=== PATIENT | female | born 1930 | race Caucasian/White ===

== ENCOUNTER 2018-08-01 17:51 | Inpatient (IN) | payer BC, OTHER ==
[2018-08-01 18:14] VITALS: BMI 24.5
--- NOTE | 2018-08-01 18:42 | PDOC ---
History of Present Illness - General Chief Complaint: Wound Stated Complaint: BED SORES Time Seen by Provider: 08/01/18 18:33 - History of Present Illness Initial Comments: 08/01/18 18:42 HTN, HLD, Alzheimer's Dementia who presents for evaluation of bed sores noted to R hip that have been chronic in nature. Patient has been taking cephalexin orally however has been refusing pills for the past 2 days with increased agitation. Patient was undergoing care at health system - instructed to return if symptoms continued or there were any problems. Family attempted to return patient to hospital via EMS however was brought here instead by ambulance. Family reports she had been walking until Friday. Has refused PO for the last 2 days. Family denies any other symptoms at this time. Past History - Past Medical History Allergies/Adverse Reactions: Allergies Allergy/AdvReac Type Severity Reaction Status Date / Time warfarin sodium AdvReac Verified 08/01/18 18:07 [From Coumadin] Home Medications: Ambulatory Orders Cephalexin [Keflex] 500 mg PO QID 08/01/18 Memantine HCl 2 mg PO BID 08/01/18 Sulfamethoxazole/Trimethoprim [Sulfamethoxazole-Tmp Ds Tablet] 1 each PO BID 03/11 COPD: No Dementia: Yes HTN: Yes Hypercholesterolemia: Yes - Surgical History Orthopedic Surgery: Yes (left knee replacemet 2006) - Suicide/Smoking/Psychosocial Hx Smoking Status: No Smoking History: Unknown if ever smoked Have you smoked in the past 12 months: No Number of Cigarettes Smoked Daily: 0 Cigars Per Day: 0 Information on smoking cessation initiated: No Hx Alcohol Use: No Drug/Substance Use Hx: No Substance Use Type: None Review of Systems - Review of Systems Comments:: 08/01/18 19:05 Unable to obtain further. *Physical Exam - Vital Signs Last Vital Signs Temp Pulse Resp BP Pulse Ox 97 F L 72 20 156/89 98 08/01/18 18:07 08/01/18 18:07 08/01/18 18:07 08/01/18 18:07 08/01/18 18:07 - Physical Exam Comments: 08/01/18 19:06 GENERAL: +Patient altered c/w advanced dementia. In no acute distress HEAD: No signs of trauma, normocephalic, atraumatic EYES: PERRLA, EOMI, sclera anicteric, conjunctiva clear ENT: Auricles normal inspection, hearing grossly normal, nares patent, oropharynx clear without exudates. Moist mucosa NECK: Normal ROM, supple, no lymphadenopathy, JVD, or masses LUNGS: No distress, speaks full sentences, clear to auscultation bilaterally HEART: Regular rate and rhythm, normal S1 and S2, no murmurs, rubs or gallops, peripheral pulses normal and equal bilaterally. ABDOMEN: +Distended. Soft, nontender, normoactive bowel sounds. No guarding, no rebound. No masses EXTREMITIES: +Approx. 4-5 cm diameter bed sore noted to R hip over bony prominence with mild surrounding erythema. Beginning of another bed sore noted to R lateral ankle bony prominence. Very beginnings of stage 1 ulcer noted to L hip bony prominence in same location. Otherwise normal range of motion, no edema. No clubbing or cyanosis. NEUROLOGICAL: +Unable to assess further. SKIN: +R sided skin breakdown as described. Moderate Sedation - Procedure Monitoring Vital Signs: Procedure Monitoring Vital Signs Temperature 97 F L 08/01/18 18:07 Pulse Rate 72 08/01/18 18:07 Respiratory Rate 20 08/01/18 18:07 Blood Pressure 156/89 08/01/18 18:07 O2 Sat by Pulse Oximetry (%) 98 08/01/18 18:07 ED Treatment Course - LABORATORY CBC & Chemistry Diagram: 08/01/18 19:34 08/01/18 20:45 Medical Decision Making - Medical Decision Making 08/01/18 18:41 Ms. Cartwright is an 88 yo female w/ pmh as described who presents for evaluation of bed sore and refusal to tolerate PO over the last several days. Discussed patient with covering provider for PCP (Dr. June) who supports history provided by patient family - PCP does not have admitting privileges at [facility] and is unable to assist in this manner. Patient ineligible for ER to ER transfer. Workup started for r/o bacteremia and patient placed on IV ABX. 08/01/18 21:52 Patient admitted to hospitalist for further care. *DC/Admit/Observation/Transfer Diagnosis at time of Disposition: Bed sore Qualifiers: Pressure injury location: unspecified location Pressure injury stage: unspecified pressure injury stage Qualified Code(s): L89.90 - Pressure ulcer of unspecified site, unspecified stage Failure to thrive Qualifiers: Failure to thrive age range: in adult Qualified Code(s): R62.7 - Adult failure to thrive Alzheimer disease Qualifiers: Alzheimer's disease onset: unspecified onset Dementia behavioral disturbance: with behavioral disturbance Qualified Code(s): G30.9 - Alzheimer's disease, unspecified - Discharge Dispostion Decision to Admit order: Yes - Referrals Referrals: Nadeem Barnes [Primary Care Provider] - - Patient Instructions - Post Discharge Activity
--- NOTE | 2018-08-01 19:03 | PDOC ---
Attending Attestation - Resident Resident Name: Joni Joyner - ED Attending Attestation I have performed the following: I have examined & evaluated the patient, The case was reviewed & discussed with the resident, I agree w/resident's findings & plan, Exceptions are as noted - HPI HPI: 08/01/18 19:08 The patient is a 88 year old female, with a significant PMH of HTN, HLD, Alzheimer's, and DVT who presents to the emergency department via EMS with a bed sore on her R hip, for 1 week that started after a bout with a GI virus that left her weaker and spending a fair amount of time bedbound. As per patient s daughter the patient went to the ED at [facility] last week and was given a course of abx, but pt refused to take it the past few days, and had not had anything PO the past 2 days. The patient daughters states the patient had a full work-up a week prior at [facility] including echo, ct head , dvt r/o of LUE and was dc with abx, and was instructed to return if the wound symptoms worsened or if for any other concerns. The patient denies chest pain, shortness of breath, headache and dizziness. Denies fever, chills, nausea, vomit, diarrhea and constipation. Denies dysuria, frequency, urgency and hematuria. Allergies: warfarin sodium PCP: Dr. Barnes ([facility]) Neurologist: Dr. Martinez - Physicial Exam PE: 08/01/18 19:02 GENERAL: The patient is awake, confused, babbeling HEAD: Normocephalic, atraumatic. EYES: extraocular movements intact, sclera anicteric, conjunctiva clear. ENT: Normal voice, Moist mucous membranes. NECK: Normal range of motion, supple LUNGS: Breath sounds equal, clear to auscultation bilaterally. No wheezes, no rhonchi, no rales. HEART: Regular rate and rhythm, normal S1 and S2 without murmur, rub or gallop. ABDOMEN: Soft, nontender, normoactive bowel sounds. No guarding, no rebound. . No CVA tenderness EXTREMITIES: Normal range of motion, NEUROLOGICAL: No facial assymetry, Normal speech, PSYCH: Normal mood, normal affect. SKIN: unstageable R hip decubitus ulcer (eschar over bony prominence, surrounding erythema), no fluctuance, slightly warm to touch, stage 1 decubitus ulcer on latearl mallelus of R hip - Medical Decision Making 08/01/18 19:06 +decubitus ulcer, unstageable, very minimal surrounding erythema without induration, warmth FTT will ck basic labs, cultures will likely need admission for abx, rehydration, PT eval and possible SAH as pt is currently nonambulatory pt family requesting to go to [facility]. 08/01/18 22:20 labs reviewed unremarkble Heart Score/ECG Review - ECG Impressions Comment:: 08/01/18 22:39 Twelve-lead EKG was performed and reviewed by me. There is normal sinus rhythm with a normal rate. rate of 76 LAVB 1st degree AV block abnormal R wave progression
[2018-08-01] MEDS ORDERED: LORazepam 2 MG/ML SDV VIAL ONE (19:50)
[2018-08-01 19:53] LABS: BASO % 0.4 % (0-2.0); EOS % 0.5 % (0-4.5); HEMATOCRIT 46.9 % (32.4-45.2); HEMOGLOBIN 15.9 GM/dL (10.7-15.3); LYMPH % 10.4 % (8-40); MCH 32.1 pg (25.7-33.7); MCHC 33.9 g/dl (32.0-36.0); MEAN CELL VOLUME 94.6 fl (80-96); MEAN PLT VOLUME 10.5 fl (7.5-11.1); MONO % 10.6 % (3.8-10.2); NEUT % 78.1 % (42.8-82.8); PLATELET COUNT 187 K/MM3 (134-434); RBC 4.96 M/mm3 (3.60-5.2); RDW 15.4 % (11.6-15.6); WHITE BLOOD COUNT 8.6 K/mm3 (4.0-10.0)
[2018-08-01] MEDS ORDERED: CEFTRIAXONE 1,000 MG in DEXTROSE 5%-WATER - 50 ML IVPB ONE (20:03)
[2018-08-01 20:39] LABS: URINE APPEARANCE CLOUDY; URINE BILIRUBIN NEGATIVE (<2.0 mg/dL); URINE COLOR YELLOW; URINE GLUCOSE (UA) NEGATIVE (NEGATIVE); URINE KETONE TRACE (NEGATIVE); URINE LEUK ESTERASE NEGATIVE (NEGATIVE); URINE NITRITE NEGATIVE (NEGATIVE); URINE PROTEIN NEGATIVE (NEGATIVE)
[2018-08-01] MEDS ORDERED: CEFTRIAXONE 1 GM/50 ML BAG ONE (21:06)
[2018-08-01 21:26] LABS: ALBUMIN 2.7 g/dl (3.4-5.0); ALK PHOS 71 U/L (45-117); ANION GAP 6 MMOL/L (8-16); BILIRUBIN,TOTAL 0.7 mg/dL (0.2-1); BLOOD UREA NITROGEN 11 mg/dL (7-18); CHLORIDE 104 mmol/L (98-107); CO2 30 mmol/L (21-32); CREATININE 0.6 mg/dL (0.55-1.3); GLUCOSE,RANDOM 129 mg/dL (74-106); POTASSIUM 3.9 mmol/L (3.5-5.1); SGOT/AST 27 U/L (15-37); SGPT/ALT 33 U/L (13-61); SODIUM 140 mmol/L (136-145); TOT PROT 5.4 g/dl (6.4-8.2)
--- NOTE | 2018-08-01 22:42 | HP ---
CHIEF COMPLAINT: R hip pressure ulcer PCP: Dr. Nadeem Barnes HISTORY OF PRESENT ILLNESS: 88F w/ pmhx of HTN, HLD, Alzheimer's dementia presented to the hospital for evaluation of R hip pressure ulcer as well as poor PO intake. Pt's family present at bedside to give history as pt is unable to verbally communicate due to dementia. Per family, pt was recently seen at [facility] about 1 week ago for evaluation of her R hip pressure ulcer. Multiple imaging studies were done that did not show any acute concern for inpatient admission so pt was subsequently discharged on Keflex 500 BID and Bactrim BID. Pressure ulcer began on the R hip, but due to pain, pt has been layin on the L side causing redness to the L hip. Since discharge from [facility] 1 week ago, pt had not been compliant with taking the antibiotics as she refuses to take pills. She was also seen by visiting home physician this past who told the family that pt's declining functional status may likely be due to progression of her dementia. At baseline, pt is usually unable to communicate. She is able to eat soft foods and walk with assistance, however with unstable gait. Since 2 days ago, she had been bedbound with poor PO intake causing concern from the family regarding pt's functional status. ER course was notable for: (1) Afebrile, WBC wnl, vitals stable (2) Ceftriaxone 1gm IV given, Ativan 0.5 mg IVP given for agitation (3) Recent Travel: Denies PAST MEDICAL HISTORY: HTN, HLD, Alzheimer's dementia PAST SURGICAL HISTORY: L knee replacement Hysterectomy Social History: Smoking: Denies Alcohol: Denies Drugs: Denies Family History: Sister- from colorectal cancer Allergies warfarin sodium [From Coumadin] Adverse Reaction (Verified 08/01/18 18:07) patient took med 20 yrs ago and stated she didnt like the way it made her feel. HOME MEDICATIONS: Home Medications Medication Instructions Recorded Cephalexin [Keflex] 500 mg PO QID 08/01/18 Memantine HCl 2 mg PO BID 08/01/18 Sulfamethoxazole/Trimethoprim 1 each PO BID 08/01/18 [Sulfamethoxazole-Tmp Ds Tablet] REVIEW OF SYSTEMS Unable to obtain as pt is unable to verbally communicate due to underlying dementia. PHYSICAL EXAMINATION Vital Signs - 24 hr 08/01/18 18:07 Temperature 97 F L Pulse Rate 72 Respiratory 20 Rate Blood Pressure 156/89 O2 Sat by Pulse 98 Oximetry (%) GENERAL: Moaning, in and out of sleep. Eyes closed when called by name. HEENT: AT/NC. Dry mucus membranes. LUNGS: CTA B/L. No wheezes/crackles heard. HEART: RRR. Normal S1, S2. No murmurs noted. ABDOMEN: Soft, mildly distended. Hypertympanic upon auscultation in all 4Q's. Tender to palpation. No visible masses or ecchymoses. MUSCULOSKELETAL: Normal range of motion at all joints. No bony deformities or tenderness. No CVA tenderness. UPPER EXTREMITIES: 2+ pulses, warm, well-perfused. No cyanosis. No clubbing. No peripheral edema. LOWER EXTREMITIES: 2+ dorsalis pulses, warm, well-perfused. No calf tenderness. No peripheral edema. NEUROLOGICAL: Unable to assess. SKIN: 2 inch in diameter pressure ulcer on R trochanteric region, with eschar noted, non-draining, erythematous and warm surrounding skin. Redness noted throughout L trochanteric region. Petechia noted on dorsum of b/l feet. Laboratory Results - last 24 hr 08/01/18 08/01/18 08/01/18 19:34 19:34 19:34 WBC 8.6 RBC 4.96 Hgb 15.9 H Hct 46.9 H MCV 94.6 MCH 32.1 MCHC 33.9 RDW 15.4 Plt Count 187 MPV 10.5 D Absolute Neuts (auto) 6.7 Neutrophils % 78.1 Lymphocytes % 10.4 D Monocytes % 10.6 H Eosinophils % 0.5 D Basophils % 0.4 Nucleated RBC % 0 Sodium Cancelled Potassium Cancelled Chloride Cancelled Carbon Dioxide Cancelled Anion Gap Cancelled BUN Cancelled Creatinine Cancelled Creat Clearance w eGFR Cancelled Random Glucose Cancelled Calcium Cancelled Total Bilirubin Cancelled AST Cancelled ALT Cancelled Alkaline Phosphatase Cancelled Total Protein Cancelled Albumin Cancelled Urine Color Yellow Urine Appearance Cloudy Urine pH 7.0 Ur Specific [place] 1.015 Urine Protein Negative Urine Glucose (UA) Negative Urine Ketones Trace H Urine Blood Negative Urine Nitrite Negative Urine Bilirubin Negative Urine Urobilinogen 2.0 H Ur Leukocyte Esterase Negative 08/01/18 20:45 WBC RBC Hgb Hct MCV MCH MCHC RDW Plt Count MPV Absolute Neuts (auto) Neutrophils % Lymphocytes % Monocytes % Eosinophils % Basophils % Nucleated RBC % Sodium 140 Potassium 3.9 Chloride 104 Carbon Dioxide 30 Anion Gap 6 L BUN 11 Creatinine 0.6 Creat Clearance w eGFR > 60 Random Glucose 129 H Calcium 9.0 Total Bilirubin 0.7 AST 27 ALT 33 Alkaline Phosphatase 71 Total Protein 5.4 L Albumin 2.7 L Urine Color Urine Appearance Urine pH Ur Specific [place] Urine Protein Urine Glucose (UA) Urine Ketones Urine Blood Urine Nitrite Urine Bilirubin Urine Urobilinogen Ur Leukocyte Esterase ASSESSMENT/PLAN: 88F w/ pmhx of HTN, HLD, Alzheimer's dementia presented to the hospital for evaluation of R hip pressure ulcer as well as poor PO intake. #R pressure wound ulcer -Pt was previously taking PO Keflex (started about 1 week ago); Ceftriaxone 1 gm given in ED today -Wound care consult (Dr. Delgado) -ESR/CRP, if high, will order triple bone scan to assess for possible infection in L knee hardware from knee replacement sx and give IV abx #Abdominal distension; Pt has abd tenderness on exam. -CTAP w/o contrast to r/o abd pathology/infection. Initial read ([facility]) noted large bowel obstruction vs. possible colonic ileus. -Surgery consulted, made aware. follow up recs. -NPO/LR @ 70 #Failure to Thrive; likely 2/2 progression of Alzheimer's dementia -Nutrition consult -PT -Swallow eval -Prealbumin ordered #Alzheimer's Dementia Cont home med: Memantine liquid formulation 5 mL AM/5 mL HS #HTN; Family states pt was taken off anti-hypertensive meds about a year ago due to stable BP by PCP #HLD; Family states pt was taken off chol meds about a year ago by PCP #Prophylaxis -Lovenox 40 SQ #FEN -LR @ 50 -recheck lytes in AM -Nutrition consult dispo -Pt's family requests DNR/DNI. Form to be filled out and signed. Visit type - Emergency Visit Emergency Visit: Yes ED Registration Date: 08/01/18 Care time: The patient presented to the Emergency Department on the above date and was hospitalized for further evaluation of their emergent condition. - New Patient This patient is new to me today: Yes Date on this admission: 08/02/18 - Critical Care Critical Care patient: No
[2018-08-01] MEDS ORDERED: LACTATED RINGERS SOLUTION 1,000 ML IV SCH ×2 (22:45→23:28)
--- NOTE | 2018-08-02 00:17 | PN ---
Teaching Attending Note Name of Resident: Kym Carbajal ATTENDING PHYSICIAN STATEMENT I saw and evaluated the patient. I reviewed the resident's note and discussed the case with the resident. I agree with the resident's findings and plan as documented. SUBJECTIVE: Seen and examined; please refer to resident documentation for further historical information. Briefly, this is a 88 y/o female with a PMH as documented who presents to the Er from home. She has multiple complaints; the primary concern is a bed sore on her R-hip that has been worsening for the past week. She has been mostly bedbound, not eating, and barely ambulating since her DC from [facility] about 1 week ago. Since then she has been somewhat agitated (which has happened in the past with her Alzheimer's), and with the aforementioned presentation. She has not been eating well or drinking though she did regain some lucidity in terms of communicativeness on . She is sedated when we saw her as she was given ativan but she indicates abdominal pain (generalized) and her belly is distended and tympanic. She has been on keflex for the bed sore but has not been taking it. She cannot provide a history due to her dementia as well as having just recieved ativan. 10 sys ROS done and negative aside from HPI PMH, PSH, Social, and Family hx reviewed Medication reconciliaiton pending OBJECTIVE: VS, labs, imaging reviewed NAD, lethargic 2/2 ativan but proteting airway, etc., resting comfortably in bed RRR s1/2 no mgr Lungs CTAB, w/ sym exp Tender to palpation, distended, no guarding, minimal BS R-hip with unstagable decub 4x3 with central eschar, irregularly shaped. No drainage, no matt cellulitis CT abdomen shows large bowel obstruction vs. colonic ileus CXR reviewed; no matt acute findings Prior records pending Labs without leukocytosis; ESR and CRP pending ASSESSMENT AND PLAN: Patient presents with a bed sore and large bowel obstruction; consulting wound care and surgery. Checking ESR/CRP; if elevated will start empiric tx and obtain bone scan to r/o any osteomyelitis. 1) Decubitus Ulcer, unstagable, r/o osteomyelitis 2) Large Bowel obstruction vs. colonic ileus 3) Dementia with agitation 4) Alzheimer's (on memantine) 5) HTN (off meds) 6) HLD (off meds) 7) Failure to thrive Overall, the plan regarding the decubitus is to consult wound care and to check ESR/CRP. If these are elevated we will obtain bone scan to r/o osteomyelitis as the ulcer was unstagable. Defer wound care recs to their service. If these are elevated we will begin empiric abx; though the area is inflamed due to it being a bedsore and her lying on it nearly 24/7, it does not appear frankly infected. In terms of the large bowel obstruction, the overall plan is to monitor the patient for BM, keep NPO, gently hydrate, consult surgery. May be colonic ileus. No s/s perf/sepsis. Monitor and deferring further management to sgy. In terms of the failure to thrive and dementia, we will continue her memantine and consult nutrition. Checking prealbumin. Confirmed with HCP that she is DNR/I
[2018-08-02] MEDS ORDERED: LACTATED RINGERS SOLUTION 1,000 ML IV SCH (01:53)
[2018-08-02] MEDS ORDERED: morphine CARPU-JECT 2 MG/1 ML DISP.SYRIN IVPUSH ONE (02:06)
[2018-08-02] MEDS ORDERED: MORPHINE SULFATE 2 MG/ML VIAL ONE (02:16)
[2018-08-02 06:12] LABS: PREALBUMIN 13.2 mg/dl (20-40)
[2018-08-02 09:13] LABS: ALBUMIN 2.5 g/dl (3.4-5.0); ALK PHOS 74 U/L (45-117); ANION GAP 4 MMOL/L (8-16); BASO % 0.4 % (0-2.0); BILIRUBIN,TOTAL 0.7 mg/dL (0.2-1); BLOOD UREA NITROGEN 12 mg/dL (7-18); CALCIUM 8.5 mg/dL (8.5-10.1); CHLORIDE 104 mmol/L (98-107); CO2 31 mmol/L (21-32); CREATININE 0.5 mg/dL (0.55-1.3); EOS % 0.5 % (0-4.5); GLUCOSE,RANDOM 101 mg/dL (74-106); HEMATOCRIT 46.2 % (32.4-45.2); HEMOGLOBIN 15.6 GM/dL (10.7-15.3); LYMPH % 8.8 % (8-40); MCH 31.6 pg (25.7-33.7); MCHC 33.7 g/dl (32.0-36.0); MEAN CELL VOLUME 93.6 fl (80-96); MEAN PLT VOLUME 10.4 fl (7.5-11.1); MONO % 11.1 % (3.8-10.2); NEUT % 79.2 % (42.8-82.8); PLATELET COUNT 157 K/MM3 (134-434); POTASSIUM 4.2 mmol/L (3.5-5.1); PREALBUMIN 12.6 mg/dl (20-40); RBC 4.94 M/mm3 (3.60-5.2); RDW 15.5 % (11.6-15.6); SGOT/AST 27 U/L (15-37); SGPT/ALT 31 U/L (13-61); SODIUM 138 mmol/L (136-145); TOT PROT 5.2 g/dl (6.4-8.2); WHITE BLOOD COUNT 9.5 K/mm3 (4.0-10.0)
--- NOTE | 2018-08-02 09:27 | EKG ---
Test Reason : Blood Pressure : / mmHG Vent. Rate : 076 BPM Atrial Rate : 076 BPM P-R Int : 296 ms QRS Dur : 088 ms QT Int : 382 ms P-R-T Axes : 043 -57 -64 degrees QTc Int : 429 ms SINUS RHYTHM WITH 1ST DEGREE A-V BLOCK LEFT ANTERIOR FASCICULAR BLOCK MODERATE VOLTAGE CRITERIA FOR LVH, MAY BE NORMAL VARIANT CANNOT RULE OUT SEPTAL INFARCT , AGE UNDETERMINED ABNORMAL ECG Confirmed by Fede Real MD ([id number]) on 08/02/2018 9:27:21 AM Referred By: Confirmed By:Fede Real MD
[2018-08-02] MEDS: MEMANTINE HCL 5 MG TABLET (UD) PO SCH ×2 (11:08→23:42)
[2018-08-02] MEDS: ENOXAPARIN NA (PORCINE) 40 MG/0.4 ML DISP.SYRIN SQ SCH (11:08)
[2018-08-02] MEDS ORDERED: BISACODYL 10 MG SUPP.RECT RC ONE ×2 (12:59→14:02)
[2018-08-02] MEDS ORDERED: LACTULOSE 20 GM/30 ML UDC (FOR ORAL USE ONLY) PO ONE ×2 (12:59→18:00)
--- NOTE | 2018-08-02 13:10 | PN ---
Progress Note (short form) - Note Progress Note: Subjective: unable to obtain any hx due to dementia. No events per RN. No BMs in ER Objective: Vital Signs: Last Vital Signs Temp Pulse Resp BP Pulse Ox 98.0 F 82 18 159/81 97 08/02/18 10:57 08/02/18 10:57 08/02/18 10:57 08/02/18 10:57 08/02/18 10:57 Laboratory Results - last 24 hr 08/01/18 08/01/18 08/01/18 19:34 19:34 19:34 WBC 8.6 RBC 4.96 Hgb 15.9 H Hct 46.9 H MCV 94.6 MCH 32.1 MCHC 33.9 RDW 15.4 Plt Count 187 MPV 10.5 D Absolute Neuts (auto) 6.7 Neutrophils % 78.1 Lymphocytes % 10.4 D Monocytes % 10.6 H Eosinophils % 0.5 D Basophils % 0.4 Nucleated RBC % 0 ESR Sodium Cancelled Potassium Cancelled Chloride Cancelled Carbon Dioxide Cancelled Anion Gap Cancelled BUN Cancelled Creatinine Cancelled Creat Clearance w eGFR Cancelled Random Glucose Cancelled Lactic Acid Calcium Cancelled Total Bilirubin Cancelled AST Cancelled ALT Cancelled Alkaline Phosphatase Cancelled C-Reactive Protein Total Protein Cancelled Albumin Cancelled Prealbumin Urine Color Yellow Urine Appearance Cloudy Urine pH 7.0 Ur Specific [place] 1.015 Urine Protein Negative Urine Glucose (UA) Negative Urine Ketones Trace H Urine Blood Negative Urine Nitrite Negative Urine Bilirubin Negative Urine Urobilinogen 2.0 H Ur Leukocyte Esterase Negative 08/01/18 08/02/18 08/02/18 20:45 08:20 08:20 WBC RBC Hgb Hct MCV MCH MCHC RDW Plt Count MPV Absolute Neuts (auto) Neutrophils % Lymphocytes % Monocytes % Eosinophils % Basophils % Nucleated RBC % ESR Cancelled Sodium 140 Potassium 3.9 Chloride 104 Carbon Dioxide 30 Anion Gap 6 L BUN 11 Creatinine 0.6 Creat Clearance w eGFR > 60 Random Glucose 129 H Lactic Acid Calcium 9.0 Total Bilirubin 0.7 AST 27 ALT 33 Alkaline Phosphatase 71 C-Reactive Protein 0.9 H Total Protein 5.4 L Albumin 2.7 L Prealbumin 13.2 L Cancelled Urine Color Urine Appearance Urine pH Ur Specific [place] Urine Protein Urine Glucose (UA) Urine Ketones Urine Blood Urine Nitrite Urine Bilirubin Urine Urobilinogen Ur Leukocyte Esterase 08/02/18 08/02/18 08/02/18 08:20 08:20 10:31 WBC 9.5 RBC 4.94 Hgb 15.6 H Hct 46.2 H MCV 93.6 MCH 31.6 MCHC 33.7 RDW 15.5 Plt Count 157 MPV 10.4 Absolute Neuts (auto) 7.5 Neutrophils % 79.2 Lymphocytes % 8.8 Monocytes % 11.1 H Eosinophils % 0.5 Basophils % 0.4 Nucleated RBC % 0 ESR Sodium 138 Potassium 4.2 Chloride 104 Carbon Dioxide 31 Anion Gap 4 L BUN 12 Creatinine 0.5 L Creat Clearance w eGFR > 60 Random Glucose 101 Lactic Acid 1.3 Calcium 8.5 Total Bilirubin 0.7 AST 27 ALT 31 Alkaline Phosphatase 74 C-Reactive Protein 1.6 H Total Protein 5.2 L Albumin 2.5 L Prealbumin 12.6 L Urine Color Urine Appearance Urine pH Ur Specific [place] Urine Protein Urine Glucose (UA) Urine Ketones Urine Blood Urine Nitrite Urine Bilirubin Urine Urobilinogen Ur Leukocyte Esterase 08/02/18 10:31 WBC RBC Hgb Hct MCV MCH MCHC RDW Plt Count MPV Absolute Neuts (auto) Neutrophils % Lymphocytes % Monocytes % Eosinophils % Basophils % Nucleated RBC % ESR 2 Sodium Potassium Chloride Carbon Dioxide Anion Gap BUN Creatinine Creat Clearance w eGFR Random Glucose Lactic Acid Calcium Total Bilirubin AST ALT Alkaline Phosphatase C-Reactive Protein Total Protein Albumin Prealbumin Urine Color Urine Appearance Urine pH Ur Specific [place] Urine Protein Urine Glucose (UA) Urine Ketones Urine Blood Urine Nitrite Urine Bilirubin Urine Urobilinogen Ur Leukocyte Esterase Imaging: CT scan image and prelim report reviewed. Physical Exam: NAd , awake, alert, not cooperative , mumbles dry MM. No facial droop. CV: RRR, no MRG Lungs: CTAB Abd: distended, tympanic , tender in all quadrants , absent BS. Skin: R posterior hisp unstagable ulcer ,about 5x5 cm , and eschar in middle with slightl surrounding erythema, no increased warmth Rectal: external hemorrhoids. rectal vault with liquid stool. No masses or hard stool felt. after withdrawing examiner's finger , liquid green stool came out of rectum. Assessment/Plan: Unfortunate 88 y/o lady with h/o Dementia, HTN, HLp, who comes form home with poor po intake, and for evaluation of R posterior hip. She was found to have constipation with severe colonic distention . 1- Large bowel obstruction: due to fecal impaction. CT image and prelim report reviewed, severe silation of colon. No lactic acid elevation or signs of perforation or fever/leukcocytosis. Rectal exam with lliquid stool in vault and stool mass could not be reached for manual disimpaction. - start with supppositories, miralax and lactulose - awaiting surgical eval. - if safe by surgery, can give enemas - IVF . - NPO except for meds 2- Volume depletion : due to poor po intake - change IVF to D5 1/ NS - follow HB and BUN/cr 3- R posterior decub : doubt any infection to ulcer, but will ask Dr. Chen advise. CRP noted. will obtain records from [facility] tomorrow , regarding imaging and management hold off any Abx 4- H/o HTN: was taken off her BP meds a year ago. monitor 5- DVT PX Visit type - Emergency Visit Emergency Visit: Yes ED Registration Date: 08/01/18 Care time: The patient presented to the Emergency Department on the above date and was hospitalized for further evaluation of their emergent condition. - New Patient This patient is new to me today: Yes Date on this admission: 08/02/18 - Critical Care Critical Care patient: No
[2018-08-02] MEDS ORDERED: LACTULOSE 20 GM/30 ML UDC (FOR ORAL USE ONLY) ONE (14:02)
[2018-08-02] MEDS: DEXTROSE 5%-0.45% SALINE 1,000 ML IV SCH (14:08)
--- NOTE | 2018-08-02 14:09 | CON.ID ---
Consult Consult Specialty:: infectious diseases Referred by:: Reason for Consultation:: r/o rt hip infection - History of Present Illness History of Present Illness: patient unable to give history because of dementia history obtained from the charts 88F w/ pmhx of HTN, HLD, Alzheimer's dementia presented to the hospital for evaluation of R hip pressure ulcer as well as poor PO intake. pt was recently seen at [facility] about 1 week ago for evaluation of her R hip pressure ulcer. Multiple imaging studies were done that did not show any acute concern for inpatient admission so pt was subsequently discharged on Keflex 500 BID and Bactrim BID. Pressure ulcer began on the R hip, but due to pain, pt has been layin on the L side causing redness to the L hip. Since discharge from [facility] 1 week ago, pt had not been compliant with taking the antibiotics as she refuses to take pills. She was also seen by visiting home physician this past who told the family that pt's declining functional status may likely be due to progression of her dementia. At baseline, pt is usually unable to communicate. - History Source History Provided By: Medical Record Limitations to Obtaining History: Clinical Condition - Alcohol/Substance Use Hx Alcohol Use: No - Smoking History Smoking history: Unknown if ever smoked Have you smoked in the past 12 months: No Aproximately how many cigarettes per day: 0 Home Medications - Allergies Allergies/Adverse Reactions: Allergies Allergy/AdvReac Type Severity Reaction Status Date / Time warfarin sodium AdvReac Verified 08/01/18 18:07 [From Coumadin] - Home Medications Home Medications: Ambulatory Orders Cephalexin [Keflex] 500 mg PO QID 08/01/18 Memantine HCl 5 mg PO BID 08/01/18 Sulfamethoxazole/Trimethoprim [Sulfamethoxazole-Tmp Ds Tablet] 1 each PO BID 03/11 Aspirin [Adult Aspirin] 81 mg PO DAILY 08/02/18 Loperamide HCl Liquid [Imodium Liquid -] 1 mg PO DAILY 08/02/18 Saccharomyces Boulardii [Florastor] 250 mg PO DAILY 08/02/18 Review of Systems Unable to obtain ROS, reason: unable to obtain Physical Exam Vital Signs: Vital Signs Temperature 98.0 F 08/02/18 10:57 Pulse Rate 82 08/02/18 10:57 Respiratory Rate 18 02/10/19 10:57 Blood Pressure 159/81 02/10/19 10:57 O2 Sat by Pulse Oximetry (%) 97 08/02/18 10:57 Constitutional: Yes: Moderate Distress, Thin Eyes: Yes: Conjunctiva Clear Cardiovascular: Yes: Regular Rate and Rhythm Respiratory: Yes: Regular, CTA Bilaterally Gastrointestinal: Yes: Soft, Hypoactive Bowel Sounds Musculoskeletal: Yes: WNL Extremities: Yes: Erythema (around the rt hip wound), Other Wound/Incision: Yes: Other ( pressure ulcer on R trochanteric region, with eschar noted, non-draining, erythematous and warm) Neurological: Yes: Alert, Other (dementia) Psychiatric: Yes: Alert, Other Labs: CBC, BMP 08/02/18 08:20 08/02/18 08:20 Imaging - Results Chest X-ray: Report Reviewed, Image Reviewed Cat Scan: Report Reviewed (awaited), Image Reviewed Assessment/Plan this patient who has dementia who is in the hospital coming to the hospital with dehydration and weakness and with a wound and eschar on the rt hip patient has completed the abx on that course thin rt hip wound dehydration intestinal obstruction htn plan surgery to see the patient will not start any abx wound care this is a type of non stageable wound--treated with abx avoid pressure on the same
[2018-08-02] MEDS: POLYETHYLENE GLYCOL 3350 119 GM BTL PO SCH ×2 (15:13→23:41)
[2018-08-02] MEDS ORDERED: PNEUMOC 13-VAL CONJ-DIP CRM/PF 0.5 ML DISP.SYRIN IM ONE (19:01)
[2018-08-02] MEDS ORDERED: FLU VACCINE QUAD 60 MCG/0.5 ML (MDV 18-19) IM ONE (19:01)
--- NOTE | 2018-08-02 21:12 | CONSULT ---
- Consultation REQUESTING PROVIDER: Raven BECKMAN CONSULT REQUEST: We have been asked to surgically evaluate this patient for abdominal distention. PCP:Jose Hobbs HISTORY OF PRESENT ILLNESS: Abdominal distention and absent bowel movements and gas a/t the chart; patient is non communicative. PMHx: ? PSHx: ? Home Medications Medication Instructions Recorded Cephalexin [Keflex] 500 mg PO QID 08/01/18 Memantine HCl 5 mg PO BID 08/01/18 Sulfamethoxazole/Trimethoprim 1 each PO BID 08/01/18 [Sulfamethoxazole-Tmp Ds Tablet] Aspirin [Adult Aspirin] 81 mg PO DAILY 08/02/18 Loperamide HCl Liquid [Imodium 1 mg PO DAILY 08/02/18 Liquid -] Saccharomyces Boulardii [Florastor] 250 mg PO DAILY 08/02/18 Allergies Allergy/AdvReac Type Severity Reaction Status Date / Time warfarin sodium AdvReac Verified 08/01/18 18:07 [From Coumadin] REVIEW OF SYSTEMS: unobtainable PHYSICAL EXAM: GENERAL: Awake, alert, and confused, in no acute distress. HEAD: Normal with no signs of trauma. EYES: PERRL, sclera anicteric, conjunctiva clear. NECK: Normal ROM, supple without lymphadenopathy, JVD, or masses. ABDOMEN: Soft, nontender, markedly distended, scarce bowel sounds, no guarding, no rebound, no masses. No organomegaly. No hernias MUSCULOSKELETAL: Normal ROM at all joints. No bony deformities or tenderness. No CVA tenderness. UPPER EXTREMITIES: 2+ pulses, warm, well-perfused. No cyanosis. Cap refill <2 seconds. No peripheral edema. LOWER EXTREMITIES: 2+ pulses, warm, well-perfused. No calf tenderness. No peripheral edema. NEUROLOGICAL: Abnormal speech, gait not observed. SKIN: Warm, dry, normal turgor, no rashes or lesions noted. Vital Signs Temperature 97.9 F 08/02/18 18:46 Pulse Rate 94 H 08/02/18 18:46 Respiratory Rate 22 H 08/02/18 18:46 Blood Pressure 149/58 L 08/02/18 18:46 O2 Sat by Pulse Oximetry (%) 95 08/02/18 15:00 Lab Results WBC 9.5 K/mm3 (4.0-10.0) 08/02/18 08:20 RBC 4.94 M/mm3 (3.60-5.2) 08/02/18 08:20 Hgb 15.6 GM/dL (10.7-15.3) H 08/02/18 08:20 Hct 46.2 % (32.4-45.2) H 08/02/18 08:20 MCV 93.6 fl (80-96) 08/02/18 08:20 MCHC 33.7 g/dl (32.0-36.0) 08/02/18 08:20 RDW 15.5 % (11.6-15.6) 08/02/18 08:20 Plt Count 157 K/MM3 (134-434) 08/02/18 08:20 Sodium 138 mmol/L (136-145) 08/02/18 08:20 Potassium 4.2 mmol/L (3.5-5.1) 08/02/18 08:20 Chloride 104 mmol/L (98-107) 08/02/18 08:20 Carbon Dioxide 31 mmol/L (21-32) 08/02/18 08:20 Anion Gap 4 MMOL/L (8-16) L 08/02/18 08:20 BUN 12 mg/dL (7-18) 08/02/18 08:20 Creatinine 0.5 mg/dL (0.55-1.3) L 08/02/18 08:20 Random Glucose 101 mg/dL (74-106) 08/02/18 08:20 Calcium 8.5 mg/dL (8.5-10.1) 08/02/18 08:20 Ct reviewed IMP: fecal impaction; Ogilvies syndrome PLAN: NPO/IVF/manual disimpaction/cathartics/laxatives/stimulants. Calvin Parish MD FACS
[2018-08-03] MEDS ORDERED: FLU VACCINE QUAD 60 MCG/0.5 ML (MDV 18-19) IM ONE (05:15)
[2018-08-03] MEDS: POLYETHYLENE GLYCOL 3350 119 GM BTL PO SCH ×4 (06:40→22:31)
[2018-08-03] MEDS ORDERED: hydrALAZINE HCL 10 MG TABLET PO ONE (09:15)
[2018-08-03] MEDS: MEMANTINE HCL 5 MG TABLET (UD) PO SCH ×2 (09:18→22:31)
[2018-08-03] MEDS: ENOXAPARIN NA (PORCINE) 40 MG/0.4 ML DISP.SYRIN SQ SCH (09:18)
[2018-08-03 10:02] LABS: BASO % 0.4 % (0-2.0); EOS % 0.3 % (0-4.5); HEMATOCRIT 46.4 % (32.4-45.2); HEMOGLOBIN 15.4 GM/dL (10.7-15.3); LYMPH % 6.8 % (8-40); MCH 31.2 pg (25.7-33.7); MCHC 33.2 g/dl (32.0-36.0); MEAN CELL VOLUME 93.9 fl (80-96); MEAN PLT VOLUME 10.4 fl (7.5-11.1); MONO % 11.8 % (3.8-10.2); NEUT % 80.7 % (42.8-82.8); PLATELET COUNT 179 K/MM3 (134-434); RBC 4.94 M/mm3 (3.60-5.2); RDW 15.3 % (11.6-15.6); WHITE BLOOD COUNT 8.9 K/mm3 (4.0-10.0)
[2018-08-03 10:22] LABS: ANION GAP 6 MMOL/L (8-16); BLOOD UREA NITROGEN 15 mg/dL (7-18); CALCIUM 8.7 mg/dL (8.5-10.1); CHLORIDE 104 mmol/L (98-107); CO2 27 mmol/L (21-32); CREATININE 0.5 mg/dL (0.55-1.3); GLUCOSE,RANDOM 129 mg/dL (74-106); MAGNESIUM 2.5 mg/dL (1.8-2.4); PHOSPHOROUS 3.1 mg/dL (2.5-4.9); POTASSIUM 3.8 mmol/L (3.5-5.1); SODIUM 138 mmol/L (136-145)
[2018-08-03] MEDS ORDERED: BISACODYL 10 MG SUPP.RECT RC PRN (11:43)
[2018-08-03] MEDS ORDERED: BISACODYL 5 MG TABLET.DR (FP) PO ONE (12:15)
--- NOTE | 2018-08-03 13:01 | PN ---
Progress Note, Physician History of Present Illness: patient looks much more awake and alert talking well - Current Medication List Current Medications: Active Medications Amlodipine Besylate (Norvasc -) 2.5 mg PO DAILY [facility] Bisacodyl (Dulcolax Suppository -) 10 mg RC DAILY PRN PRN Reason: CONSTIPATION Enoxaparin Sodium (Lovenox -) 40 mg SQ DAILY [facility] Last Admin: 08/03/18 09:18 Dose: 40 mg Dextrose/Sodium Chloride (D5-1/2ns -) 1,000 mls @ 75 mls/hr IV ASDIR [facility] Last Admin: 08/02/18 14:08 Dose: 75 mls/hr Memantine (Namenda -) 5 mg PO BID [facility] Last Admin: 08/03/18 09:18 Dose: 5 mg Polyethylene Glycol (Miralax (For Daily Use) -) 17 gm PO TID [facility] Last Admin: 08/03/18 06:40 Dose: Not Given - Objective Vital Signs: Vital Signs Temperature 97.4 F L 08/03/18 09:00 Pulse Rate 87 08/03/18 11:00 Respiratory Rate 20 08/03/18 09:00 Blood Pressure 142/95 08/03/18 11:00 O2 Sat by Pulse Oximetry (%) 94 L 08/03/18 09:00 Constitutional: Yes: No Distress, Calm Cardiovascular: Yes: Regular Rate and Rhythm Respiratory: Yes: Regular, CTA Bilaterally Gastrointestinal: Yes: Soft, Hypoactive Bowel Sounds Musculoskeletal: Yes: WNL Extremities: Yes: Other Wound/Incision: Yes: Dressing Dry and Intact Neurological: Yes: Alert, Other Psychiatric: Yes: Alert Labs: CBC, BMP 08/03/18 09:30 08/03/18 09:30 Assessment/Plan thin rt hip wound dehydration intestinal obstruction htn plan continue to monitor wound care rest as per the team
[2018-08-03] MEDS: LACTULOSE 20 GM/30 ML UDC (FOR ORAL USE ONLY) PO ONE ×2 (13:17→13:24)
[2018-08-03] MEDS: DEXTROSE 5%-0.45% SALINE 1,000 ML IV SCH (13:18)
[2018-08-03] MEDS ORDERED: ACETAMINOPHEN 1000 MG/100 ML VIAL (NON FORMULARY) IVPB ONE (13:30)
[2018-08-03] MEDS ORDERED: HALOPERIDOL LACTATE 5 MG/ML IM ONE ×2 (13:45→13:52)
--- NOTE | 2018-08-03 13:51 | PN ---
Physical Exam: SUBJECTIVE: Patient seen and examined at bedside. Endorses abdominal pain when asked. OBJECTIVE: Vital Signs Period Temp Pulse Resp BP Sys/Turcios Pulse Ox Last 24 Hr 97.4 F-98.2 F 84-98 16-22 135-180/58-95 94-95 GENERAL: Awake, NAD EYES: Extraocular movements intact, sclera anicteric, conjunctiva clear. LUNGS: CTAB HEART: RRR S1S2 ABDOMEN: Distended, Tympanic, facial grimacing to deep palpation EXTREMITIES: No CCE SKIN: Right Hip Ulcer w/ necrotic eschar. No discharge or odor appreciated upon examination. Laboratory Results - last 24 hr 08/03/18 08/03/18 09:30 09:30 WBC 8.9 RBC 4.94 Hgb 15.4 H Hct 46.4 H MCV 93.9 MCH 31.2 MCHC 33.2 RDW 15.3 Plt Count 179 MPV 10.4 Absolute Neuts (auto) 7.2 Neutrophils % 80.7 Lymphocytes % 6.8 L D Monocytes % 11.8 H Eosinophils % 0.3 Basophils % 0.4 Nucleated RBC % 0 Sodium 138 Potassium 3.8 Chloride 104 Carbon Dioxide 27 Anion Gap 6 L BUN 15 Creatinine 0.5 L Creat Clearance w eGFR > 60 Random Glucose 129 H Calcium 8.7 Phosphorus 3.1 Magnesium 2.5 H Active Medications Generic Name Dose Route Start Last Admin Trade Name Freq PRN Reason Stop Dose Admin Amlodipine Besylate 2.5 mg 08/04/18 10:00 Norvasc - PO DAILY [facility] Bisacodyl 10 mg 08/03/18 11:43 Dulcolax Suppository - RC DAILY PRN CONSTIPATION Enoxaparin Sodium 40 mg 08/02/18 10:00 08/03/18 09:18 Lovenox - SQ 40 mg DAILY [facility] Administration Dextrose/Sodium Chloride 1,000 mls @ 75 mls/hr 08/02/18 13:15 08/03/18 13:18 D5-1/2ns - IV Not Given ASDIR [facility] Memantine 5 mg 08/02/18 10:00 08/03/18 09:18 Namenda - PO 5 mg BID [facility] Administration Polyethylene Glycol 17 gm 08/02/18 14:00 08/03/18 13:24 Miralax (For Daily Use) - PO Not Given TID [facility] ASSESSMENT/PLAN: 88F w/ pmhx of HTN, HLD, Alzheimer's dementia presented to the hospital for evaluation of R hip pressure ulcer as well as poor PO intake. #R pressure wound ulcer -No White count, or temperature -Ulcer does not appear to be infected -Continue to assess daily #Abdominal distension; Pt has abd tenderness on exam. 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 Manually disimpacted today by myself along with RN (Lexi). Large amount of watery stool and gas expelled from rectum. Distension visibly better. - senna, colace, and miralax : all standing - lactulose and dulcolax refused by pt today per RN #Alzheimer's Dementia Memantine 5 MG PO BID #HTN- Norvasc 2.5 PO Daily #HLD; Family states pt was taken off chol meds about a year ago by PCP #Prophylaxis -Lovenox 40 SQ #FEN -D5-1/2ns @ 75 cc/hr -recheck lytes in AM -Nutrition consult #Dispo -Pt's family requests DNR/DNI. Form to be filled out and signed. Nya palliative RN on board Visit type - Emergency Visit Emergency Visit: Yes ED Registration Date: 08/01/18 Care time: The patient presented to the Emergency Department on the above date and was hospitalized for further evaluation of their emergent condition. - New Patient This patient is new to me today: Yes Date on this admission: 08/03/18 - Critical Care Critical Care patient: No - Discharge Referral Referred to [facility] Med P.C.: No
--- NOTE | 2018-08-03 15:01 | CONSULT ---
Admitting History and Physical - Primary Care Physician PCP: Jose Hobbs - Admission History of Present Illness: 88 y/o lady with h/o Dementia, HTN, HLp, who comes form home with poor po intake, and for evaluation of R posterior hip. She was found to have constipation with severe colonic distention . Per surgeon: fecal impaction; Ogilvies syndrome PLAN: NPO/IVF/manual disimpaction/cathartics/laxatives/stimulants. pt is very confused and refuses to take meds. pt pushes away staff's hands when administering meds History Source: Medical Record Limitations to Obtaining History: Clinical Condition, Dementia, Language Barrier - Smoking History Smoking history: Unknown if ever smoked Have you smoked in the past 12 months: No Aproximately how many cigarettes per day: 0 - Alcohol/Substance Use Hx Alcohol Use: No History - Admission Reason For Visit: ALZHEIMER DISEASE;FAILURE TO THRIVE;PRESSURE INJUR - Diagnostics X-ray: Report Reviewed - General Mental Status: Awake and Alert, Confused Attention: Moderate Impairment Head/Neck Control: Good - Hearing Hearing: Normal Hearing Aide: No With Patient: No Speech Evaluation - Communication Primary Language: SYRIAC - Speech Production Intelligibility: Yes: WNL - Speech Characteristics Voice Loudness: Normal Voice Pitch: Yes: Normal Voice Phonatory-based Quality: Yes: Normal Speech Pattern: Normal Speech Clarity: < 100% Nasal Resonance: Normal Articulation: Yes: Precise - Language/Verbal Expression Able to Respond to Simple Queries: Yes: WNL Able to Communicate Wants and Needs: Yes: WNL Functional Communication Status: Yes: WNL - Swallow Evaluation/Bedside Assessment Current Nutritional Intake: NPO, Other (meds) Oral Secretions: Yes: WFL Dentition: Yes: Adequate Facial Symmetry at Rest: Symmetrical Facial Symmetry on Retraction: Symmetrical Against Resistance Opening: Normal Against Resistance Closing: Normal Pucker Lips: Normal Smile: Normal Lingual Movement: Normal, Symmetric Lingual Movement Strgth Against Opposition: Normal Lingual Movement Characteristics: Normal Velopharyngeal Movement: Normal Laryngeal Movement: Able to Palpate Bolus Size: Small Labial Seal: WFL Oral Prep Time: WFL A-P Transit: WFL Timing of Swallow: Delayed Coughing/Throat Clear: No Change in Voice: No Recommendations - Speech Evaluation, Impression/Plan Impression: Confused. Speech Production WNL. Spits out po trials forcefully without difficulty. Swallow reflex seems brisk. Refusing PO intake. Impacted - Dysphagia Impressions/Plan *Silent aspiration: cannot be R/O at bedside Recommendations: Other (PO trials once approved by surgeon.)
--- NOTE | 2018-08-03 15:50 | PN ---
Teaching Attending Note Name of Resident: Delvis Juarez ATTENDING PHYSICIAN STATEMENT I saw and evaluated the patient. I reviewed the resident's note and discussed the case with the resident. I agree with the resident's findings and plan as documented. SUBJECTIVE: Unable to obtain hx. was agitated over night. answers yes to painin her abd OBJECTIVE: NAd , awake, alert, not cooperative CV: RRR, no MRG Lungs: CTAB Abd: distended, tympanic , tender in all quadrants , absent BS. Skin: R posterior hip unstagable ulcer was not examined today . Assessment/Plan: Unfortunate 88 y/o lady with h/o Dementia, HTN, HLp, who comes form home with poor po intake, and for evaluation of R posterior hip. She was found to have constipation with severe colonic distention . 1- Large bowel obstruction: due to fecal impaction. - Cont aggressive bowel regimen. had 1 large BM today - senna, colace, and miralax : all standing - give lactulose and dulcolax today - avoid enemas if possible. - if hard stool descend , will do manual disimpaction - appreciate sx input. 2- Volume depletion: due to poor po intake - cont IVF 3- R posterior decub : Not infected. No abx 4- H/o HTN: very elevated . urgency. start low dose norvasc. gave hydralazine in am 5- Haldol for agitation, if needed 6- DVT PX
[2018-08-03 17:14] LABS: URINE APPEARANCE SLCLOUDY; URINE BILIRUBIN NEGATIVE (<2.0 mg/dL); URINE COLOR AMBER; URINE GLUCOSE (UA) NEGATIVE (NEGATIVE); URINE KETONE NEGATIVE (NEGATIVE); URINE LEUK ESTERASE NEGATIVE (NEGATIVE); URINE NITRITE NEGATIVE (NEGATIVE); URINE PROTEIN 1+ (NEGATIVE)
[2018-08-03 17:17] LABS: URINE MUCUS MANY
[2018-08-03] MEDS: DOCUSATE NA 100 MG/10 ML UNIT-DOSE CUPS PO SCH (18:15)
[2018-08-03] MEDS: SENNOSIDES 8.8 MG/5 ML BULK BOTTLE PO SCH (22:31)
[2018-08-04] MEDS: POLYETHYLENE GLYCOL 3350 119 GM BTL PO SCH ×3 (05:01→22:33)
[2018-08-04 07:23] LABS: HEMATOCRIT 44.3 % (32.4-45.2); HEMOGLOBIN 14.8 GM/dL (10.7-15.3); MCH 31.1 pg (25.7-33.7); MCHC 33.3 g/dl (32.0-36.0); MEAN CELL VOLUME 93.4 fl (80-96); MEAN PLT VOLUME 10.8 fl (7.5-11.1); PLATELET COUNT 192 K/MM3 (134-434); RBC 4.74 M/mm3 (3.60-5.2); RDW 15.1 % (11.6-15.6); WHITE BLOOD COUNT 8.1 K/mm3 (4.0-10.0)
[2018-08-04 07:38] LABS: ANION GAP 6 MMOL/L (8-16); BLOOD UREA NITROGEN 14 mg/dL (7-18); CALCIUM 8.2 mg/dL (8.5-10.1); CHLORIDE 104 mmol/L (98-107); CO2 26 mmol/L (21-32); CREATININE 0.5 mg/dL (0.55-1.3); GLUCOSE,RANDOM 107 mg/dL (74-106); MAGNESIUM 2.3 mg/dL (1.8-2.4); PHOSPHOROUS 2.8 mg/dL (2.5-4.9); POTASSIUM 3.8 mmol/L (3.5-5.1); SODIUM 136 mmol/L (136-145)
[2018-08-04] MEDS ORDERED: BISACODYL 10 MG SUPP.RECT RC SCH (10:00)
[2018-08-04] MEDS: ENOXAPARIN NA (PORCINE) 40 MG/0.4 ML DISP.SYRIN SQ SCH (10:20)
[2018-08-04] MEDS: amLODIPine BESYLATE 2.5 MG TABLET (FP) PO SCH (10:21)
[2018-08-04] MEDS: DOCUSATE NA 100 MG/10 ML UNIT-DOSE CUPS PO SCH (10:21)
[2018-08-04] MEDS: MEMANTINE HCL 5 MG TABLET (UD) PO SCH ×2 (10:21→22:33)
[2018-08-04] MEDS ORDERED: LACTULOSE 20 GM/30 ML UDC (FOR ORAL USE ONLY) PO ONE (11:47)
--- NOTE | 2018-08-04 13:29 | PN ---
Physical Exam: SUBJECTIVE: Patient seen and examined at bedside. No acute events overnight. OBJECTIVE: Vital Signs Period Temp Pulse Resp BP Sys/Turcios Pulse Ox Last 24 Hr 97.6 F-98.4 F 80-98 20-20 138-145/72-84 95 GENERAL: Awake, NAD EYES: Extraocular movements intact, sclera anicteric, conjunctiva clear. LUNGS: CTAB HEART: RRR S1S2 ABDOMEN: Less distended compared to yesterday abd exam. BS +. No guarding or rigidity. EXTREMITIES: No CCE SKIN: Right Hip Ulcer w/ necrotic eschar. No discharge or odor appreciated upon examination. Bandage in place. Laboratory Results - last 24 hr 08/03/18 08/04/18 08/04/18 14:15 06:45 06:45 WBC 8.1 RBC 4.74 Hgb 14.8 Hct 44.3 MCV 93.4 MCH 31.1 MCHC 33.3 RDW 15.1 Plt Count 192 MPV 10.8 Sodium 136 Potassium 3.8 Chloride 104 Carbon Dioxide 26 Anion Gap 6 L BUN 14 Creatinine 0.5 L Creat Clearance w eGFR > 60 Random Glucose 107 H Calcium 8.2 L Phosphorus 2.8 Magnesium 2.3 Urine Color Zuleyma Urine Appearance Slcloudy Urine pH 6.0 Ur Specific [place] 1.024 Urine Protein 1+ H Urine Glucose (UA) Negative Urine Ketones Negative Urine Blood Negative Urine Nitrite Negative Urine Bilirubin Negative Urine Urobilinogen 2.0 H Ur Leukocyte Esterase Negative Urine WBC (Auto) 6 Urine RBC (Auto) 1 Urine Mucus Many Active Medications Generic Name Dose Route Start Last Admin Trade Name Freq PRN Reason Stop Dose Admin Amlodipine Besylate 2.5 mg 08/04/18 10:00 08/04/18 10:21 Norvasc - PO Not Given DAILY [facility] Bisacodyl 10 mg 08/04/18 22:00 Dulcolax Suppository - RC BID [facility] Collagenase 1 applic 08/04/18 12:15 Santyl - TP DAILY [facility] Protocol Docusate Sodium 200 mg 08/03/18 15:45 08/04/18 10:21 Colace Liquid - PO Not Given DAILY [facility] Enoxaparin Sodium 40 mg 08/02/18 10:00 08/04/18 10:20 Lovenox - SQ 40 mg DAILY [facility] Administration Dextrose/Sodium Chloride 1,000 mls @ 75 mls/hr 08/02/18 13:15 08/03/18 13:18 D5-1/2ns - IV Not Given ASDIR [facility] Memantine 5 mg 08/02/18 10:00 08/04/18 10:21 Namenda - PO Not Given BID [facility] Polyethylene Glycol 17 gm 08/02/18 14:00 08/04/18 05:01 Miralax (For Daily Use) - PO Not Given TID [facility] Senna 8.8 mg 08/03/18 22:00 08/03/18 22:31 Senna Oral Solution - PO Not Given HS [facility] ASSESSMENT/PLAN: 88F w/ pmhx of HTN, HLD, Alzheimer's dementia presented to the hospital for evaluation of R hip pressure ulcer as well as poor PO intake. #R pressure wound ulcer -No White count, or temperature -Ulcer does not appear to be infected -Continue to assess daily. Santyl Applied to wound daily. #Abdominal distension; Pt has abd tenderness on exam. 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 Manually disimpacted again today 08/04/18 by myself along with RN (Ernestine). Large amount of watery stool and gas expelled from rectum. Distension visibly better. - senna, colace, and miralax : all standing - lactulose and dulcolax. Pt was able to consume part of medicine per RN. -KUB in AM #Alzheimer's Dementia Memantine 5 MG PO BID #HTN- Norvasc 2.5 PO Daily #HLD; Family states pt was taken off chol meds about a year ago by PCP Jourdan PRN for Agitation #Prophylaxis -Lovenox 40 SQ #FEN -D5-1/2ns @ 75 cc/hr -Monitor Electrolytes -Nutrition consult #Dispo -Pt's family requests DNR/DNI. Form to be filled out and signed. Nya palliative RN on board Visit type - Emergency Visit Emergency Visit: Yes ED Registration Date: 08/01/18 Care time: The patient presented to the Emergency Department on the above date and was hospitalized for further evaluation of their emergent condition. - New Patient This patient is new to me today: No - Critical Care Critical Care patient: No - Discharge Referral Referred to [facility] Med P.C.: No
--- NOTE | 2018-08-04 14:52 | PN ---
Progress Note, Physician History of Present Illness: clinically stable still no good bm still with fecal impaction - Current Medication List Current Medications: Active Medications Amlodipine Besylate (Norvasc -) 2.5 mg PO DAILY [facility] Last Admin: 08/04/18 10:21 Dose: Not Given Bisacodyl (Dulcolax Suppository -) 10 mg RC BID [facility] Collagenase (Santyl -) 1 applic TP DAILY [facility]; Protocol Docusate Sodium (Colace Liquid -) 200 mg PO DAILY [facility] Last Admin: 08/04/18 10:21 Dose: Not Given Enoxaparin Sodium (Lovenox -) 40 mg SQ DAILY [facility] Last Admin: 08/04/18 10:20 Dose: 40 mg Dextrose/Sodium Chloride (D5-1/2ns -) 1,000 mls @ 75 mls/hr IV ASDIR [facility] Last Admin: 08/03/18 13:18 Dose: Not Given Memantine (Namenda -) 5 mg PO BID [facility] Last Admin: 08/04/18 10:21 Dose: Not Given Polyethylene Glycol (Miralax (For Daily Use) -) 17 gm PO TID [facility] Last Admin: 08/04/18 05:01 Dose: Not Given Senna (Senna Oral Solution -) 8.8 mg PO HS [facility] Last Admin: 08/03/18 22:31 Dose: Not Given - Objective Vital Signs: Vital Signs Temperature 97.7 F 08/04/18 10:00 Pulse Rate 82 08/04/18 10:00 Respiratory Rate 20 08/04/18 10:00 Blood Pressure 145/74 08/04/18 10:00 O2 Sat by Pulse Oximetry (%) 95 08/03/18 21:00 Constitutional: Yes: Calm, Mild Distress Cardiovascular: Yes: S1, S2 Respiratory: Yes: Regular, CTA Bilaterally Gastrointestinal: Yes: Distention, Hypoactive Bowel Sounds, Tenderness Musculoskeletal: Yes: WNL Extremities: Yes: WNL Wound/Incision: Yes: Dressing Dry and Intact Neurological: Yes: Alert, Other Psychiatric: Yes: Other Labs: CBC, BMP 08/04/18 06:45 08/04/18 06:45 Assessment/Plan thin rt hip wound dehydration intestinal obstruction htn fecal impaction plan continue to monitor wound care rest as per the team avoid aspiration hydration consider gi enemas
[2018-08-04] MEDS: DEXTROSE 5%-0.45% SALINE 1,000 ML IV SCH (15:26)
[2018-08-04] MEDS: COLLAGENASE CLOSTRIDIUM HIST. 30 GRAMS TUBE TP SCH (15:27)
--- NOTE | 2018-08-04 15:38 | PN ---
Teaching Attending Note Name of Resident: Robby Woods ATTENDING PHYSICIAN STATEMENT I saw and evaluated the patient. I reviewed the resident's note and discussed the case with the resident. I agree with the resident's findings and plan as documented. SUBJECTIVE: No events. can't obtain hx OBJECTIVE: NAd , awake, alert, aggressive at times. refused parts of the exam CV: not examined Lungs: unable to examine Abd: less distended, tympanic , tender in all quadrants , + BS. Skin: R posterior hip unstagable ulcer . with no surrounding erythema today Assessment/Plan: Unfortunate 88 y/o lady with h/o Dementia, HTN, HLp, who comes form home with poor po intake, and for evaluation of R posterior hip. She was found to have constipation with severe colonic distention . 1- Large bowel obstruction: due to fecal impaction. - will repeat rectal exam today to disimpact the hard stool if descended . - refusing miralax. - try lactulose today and cont dulcolax suppositories, and senna/colace. - avoid enemas if possible. - start diet with full liquids. can advance when abd distention is better . - KUB tomorrow 2- Volume depletion: due to poor po intake - cont IVF 3- R posterior decub: Not infected. No abx - start Santyl 4- H/o HTN: cont norvasc ( started here ) . Bp is better controlled 5- Haldol for agitation, if needed 6- DVT PX
[2018-08-04] MEDS: SENNOSIDES 8.8 MG/5 ML BULK BOTTLE PO SCH (22:33)
[2018-08-04] MEDS: BISACODYL 10 MG SUPP.RECT RC SCH (22:34)
[2018-08-05] MEDS: DEXTROSE 5%-0.45% SALINE 1,000 ML IV SCH ×3 (04:51→18:26)
[2018-08-05] MEDS: POLYETHYLENE GLYCOL 3350 119 GM BTL PO SCH ×3 (05:14→22:14)
[2018-08-05 07:29] LABS: HEMATOCRIT 43.3 % (32.4-45.2); HEMOGLOBIN 14.7 GM/dL (10.7-15.3); MCH 31.6 pg (25.7-33.7); MCHC 33.9 g/dl (32.0-36.0); MEAN CELL VOLUME 93.3 fl (80-96); MEAN PLT VOLUME 10.1 fl (7.5-11.1); PLATELET COUNT 220 K/MM3 (134-434); RBC 4.64 M/mm3 (3.60-5.2); RDW 15.2 % (11.6-15.6)
[2018-08-05 07:57] LABS: ANION GAP 6 MMOL/L (8-16); BLOOD UREA NITROGEN 13 mg/dL (7-18); CALCIUM 8.5 mg/dL (8.5-10.1); CHLORIDE 103 mmol/L (98-107); CO2 28 mmol/L (21-32); CREATININE 0.5 mg/dL (0.55-1.3); GLUCOSE,RANDOM 111 mg/dL (74-106); MAGNESIUM 2.4 mg/dL (1.8-2.4); PHOSPHOROUS 2.8 mg/dL (2.5-4.9); POTASSIUM 3.9 mmol/L (3.5-5.1); SODIUM 136 mmol/L (136-145)
[2018-08-05] MEDS ORDERED: PT OWN MED DRAWER 7, Y5N ONE (09:18)
--- NOTE | 2018-08-05 09:46 | PN ---
Teaching Attending Note Name of Resident: Delvis Juarez ATTENDING PHYSICIAN STATEMENT I saw and evaluated the patient. I reviewed the resident's note and discussed the case with the resident. I agree with the resident's findings and plan as documented. SUBJECTIVE: Patient is comfortable but distended. OBJECTIVE: Vital Signs Temperature 98.7 F 08/05/18 05:31 Pulse Rate 94 H 08/05/18 05:31 Respiratory Rate 20 08/05/18 05:31 Blood Pressure 145/91 08/05/18 05:31 O2 Sat by Pulse Oximetry (%) 95 08/04/18 21:00 GENERAL: Awake, NAD EYES: EOMI, sclera anicteric, conjunctiva clear. LUNGS: CTAB HEART: RRR S1S2 ABDOMEN: distended, positive BS , No guarding or rigidity. EXTREMITIES: pulses are positive, No C/C/E SKIN: Right Hip Ulcer w/ necrotic eschar. CBCD WBC 8.0 K/mm3 (4.0-10.0) 08/05/18 06:20 RBC 4.64 M/mm3 (3.60-5.2) 08/05/18 06:20 Hgb 14.7 GM/dL (10.7-15.3) 08/05/18 06:20 Hct 43.3 % (32.4-45.2) 08/05/18 06:20 MCV 93.3 fl (80-96) 08/05/18 06:20 MCHC 33.9 g/dl (32.0-36.0) 08/05/18 06:20 RDW 15.2 % (11.6-15.6) 08/05/18 06:20 Plt Count 220 K/MM3 (134-434) 08/05/18 06:20 MPV 10.1 fl (7.5-11.1) 08/05/18 06:20 CMP Sodium 136 mmol/L (136-145) 08/05/18 06:20 Potassium 3.9 mmol/L (3.5-5.1) 08/05/18 06:20 Chloride 103 mmol/L (98-107) 08/05/18 06:20 Carbon Dioxide 28 mmol/L (21-32) 08/05/18 06:20 Anion Gap 6 MMOL/L (8-16) L 08/05/18 06:20 BUN 13 mg/dL (7-18) 08/05/18 06:20 Creatinine 0.5 mg/dL (0.55-1.3) L 08/05/18 06:20 Creat Clearance w eGFR > 60 (>60) 08/05/18 06:20 Random Glucose 111 mg/dL (74-106) H 08/05/18 06:20 Calcium 8.5 mg/dL (8.5-10.1) 08/05/18 06:20 Total Bilirubin 0.7 mg/dL (0.2-1) 08/02/18 08:20 AST 27 U/L (15-37) 08/02/18 08:20 ALT 31 U/L (13-61) 08/02/18 08:20 Alkaline Phosphatase 74 U/L (45-117) 08/02/18 08:20 Total Protein 5.2 g/dl (6.4-8.2) L 08/02/18 08:20 Albumin 2.5 g/dl (3.4-5.0) L 08/02/18 08:20 Current Medications Generic Name Dose Route Start Last Admin Trade Name Kareem PRN Reason Stop Dose Admin Amlodipine Besylate 2.5 mg 08/04/18 10:00 08/04/18 10:21 Norvasc - PO Not Given DAILY [facility]STER Bisacodyl 10 mg 08/04/18 22:00 08/04/18 22:34 Dulcolax Suppository - RC 10 mg BID [facility] Administration Collagenase 1 applic 08/04/18 12:15 08/04/18 15:27 Santyl - TP 1 applic DAILY [facility] Administration Protocol Docusate Sodium 200 mg 08/03/18 15:45 08/04/18 10:21 Colace Liquid - PO Not Given DAILY M[facility]STER Enoxaparin Sodium 40 mg 08/02/18 10:00 08/04/18 10:20 Lovenox - SQ 40 mg DAILY [facility] Administration Dextrose/Sodium Chloride 1,000 mls @ 75 mls/hr 08/02/18 13:15 08/05/18 04:51 D5-1/2ns - IV 75 mls/hr ASDIR [facility]STER Administration Memantine 5 mg 08/02/18 10:00 08/04/18 22:33 Namenda - PO 5 mg BID [facility] Administration Polyethylene Glycol 17 gm 08/02/18 14:00 08/05/18 05:14 Miralax (For Daily Use) - PO Not Given TID MONSTER Senna 8.8 mg 08/03/18 22:00 08/04/18 22:33 Senna Oral Solution - PO 8.8 mg HS MONSTER Administration Home Medications Medication Instructions Recorded Cephalexin [Keflex] 500 mg PO QID 08/01/18 Memantine HCl 5 mg PO BID 08/01/18 Sulfamethoxazole/Trimethoprim 1 each PO BID 08/01/18 [Sulfamethoxazole-Tmp Ds Tablet] Aspirin [Adult Aspirin] 81 mg PO DAILY 08/02/18 Loperamide HCl Liquid [Imodium 1 mg PO DAILY 08/02/18 Liquid -] Saccharomyces Boulardii [Florastor] 250 mg PO DAILY 08/02/18 ASSESSMENT AND PLAN: Patient is a 88yo female with PMHx of Dementia, HTN, HLp, who comes form home with poor po intake, and for evaluation of Right posterior hip. She was found to have constipation with severe colonic distention . # Large bowel obstruction: due to fecal impaction. Disimpacted x2 hard stool. full liquid diet , advance if tolerated if abd distention is better. KUB tomorrow # Volume depletion: due to poor po intake, on IVF # Right posterior decub: Not infected. No abx continue with Santyl # H/o HTN: cont norvasc ( started here ) . Bp is better controlled # Haldol for agitation, if needed DVT PX : Lovenox
--- NOTE | 2018-08-05 09:59 | PN ---
Physical Exam: SUBJECTIVE: Patient seen and examined at bedside. Resting in bed. No acute events overnight. OBJECTIVE: Vital Signs Period Temp Pulse Resp BP Sys/Turcois Pulse Ox Last 24 Hr 97.7 F-98.7 F 82-96 20-20 136-145/74-91 95 GENERAL: Awake, NAD EYES: Extraocular movements intact, sclera anicteric, conjunctiva clear. LUNGS: CTAB HEART: RRR S1S2 ABDOMEN: No guarding or rigidity appreciated. Abdomen still distended. EXTREMITIES: No CCE. Onychomycosis SKIN: Right Hip Ulcer. Bandage in place. Laboratory Results - last 24 hr 08/05/18 08/05/18 06:20 06:20 WBC 8.0 RBC 4.64 Hgb 14.7 Hct 43.3 MCV 93.3 MCH 31.6 MCHC 33.9 RDW 15.2 Plt Count 220 MPV 10.1 Sodium 136 Potassium 3.9 Chloride 103 Carbon Dioxide 28 Anion Gap 6 L BUN 13 Creatinine 0.5 L Creat Clearance w eGFR > 60 Random Glucose 111 H Calcium 8.5 Phosphorus 2.8 Magnesium 2.4 Active Medications Generic Name Dose Route Start Last Admin Trade Name Ryanq PRN Reason Stop Dose Admin Amlodipine Besylate 2.5 mg 08/04/18 10:00 08/04/18 10:21 Norvasc - PO Not Given DAILY [facility] Bisacodyl 10 mg 08/04/18 22:00 08/04/18 22:34 Dulcolax Suppository - RC 10 mg BID [facility] Administration Collagenase 1 applic 08/04/18 12:15 08/04/18 15:27 Santyl - TP 1 applic DAILY [facility] Administration Protocol Docusate Sodium 200 mg 08/03/18 15:45 08/04/18 10:21 Colace Liquid - PO Not Given DAILY [facility] Enoxaparin Sodium 40 mg 08/02/18 10:00 08/04/18 10:20 Lovenox - SQ 40 mg DAILY [facility] Administration Dextrose/Sodium Chloride 1,000 mls @ 75 mls/hr 08/02/18 13:15 08/05/18 04:51 D5-1/2ns - IV 75 mls/hr ASDIR [facility] Administration Memantine 5 mg 08/02/18 10:00 08/04/18 22:33 Namenda - PO 5 mg BID [facility] Administration Polyethylene Glycol 17 gm 08/02/18 14:00 08/05/18 05:14 Miralax (For Daily Use) - PO Not Given TID MONSTER Senna 8.8 mg 08/03/18 22:00 08/04/18 22:33 Senna Oral Solution - PO 8.8 mg HS MONSTER Administration ASSESSMENT/PLAN: 88F w/ pmhx of HTN, HLD, Alzheimer's dementia presented to the hospital for evaluation of R hip pressure ulcer as well as poor PO intake. #R pressure wound ulcer -No White count, or temperature -Ulcer does not appear to be infected -Continue to assess daily. Santyl Applied to wound daily. #Abdominal distension; Pt has abd tenderness on exam. 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 Manually disimpacted 08/04/18 by myself along with RN (Ernestine). Large amount of watery stool and gas expelled from rectum. Distension visibly better. - senna, colace, and miralax : all standing - lactulose and dulcolax. Pt was able to consume part of medicine per RN. Lactulose Refused by patient this afternoon 08/05/18 -KUB 08/05/18---> Large colonic distension with fecal impaction remains. #Alzheimer's Dementia Memantine 5 MG PO BID #HTN- Norvasc 2.5 PO Daily #HLD; Family states pt was taken off chol meds about a year ago by PCP Joseel PRN for Agitation #Prophylaxis -Lovenox 40 SQ #FEN -D5-1/2ns @ 75 cc/hr -Monitor Electrolytes -Nutrition consult #Dispo -Pt's family requests DNR/DNI. Form to be filled out and signed. Nya palliative RN on board Visit type - Emergency Visit Emergency Visit: Yes ED Registration Date: 08/01/18 Care time: The patient presented to the Emergency Department on the above date and was hospitalized for further evaluation of their emergent condition. - New Patient This patient is new to me today: No - Critical Care Critical Care patient: No - Discharge Referral Referred to [facility] Med P.C.: No
[2018-08-05] MEDS: BISACODYL 10 MG SUPP.RECT RC SCH ×2 (10:58→22:13)
[2018-08-05] MEDS: amLODIPine BESYLATE 2.5 MG TABLET (FP) PO SCH (10:58)
[2018-08-05] MEDS: MEMANTINE HCL 5 MG TABLET (UD) PO SCH ×2 (10:58→22:14)
[2018-08-05] MEDS: ENOXAPARIN NA (PORCINE) 40 MG/0.4 ML DISP.SYRIN SQ SCH (10:58)
[2018-08-05] MEDS: COLLAGENASE CLOSTRIDIUM HIST. 30 GRAMS TUBE TP SCH (10:59)
[2018-08-05] MEDS: DOCUSATE NA 100 MG/10 ML UNIT-DOSE CUPS PO SCH (10:59)
--- NOTE | 2018-08-05 13:26 | PN ---
Progress Note, Physician History of Present Illness: no specific events abd still with distension - Current Medication List Current Medications: Active Medications Amlodipine Besylate (Norvasc -) 2.5 mg PO DAILY [facility] Last Admin: 08/05/18 10:58 Dose: 2.5 mg Bisacodyl (Dulcolax Suppository -) 10 mg RC BID [facility] Last Admin: 08/05/18 10:58 Dose: 10 mg Collagenase (Santyl -) 1 applic TP DAILY [facility]; Protocol Last Admin: 08/05/18 10:59 Dose: 1 applic Docusate Sodium (Colace Liquid -) 200 mg PO DAILY [facility] Last Admin: 08/05/18 10:59 Dose: 200 mg Enoxaparin Sodium (Lovenox -) 40 mg SQ DAILY [facility] Last Admin: 08/05/18 10:58 Dose: 40 mg Dextrose/Sodium Chloride (D5-1/2ns -) 1,000 mls @ 75 mls/hr IV ASDIR [facility] Last Admin: 08/05/18 04:51 Dose: 75 mls/hr Memantine (Namenda -) 5 mg PO BID [facility] Last Admin: 08/05/18 10:58 Dose: 5 mg Polyethylene Glycol (Miralax (For Daily Use) -) 17 gm PO TID [facility] Last Admin: 08/05/18 05:14 Dose: Not Given Senna (Senna Oral Solution -) 8.8 mg PO HS [facility] Last Admin: 08/04/18 22:33 Dose: 8.8 mg - Objective Vital Signs: Vital Signs Temperature 97.9 F 08/05/18 10:00 Pulse Rate 87 08/05/18 10:00 Respiratory Rate 20 08/05/18 10:00 Blood Pressure 137/63 08/05/18 10:00 O2 Sat by Pulse Oximetry (%) 94 L 08/05/18 09:00 Constitutional: Yes: Calm, Mild Distress Cardiovascular: Yes: S1, S2 Respiratory: Yes: Regular, CTA Bilaterally Gastrointestinal: Yes: Soft, Distention, Hypoactive Bowel Sounds Musculoskeletal: Yes: WNL Extremities: Yes: Other Wound/Incision: Yes: Dressing Dry and Intact Neurological: Yes: Alert, Other Psychiatric: Yes: Other Labs: CBC, BMP 08/05/18 06:20 08/05/18 06:20 Assessment/Plan thin rt hip wound dehydration intestinal obstruction htn fecal impaction plan continue to monitor wound care rest as per the team avoid aspiration hydration consider gi enemas
[2018-08-05] MEDS ORDERED: LACTULOSE 20 GM/30 ML UDC (FOR ORAL USE ONLY) PO ONE (15:49)
[2018-08-05] MEDS: SENNOSIDES 8.8 MG/5 ML BULK BOTTLE PO SCH (22:14)
[2018-08-06] MEDS: POLYETHYLENE GLYCOL 3350 119 GM BTL PO SCH (05:16)
[2018-08-06] MEDS ORDERED: HALOPERIDOL LACTATE 5 MG/ML IM ONE (06:41)
[2018-08-06 07:22] LABS: HEMATOCRIT 42.8 % (32.4-45.2); HEMOGLOBIN 14.3 GM/dL (10.7-15.3); MCH 31.3 pg (25.7-33.7); MCHC 33.5 g/dl (32.0-36.0); MEAN CELL VOLUME 93.4 fl (80-96); MEAN PLT VOLUME 10.1 fl (7.5-11.1); PLATELET COUNT 221 K/MM3 (134-434); RBC 4.58 M/mm3 (3.60-5.2); RDW 15.3 % (11.6-15.6)
[2018-08-06 07:59] LABS: ANION GAP 7 MMOL/L (8-16); BLOOD UREA NITROGEN 9 mg/dL (7-18); CALCIUM 8.2 mg/dL (8.5-10.1); CHLORIDE 105 mmol/L (98-107); CO2 26 mmol/L (21-32); CREATININE 0.4 mg/dL (0.55-1.3); GLUCOSE,RANDOM 115 mg/dL (74-106); MAGNESIUM 2.2 mg/dL (1.8-2.4); PHOSPHOROUS 2.6 mg/dL (2.5-4.9); POTASSIUM 3.3 mmol/L (3.5-5.1); SODIUM 137 mmol/L (136-145)
--- NOTE | 2018-08-06 09:16 | PN ---
Physical Exam: SUBJECTIVE: Patient seen and examined at bedside today. Haldol 1 mg administered this am for agitation. No acute events overnight. OBJECTIVE: Vital Signs Period Temp Pulse Resp BP Sys/Turcios Pulse Ox Last 24 Hr 97.9 F-98.5 F 86-104 18-20 137-172/63-96 93 GENERAL: Awake, NAD EYES: Extraocular movements intact, sclera anicteric, conjunctiva clear. LUNGS: CTAB HEART: RRR S1S2 ABDOMEN: Abdomen remains distended. No guarding or rigidity this am. EXTREMITIES: No CCE. Onychomycosis SKIN: Right Hip Ulcer. Bandage in place. Laboratory Results - last 24 hr 08/05/18 08/06/18 08/06/18 22:18 06:07 06:07 WBC 7.0 RBC 4.58 Hgb 14.3 Hct 42.8 MCV 93.4 MCH 31.3 MCHC 33.5 RDW 15.3 Plt Count 221 MPV 10.1 Sodium 137 Potassium 3.3 L Chloride 105 Carbon Dioxide 26 Anion Gap 7 L BUN 9 Creatinine 0.4 L Creat Clearance w eGFR > 60 POC Glucometer 141 Random Glucose 115 H Calcium 8.2 L Phosphorus 2.6 Magnesium 2.2 Active Medications Generic Name Dose Route Start Last Admin Trade Name Freq PRN Reason Stop Dose Admin Amlodipine Besylate 2.5 mg 08/04/18 10:00 08/05/18 10:58 Norvasc - PO 2.5 mg DAILY MONSTER Administration Bisacodyl 10 mg 08/04/18 22:00 08/05/18 22:13 Dulcolax Suppository - RC 10 mg BID MONSTER Administration Collagenase 1 applic 08/04/18 12:15 08/05/18 10:59 Santyl - TP 1 applic DAILY MONSTER Administration Protocol Docusate Sodium 200 mg 08/03/18 15:45 08/05/18 10:59 Colace Liquid - PO 200 mg DAILY MONSTER Administration Enoxaparin Sodium 40 mg 08/02/18 10:00 08/05/18 10:58 Lovenox - SQ 40 mg DAILY MONSTER Administration Dextrose/Sodium Chloride 1,000 mls @ 75 mls/hr 08/05/18 18:00 08/05/18 18:26 D5-1/2ns - IV 75 mls/hr ASDIR MONSTER Administration Memantine 5 mg 08/02/18 10:00 02/13/19 22:14 Namenda - PO 5 mg BID MONSTER Administration Polyethylene Glycol 17 gm 08/02/18 14:00 08/06/18 05:16 Miralax (For Daily Use) - PO Not Given TID MONSTER Senna 8.8 mg 08/03/18 22:00 08/05/18 22:14 Senna Oral Solution - PO 8.8 mg HS MONSTER Administration ASSESSMENT/PLAN: 88F w/ pmhx of HTN, HLD, Alzheimer's dementia presented to the hospital for evaluation of R hip pressure ulcer as well as poor PO intake. #R pressure wound ulcer -No White count, or temperature -Ulcer does not appear to be infected -Continue to assess daily. Santyl Applied to wound daily. #Abdominal distension; Pt has abd tenderness on exam. 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 Manually disimpacted 08/04/18 by myself along with RN (Ernestine). Large amount of watery stool and gas expelled from rectum. Distension visibly better. - senna, colace, and miralax : all standing - lactulose and dulcolax. Pt was able to consume part of medicine per RN. -KUB 08/05/18---> Large colonic distension with fecal impaction remains. -Discussed w/ Dr Borrego. If enemas provide no relief, may need colostomy. #Alzheimer's Dementia Memantine 5 MG PO BID #HTN- Norvasc 2.5 PO Daily, Vasotec 1.25 Q6H #HLD; Family states pt was taken off chol meds about a year ago by PCP #Prophylaxis -Lovenox 40 SQ #FEN -D5-1/2ns @ 75 cc/hr -Monitor Electrolytes -Nutrition consult #Dispo -Pt's family requests DNR/DNI. Form to be filled out and signed. Nya palliative RN on board Visit type - Emergency Visit Emergency Visit: Yes ED Registration Date: 08/01/18 Care time: The patient presented to the Emergency Department on the above date and was hospitalized for further evaluation of their emergent condition. - New Patient This patient is new to me today: No - Critical Care Critical Care patient: No - Discharge Referral Referred to [facility] Med P.C.: No
[2018-08-06] MEDS ORDERED: PT OWN MED DRAWER 7, Y5N ONE ×3 (10:55→18:42)
[2018-08-06] MEDS: DEXTROSE 5%-0.45% SALINE 1,000 ML IV SCH ×2 (11:05→19:16)
[2018-08-06] MEDS: amLODIPine BESYLATE 2.5 MG TABLET (FP) PO SCH (11:06)
[2018-08-06] MEDS: BISACODYL 10 MG SUPP.RECT RC SCH (11:06)
[2018-08-06] MEDS: ENOXAPARIN NA (PORCINE) 40 MG/0.4 ML DISP.SYRIN SQ SCH (11:06)
[2018-08-06] MEDS: MEMANTINE HCL 5 MG TABLET (UD) PO SCH (11:06)
[2018-08-06] MEDS: DOCUSATE NA 100 MG/10 ML UNIT-DOSE CUPS PO SCH (11:07)
[2018-08-06] MEDS: COLLAGENASE CLOSTRIDIUM HIST. 30 GRAMS TUBE TP SCH (11:09)
--- NOTE | 2018-08-06 15:43 | PN ---
Progress Note, G[employer] D[employer]PER - Note Progress Note: Selected Entries 08/05/18 08/05/18 08/05/18 05:31 09:37 09:43 Breakfast 0 0 Lunch Temperature 98.7 F 08/05/18 08/05/18 08/05/18 10:00 14:54 15:00 Breakfast Lunch 0 0 Temperature 97.9 F 98.0 F 98.0 F 08/05/18 08/05/18 08/06/18 17:06 22:00 05:48 Breakfast Lunch 0 Temperature 98.5 F 98.3 F 98 F 08/06/18 08/06/18 08/06/18 09:44 10:00 13:45 Breakfast 0 Lunch NPO Temperature 98.5 F Laboratory Tests 08/06/18 06:07 WBC 7.0 Npo. Was on full fluids but refusing all PO trials. Impacted.
--- NOTE | 2018-08-06 15:48 | PN ---
Progress Note, Physician History of Present Illness: patient stable still no bowel patient demented - Current Medication List Current Medications: Active Medications Amlodipine Besylate (Norvasc -) 2.5 mg PO DAILY [facility] Last Admin: 08/06/18 11:06 Dose: 2.5 mg Collagenase (Santyl -) 1 applic TP DAILY [facility]; Protocol Last Admin: 08/06/18 11:09 Dose: 1 applic Enalaprilat (Vasotec Injection -) 1.25 mg IVPB Q6H-IV [facility] Enoxaparin Sodium (Lovenox -) 40 mg SQ DAILY [facility] Last Admin: 08/06/18 11:06 Dose: 40 mg Dextrose/Sodium Chloride (D5-1/2ns -) 1,000 mls @ 75 mls/hr IV ASDIR [facility] Last Admin: 08/06/18 11:05 Dose: 75 mls/hr Memantine (Namenda -) 5 mg PO BID [facility] Last Admin: 08/06/18 11:06 Dose: 5 mg - Objective Vital Signs: Vital Signs Temperature 98.5 F 08/06/18 10:00 Pulse Rate 92 H 08/06/18 10:00 Respiratory Rate 17 08/06/18 10:00 Blood Pressure 152/92 08/06/18 10:00 O2 Sat by Pulse Oximetry (%) 99 08/06/18 12:28 Constitutional: Yes: No Distress, Calm Cardiovascular: Yes: Regular Rate and Rhythm Respiratory: Yes: Regular, CTA Bilaterally Gastrointestinal: Yes: Normal Bowel Sounds, Soft Musculoskeletal: Yes: WNL Extremities: Yes: WNL Labs: CBC, BMP 08/06/18 06:07 08/06/18 06:07 Assessment/Plan thin rt hip wound dehydration intestinal obstruction htn plan continue to monitor wound care rest as per the team
--- NOTE | 2018-08-06 16:43 | PN ---
Progress Note (short form) - Note Progress Note: Surgery 88yo for vascular evaluation of right unstagable hip wound. Patient seen and examined at bedside. patient resting comfortably, pleasantly demented. Vital Signs Temp 98.5 F 08/06/18 10:00 Pulse 72 08/06/18 16:20 Resp 17 08/06/18 10:00 BP 155/91 08/06/18 16:20 Pulse Ox 99 08/06/18 12:28 Intake & Output 08/05/18 08/06/18 08/06/18 23:59 11:59 23:59 Intake Total 225 Output Total 150 50 500 Balance 75 -50 -500 Intake: IV 225 D5-1/2Ns - 1,000 ml @ 75 225 mls/hr IV ASDIR MONSTER Rx#: [id number] Output: Urine 150 50 500 Lynn 150 50 500 Other: Voiding Method Indwelling Catheter Indwelling Catheter Indwelling Catheter Bowel Movement Yes1 Yes: 1 CBC, BMP 08/06/18 06:07 08/06/18 06:07 PE: Pleasantly demented, NAD Unlabored resp on RA Right hip. unstagable hip ulcer with dry eschar in center @ 3cm x1.5cm with surrounding tissue intact, no evidence of bogginess, d/c or foul odor. thigh soft and supple, no evidence of pain upon palpation of thigh. Problem List - Problems (1) Necrotic eschar Assessment/Plan: 88 yo with unstagable hip ulcer, dry eschar, stable. No indication for surgical intervention 1) Continue Santyl to wound daily 2) Offload pressure sensitive areas 3) Frequent positioning with Q2 positioning 4) Re-consult surgery PRN Code(s): L98.8 - OTH DISRD OF THE SKIN AND SUBCUTANEOUS TISSUE (2) Unstageable pressure ulcer Code(s): L89.95 - PRESSURE ULCER OF UNSPECIFIED SITE, UNSTAGEABLE
[2018-08-06] MEDS: ENALAPRILAT DIHYDRATE 1.25 MG/1 ML VIAL IVPB SCH ×2 (16:44→21:19)
--- NOTE | 2018-08-06 18:15 | PN ---
Teaching Attending Note Name of Resident: Delvis Juarez ATTENDING PHYSICIAN STATEMENT I saw and evaluated the patient. I reviewed the resident's note and discussed the case with the resident. I agree with the resident's findings and plan as documented. SUBJECTIVE: Patient is worse today, belly is more distended and tender. patient is refusing to eat. OBJECTIVE: Vital Signs Temperature 98.5 F 08/06/18 10:00 Pulse Rate 72 08/06/18 16:20 Respiratory Rate 17 08/06/18 10:00 Blood Pressure 155/91 08/06/18 16:20 O2 Sat by Pulse Oximetry (%) 99 08/06/18 12:28 GENERAL: Awake,in mild distress eYES: EOMI, sclera anicteric, conjunctiva clear. LUNGS: CTAB HEART: RRR S1S2 ABDOMEN: more distended with tenderness to palpation , positive for voluntary guarding. EXTREMITIES: pulses are positive, No C/C/E SKIN: Right Hip Ulcer w/ necrotic eschar. CBCD WBC 7.0 K/mm3 (4.0-10.0) 08/06/18 06:07 RBC 4.58 M/mm3 (3.60-5.2) 08/06/18 06:07 Hgb 14.3 GM/dL (10.7-15.3) 08/06/18 06:07 Hct 42.8 % (32.4-45.2) 08/06/18 06:07 MCV 93.4 fl (80-96) 08/06/18 06:07 MCHC 33.5 g/dl (32.0-36.0) 08/06/18 06:07 RDW 15.3 % (11.6-15.6) 08/06/18 06:07 Plt Count 221 K/MM3 (134-434) 08/06/18 06:07 MPV 10.1 fl (7.5-11.1) 08/06/18 06:07 CMP Sodium 137 mmol/L (136-145) 08/06/18 06:07 Potassium 3.3 mmol/L (3.5-5.1) L 08/06/18 06:07 Chloride 105 mmol/L (98-107) 08/06/18 06:07 Carbon Dioxide 26 mmol/L (21-32) 08/06/18 06:07 Anion Gap 7 MMOL/L (8-16) L 08/06/18 06:07 BUN 9 mg/dL (7-18) 08/06/18 06:07 Creatinine 0.4 mg/dL (0.55-1.3) L 08/06/18 06:07 Creat Clearance w eGFR > 60 (>60) 08/06/18 06:07 Random Glucose 115 mg/dL (74-106) H 08/06/18 06:07 Calcium 8.2 mg/dL (8.5-10.1) L 08/06/18 06:07 Total Bilirubin 0.7 mg/dL (0.2-1) 08/02/18 08:20 AST 27 U/L (15-37) 08/02/18 08:20 ALT 31 U/L (13-61) 08/02/18 08:20 Alkaline Phosphatase 74 U/L (45-117) 08/02/18 08:20 Total Protein 5.2 g/dl (6.4-8.2) L 08/02/18 08:20 Albumin 2.5 g/dl (3.4-5.0) L 08/02/18 08:20 Current Medications Generic Name Dose Route Start Last Admin Trade Name Kareem PRN Reason Stop Dose Admin Amlodipine Besylate 2.5 mg 08/04/18 10:00 08/06/18 11:06 Norvasc - PO 2.5 mg DAILY [facility] Administration Collagenase 1 applic 08/04/18 12:15 08/06/18 11:09 Santyl - TP 1 applic DAILY [facility] Administration Protocol Enalaprilat 1.25 mg 08/06/18 15:00 08/06/18 16:44 Vasotec Injection - IVPB 1.25 mg Q6H-IV [facility] Administration Enoxaparin Sodium 40 mg 08/02/18 10:00 08/06/18 11:06 Lovenox - SQ 40 mg DAILY [facility] Administration Dextrose/Sodium Chloride 1,000 mls @ 75 mls/hr 08/05/18 18:00 08/06/18 11:05 D5-1/2ns - IV 75 mls/hr ASDIR MONSTER Administration Memantine 5 mg 08/02/18 10:00 08/06/18 11:06 Namenda - PO 5 mg BID [facility]STER Administration Home Medications Medication Instructions Recorded Cephalexin [Keflex] 500 mg PO QID 08/01/18 Memantine HCl 5 mg PO BID 08/01/18 Sulfamethoxazole/Trimethoprim 1 each PO BID 08/01/18 [Sulfamethoxazole-Tmp Ds Tablet] Aspirin [Adult Aspirin] 81 mg PO DAILY 08/02/18 Loperamide HCl Liquid [Imodium 1 mg PO DAILY 08/02/18 Liquid -] Saccharomyces Boulardii [Florastor] 250 mg PO DAILY 08/02/18 Hepatic Panel Total Bilirubin 0.7 mg/dL (0.2-1) 08/02/18 08:20 AST 27 U/L (15-37) 08/02/18 08:20 ALT 31 U/L (13-61) 08/02/18 08:20 Alkaline Phosphatase 74 U/L (45-117) 08/02/18 08:20 Albumin 2.5 g/dl (3.4-5.0) L 08/02/18 08:20 No evidence of pneumoperitoneum, free intraperitoneal fluid. Moderate to marked dilatation of the length of the colon is seen including the rectum. There is prominent rectosigmoid fecal impaction with associated rectal distention. No small bowel dilatation is seen. The liver, spleen, pancreas, gallbladder, adrenal glands and left kidney demonstrate no discrete noncontrast pathology. Bilateral renal cortical cysts. There is no aortic aneurysm. No obvious CT evidence of acute appendicitis or diverticulitis on noncontrast imaging. There is no gross lymphadenopathy. 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 Absent uterus versus atrophy. A marked L1 vertebral body compression fracture is noted which is probably chronic or subacute. There is mild bony retropulsion. Trace left pleural effusion. 3 mm noncalcified right lower lobe subpleural nodule. I MPRESSION: Diffuse colonic dilatation is noted. There is prominent rectosigmoid fecal retention/impaction. 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 Marked L1 vertebral body compression fracture with mild bony retropulsion. This fracture is probably chronic or subacute. If clinically indicated correlate with MRI. Trace left pleural effusion. 3 mm right lower lobe pulmonary nodule. Follow-up CT may be performed. ASSESSMENT AND PLAN: Patient is a 88yo female with PMHx of Dementia, HTN, HLp, who comes form home with poor po intake, and for evaluation of Right posterior hip. She was found to have constipation with severe colonic distention . # Diffuse colonic dilatation due to fecal impaction. Disimpacted x 2 hard stool. npo, discussed with GI dr dowd, ordered Enemas SSEs if it does not work will need colostomy. Sx is on the case. DO not give any haldol IF GETS AGITATED . # Volume depletion: CONTINUE IVF # Right posterior decub: Not infected. No abx continue with Santyl # H/o HTN: NPO, discontinue po meds. on IV Vasotec DVT PX : Lovenox
[2018-08-07] MEDS ORDERED: ONDANSETRON 4 MG/2 ML VIAL IVPUSH PRN (01:38)
[2018-08-07] MEDS ORDERED: PANTOPRAZOLE SODIUM 40 MG VIAL IVPUSH ONE (01:43)
--- NOTE | 2018-08-07 01:50 | PN ---
Progress Note (short form) - Note Progress Note: Was paged by nurse because patient had 1 episode of vomiting. Arrived at bedside and found patient laid flat. Bed sheets with coffee ground emesis. Patient vitals are stable. Ordered stat CBC, protonix 40mg IV 1x, zofran. Monitor vital signs. aspiration precautions, elevate head.
[2018-08-07 02:58] LABS: BASO % 0.2 % (0-2.0); EOS % 0.1 % (0-4.5); HEMATOCRIT 45.8 % (32.4-45.2); HEMOGLOBIN 15.6 GM/dL (10.7-15.3); MCH 31.9 pg (25.7-33.7); MCHC 34.1 g/dl (32.0-36.0); MEAN CELL VOLUME 93.5 fl (80-96); MEAN PLT VOLUME 10.1 fl (7.5-11.1); MONO % 11.6 % (3.8-10.2); NEUT % 82.1 % (42.8-82.8); PLATELET COUNT 239 K/MM3 (134-434); RBC 4.89 M/mm3 (3.60-5.2); RDW 15.4 % (11.6-15.6); WHITE BLOOD COUNT 9.5 K/mm3 (4.0-10.0)
[2018-08-07] MEDS: ENALAPRILAT DIHYDRATE 1.25 MG/1 ML VIAL IVPB SCH ×5 (04:12→21:58)
[2018-08-07 07:53] LABS: HEMOGLOBIN 14.5 GM/dL (10.7-15.3); MCH 31.4 pg (25.7-33.7); MCHC 33.8 g/dl (32.0-36.0); MEAN CELL VOLUME 92.8 fl (80-96); PLATELET COUNT 231 K/MM3 (134-434); RBC 4.63 M/mm3 (3.60-5.2); RDW 15.3 % (11.6-15.6)
[2018-08-07 08:43] LABS: ANION GAP 9 MMOL/L (8-16); BLOOD UREA NITROGEN 10 mg/dL (7-18); CALCIUM 8.2 mg/dL (8.5-10.1); CHLORIDE 103 mmol/L (98-107); CO2 23 mmol/L (21-32); CREATININE 0.4 mg/dL (0.55-1.3); GLUCOSE,RANDOM 126 mg/dL (74-106); MAGNESIUM 2.4 mg/dL (1.8-2.4); POTASSIUM 3.2 mmol/L (3.5-5.1); SODIUM 134 mmol/L (136-145)
[2018-08-07] MEDS ORDERED: POTASSIUM CHLORIDE TABS 20 MEQ TABLET.ER (FP) PO ONE (09:15)
[2018-08-07] MEDS ORDERED: PT OWN MED DRAWER 7, Y5N ONE (09:54)
[2018-08-07] MEDS: ENOXAPARIN NA (PORCINE) 40 MG/0.4 ML DISP.SYRIN SQ SCH (09:58)
[2018-08-07] MEDS: PANTOPRAZOLE SODIUM 40 MG VIAL IVPUSH SCH ×2 (09:58→21:41)
[2018-08-07] MEDS ORDERED: PANTOPRAZOLE SODIUM 40 MG VIAL IVPUSH SCH (10:00)
--- NOTE | 2018-08-07 11:34 | PN ---
Progress Note, Physician History of Present Illness: events noted patient had episode of vomiting - Current Medication List Current Medications: Active Medications Amlodipine Besylate (Norvasc -) 2.5 mg PO DAILY [facility] Last Admin: 08/06/18 11:06 Dose: 2.5 mg Collagenase (Santyl -) 1 applic TP DAILY [facility]; Protocol Last Admin: 08/06/18 11:09 Dose: 1 applic Enalaprilat (Vasotec Injection -) 1.25 mg IVPB Q6H-IV [facility] Last Admin: 08/07/18 10:37 Dose: Not Given Enoxaparin Sodium (Lovenox -) 40 mg SQ DAILY [facility] Last Admin: 08/07/18 09:58 Dose: 40 mg Dextrose/Sodium Chloride (D5-1/2ns -) 1,000 mls @ 75 mls/hr IV ASDIR [facility] Last Admin: 08/06/18 19:16 Dose: Not Given Memantine (Namenda -) 5 mg PO BID [facility] Last Admin: 08/06/18 11:06 Dose: 5 mg Ondansetron HCl (Zofran Injection) 4 mg IVPUSH Q6H PRN PRN Reason: NAUSEA AND/OR VOMITING Last Admin: 08/07/18 02:17 Dose: 4 mg Pantoprazole Sodium (Protonix Iv) 40 mg IVPUSH BID [facility] Last Admin: 08/07/18 09:58 Dose: 40 mg - Objective Vital Signs: Vital Signs Temperature 98.5 F 08/07/18 06:09 Pulse Rate 87 08/07/18 06:09 Respiratory Rate 18 08/07/18 06:09 Blood Pressure 130/90 08/07/18 10:38 O2 Sat by Pulse Oximetry (%) 99 08/06/18 21:00 Constitutional: Yes: No Distress, Calm Cardiovascular: Yes: S1, S2 Respiratory: Yes: Regular, Poor Air Entry (bases) Gastrointestinal: Yes: Normal Bowel Sounds, Soft Musculoskeletal: Yes: Other Extremities: Yes: Other Wound/Incision: Yes: Dressing Dry and Intact Neurological: Yes: Other Psychiatric: Yes: Other Labs: CBC, BMP 08/07/18 06:00 08/07/18 06:00 Assessment/Plan thin rt hip wound dehydration intestinal obstruction htn plan continue to monitor wound care rest as per the team avoid aspiration hydration
--- NOTE | 2018-08-07 14:36 | PN ---
Progress Note (short form) - Note Progress Note: Attending Surgeon Seen in f/u; she has ? no c/o ?; no eating VSS AF abdo-softly distended and tympanitic; no tenderness; no evidence of an acute surgical abdomen WBC-nl IMP: colonic pseudoobstruction PLAN: Can try neostigmine and/or recommend evaluation by GI for possible colonoscopic decompression and placement of a rectal tube; all attempts at non operative management should be considered; CT scan a/p should be considered. Calvin Parish MD FACS
[2018-08-07] MEDS: KCL 10 MEQ IVPB 10 MEQ/100 ML INFUS.BAG IVPB SCH ×3 (15:29→21:52)
--- NOTE | 2018-08-07 16:19 | CON.GI ---
Consult Consult Specialty:: Gastroenterology ( covering [facility] GI service) Referred by:: Nataly Arredondo MD Reason for Consultation:: Fecal impaction - History of Present Illness Chief Complaint: Unable to converse due to dementia History of Present Illness: 88F admitted for management of stasis ulcers has developed abdominal distension and vomiting of stagnant small bowel contents. She has chronic constipation managed with Miralax. but this was stopped when she developed gastroenteritis at the beginning of June and it has been resumed. The history is given by two of her daughters. Christa lives with her son. She had a negative colonoscopy remotely. NO FH of colon cancer. She has dementia and refuses medications but has been eating well. - History Source History Provided By: Family Member Limitations to Obtaining History: Dementia - Past Medical History [employer]FILE [employer] T[employer]OL: Yes: Dementia Cardio/Vascular: Yes: CAD, HTN, Hyperlipdemia Gastrointestinal: Yes: Constipation Endocrine: Yes: Osteopenia (with vertebral compression fracture) - Past Surgical History Past Surgical History: Yes: Cataract Removal (bilateral ), Colonoscopy, Hysterectomy, Joint Replacement (L TKR) - Alcohol/Substance Use Hx Alcohol Use: No History of Substance Use: reports: None - Smoking History Smoking history: Never smoked Have you smoked in the past 12 months: No Aproximately how many cigarettes per day: 0 - Social History Usual Living Arrangement: With Child ADL: Family Assistance Place of : Other ([place]) History of Recent Travel: No Home Medications - Allergies Allergies/Adverse Reactions: Allergies Allergy/AdvReac Type Severity Reaction Status Date / Time warfarin sodium AdvReac Verified 08/01/18 18:07 [From Coumadin] - Home Medications Home Medications: Ambulatory Orders Cephalexin [Keflex] 500 mg PO QID 08/01/18 Memantine HCl 5 mg PO BID 08/01/18 Sulfamethoxazole/Trimethoprim [Sulfamethoxazole-Tmp Ds Tablet] 1 each PO BID 03/11 Aspirin [Adult Aspirin] 81 mg PO DAILY 08/02/18 Loperamide HCl Liquid [Imodium Liquid -] 1 mg PO DAILY 08/02/18 Saccharomyces Boulardii [Florastor] 250 mg PO DAILY 08/02/18 Family Disease History - Family Disease History Family Disease History: Other: Father (lived into 80s), Mother (lived into her 80s) Other Family History: Maternal uncle had renal transplant Physical Exam-GI Vital Signs: Vital Signs Temperature 97.5 F L 08/07/18 13:40 Pulse Rate 101 H 08/07/18 13:40 Respiratory Rate 18 08/07/18 13:40 Blood Pressure 150/95 08/07/18 13:40 O2 Sat by Pulse Oximetry (%) 99 08/06/18 21:00 CBC,CMP WBC 8.0 K/mm3 (4.0-10.0) 08/07/18 06:00 RBC 4.63 M/mm3 (3.60-5.2) 08/07/18 06:00 Hgb 14.5 GM/dL (10.7-15.3) 08/07/18 06:00 Hct 43.0 % (32.4-45.2) 08/07/18 06:00 MCV 92.8 fl (80-96) 08/07/18 06:00 MCH 31.4 pg (25.7-33.7) 08/07/18 06:00 MCHC 33.8 g/dl (32.0-36.0) 08/07/18 06:00 RDW 15.3 % (11.6-15.6) 08/07/18 06:00 Plt Count 231 K/MM3 (134-434) 08/07/18 06:00 MPV 10.0 fl (7.5-11.1) 08/07/18 06:00 Absolute Neuts (auto) 7.8 K/mm3 (1.5-8.0) 08/07/18 02:00 Neutrophils % 82.1 % (42.8-82.8) 08/07/18 02:00 Lymphocytes % 6.0 % (8-40) L 08/07/18 02:00 Monocytes % 11.6 % (3.8-10.2) H 08/07/18 02:00 Eosinophils % 0.1 % (0-4.5) 08/07/18 02:00 Basophils % 0.2 % (0-2.0) 08/07/18 02:00 Nucleated RBC % 0 % (0-0) 08/07/18 02:00 ESR 2 mm/hr (0-30) 08/02/18 10:31 Sodium 134 mmol/L (136-145) L 08/07/18 06:00 Potassium 3.2 mmol/L (3.5-5.1) L 08/07/18 06:00 Chloride 103 mmol/L (98-107) 08/07/18 06:00 Carbon Dioxide 23 mmol/L (21-32) 08/07/18 06:00 Anion Gap 9 MMOL/L (8-16) 08/07/18 06:00 BUN 10 mg/dL (7-18) 08/07/18 06:00 Creatinine 0.4 mg/dL (0.55-1.3) L 08/07/18 06:00 Creat Clearance w eGFR > 60 (>60) 08/07/18 06:00 POC Glucometer 141 UNITS (80-120) 08/05/18 22:18 Random Glucose 126 mg/dL (74-106) H 08/07/18 06:00 Lactic Acid 1.3 mmol/L (0.4-2.0) 08/02/18 10:31 Calcium 8.2 mg/dL (8.5-10.1) L 08/07/18 06:00 Phosphorus 3.0 mg/dL (2.5-4.9) 08/07/18 06:00 Magnesium 2.4 mg/dL (1.8-2.4) 08/07/18 06:00 Total Bilirubin 0.7 mg/dL (0.2-1) 08/02/18 08:20 AST 27 U/L (15-37) 08/02/18 08:20 ALT 31 U/L (13-61) 08/02/18 08:20 Alkaline Phosphatase 74 U/L (45-117) 08/02/18 08:20 C-Reactive Protein 1.6 MG/DL (0.00-0.3) H 08/02/18 08:20 Total Protein 5.2 g/dl (6.4-8.2) L 08/02/18 08:20 Albumin 2.5 g/dl (3.4-5.0) L 08/02/18 08:20 Prealbumin 12.6 mg/dl (20-40) L 08/02/18 08:20 Current Medications Generic Name Dose Route Start Last Admin Trade Name Freq PRN Reason Stop Dose Admin Amlodipine Besylate 2.5 mg 08/04/18 10:00 08/06/18 11:06 Norvasc - PO 2.5 mg DAILY [facility] Administration Collagenase 1 applic 08/04/18 12:15 08/06/18 11:09 Santyl - TP 1 applic DAILY [facility] Administration Protocol Enalaprilat 1.25 mg 08/06/18 15:00 08/07/18 15:19 Vasotec Injection - IVPB 1.25 mg Q6H-IV [facility] Administration Enoxaparin Sodium 40 mg 08/02/18 10:00 08/07/18 09:58 Lovenox - SQ 40 mg DAILY [facility] Administration Dextrose/Sodium Chloride 1,000 mls @ 75 mls/hr 08/05/18 18:00 08/06/18 19:16 D5-1/2ns - IV Not Given ASDIR [facility] Potassium Chloride 10 meq in 100 mls @ 100 mls/hr 08/07/18 13:45 08/07/18 15: 29 Potassium Chloride 10 Meq Premix Ivpb - IVPB 08/07/18 16:44 100 mls/hr Q60M [facility] Administration Memantine 5 mg 08/02/18 10:00 08/06/18 11:06 Namenda - PO 5 mg BID [facility] Administration Ondansetron HCl 4 mg 08/07/18 01:38 08/07/18 02:17 Zofran Injection IVPUSH 4 mg Q6H PRN Administration NAUSEA AND/OR VOMITING Pantoprazole Sodium 40 mg 08/07/18 10:00 08/07/18 09:58 Protonix Iv IVPUSH 40 mg BID [facility] Administration Constitutional: Yes: Anxious Eyes: Yes: Conjunctiva Clear HENT: Yes: Atraumatic Neck: Yes: Supple Cardiovascular: Yes: Regular Rate and Rhythm, Murmur (2/6 holosystolic murmur LLSB to apex) Respiratory: Yes: CTA Bilaterally Gastrointestinal Inspection: Yes: Distention, Scars (healed vertical suprapubic incision) ...Auscultate: Yes: Hypoactive Bowel Sounds ...Palpate: Yes: Soft, Other (nontender) ...Percussion: Yes: Tympanitic ...Rectal Exam: Yes: Guaiac Negative (manually impacted semisolid and solid feces, then 2 mineral oil enemas were administered) Edema: No Peripheral Pulses WNL: Yes Neurological: Yes: Confusion Labs: CBC, BMP 08/07/18 06:00 08/07/18 06:00 Imaging - Results Cat Scan: Report Reviewed (fecal impaction noted) Problem List - Problems (1) Constipation by delayed colonic transit Assessment/Plan: Chronic constipation with fecal impaction developing during lapse of Miralax. Manually disempacted . Mineral oil enemas instilled, Will start Miralax. If this recurs she may need a rectal tube. Code(s): K59.01 - SLOW TRANSIT CONSTIPATION (2) Fecal impaction Code(s): K56.41 - FECAL IMPACTION (3) Alzheimer disease Code(s): G30.9 - ALZHEIMER'S DISEASE, UNSPECIFIED; F02.80 - DEMENTIA IN OTH DISEASES CLASSD ELSWHR W/O BEHAVRL DISTURB Qualifiers: Alzheimer's disease onset: unspecified onset Dementia behavioral disturbance: with behavioral disturbance Qualified Code(s): G30.9 - Alzheimer' s disease, unspecified; F02.81 - Dementia in other diseases classified elsewhere with behavioral disturbance (4) Unstageable pressure ulcer Code(s): L89.95 - PRESSURE ULCER OF UNSPECIFIED SITE, UNSTAGEABLE Assessment/Plan Impression: Fecal impaction during lapse of Miralax in setting of chronic constipation. This has led to vomiting of stagnant small bowel contents Plan: Manually disempacted leading to explosion of gas and feces with decompression of distended abdomen. Mineral oil enemas instilled x 2 Miralax TID Plan discussed with daughters and our nurse
[2018-08-07] MEDS: COLLAGENASE CLOSTRIDIUM HIST. 30 GRAMS TUBE TP SCH (18:18)
[2018-08-07] MEDS: DEXTROSE 5%-0.45% SALINE 1,000 ML IV SCH ×2 (18:21→21:40)
--- NOTE | 2018-08-07 18:46 | PN ---
Physical Exam: SUBJECTIVE: Patient seen and examined in am. C/o pain in abdomen. 1 episode of coffee ground emesis earlier in am. OBJECTIVE: Vital Signs Period Temp Pulse Resp BP Sys/Turcios Pulse Ox Last 24 Hr 97.4 F-98.5 F 81-105 17-18 106-161/47-95 99 GENERAL: Awake, in mild distress. EYES: Extraocular movements intact, sclera anicteric, conjunctiva clear. LUNGS: CTAB HEART: RRR S1S2 ABDOMEN: Tympanic, distended abdomen. BS audible all 4 quadrants EXTREMITIES: No CCE. Onychomycosis SKIN: Right Hip Ulcer non infected Laboratory Results - last 24 hr 08/07/18 08/07/18 08/07/18 02:00 06:00 06:00 WBC 9.5 8.0 RBC 4.89 4.63 Hgb 15.6 H 14.5 Hct 45.8 H 43.0 MCV 93.5 92.8 MCH 31.9 31.4 MCHC 34.1 33.8 RDW 15.4 15.3 Plt Count 239 231 MPV 10.1 10.0 Absolute Neuts (auto) 7.8 Neutrophils % 82.1 Lymphocytes % 6.0 L Monocytes % 11.6 H Eosinophils % 0.1 Basophils % 0.2 Nucleated RBC % 0 Sodium 134 L Potassium 3.2 L Chloride 103 Carbon Dioxide 23 Anion Gap 9 BUN 10 Creatinine 0.4 L Creat Clearance w eGFR > 60 Random Glucose 126 H Calcium 8.2 L Phosphorus 3.0 Magnesium 2.4 Active Medications Generic Name Dose Route Start Last Admin Trade Name Freq PRN Reason Stop Dose Admin Amlodipine Besylate 2.5 mg 08/04/18 10:00 08/06/18 11:06 Norvasc - PO 2.5 mg DAILY [facility] Administration Collagenase 1 applic 08/04/18 12:15 08/07/18 18:18 Santyl - TP 1 applic DAILY [facility] Administration Protocol Enalaprilat 1.25 mg 08/06/18 15:00 08/07/18 15:19 Vasotec Injection - IVPB 1.25 mg Q6H-IV [facility] Administration Enoxaparin Sodium 40 mg 08/02/18 10:00 08/07/18 09:58 Lovenox - SQ 40 mg DAILY [facility] Administration Dextrose/Sodium Chloride 1,000 mls @ 75 mls/hr 08/05/18 18:00 08/07/18 18:21 D5-1/2ns - IV Not Given ASDIR [facility] Memantine 5 mg 08/02/18 10:00 08/06/18 11:06 Namenda - PO 5 mg BID [facility] Administration Ondansetron HCl 4 mg 08/07/18 01:38 08/07/18 02:17 Zofran Injection IVPUSH 4 mg Q6H PRN Administration NAUSEA AND/OR VOMITING Pantoprazole Sodium 40 mg 08/07/18 10:00 08/07/18 09:58 Protonix Iv IVPUSH 40 mg BID [facility] Administration ASSESSMENT/PLAN: 88F w/ pmhx of HTN, HLD, Alzheimer's dementia presented to the hospital for evaluation of R hip pressure ulcer as well as poor PO intake. #R pressure wound ulcer -No leukocytosis, or temperature -Ulcer does not appear to be infected -Continue to assess daily. Santyl Applied to wound daily. #Abdominal distension; Pt has abd tenderness on exam. 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 Manually disimpacted 08/04/18 by myself along with RN (Ernestine). Large amount of watery stool and gas expelled from rectum. Distension visibly better. - senna, colace, and miralax : all standing - lactulose and dulcolax. Pt was able to consume part of medicine per RN. -KUB 08/05/18---> Large colonic distension with fecal impaction remains. -Dr Morales on board. Evaluated pt today---> Manually disempacted leading to explosion of gas and feces with decompression of distended abdomen. -Surgery on board Dr Parish---> Can try neostigmine and/or recommend evaluation by GI for possible colonoscopic decompression and placement of a rectal tube; all attempts at non operative management should be considered; CT scan a/p should be considered. #Alzheimer's Dementia Memantine 5 MG PO BID #HTN- Norvasc 2.5 PO Daily, Vasotec 1.25 Q6H #Prophylaxis -Lovenox 40 SQ #FEN -D5-1/2ns @ 75 cc/hr -Monitor Electrolytes -Nutrition consult #Dispo -Med-Surg Visit type - Emergency Visit Emergency Visit: Yes ED Registration Date: 08/01/18 Care time: The patient presented to the Emergency Department on the above date and was hospitalized for further evaluation of their emergent condition. - New Patient This patient is new to me today: No - Critical Care Critical Care patient: No - Discharge Referral Referred to [facility] Med P.C.: No
--- NOTE | 2018-08-07 20:03 | PN ---
Teaching Attending Note Name of Resident: Delvis Juarez ATTENDING PHYSICIAN STATEMENT I saw and evaluated the patient. I reviewed the resident's note and discussed the case with the resident. I agree with the resident's findings and plan as documented. SUBJECTIVE: Patient is slightly better. Lying in bed with no acute distress. OBJECTIVE: Vital Signs Temperature 97.5 F L 08/07/18 13:40 Pulse Rate 105 H 08/07/18 17:40 Respiratory Rate 18 08/07/18 17:40 Blood Pressure 106/47 L 08/07/18 17:40 O2 Sat by Pulse Oximetry (%) 99 08/06/18 21:00 GENERAL: Awake,in mild distress EYES: EOMI, sclera anicteric, conjunctiva clear. LUNGS: CTAB, HEART: RRR S1S2 ABDOMEN: more distended with tenderness to palpation, positive for voluntary guarding. EXTREMITIES: pulses are positive, No C/C/E SKIN: Right Hip Ulcer w/ necrotic eschar. CBCD WBC 8.0 K/mm3 (4.0-10.0) 08/07/18 06:00 RBC 4.63 M/mm3 (3.60-5.2) 08/07/18 06:00 Hgb 14.5 GM/dL (10.7-15.3) 08/07/18 06:00 Hct 43.0 % (32.4-45.2) 08/07/18 06:00 MCV 92.8 fl (80-96) 08/07/18 06:00 MCHC 33.8 g/dl (32.0-36.0) 08/07/18 06:00 RDW 15.3 % (11.6-15.6) 08/07/18 06:00 Plt Count 231 K/MM3 (134-434) 08/07/18 06:00 MPV 10.0 fl (7.5-11.1) 08/07/18 06:00 CMP Sodium 134 mmol/L (136-145) L 08/07/18 06:00 Potassium 3.2 mmol/L (3.5-5.1) L 08/07/18 06:00 Chloride 103 mmol/L (98-107) 08/07/18 06:00 Carbon Dioxide 23 mmol/L (21-32) 08/07/18 06:00 Anion Gap 9 MMOL/L (8-16) 08/07/18 06:00 BUN 10 mg/dL (7-18) 08/07/18 06:00 Creatinine 0.4 mg/dL (0.55-1.3) L 08/07/18 06:00 Creat Clearance w eGFR > 60 (>60) 08/07/18 06:00 Random Glucose 126 mg/dL (74-106) H 08/07/18 06:00 Calcium 8.2 mg/dL (8.5-10.1) L 08/07/18 06:00 Total Bilirubin 0.7 mg/dL (0.2-1) 08/02/18 08:20 AST 27 U/L (15-37) 08/02/18 08:20 ALT 31 U/L (13-61) 08/02/18 08:20 Alkaline Phosphatase 74 U/L (45-117) 08/02/18 08:20 Total Protein 5.2 g/dl (6.4-8.2) L 08/02/18 08:20 Albumin 2.5 g/dl (3.4-5.0) L 08/02/18 08:20 Current Medications Generic Name Dose Route Start Last Admin Trade Name Kareem PRN Reason Stop Dose Admin Amlodipine Besylate 2.5 mg 08/04/18 10:00 08/06/18 11:06 Norvasc - PO 2.5 mg DAILY [facility] Administration Collagenase 1 applic 08/04/18 12:15 08/07/18 18:18 Santyl - TP 1 applic DAILY [facility] Administration Protocol Enalaprilat 1.25 mg 08/06/18 15:00 08/07/18 15:19 Vasotec Injection - IVPB 1.25 mg Q6H-IV [facility] Administration Enoxaparin Sodium 40 mg 08/02/18 10:00 08/07/18 09:58 Lovenox - SQ 40 mg DAILY [facility] Administration Dextrose/Sodium Chloride 1,000 mls @ 75 mls/hr 08/05/18 18:00 08/07/18 18:21 D5-1/2ns - IV Not Given ASDIR [facility] Memantine 5 mg 08/02/18 10:00 08/06/18 11:06 Namenda - PO 5 mg BID [facility] Administration Ondansetron HCl 4 mg 08/07/18 01:38 08/07/18 02:17 Zofran Injection IVPUSH 4 mg Q6H PRN Administration NAUSEA AND/OR VOMITING Pantoprazole Sodium 40 mg 08/07/18 10:00 08/07/18 09:58 Protonix Iv IVPUSH 40 mg BID [facility] Administration Home Medications Medication Instructions Recorded Cephalexin [Keflex] 500 mg PO QID 08/01/18 Memantine HCl 5 mg PO BID 08/01/18 Sulfamethoxazole/Trimethoprim 1 each PO BID 08/01/18 [Sulfamethoxazole-Tmp Ds Tablet] Aspirin [Adult Aspirin] 81 mg PO DAILY 08/02/18 Loperamide HCl Liquid [Imodium 1 mg PO DAILY 08/02/18 Liquid -] Saccharomyces Boulardii [Florastor] 250 mg PO DAILY 08/02/18 No evidence of pneumoperitoneum, free intraperitoneal fluid. Moderate to marked dilatation of the length of the colon is seen including the rectum. There is prominent rectosigmoid fecal impaction with associated rectal distention. No small bowel dilatation is seen. The liver, spleen, pancreas, gallbladder, adrenal glands and left kidney demonstrate no discrete noncontrast pathology. Bilateral renal cortical cysts. There is no aortic aneurysm. No obvious CT evidence of acute appendicitis or diverticulitis on noncontrast imaging. There is no gross lymphadenopathy. 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 Absent uterus versus atrophy. A marked L1 vertebral body compression fracture is noted which is probably chronic or subacute. There is mild bony retropulsion. Trace left pleural effusion. 3 mm noncalcified right lower lobe subpleural nodule. I MPRESSION: Diffuse colonic dilatation is noted. There is prominent rectosigmoid fecal retention/impaction. 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 Marked L1 vertebral body compression fracture with mild bony retropulsion. This fracture is probably chronic or subacute. If clinically indicated correlate with MRI. Trace left pleural effusion. 3 mm right lower lobe pulmonary nodule. Follow-up CT may be performed. ASSESSMENT AND PLAN: Patient is a 88yo female with PMHx of Dementia, HTN, HLp, who comes form home with poor po intake, and for evaluation of Right posterior hip. She was found to have constipation with severe colonic distention . # Diffuse colonic dilatation due to fecal impaction. GI is aware will see the patient , Disimpacted x 2 . npo for now. Sx is on the case. DO not give any haldol IF GETS AGITATED . # Volume depletion: CONTINUE IVF # Right posterior decub: Not infected. No abx continue with Santyl # H/o HTN: NPO, discontinue po meds. for now. on IV Vasotec for now. DVT PX : Lovenox
[2018-08-07] MEDS ORDERED: KCL 10 MEQ IVPB 10 MEQ/100 ML INFUS.BAG IVPB SCH (22:00)
[2018-08-08] MEDS: ENALAPRILAT DIHYDRATE 1.25 MG/1 ML VIAL IVPB SCH ×5 (03:17→22:53)
[2018-08-08 09:26] LABS: HEMOGLOBIN 13.8 GM/dL (10.7-15.3); MCH 31.7 pg (25.7-33.7); MCHC 33.6 g/dl (32.0-36.0); MEAN CELL VOLUME 94.4 fl (80-96); MEAN PLT VOLUME 9.7 fl (7.5-11.1); PLATELET COUNT 228 K/MM3 (134-434); RBC 4.34 M/mm3 (3.60-5.2); RDW 15.6 % (11.6-15.6); WHITE BLOOD COUNT 7.7 K/mm3 (4.0-10.0)
--- NOTE | 2018-08-08 09:50 | PN ---
Progress Note (short form) - Note Progress Note: Patient had a BM. as per nurse, less distended today, no nausea or vomiting. Vital Signs Temperature 97.8 F 08/08/18 02:00 Pulse Rate 96 H 08/08/18 02:00 Respiratory Rate 18 08/08/18 02:00 Blood Pressure 154/88 08/08/18 02:00 O2 Sat by Pulse Oximetry (%) 98 08/07/18 21:00 GENERAL: Awake,in mild distress EYES: EOMI, sclera anicteric, conjunctiva clear. LUNGS: BS BL, HEART: S1S2 positive ABDOMEN: more distended with tenderness to palpation , positive for voluntary guarding. EXTREMITIES: pulses are positive, No C/C/E SKIN: Right Hip Ulcer w/ necrotic eschar. CBCD WBC 7.7 K/mm3 (4.0-10.0) 08/08/18 07:44 RBC 4.34 M/mm3 (3.60-5.2) 08/08/18 07:44 Hgb 13.8 GM/dL (10.7-15.3) 08/08/18 07:44 Hct 41.0 % (32.4-45.2) 08/08/18 07:44 MCV 94.4 fl (80-96) 08/08/18 07:44 MCHC 33.6 g/dl (32.0-36.0) 08/08/18 07:44 RDW 15.6 % (11.6-15.6) 08/08/18 07:44 Plt Count 228 K/MM3 (134-434) 08/08/18 07:44 MPV 9.7 fl (7.5-11.1) 08/08/18 07:44 CMP Sodium 134 mmol/L (136-145) L 08/07/18 06:00 Potassium 3.2 mmol/L (3.5-5.1) L 08/07/18 06:00 Chloride 103 mmol/L (98-107) 08/07/18 06:00 Carbon Dioxide 23 mmol/L (21-32) 08/07/18 06:00 Anion Gap 9 MMOL/L (8-16) 08/07/18 06:00 BUN 10 mg/dL (7-18) 08/07/18 06:00 Creatinine 0.4 mg/dL (0.55-1.3) L 08/07/18 06:00 Creat Clearance w eGFR > 60 (>60) 08/07/18 06:00 Random Glucose 126 mg/dL (74-106) H 08/07/18 06:00 Calcium 8.2 mg/dL (8.5-10.1) L 08/07/18 06:00 Total Bilirubin 0.7 mg/dL (0.2-1) 08/02/18 08:20 AST 27 U/L (15-37) 08/02/18 08:20 ALT 31 U/L (13-61) 08/02/18 08:20 Alkaline Phosphatase 74 U/L (45-117) 08/02/18 08:20 Total Protein 5.2 g/dl (6.4-8.2) L 08/02/18 08:20 Albumin 2.5 g/dl (3.4-5.0) L 08/02/18 08:20 Current Medications Generic Name Dose Route Start Last Admin Trade Name Kareem PRN Reason Stop Dose Admin Amlodipine Besylate 2.5 mg 08/04/18 10:00 08/06/18 11:06 Norvasc - PO 2.5 mg DAILY [facility] Administration Collagenase 1 applic 08/04/18 12:15 08/07/18 18:18 Santyl - TP 1 applic DAILY [facility] Administration Protocol Enalaprilat 1.25 mg 08/06/18 15:00 08/08/18 04:26 Vasotec Injection - IVPB Not Given Q6H-IV [facility] Enoxaparin Sodium 40 mg 08/02/18 10:00 08/07/18 09:58 Lovenox - SQ 40 mg DAILY [facility] Administration Dextrose/Sodium Chloride 1,000 mls @ 75 mls/hr 08/05/18 18:00 08/07/18 21:40 D5-1/2ns - IV 75 mls/hr ASDIR [facility] Administration Memantine 5 mg 08/02/18 10:00 08/06/18 11:06 Namenda - PO 5 mg BID [facility] Administration Ondansetron HCl 4 mg 08/07/18 01:38 08/07/18 02:17 Zofran Injection IVPUSH 4 mg Q6H PRN Administration NAUSEA AND/OR VOMITING Pantoprazole Sodium 40 mg 08/07/18 10:00 08/07/18 21:41 Protonix Iv IVPUSH 40 mg BID [facility] Administration Home Medications Medication Instructions Recorded Cephalexin [Keflex] 500 mg PO QID 08/01/18 Memantine HCl 5 mg PO BID 08/01/18 Sulfamethoxazole/Trimethoprim 1 each PO BID 08/01/18 [Sulfamethoxazole-Tmp Ds Tablet] Aspirin [Adult Aspirin] 81 mg PO DAILY 08/02/18 Loperamide HCl Liquid [Imodium 1 mg PO DAILY 08/02/18 Liquid -] Saccharomyces Boulardii [Florastor] 250 mg PO DAILY 08/02/18 No evidence of pneumoperitoneum, free intraperitoneal fluid. Moderate to marked dilatation of the length of the colon is seen including the rectum. There is prominent rectosigmoid fecal impaction with associated rectal distention. No small bowel dilatation is seen. The liver, spleen, pancreas, gallbladder, adrenal glands and left kidney demonstrate no discrete noncontrast pathology. Bilateral renal cortical cysts. There is no aortic aneurysm. No obvious CT evidence of acute appendicitis or diverticulitis on noncontrast imaging. There is no gross lymphadenopathy. 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 Absent uterus versus atrophy. A marked L1 vertebral body compression fracture is noted which is probably chronic or subacute. There is mild bony retropulsion. Trace left pleural effusion. 3 mm noncalcified right lower lobe subpleural nodule. I MPRESSION: Diffuse colonic dilatation is noted. There is prominent rectosigmoid fecal retention/impaction. 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 Marked L1 vertebral body compression fracture with mild bony retropulsion. This fracture is probably chronic or subacute. If clinically indicated correlate with MRI. Trace left pleural effusion. 3 mm right lower lobe pulmonary nodule. Follow-up CT may be performed. ASSESSMENT AND PLAN: Patient is a 88yo female with PMHx of Dementia, HTN, HLp, who comes form home with poor po intake, and for evaluation of Right posterior hip. She was found to have constipation with severe colonic distention . # Diffuse colonic dilatation due to fecal impaction. disimpacted by as well. will start her on liquid diet. DO not give any haldol IF GETS AGITATED . # Volume depletion: CONTINUE IVF # Right posterior decub: Not infected. No abx continue with Santyl # H/o HTN: NPO, discontinue po meds. on IV Vasotec DVT PX : Lovenox Visit type - Emergency Visit Emergency Visit: Yes ED Registration Date: 08/01/18 Care time: The patient presented to the Emergency Department on the above date and was hospitalized for further evaluation of their emergent condition. - New Patient This patient is new to me today: No - Critical Care Critical Care patient: No - Discharge Referral Referred to [facility] Med P.C.: No
[2018-08-08 10:43] LABS: ANION GAP 9 MMOL/L (8-16); BLOOD UREA NITROGEN 8 mg/dL (7-18); CALCIUM 7.9 mg/dL (8.5-10.1); CHLORIDE 104 mmol/L (98-107); CO2 26 mmol/L (21-32); CREATININE 0.5 mg/dL (0.55-1.3); GLUCOSE,RANDOM 76 mg/dL (74-106); MAGNESIUM 2.2 mg/dL (1.8-2.4); PHOSPHOROUS 2.4 mg/dL (2.5-4.9); POTASSIUM 3.7 mmol/L (3.5-5.1); SODIUM 139 mmol/L (136-145)
[2018-08-08] MEDS: ENOXAPARIN NA (PORCINE) 40 MG/0.4 ML DISP.SYRIN SQ SCH (11:52)
[2018-08-08] MEDS: PANTOPRAZOLE SODIUM 40 MG VIAL IVPUSH SCH (11:53)
--- NOTE | 2018-08-08 16:34 | PN ---
Progress Note, Physician History of Present Illness: Events noted. Pt s/p fecal disimpaction. Currently afebrile, without distress. - Current Medication List Current Medications: Active Medications Amlodipine Besylate (Norvasc -) 2.5 mg PO DAILY [facility] Last Admin: 08/06/18 11:06 Dose: 2.5 mg Collagenase (Santyl -) 1 applic TP DAILY [facility]; Protocol Last Admin: 08/07/18 18:18 Dose: 1 applic Enalaprilat (Vasotec Injection -) 1.25 mg IVPB Q6H-IV [facility] Last Admin: 08/08/18 14:59 Dose: Not Given Enoxaparin Sodium (Lovenox -) 40 mg SQ DAILY [facility] Last Admin: 08/08/18 11:52 Dose: Not Given Dextrose/Sodium Chloride (D5-1/2ns -) 1,000 mls @ 75 mls/hr IV ASDIR [facility] Last Admin: 08/07/18 21:40 Dose: 75 mls/hr Memantine (Namenda -) 5 mg PO BID [facility] Last Admin: 08/06/18 11:06 Dose: 5 mg - Objective Vital Signs: Vital Signs Temperature 98.3 F 08/08/18 13:41 Pulse Rate 82 08/08/18 13:41 Respiratory Rate 18 08/08/18 13:41 Blood Pressure 153/76 08/08/18 13:41 O2 Sat by Pulse Oximetry (%) 98 08/07/18 21:00 Constitutional: Yes: No Distress Cardiovascular: Yes: Regular Rate and Rhythm Respiratory: Yes: Regular Gastrointestinal: Yes: Soft Wound/Incision: Yes: Other (Rt hip necrotic ulcer, no drainage) Labs: CBC, BMP 08/08/18 07:44 08/08/18 07:44 Problem List - Problems (1) Alzheimer disease Code(s): G30.9 - ALZHEIMER'S DISEASE, UNSPECIFIED; F02.80 - DEMENTIA IN OTH DISEASES CLASSD ELSWHR W/O BEHAVRL DISTURB Qualifiers: Alzheimer's disease onset: unspecified onset Dementia behavioral disturbance: with behavioral disturbance Qualified Code(s): G30.9 - Alzheimer' s disease, unspecified; F02.81 - Dementia in other diseases classified elsewhere with behavioral disturbance (2) Fecal impaction Code(s): K56.41 - FECAL IMPACTION (3) Necrotic eschar Code(s): L98.8 - OTH DISRD OF THE SKIN AND SUBCUTANEOUS TISSUE (4) Unstageable pressure ulcer Code(s): L89.95 - PRESSURE ULCER OF UNSPECIFIED SITE, UNSTAGEABLE Assessment/Plan Continue monitor pt off antibiotics Pt afebrile, without leukocytosis
[2018-08-08] MEDS: COLLAGENASE CLOSTRIDIUM HIST. 30 GRAMS TUBE TP SCH (16:57)
[2018-08-08] MEDS: DEXTROSE 5%-0.45% SALINE 1,000 ML IV SCH (22:53)
[2018-08-09] MEDS: ENALAPRILAT DIHYDRATE 1.25 MG/1 ML VIAL IVPB SCH ×3 (02:30→21:45)
--- NOTE | 2018-08-09 08:44 | PN ---
Progress Note, Physician History of Present Illness: seen and examined at bedside. c/o abd pain, no bm so far. unable to obtain further history due to pt's baseline mental status. per nurse, pt still no bm since last disimpaction. - Current Medication List Current Medications: Active Medications Amlodipine Besylate (Norvasc -) 2.5 mg PO DAILY [facility] Last Admin: 08/06/18 11:06 Dose: 2.5 mg Collagenase (Santyl -) 1 applic TP DAILY [facility]; Protocol Last Admin: 08/08/18 16:57 Dose: Not Given Enoxaparin Sodium (Lovenox -) 40 mg SQ DAILY [facility] Last Admin: 08/08/18 11:52 Dose: Not Given Dextrose/Sodium Chloride (D5-1/2ns -) 1,000 mls @ 75 mls/hr IV ASDIR [facility] Last Admin: 08/08/18 22:53 Dose: Not Given Memantine (Namenda -) 5 mg PO BID [facility] Last Admin: 08/06/18 11:06 Dose: 5 mg - Objective Vital Signs: Vital Signs Temperature 98.3 F 08/09/18 05:00 Pulse Rate 83 08/09/18 05:00 Respiratory Rate 16 08/09/18 05:00 Blood Pressure 133/75 08/09/18 05:00 O2 Sat by Pulse Oximetry (%) 98 08/08/18 21:00 Constitutional: Yes: Anxious, Mild Distress Cardiovascular: Yes: Regular Rate and Rhythm Respiratory: Yes: CTA Bilaterally Gastrointestinal: Yes: Distention, Hypoactive Bowel Sounds, Tenderness Edema: No Labs: CBC, BMP 08/08/18 07:44 08/08/18 07:44 Impression/Plan Impression/Plan: 88 yo F h/o dementia, htn, hld admitted for fecal impaction. fecal impaction - s/p manual disimpaction x 2 (last on 08/07) - abd tenderness and no bm since then - stat flat KUB to reassess - will give more aggressive bowel regiment if tolerated R hip pressure ulcer - non-infected - daily wound care dementia - memantine 5mg bid htn - norvasc 2.5mg, vasotec d/c dvt ppx w/ lovenox 40 sq FEN: d5 1/2ns Visit type - Emergency Visit Emergency Visit: No - New Patient This patient is new to me today: Yes Date on this admission: 08/09/18 - Critical Care Critical Care patient: No - Discharge Referral Referred to [facility] Med P.C.: No
[2018-08-09] MEDS ORDERED: ENALAPRILAT DIHYDRATE 1.25 MG/1 ML VIAL IVPB SCH (10:45)
[2018-08-09] MEDS: DEXTROSE 5%-0.45% SALINE 1,000 ML IV SCH ×2 (13:09→18:28)
[2018-08-09] MEDS ORDERED: PT OWN MED DRAWER 7, Y5N ONE ×3 (14:09→23:14)
[2018-08-09] MEDS: amLODIPine BESYLATE 2.5 MG TABLET (FP) PO SCH (14:12)
[2018-08-09] MEDS: POLYETHYLENE GLYCOL 3350 119 GM BTL PO SCH ×3 (14:12→22:31)
[2018-08-09] MEDS: ENOXAPARIN NA (PORCINE) 40 MG/0.4 ML DISP.SYRIN SQ SCH (14:12)
[2018-08-09] MEDS: COLLAGENASE CLOSTRIDIUM HIST. 30 GRAMS TUBE TP SCH (14:14)
--- NOTE | 2018-08-09 14:53 | PN ---
Progress Note, Physician History of Present Illness: Pt awake, without acute distress but with abd pain. No BM today. AXR results noted. She remains afebrile. - Current Medication List Current Medications: Active Medications Amlodipine Besylate (Norvasc -) 2.5 mg PO DAILY [facility] Last Admin: 08/09/18 14:12 Dose: 2.5 mg Collagenase (Santyl -) 1 applic TP DAILY [facility]; Protocol Last Admin: 08/09/18 14:14 Dose: 1 applic Enalaprilat (Vasotec Injection -) 1.25 mg IVPB Q6H-IV [facility] Enoxaparin Sodium (Lovenox -) 40 mg SQ DAILY [facility] Last Admin: 08/09/18 14:12 Dose: 40 mg Dextrose/Sodium Chloride (D5-1/2ns -) 1,000 mls @ 75 mls/hr IV ASDIR [facility] Last Admin: 08/09/18 13:09 Dose: 75 mls/hr Memantine (Namenda -) 5 mg PO BID [facility] Last Admin: 08/06/18 11:06 Dose: 5 mg Polyethylene Glycol (Miralax (For Daily Use) -) 17 gm PO BID [facility] Last Admin: 08/09/18 14:12 Dose: 17 grams - Objective Vital Signs: Vital Signs Temperature 98.2 F 08/09/18 14:11 Pulse Rate 89 08/09/18 14:11 Respiratory Rate 18 08/09/18 14:11 Blood Pressure 152/71 08/09/18 14:11 O2 Sat by Pulse Oximetry (%) 98 08/08/18 21:00 Constitutional: Yes: No Distress Cardiovascular: Yes: Regular Rate and Rhythm Respiratory: Yes: Regular Gastrointestinal: Yes: Distention Wound/Incision: Yes: Dressing Dry and Intact Labs: CBC, BMP 08/08/18 07:44 08/08/18 07:44 - ....Imaging X-ray: Report Reviewed Problem List - Problems (1) Alzheimer disease Code(s): G30.9 - ALZHEIMER'S DISEASE, UNSPECIFIED; F02.80 - DEMENTIA IN OTH DISEASES CLASSD ELSWHR W/O BEHAVRL DISTURB Qualifiers: Alzheimer's disease onset: unspecified onset Dementia behavioral disturbance: with behavioral disturbance Qualified Code(s): G30.9 - Alzheimer' s disease, unspecified; F02.81 - Dementia in other diseases classified elsewhere with behavioral disturbance (2) Fecal impaction Code(s): K56.41 - FECAL IMPACTION (3) Necrotic eschar Code(s): L98.8 - OTH DISRD OF THE SKIN AND SUBCUTANEOUS TISSUE (4) Unstageable pressure ulcer Code(s): L89.95 - PRESSURE ULCER OF UNSPECIFIED SITE, UNSTAGEABLE Assessment/Plan Constipation/Colonic distention s/p disimpactions GI following Closely monitor off antibiotics Pt afebrile, without leukocytosis
[2018-08-09] MEDS: SODIUM PHOSPHATE/NA BIPHOS 133 ML ENEMA PR SCH ×2 (18:27→22:30)
--- NOTE | 2018-08-09 18:38 | PN ---
Teaching Attending Note Name of Resident: Yuri Bruce ATTENDING PHYSICIAN STATEMENT I saw and evaluated the patient. I reviewed the resident's note and discussed the case with the resident. I agree with the resident's findings and plan as documented. SUBJECTIVE: Patient is awake, wants to go home, feels hungry., OBJECTIVE: Vital Signs Temperature 98.2 F 08/09/18 14:11 Pulse Rate 89 08/09/18 14:11 Respiratory Rate 18 08/09/18 14:11 Blood Pressure 152/71 08/09/18 14:11 O2 Sat by Pulse Oximetry (%) 98 08/09/18 09:00 GENERAL: Awake,in mild distress EYES: EOMI, sclera anicteric, conjunctiva clear. LUNGS: BS BL, HEART: S1S2 positive ABDOMEN: less distended and soft today , BS positive. EXTREMITIES: pulses are positive, No C/C/E SKIN: Right Hip Ulcer w/ necrotic eschar. CBCD WBC 7.7 K/mm3 (4.0-10.0) 08/08/18 07:44 RBC 4.34 M/mm3 (3.60-5.2) 08/08/18 07:44 Hgb 13.8 GM/dL (10.7-15.3) 08/08/18 07:44 Hct 41.0 % (32.4-45.2) 08/08/18 07:44 MCV 94.4 fl (80-96) 08/08/18 07:44 MCHC 33.6 g/dl (32.0-36.0) 08/08/18 07:44 RDW 15.6 % (11.6-15.6) 08/08/18 07:44 Plt Count 228 K/MM3 (134-434) 08/08/18 07:44 MPV 9.7 fl (7.5-11.1) 08/08/18 07:44 CMP Sodium 139 mmol/L (136-145) 08/08/18 07:44 Potassium 3.7 mmol/L (3.5-5.1) 08/08/18 07:44 Chloride 104 mmol/L (98-107) 08/08/18 07:44 Carbon Dioxide 26 mmol/L (21-32) 08/08/18 07:44 Anion Gap 9 MMOL/L (8-16) 08/08/18 07:44 BUN 8 mg/dL (7-18) 08/08/18 07:44 Creatinine 0.5 mg/dL (0.55-1.3) L 08/08/18 07:44 Creat Clearance w eGFR > 60 (>60) 08/08/18 07:44 Random Glucose 76 mg/dL (74-106) 08/08/18 07:44 Calcium 7.9 mg/dL (8.5-10.1) L 08/08/18 07:44 Total Bilirubin 0.7 mg/dL (0.2-1) 08/02/18 08:20 AST 27 U/L (15-37) 08/02/18 08:20 ALT 31 U/L (13-61) 08/02/18 08:20 Alkaline Phosphatase 74 U/L (45-117) 08/02/18 08:20 Total Protein 5.2 g/dl (6.4-8.2) L 08/02/18 08:20 Albumin 2.5 g/dl (3.4-5.0) L 08/02/18 08:20 Current Medications Generic Name Dose Route Start Last Admin Trade Name Kareem PRN Reason Stop Dose Admin Amlodipine Besylate 2.5 mg 08/04/18 10:00 08/09/18 14:12 Norvasc - PO 2.5 mg DAILY [facility] Administration Collagenase 1 applic 08/04/18 12:15 08/09/18 14:14 Santyl - TP 1 applic DAILY [facility] Administration Protocol Enalaprilat 1.25 mg 08/09/18 10:52 08/09/18 18:26 Vasotec Injection - IVPB 1.25 mg Q6H-IV [facility] Administration Enoxaparin Sodium 40 mg 08/02/18 10:00 08/09/18 14:12 Lovenox - SQ 40 mg DAILY [facility] Administration Dextrose/Sodium Chloride 1,000 mls @ 75 mls/hr 08/05/18 18:00 08/09/18 18:28 D5-1/2ns - IV 75 mls/hr ASDIR [facility] Administration Memantine 5 mg 08/02/18 10:00 08/06/18 11:06 Namenda - PO 5 mg BID [facility] Administration Polyethylene Glycol 17 gm 08/09/18 10:00 08/09/18 14:12 Miralax (For Daily Use) - PO 17 grams BID [facility] Administration Sodium Phosphate 133 ml 08/09/18 17:00 08/09/18 18:27 Fleet Adult Rectal Enema - OR 08/10/18 05:01 133 ml Q4H [facility] Administration Home Medications Medication Instructions Recorded Cephalexin [Keflex] 500 mg PO QID 08/01/18 Memantine HCl 5 mg PO BID 08/01/18 Sulfamethoxazole/Trimethoprim 1 each PO BID 08/01/18 [Sulfamethoxazole-Tmp Ds Tablet] Aspirin [Adult Aspirin] 81 mg PO DAILY 08/02/18 Loperamide HCl Liquid [Imodium 1 mg PO DAILY 08/02/18 Liquid -] Saccharomyces Boulardii [Florastor] 250 mg PO DAILY 08/02/18 No evidence of pneumoperitoneum, free intraperitoneal fluid. Moderate to marked dilatation of the length of the colon is seen including the rectum. There is prominent rectosigmoid fecal impaction with associated rectal distention. No small bowel dilatation is seen. The liver, spleen, pancreas, gallbladder, adrenal glands and left kidney demonstrate no discrete noncontrast pathology. Bilateral renal cortical cysts. There is no aortic aneurysm. No obvious CT evidence of acute appendicitis or diverticulitis on noncontrast imaging. There is no gross lymphadenopathy. 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 Absent uterus versus atrophy. A marked L1 vertebral body compression fracture is noted which is probably chronic or subacute. There is mild bony retropulsion. Trace left pleural effusion. 3 mm noncalcified right lower lobe subpleural nodule. I MPRESSION: Diffuse colonic dilatation is noted. There is prominent rectosigmoid fecal retention/impaction. 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 Marked L1 vertebral body compression fracture with mild bony retropulsion. This fracture is probably chronic or subacute. If clinically indicated correlate with MRI. Trace left pleural effusion. 3 mm right lower lobe pulmonary nodule. Follow-up CT may be performed. ASSESSMENT AND PLAN: Patient is a 88yo female with PMHx of Dementia, HTN, HLp, who comes form home with poor po intake, and for evaluation of Right posterior hip. She was found to have constipation with severe colonic distention . # Diffuse colonic dilatation due to fecal impaction. improving, disimpacted by yesterday. continue liquid diet. DO not give any haldol IF GETS AGITATED . will monitor. # Volume depletion: CONTINUE IVF # Right posterior decub: Not infected. No abx continue with Santyl # H/o HTN: NPO, discontinue po meds. on IV Vasotec DVT PX : Lovenox
[2018-08-10] MEDS: SODIUM PHOSPHATE/NA BIPHOS 133 ML ENEMA PR SCH ×2 (02:48→06:17)
[2018-08-10] MEDS: ENALAPRILAT DIHYDRATE 1.25 MG/1 ML VIAL IVPB SCH ×4 (02:48→22:06)
[2018-08-10] MEDS: DEXTROSE 5%-0.45% SALINE 1,000 ML IV SCH ×2 (02:54→17:38)
[2018-08-10] MEDS ORDERED: PT OWN MED DRAWER 7, Y5N ONE ×2 (06:03→10:09)
--- NOTE | 2018-08-10 10:17 | PN ---
Progress Note, Physician History of Present Illness: patient with no changes repeat abd xray seen and noted findings - Current Medication List Current Medications: Active Medications Amlodipine Besylate (Norvasc -) 2.5 mg PO DAILY [facility] Last Admin: 08/09/18 14:12 Dose: 2.5 mg Collagenase (Santyl -) 1 applic TP DAILY [facility]; Protocol Last Admin: 08/09/18 14:14 Dose: 1 applic Enalaprilat (Vasotec Injection -) 1.25 mg IVPB Q6H-IV [facility] Last Admin: 08/10/18 02:48 Dose: 1.25 mg Enoxaparin Sodium (Lovenox -) 40 mg SQ DAILY [facility] Last Admin: 08/09/18 14:12 Dose: 40 mg Dextrose/Sodium Chloride (D5-1/2ns -) 1,000 mls @ 75 mls/hr IV ASDIR [facility] Last Admin: 08/10/18 02:54 Dose: 75 mls/hr Memantine (Namenda -) 5 mg PO BID [facility] Last Admin: 08/06/18 11:06 Dose: 5 mg Polyethylene Glycol (Miralax (For Daily Use) -) 17 gm PO BID [facility] Last Admin: 08/09/18 22:30 Dose: Not Given - Objective Vital Signs: Vital Signs Temperature 98.6 F 08/10/18 06:00 Pulse Rate 88 08/10/18 06:00 Respiratory Rate 18 08/10/18 06:00 Blood Pressure 137/99 08/10/18 06:00 O2 Sat by Pulse Oximetry (%) 98 08/09/18 21:00 Constitutional: Yes: No Distress, Calm Cardiovascular: Yes: S1, S2 Respiratory: Yes: Regular, CTA Bilaterally Gastrointestinal: Yes: Soft, Distention, Hypoactive Bowel Sounds Musculoskeletal: Yes: WNL Extremities: Yes: Other Neurological: Yes: Other Psychiatric: Yes: Other Labs: CBC, BMP 08/08/18 07:44 08/10/18 06:15 Assessment/Plan Problem List - Problems (1) Alzheimer disease Code(s): G30.9 - ALZHEIMER'S DISEASE, UNSPECIFIED; F02.80 - DEMENTIA IN OTH DISEASES CLASSD ELSWHR W/O BEHAVRL DISTURB Qualifiers: Alzheimer's disease onset: unspecified onset Dementia behavioral disturbance: with behavioral disturbance Qualified Code(s): G30.9 - Alzheimer' s disease, unspecified; F02.81 - Dementia in other diseases classified elsewhere with behavioral disturbance (2) Fecal impaction Code(s): K56.41 - FECAL IMPACTION (3) Necrotic eschar Code(s): L98.8 - OTH DISRD OF THE SKIN AND SUBCUTANEOUS TISSUE (4) Unstageable pressure ulcer Code(s): L89.95 - PRESSURE ULCER OF UNSPECIFIED SITE, UNSTAGEABLE Assessment/Plan Constipation/Colonic distention s/p disimpactions GI following Closely monitor off antibiotics Pt afebrile, without leukocytosis
[2018-08-10] MEDS: COLLAGENASE CLOSTRIDIUM HIST. 30 GRAMS TUBE TP SCH (10:27)
[2018-08-10] MEDS: ENOXAPARIN NA (PORCINE) 40 MG/0.4 ML DISP.SYRIN SQ SCH (10:27)
[2018-08-10] MEDS: amLODIPine BESYLATE 2.5 MG TABLET (FP) PO SCH (10:27)
[2018-08-10] MEDS: POLYETHYLENE GLYCOL 3350 119 GM BTL PO SCH ×3 (10:40→22:08)
[2018-08-10 12:01] LABS: ALBUMIN 2.2 g/dl (3.4-5.0); ALK PHOS 76 U/L (45-117); ANION GAP 7 MMOL/L (8-16); BILIRUBIN,TOTAL 0.7 mg/dL (0.2-1); BLOOD UREA NITROGEN 10 mg/dL (7-18); CALCIUM 7.7 mg/dL (8.5-10.1); CHLORIDE 108 mmol/L (98-107); CO2 27 mmol/L (21-32); CREATININE 0.4 mg/dL (0.55-1.3); GLUCOSE,RANDOM 113 mg/dL (74-106); PHOSPHOROUS 2.9 mg/dL (2.5-4.9); POTASSIUM 3.2 mmol/L (3.5-5.1); SGOT/AST 29 U/L (15-37); SGPT/ALT 35 U/L (13-61); SODIUM 142 mmol/L (136-145); TOT PROT 4.6 g/dl (6.4-8.2)
--- NOTE | 2018-08-10 13:06 | PN ---
Progress Note (short form) - Note Progress Note: Patient is found to be distended again. daughter at bedside. Vital Signs Temperature 98.7 F 08/10/18 10:00 Pulse Rate 73 08/10/18 10:00 Respiratory Rate 18 08/10/18 10:00 Blood Pressure 119/79 08/10/18 10:00 O2 Sat by Pulse Oximetry (%) 96 08/10/18 09:00 GENERAL: Awake,in no distress EYES: EOMI, sclera anicteric, conjunctiva clear. LUNGS: BS BL, HEART: S1S2 positive ABDOMEN: distended with mild tenderness , BS positive. EXTREMITIES: pulses are positive, No C/C/E SKIN: Right Hip Ulcer w/ necrotic eschar. CBCD WBC 7.7 K/mm3 (4.0-10.0) 08/08/18 07:44 RBC 4.34 M/mm3 (3.60-5.2) 08/08/18 07:44 Hgb 13.8 GM/dL (10.7-15.3) 08/08/18 07:44 Hct 41.0 % (32.4-45.2) 08/08/18 07:44 MCV 94.4 fl (80-96) 08/08/18 07:44 MCHC 33.6 g/dl (32.0-36.0) 08/08/18 07:44 RDW 15.6 % (11.6-15.6) 08/08/18 07:44 Plt Count 228 K/MM3 (134-434) 08/08/18 07:44 MPV 9.7 fl (7.5-11.1) 08/08/18 07:44 CMP Sodium 142 mmol/L (136-145) 08/10/18 11:20 Potassium 3.2 mmol/L (3.5-5.1) L 08/10/18 11:20 Chloride 108 mmol/L (98-107) H 08/10/18 11:20 Carbon Dioxide 27 mmol/L (21-32) 08/10/18 11:20 Anion Gap 7 MMOL/L (8-16) L 08/10/18 11:20 BUN 10 mg/dL (7-18) 08/10/18 11:20 Creatinine 0.4 mg/dL (0.55-1.3) L 08/10/18 11:20 Creat Clearance w eGFR > 60 (>60) 08/10/18 11:20 Random Glucose 113 mg/dL (74-106) H 08/10/18 11:20 Calcium 7.7 mg/dL (8.5-10.1) L 08/10/18 11:20 Total Bilirubin 0.7 mg/dL (0.2-1) 08/10/18 11:20 AST 29 U/L (15-37) 08/10/18 11:20 ALT 35 U/L (13-61) 08/10/18 11:20 Alkaline Phosphatase 76 U/L (45-117) 08/10/18 11:20 Total Protein 4.6 g/dl (6.4-8.2) L 08/10/18 11:20 Albumin 2.2 g/dl (3.4-5.0) L 08/10/18 11:20 Current Medications Generic Name Dose Route Start Last Admin Trade Name Ryanq PRN Reason Stop Dose Admin Amlodipine Besylate 2.5 mg 08/04/18 10:00 08/10/18 10:27 Norvasc - PO Not Given DAILY [facility] Collagenase 1 applic 08/04/18 12:15 08/10/18 10:27 Santyl - TP 1 applic DAILY [facility] Administration Protocol Enalaprilat 1.25 mg 08/09/18 10:52 08/10/18 10:27 Vasotec Injection - IVPB 1.25 mg Q6H-IV [facility] Administration Enoxaparin Sodium 40 mg 08/02/18 10:00 08/10/18 10:27 Lovenox - SQ 40 mg DAILY [facility] Administration Dextrose/Sodium Chloride 1,000 mls @ 75 mls/hr 08/05/18 18:00 08/10/18 02:54 D5-1/2ns - IV 75 mls/hr ASDIR [facility] Administration Memantine 5 mg 08/02/18 10:00 08/06/18 11:06 Namenda - PO 5 mg BID [facility] Administration Polyethylene Glycol 17 gm 08/09/18 10:00 08/10/18 10:40 Miralax (For Daily Use) - PO Not Given BID [facility] Home Medications Medication Instructions Recorded Cephalexin [Keflex] 500 mg PO QID 08/01/18 Memantine HCl 5 mg PO BID 08/01/18 Sulfamethoxazole/Trimethoprim 1 each PO BID 08/01/18 [Sulfamethoxazole-Tmp Ds Tablet] Aspirin [Adult Aspirin] 81 mg PO DAILY 08/02/18 Loperamide HCl Liquid [Imodium 1 mg PO DAILY 08/02/18 Liquid -] Saccharomyces Boulardii [Florastor] 250 mg PO DAILY 08/02/18 No evidence of pneumoperitoneum, free intraperitoneal fluid. Moderate to marked dilatation of the length of the colon is seen including the rectum. There is prominent rectosigmoid fecal impaction with associated rectal distention. No small bowel dilatation is seen. The liver, spleen, pancreas, gallbladder, adrenal glands and left kidney demonstrate no discrete noncontrast pathology. Bilateral renal cortical cysts. There is no aortic aneurysm. No obvious CT evidence of acute appendicitis or diverticulitis on noncontrast imaging. There is no gross lymphadenopathy. 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 Absent uterus versus atrophy. A marked L1 vertebral body compression fracture is noted which is probably chronic or subacute. There is mild bony retropulsion. Trace left pleural effusion. 3 mm noncalcified right lower lobe subpleural nodule. I MPRESSION: Diffuse colonic dilatation is noted. There is prominent rectosigmoid fecal retention/impaction. 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 Marked L1 vertebral body compression fracture with mild bony retropulsion. This fracture is probably chronic or subacute. If clinically indicated correlate with MRI. Trace left pleural effusion. 3 mm right lower lobe pulmonary nodule. Follow-up CT may be performed. ASSESSMENT AND PLAN: Patient is a 88yo female with PMHx of Dementia, HTN, HLp, who comes form home with poor po intake, and for evaluation of Right posterior hip. She was found to have constipation with severe colonic distention . Continue Miralax. # Diffuse colonic dilatation due to fecal impaction. discussed with Dr. samaniego ,will place rectal tube, npo for now, s/p disimpaction by on friday. . DO not give any haldol IF GETS AGITATED . will monitor. # Volume depletion: CONTINUE IVF # Right posterior decub: Not infected. No abx continue with Santyl # H/o HTN: NPO, discontinue po meds. on IV Vasotec DVT PX : Lovenox Visit type - Emergency Visit Emergency Visit: Yes ED Registration Date: 08/01/18 Care time: The patient presented to the Emergency Department on the above date and was hospitalized for further evaluation of their emergent condition. - New Patient This patient is new to me today: No - Critical Care Critical Care patient: No - Discharge Referral Referred to [facility] No
--- NOTE | 2018-08-10 14:13 | PN ---
GI Progress Note Subjective: Seeing patient for first time today Increased abdominal distention reported Patient's daughter present at bedside - Objective Vital Signs: Vital Signs Temperature 98.7 F 08/10/18 10:00 Pulse Rate 73 08/10/18 10:00 Respiratory Rate 18 08/10/18 10:00 Blood Pressure 119/79 08/10/18 10:00 O2 Sat by Pulse Oximetry (%) 96 08/10/18 09:00 Constitutional: Calm Eyes: No: Sclera Icterus Cardiovascular: Yes: Regular Rate and Rhythm, Murmur Respiratory: Yes: Diminished (at bases bilaterally, poor inspiratory effort) Gastrointestinal Inspection: Yes: Distention ...Auscultate: Yes: Normoactive Bowel Sounds ...Palpate: No: Tenderness ...Percussion: Yes: Tympanitic ...Rectal Exam: Yes: Other (rectal exam performed: copious liquid stool expelled with some flatus. Rectal tube placed and flushed. patient placed on left lateral decubitus position. Copious liquid stool and flatus expelled. Patient turned on right side with even more liquid stool and flatus expulsion. Abdominal exam much improved.) Edema: No (No LE edema) Neurological: Yes: Alert Labs: CBC, BMP 08/08/18 07:44 08/10/18 11:20 - ....Imaging X-ray: Report Reviewed Problem List - Problems (1) Colonic inertia Assessment/Plan: Colonic pseudoobstruction: Rectal tube in place. Advised nurse to turn patient twice per shift onto left and right sides and to flush tube with 30cc sterile water Repeat AXR ordered with rectal tube in place Correct lytes. Check magnesium / phosphorous as well and correct potassium Clear liquids Discussed clinical situation with daughter Code(s): K59.9 - FUNCTIONAL INTESTINAL DISORDER, UNSPECIFIED
--- NOTE | 2018-08-10 16:31 | PN ---
Progress Note (short form) - Note Progress Note: AXR reviewed: rectal tube appeared coiled in rectum. I repositioned the rectal tube and could not palpate a loop. Copious air and liquid stool was again expelled. Rectal tube taped into place. Abdominal exam much improved. AXR in AM Clear liquids Problem List - Problems (1) Colonic inertia Code(s): K59.9 - FUNCTIONAL INTESTINAL DISORDER, UNSPECIFIED
[2018-08-10] MEDS: MEMANTINE HCL 5 MG TABLET (UD) PO SCH (22:08)
[2018-08-11] MEDS: ENALAPRILAT DIHYDRATE 1.25 MG/1 ML VIAL IVPB SCH ×4 (04:11→22:24)
[2018-08-11] MEDS: POLYETHYLENE GLYCOL 3350 119 GM BTL PO SCH ×2 (11:08→22:24)
[2018-08-11] MEDS: amLODIPine BESYLATE 2.5 MG TABLET (FP) PO SCH (11:15)
[2018-08-11] MEDS: MEMANTINE HCL 5 MG TABLET (UD) PO SCH ×2 (11:15→22:24)
[2018-08-11] MEDS: ENOXAPARIN NA (PORCINE) 40 MG/0.4 ML DISP.SYRIN SQ SCH (11:16)
[2018-08-11] MEDS: COLLAGENASE CLOSTRIDIUM HIST. 30 GRAMS TUBE TP SCH (12:05)
--- NOTE | 2018-08-11 13:07 | PN ---
Progress Note, Physician History of Present Illness: stable issues with constipation gi on board - Current Medication List Current Medications: Active Medications Amlodipine Besylate (Norvasc -) 2.5 mg PO DAILY [facility] Last Admin: 08/11/18 11:15 Dose: 2.5 mg Collagenase (Santyl -) 1 applic TP DAILY [facility]; Protocol Last Admin: 08/11/18 12:05 Dose: 1 applic Enalaprilat (Vasotec Injection -) 1.25 mg IVPB Q6H-IV [facility] Last Admin: 08/11/18 11:07 Dose: Not Given Enoxaparin Sodium (Lovenox -) 40 mg SQ DAILY [facility] Last Admin: 08/11/18 11:16 Dose: 40 mg Memantine (Namenda -) 5 mg PO BID [facility] Last Admin: 08/11/18 11:15 Dose: 5 mg Polyethylene Glycol (Miralax (For Daily Use) -) 17 gm PO BID [facility] Last Admin: 08/11/18 11:08 Dose: 17 grams - Objective Vital Signs: Vital Signs Temperature 98.4 F 08/11/18 06:14 Pulse Rate 75 08/11/18 06:14 Respiratory Rate 20 08/11/18 06:14 Blood Pressure 121/45 L 08/11/18 06:14 O2 Sat by Pulse Oximetry (%) 96 08/10/18 21:00 Constitutional: Yes: No Distress, Calm Cardiovascular: Yes: S1, S2 Respiratory: Yes: On Nasal O2 Gastrointestinal: Yes: Soft, Hypoactive Bowel Sounds Musculoskeletal: Yes: WNL Extremities: Yes: Other Wound/Incision: Yes: Dressing Dry and Intact Neurological: Yes: Alert Labs: CBC, BMP 08/08/18 07:44 08/10/18 11:20 Assessment/Plan Problem List - Problems (1) Alzheimer disease Code(s): G30.9 - ALZHEIMER'S DISEASE, UNSPECIFIED; F02.80 - DEMENTIA IN OTH DISEASES CLASSD ELSWHR W/O BEHAVRL DISTURB Qualifiers: Alzheimer's disease onset: unspecified onset Dementia behavioral disturbance: with behavioral disturbance Qualified Code(s): G30.9 - Alzheimer' s disease, unspecified; F02.81 - Dementia in other diseases classified elsewhere with behavioral disturbance (2) Fecal impaction Code(s): K56.41 - FECAL IMPACTION (3) Necrotic eschar Code(s): L98.8 - OTH DISRD OF THE SKIN AND SUBCUTANEOUS TISSUE (4) Unstageable pressure ulcer Code(s): L89.95 - PRESSURE ULCER OF UNSPECIFIED SITE, UNSTAGEABLE Assessment/Plan Constipation/Colonic distention s/p disimpactions GI following Closely monitor off antibiotics await for imaging studies rest as per the team nutrition rest as per the patients
--- NOTE | 2018-08-11 14:25 | PN ---
GI Progress Note Subjective: Became agitated this morning Large loose BM this afternoon Abdomen much less distended today per nurse - Objective Vital Signs: Vital Signs Temperature 98.4 F 08/11/18 06:14 Pulse Rate 75 08/11/18 06:14 Respiratory Rate 20 08/11/18 06:14 Blood Pressure 121/45 L 08/11/18 06:14 O2 Sat by Pulse Oximetry (%) 96 08/10/18 21:00 Constitutional: Calm, Other (somnolent) Gastrointestinal Inspection: No: Distention ...Auscultate: Yes: Normoactive Bowel Sounds ...Palpate: Yes: Other (Much improved abdominal distention and tympany). No: Tenderness Edema: No (No LE edema) Labs: CBC, BMP 08/08/18 07:44 08/10/18 11:20 Problem List - Problems (1) Colonic inertia Assessment/Plan: Clinically much improved Rectal tube in place. Replete lytes: Recheck potassium, magnesium, phosphorous Check stool for C. Diff AXR this morning. D/C tube in AM Code(s): K59.9 - FUNCTIONAL INTESTINAL DISORDER, UNSPECIFIED
[2018-08-11] MEDS ORDERED: POTASSIUM CHLORIDE TABS 20 MEQ TABLET.ER (FP) PO ONE (14:34)
[2018-08-11] MEDS ORDERED: KCL 10 MEQ IVPB 10 MEQ/100 ML INFUS.BAG IVPB SCH (14:45)
--- NOTE | 2018-08-11 19:16 | PN ---
Teaching Attending Note Name of Resident: Delvis Juarez ATTENDING PHYSICIAN STATEMENT I saw and evaluated the patient. I reviewed the resident's note and discussed the case with the resident. I agree with the resident's findings and plan as documented. SUBJECTIVE: Patient's abdomen is completely soft and comfortable with no acute distress. has a rectal tube. OBJECTIVE: Vital Signs Temperature 97.6 F 08/11/18 17:33 Pulse Rate 67 08/11/18 17:33 Respiratory Rate 20 08/11/18 17:33 Blood Pressure 148/64 08/11/18 17:33 O2 Sat by Pulse Oximetry (%) 96 08/10/18 21:00 GENERAL: Awake,in no distress EYES: EOMI, sclera anicteric, conjunctiva clear. LUNGS: BS BL, HEART: S1S2 positive ABDOMEN: distended with mild tenderness , BS positive. EXTREMITIES: pulses are positive, No C/C/E SKIN: Right Hip Ulcer w/ necrotic eschar. CBCD rectal: positive for rectal tube. WBC 7.7 K/mm3 (4.0-10.0) 08/08/18 07:44 RBC 4.34 M/mm3 (3.60-5.2) 08/08/18 07:44 Hgb 13.8 GM/dL (10.7-15.3) 08/08/18 07:44 Hct 41.0 % (32.4-45.2) 08/08/18 07:44 MCV 94.4 fl (80-96) 08/08/18 07:44 MCHC 33.6 g/dl (32.0-36.0) 08/08/18 07:44 RDW 15.6 % (11.6-15.6) 08/08/18 07:44 Plt Count 228 K/MM3 (134-434) 08/08/18 07:44 MPV 9.7 fl (7.5-11.1) 08/08/18 07:44 CMP Sodium 142 mmol/L (136-145) 08/10/18 11:20 Potassium 3.2 mmol/L (3.5-5.1) L 08/10/18 11:20 Chloride 108 mmol/L (98-107) H 08/10/18 11:20 Carbon Dioxide 27 mmol/L (21-32) 08/10/18 11:20 Anion Gap 7 MMOL/L (8-16) L 08/10/18 11:20 BUN 10 mg/dL (7-18) 08/10/18 11:20 Creatinine 0.4 mg/dL (0.55-1.3) L 08/10/18 11:20 Creat Clearance w eGFR > 60 (>60) 08/10/18 11:20 Random Glucose 113 mg/dL (74-106) H 08/10/18 11:20 Calcium 7.7 mg/dL (8.5-10.1) L 08/10/18 11:20 Total Bilirubin 0.7 mg/dL (0.2-1) 08/10/18 11:20 AST 29 U/L (15-37) 08/10/18 11:20 ALT 35 U/L (13-61) 08/10/18 11:20 Alkaline Phosphatase 76 U/L (45-117) 08/10/18 11:20 Total Protein 4.6 g/dl (6.4-8.2) L 08/10/18 11:20 Albumin 2.2 g/dl (3.4-5.0) L 08/10/18 11:20 Current Medications Generic Name Dose Route Start Last Admin Trade Name Kareem PRN Reason Stop Dose Admin Amlodipine Besylate 2.5 mg 08/04/18 10:00 08/11/18 11:15 Norvasc - PO 2.5 mg DAILY [facility] Administration Collagenase 1 applic 08/04/18 12:15 08/11/18 12:05 Santyl - TP 1 applic DAILY [facility] Administration Protocol Enalaprilat 1.25 mg 08/09/18 10:52 08/11/18 15:08 Vasotec Injection - IVPB Not Given Q6H-IV [facility] Enoxaparin Sodium 40 mg 08/02/18 10:00 08/11/18 11:16 Lovenox - SQ 40 mg DAILY [facility] Administration Memantine 5 mg 08/02/18 10:00 08/11/18 11:15 Namenda - PO 5 mg BID [facility] Administration Polyethylene Glycol 17 gm 08/09/18 10:00 08/11/18 11:08 Miralax (For Daily Use) - PO 17 grams BID [facility] Administration Home Medications Medication Instructions Recorded Cephalexin [Keflex] 500 mg PO QID 08/01/18 Memantine HCl 5 mg PO BID 08/01/18 Sulfamethoxazole/Trimethoprim 1 each PO BID 08/01/18 [Sulfamethoxazole-Tmp Ds Tablet] Aspirin [Adult Aspirin] 81 mg PO DAILY 08/02/18 Loperamide HCl Liquid [Imodium 1 mg PO DAILY 08/02/18 Liquid -] Saccharomyces Boulardii [Florastor] 250 mg PO DAILY 08/02/18 No evidence of pneumoperitoneum, free intraperitoneal fluid. Moderate to marked dilatation of the length of the colon is seen including the rectum. There is prominent rectosigmoid fecal impaction with associated rectal distention. No small bowel dilatation is seen. The liver, spleen, pancreas, gallbladder, adrenal glands and left kidney demonstrate no discrete noncontrast pathology. Bilateral renal cortical cysts. There is no aortic aneurysm. No obvious CT evidence of acute appendicitis or diverticulitis on noncontrast imaging. There is no gross lymphadenopathy. 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 Absent uterus versus atrophy. A marked L1 vertebral body compression fracture is noted which is probably chronic or subacute. There is mild bony retropulsion. Trace left pleural effusion. 3 mm noncalcified right lower lobe subpleural nodule. I MPRESSION: Diffuse colonic dilatation is noted. There is prominent rectosigmoid fecal retention/impaction. 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 Marked L1 vertebral body compression fracture with mild bony retropulsion. This fracture is probably chronic or subacute. If clinically indicated correlate with MRI. Trace left pleural effusion. 3 mm right lower lobe pulmonary nodule. Follow-up CT may be performed. ASSESSMENT AND PLAN: Patient is a 88yo female with PMHx of Dementia, HTN, HLp, who comes form home with poor po intake, and for evaluation of Right posterior hip. She was found to have constipation with severe colonic distention . Continue Miralax. # Diffuse colonic dilatation due to fecal impaction. patient 's abdomen is soft and not distended anymore,remove rectal tube in am ,as per dr. Robert to check for stool cdiff. on liquid diet now and continue Miralax s/p disimpaction by on friday and on Friday . DO not give any haldol IF GETS AGITATED . will monitor. # Volume depletion: improved # Right posterior decub: Not infected. No abx continue with Santyl # H/o HTN: NPO, discontinue po meds. on IV Vasotec # Hypokalemia: replete. DVT PX : Lovenox
--- NOTE | 2018-08-11 19:35 | PN ---
Physical Exam: SUBJECTIVE: Patient seen and examined at bedside. No acute events overnight. OBJECTIVE: Vital Signs Period Temp Pulse Resp BP Sys/Turcios Pulse Ox Last 24 Hr 97.6 F-98.5 F 61-83 20-20 121-148/45-79 96 GENERAL: Awake, in mild distress. EYES: Extraocular movements intact, sclera anicteric, conjunctiva clear. LUNGS: CTA B/L HEART: RRR S1S2 ABDOMEN: Nondistended, no guarding or rigidity appreciated. Soft EXTREMITIES: No CCE. Onychomycosis SKIN: Right Hip Ulcer non infected Active Medications Generic Name Dose Route Start Last Admin Trade Name Freq PRN Reason Stop Dose Admin Amlodipine Besylate 2.5 mg 08/04/18 10:00 08/11/18 11:15 Norvasc - PO 2.5 mg DAILY [facility] Administration Collagenase 1 applic 08/04/18 12:15 08/11/18 12:05 Santyl - TP 1 applic DAILY [facility] Administration Protocol Enalaprilat 1.25 mg 08/09/18 10:52 08/11/18 15:08 Vasotec Injection - IVPB Not Given Q6H-IV [facility] Enoxaparin Sodium 40 mg 08/02/18 10:00 08/11/18 11:16 Lovenox - SQ 40 mg DAILY [facility] Administration Memantine 5 mg 08/02/18 10:00 08/11/18 11:15 Namenda - PO 5 mg BID [facility] Administration Polyethylene Glycol 17 gm 08/09/18 10:00 08/11/18 11:08 Miralax (For Daily Use) - PO 17 grams BID [facility] Administration ASSESSMENT/PLAN: 88F w/ pmhx of HTN, HLD, Alzheimer's dementia presented to the hospital for evaluation of R hip pressure ulcer as well as poor PO intake. #R pressure wound ulcer -No leukocytosis, or temperature -Ulcer does not appear to be infected -Continue to assess daily. Santyl Applied to wound daily. #Abdominal distension; Pt has abd tenderness on exam. 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 Manually disimpacted 08/04/18 by myself along with RN (Ernestine). Large amount of watery stool and gas expelled from rectum. Distension visibly better. -senna, colace, and miralax : all standing -lactulose and dulcolax. Pt was able to consume part of medicine per RN. -KUB 08/05/18---> Large colonic distension with fecal impaction remains. -Dr Morales on board. ---> Manually disempacted leading to explosion of gas and feces with decompression of distended abdomen. -Surgery on board Dr Parish---> Can try neostigmine and/or recommend evaluation by GI for possible colonoscopic decompression and placement of a rectal tube; all attempts at non operative management should be considered; CT scan a/p should be considered. -D/C rectal tube in am -AXR 08/11/18---> Marked Improvement. Still some small bowel air distension. #Alzheimer's Dementia Memantine 5 MG PO BID #HTN- Norvasc 2.5 PO Daily, Vasotec 1.25 Q6H #Prophylaxis -Lovenox 40 SQ #FEN -No Fluids -Monitor Electrolytes -Clear Liquids #Dispo -Med-Surg Visit type - Emergency Visit Emergency Visit: Yes ED Registration Date: 08/01/18 Care time: The patient presented to the Emergency Department on the above date and was hospitalized for further evaluation of their emergent condition. - New Patient This patient is new to me today: No - Critical Care Critical Care patient: No - Discharge Referral Referred to [facility] Med [facility] No
[2018-08-12] MEDS: ENALAPRILAT DIHYDRATE 1.25 MG/1 ML VIAL IVPB SCH ×2 (02:34→08:41)
[2018-08-12 07:41] LABS: HEMATOCRIT 41.9 % (32.4-45.2); HEMOGLOBIN 14.4 GM/dL (10.7-15.3); MCH 31.9 pg (25.7-33.7); MCHC 34.2 g/dl (32.0-36.0); MEAN CELL VOLUME 93.1 fl (80-96); MEAN PLT VOLUME 9.7 fl (7.5-11.1); PLATELET COUNT 286 K/MM3 (134-434); RDW 15.8 % (11.6-15.6); WHITE BLOOD COUNT 7.4 K/mm3 (4.0-10.0)
[2018-08-12 08:12] LABS: ANION GAP 8 MMOL/L (8-16); BLOOD UREA NITROGEN 4 mg/dL (7-18); CALCIUM 7.8 mg/dL (8.5-10.1); CHLORIDE 106 mmol/L (98-107); CO2 30 mmol/L (21-32); CREATININE 0.4 mg/dL (0.55-1.3); GLUCOSE,RANDOM 82 mg/dL (74-106); MAGNESIUM 2.1 mg/dL (1.8-2.4); PHOSPHOROUS 3.5 mg/dL (2.5-4.9); SODIUM 143 mmol/L (136-145)
--- NOTE | 2018-08-12 08:52 | PN ---
Progress Note, Physician History of Present Illness: patient with no changes comfortable - Current Medication List Current Medications: Active Medications Amlodipine Besylate (Norvasc -) 2.5 mg PO DAILY [facility] Last Admin: 08/11/18 11:15 Dose: 2.5 mg Collagenase (Santyl -) 1 applic TP DAILY [facility]; Protocol Last Admin: 08/11/18 12:05 Dose: 1 applic Enalaprilat (Vasotec Injection -) 1.25 mg IVPB Q6H-IV [facility] Last Admin: 08/12/18 08:41 Dose: Not Given Enoxaparin Sodium (Lovenox -) 40 mg SQ DAILY [facility] Last Admin: 08/11/18 11:16 Dose: 40 mg Memantine (Namenda -) 5 mg PO BID [facility] Last Admin: 08/11/18 22:24 Dose: 5 mg Polyethylene Glycol (Miralax (For Daily Use) -) 17 gm PO BID [facility] Last Admin: 08/11/18 22:24 Dose: 17 grams - Objective Vital Signs: Vital Signs Temperature 98.3 F 08/12/18 05:00 Pulse Rate 72 08/12/18 05:00 Respiratory Rate 20 08/12/18 05:00 Blood Pressure 140/78 08/12/18 05:00 O2 Sat by Pulse Oximetry (%) 97 08/11/18 21:00 Constitutional: Yes: No Distress, Calm Cardiovascular: Yes: S1, S2 Respiratory: Yes: Other Gastrointestinal: Yes: Hypoactive Bowel Sounds Musculoskeletal: Yes: WNL Extremities: Yes: Other Neurological: Yes: Alert, Other Psychiatric: Yes: Other Labs: CBC, BMP 08/12/18 06:10 08/12/18 06:10 Assessment/Plan Problem List - Problems (1) Alzheimer disease Code(s): G30.9 - ALZHEIMER'S DISEASE, UNSPECIFIED; F02.80 - DEMENTIA IN OTH DISEASES CLASSD ELSWHR W/O BEHAVRL DISTURB Qualifiers: Alzheimer's disease onset: unspecified onset Dementia behavioral disturbance: with behavioral disturbance Qualified Code(s): G30.9 - Alzheimer' s disease, unspecified; F02.81 - Dementia in other diseases classified elsewhere with behavioral disturbance (2) Fecal impaction Code(s): K56.41 - FECAL IMPACTION (3) Necrotic eschar Code(s): L98.8 - OTH DISRD OF THE SKIN AND SUBCUTANEOUS TISSUE (4) Unstageable pressure ulcer Code(s): L89.95 - PRESSURE ULCER OF UNSPECIFIED SITE, UNSTAGEABLE Assessment/Plan Constipation/Colonic distention s/p disimpactions GI following Closely monitor off antibiotics Pt afebrile, without leukocytosis
[2018-08-12] MEDS ORDERED: POTASSIUM CHLORIDE TABS 20 MEQ TABLET.ER (FP) PO ONE ×4 (08:53→18:00)
[2018-08-12] MEDS ORDERED: KCL 10 MEQ IVPB 10 MEQ/100 ML INFUS.BAG IVPB SCH (09:00)
[2018-08-12] MEDS ORDERED: PT OWN MED DRAWER 7, Y5N ONE ×2 (09:21→09:22)
[2018-08-12] MEDS ORDERED: POTASSIUM CHLORIDE 20 MEQ PREMIX IVPB 100 ML IVPB ONE (09:27)
[2018-08-12] MEDS: amLODIPine BESYLATE 2.5 MG TABLET (FP) PO SCH (09:31)
[2018-08-12] MEDS: POLYETHYLENE GLYCOL 3350 119 GM BTL PO SCH ×2 (09:31→22:00)
[2018-08-12] MEDS: ENOXAPARIN NA (PORCINE) 40 MG/0.4 ML DISP.SYRIN SQ SCH (09:31)
[2018-08-12] MEDS: MEMANTINE HCL 5 MG TABLET (UD) PO SCH ×2 (09:31→22:00)
[2018-08-12] MEDS: COLLAGENASE CLOSTRIDIUM HIST. 30 GRAMS TUBE TP SCH (09:32)
[2018-08-12] MEDS: KCL 10 MEQ IVPB 10 MEQ/100 ML INFUS.BAG IVPB SCH ×4 (09:39→20:02)
[2018-08-12] MEDS ORDERED: SENNOSIDES/DOCUSATE COMBO (SENNA PLUS) TABLET (UD) PO PRN (10:56)
--- NOTE | 2018-08-12 11:31 | PN ---
Progress Note, Physician History of Present Illness: Pt seen/examined at bedside, rectal tube ?pulled by patient yesterday, has been combative at times per nursing staff. No bms yet today. Tolerating liquid diet, denies abdominal pain. No n/v per nurses. - Current Medication List Current Medications: Active Medications Amlodipine Besylate (Norvasc -) 2.5 mg PO DAILY [facility] Last Admin: 08/12/18 09:31 Dose: 2.5 mg Collagenase (Santyl -) 1 applic TP DAILY [facility]; Protocol Last Admin: 08/12/18 09:32 Dose: 1 applic Docusate Sodium (Colace -) 100 mg PO BID [facility] Enoxaparin Sodium (Lovenox -) 40 mg SQ DAILY [facility] Last Admin: 08/12/18 09:31 Dose: 40 mg Memantine (Namenda -) 5 mg PO BID [facility] Last Admin: 08/12/18 09:31 Dose: 5 mg Polyethylene Glycol (Miralax (For Daily Use) -) 17 gm PO BID [facility] Last Admin: 08/12/18 09:31 Dose: 17 grams Senna/Docusate Sodium (Pericolace -) 2 tablet PO HS PRN PRN Reason: CONSTIPATION - Objective Vital Signs: Vital Signs Temperature 98.0 F 08/12/18 09:00 Pulse Rate 70 08/12/18 09:00 Respiratory Rate 19 08/12/18 09:00 Blood Pressure 139/83 08/12/18 09:00 O2 Sat by Pulse Oximetry (%) 97 08/11/18 21:00 Constitutional: Yes: Well Nourished, No Distress, Other (combative at times, disoriented) Cardiovascular: Yes: WNL, Regular Rate and Rhythm Respiratory: Yes: WNL, Regular, CTA Bilaterally Gastrointestinal: Yes: WNL, Normal Bowel Sounds, Soft, Other (Abd soft, nt, nd, no tympany or guarding) Labs: CBC, BMP 08/12/18 06:10 08/12/18 06:10 Problem List - Problems (1) Fecal impaction Assessment/Plan: s/p disimpaction and rectal tube placement (pt dc'd yesterday), clinically much improved, abd exam benign. Also likely component of underlying colonic pseudoobstruction. Abd xray yesterday also markedly improved. -Continue supportive measures -Diet as tolerated -Miralax bid -Repeat abd xray today -Recommend frequent repositioning in bed/turning if possible -Closely monitor and replete electrolytes (low k noted) -Avoid narcotics Code(s): K56.41 - FECAL IMPACTION
--- NOTE | 2018-08-12 18:45 | PN ---
Physical Exam: SUBJECTIVE: Patient seen and examined at bedside. No acute events overnight. OBJECTIVE: Vital Signs Period Temp Pulse Resp BP Sys/Turcios Pulse Ox Last 24 Hr 97.9 F-98.4 F 66-85 19-20 139-141/71-89 97-98 GENERAL: Awake, NAD EYES: Extraocular movements intact, sclera anicteric, conjunctiva clear. LUNGS: CTA B/L HEART: RRR S1S2 ABDOMEN: Soft Nondistended Nontender. No guarding or rigidity. Rectal tube d/c' ed. EXTREMITIES: 1+ edema. Onychomycosis SKIN: Right Hip Ulcer, no d/c, oozing or odor. Examined this am with medical team. Laboratory Results - last 24 hr 08/12/18 08/12/18 08/12/18 06:10 06:10 11:25 WBC 7.4 RBC 4.50 Hgb 14.4 Hct 41.9 MCV 93.1 MCH 31.9 MCHC 34.2 RDW 15.8 H Plt Count 286 D MPV 9.7 Sodium 143 Potassium 3.0 L 2.9 L* Chloride 106 Carbon Dioxide 30 Anion Gap 8 BUN 4 L Creatinine 0.4 L Creat Clearance w eGFR > 60 Random Glucose 82 Calcium 7.8 L Phosphorus 3.5 Magnesium 2.1 08/12/18 16:30 WBC RBC Hgb Hct MCV MCH MCHC RDW Plt Count MPV Sodium Potassium 2.7 L* Chloride Carbon Dioxide Anion Gap BUN Creatinine Creat Clearance w eGFR Random Glucose Calcium Phosphorus Magnesium Active Medications Generic Name Dose Route Start Last Admin Trade Name Freq PRN Reason Stop Dose Admin Amlodipine Besylate 2.5 mg 08/04/18 10:00 08/12/18 09:31 Norvasc - PO 2.5 mg DAILY [facility] Administration Collagenase 1 applic 08/04/18 12:15 08/12/18 09:32 Santyl - TP 1 applic DAILY [facility] Administration Protocol Docusate Sodium 100 mg 08/12/18 22:00 Colace - PO BID [facility] Enoxaparin Sodium 40 mg 08/02/18 10:00 08/12/18 09:31 Lovenox - SQ 40 mg DAILY [facility] Administration Potassium Chloride 10 meq in 100 mls @ 100 mls/hr 08/12/18 18:00 08/12/18 18: 05 Potassium Chloride 10 Meq Premix Ivpb - IVPB 08/12/18 19:59 100 mls/hr Q60M [facility] Administration Memantine 5 mg 08/02/18 10:00 08/12/18 09:31 Namenda - PO 5 mg BID [facility] Administration Polyethylene Glycol 17 gm 08/09/18 10:00 08/12/18 09:31 Miralax (For Daily Use) - PO 17 grams BID [facility] Administration Potassium Chloride 20 meq 08/13/18 06:00 K-Dur - PO 08/13/18 06:01 ONCE ONE Senna/Docusate Sodium 2 tablet 08/12/18 10:56 Pericolace - PO HS PRN CONSTIPATION ASSESSMENT/PLAN: 88F w/ pmhx of HTN, HLD, Alzheimer's dementia presented to the hospital for evaluation of R hip pressure ulcer as well as poor PO intake. #R pressure wound ulcer -No leukocytosis, or temperature -Ulcer does not appear to be infected -Continue to assess daily. Santyl Applied to wound daily. #Hypokalemia Potassium 2.9 today. repeat 2.7 Kdur 40 x 4, Kdur 20, + 2 Runs of 10 mEQ kCL I.V #Abdominal distension; Pt has abd tenderness on exam. 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 Manually disimpacted 08/04/18 by myself along with RN (Ernestine). Large amount of watery stool and gas expelled from rectum. Distension visibly better. -senna, colace, and miralax : all standing -lactulose and dulcolax. Pt was able to consume part of medicine per RN. -KUB 08/05/18---> Large colonic distension with fecal impaction remains. -Dr Morales on board. ---> Manually disempacted leading to explosion of gas and feces with decompression of distended abdomen. -Surgery on board Dr Parish---> Can try neostigmine and/or recommend evaluation by GI for possible colonoscopic decompression and placement of a rectal tube; all attempts at non operative management should be considered; CT scan a/p should be considered. -Rectal tube d/c'ed -AXR 08/11/18---> Marked Improvement. Still some small bowel air distension. #Alzheimer's Dementia Memantine 5 MG PO BID #HTN- Norvasc 2.5 PO Daily, Vasotec D/C'ed tday 08/12/18 #Prophylaxis -Lovenox 40 SQ #FEN -No Fluids -Monitor Electrolytes -Soft Diet #Dispo -For DC tomorrow Visit type - Emergency Visit Emergency Visit: Yes ED Registration Date: 08/01/18 Care time: The patient presented to the Emergency Department on the above date and was hospitalized for further evaluation of their emergent condition. - New Patient This patient is new to me today: No - Critical Care Critical Care patient: No - Discharge Referral Referred to [facility] Med P.C.: No
--- NOTE | 2018-08-12 19:33 | PN ---
Teaching Attending Note Name of Resident: Robby Woods ATTENDING PHYSICIAN STATEMENT I saw and evaluated the patient. I reviewed the resident's note and discussed the case with the resident. I agree with the resident's findings and plan as documented. SUBJECTIVE: no events. no hx OBJECTIVE: NAd , awake, alert, CV: RRR, 3/6 SM Lungs: unable to examine Abd: NT, ND, NL BS Skin: R posterior hip unstagable ulcer . with no surrounding erythema Assessment/Plan: Unfortunate 88 y/o lady with h/o Dementia, HTN, HLp, who comes form home with poor po intake, and for evaluation of R posterior hip. She was found to have constipation with severe colonic distention . 1- Large bowel obstruction: due to fecal impaction.now s/p removal of rectal tube and improvement -cont miralax and resume senna/colace 2- Volume depletion: resolved 3- R posterior decub: Not infected. No abx - Santyl 4- H/o HTN: cont norvasc 5- hypokalemia: replete and repeat 6- DVT PX
[2018-08-12] MEDS: DOCUSATE SODIUM 100 MG CAPSULE (FP) PO SCH (22:00)
[2018-08-13] MEDS ORDERED: POTASSIUM CHLORIDE TABS 20 MEQ TABLET.ER (FP) PO ONE (06:00)
[2018-08-13] MEDS: POTASSIUM CHLORIDE ORAL LIQUID 20 MEQ/15 ML PO ONE ×2 (06:30→06:35)
[2018-08-13 07:32] LABS: HEMATOCRIT 39.7 % (32.4-45.2); HEMOGLOBIN 13.6 GM/dL (10.7-15.3); MCHC 34.3 g/dl (32.0-36.0); MEAN CELL VOLUME 93.4 fl (80-96); MEAN PLT VOLUME 9.3 fl (7.5-11.1); PLATELET COUNT 297 K/MM3 (134-434); RBC 4.26 M/mm3 (3.60-5.2); RDW 15.3 % (11.6-15.6); WHITE BLOOD COUNT 7.2 K/mm3 (4.0-10.0)
[2018-08-13 07:55] LABS: ANION GAP 8 MMOL/L (8-16); BLOOD UREA NITROGEN 6 mg/dL (7-18); CALCIUM 8.1 mg/dL (8.5-10.1); CHLORIDE 106 mmol/L (98-107); CO2 28 mmol/L (21-32); CREATININE 0.5 mg/dL (0.55-1.3); GLUCOSE,RANDOM 97 mg/dL (74-106); PHOSPHOROUS 2.3 mg/dL (2.5-4.9); POTASSIUM 3.5 mmol/L (3.5-5.1); SODIUM 141 mmol/L (136-145)
[2018-08-13] MEDS ORDERED: NAPH,MB-DB/K PH,MBDB POWDER PACKET PO ONE (09:00)
--- NOTE | 2018-08-13 10:47 | PN ---
Progress Note, Physician History of Present Illness: stable does not always take her diet suspicious - Current Medication List Current Medications: Active Medications Amlodipine Besylate (Norvasc -) 2.5 mg PO DAILY [facility] Last Admin: 08/12/18 09:31 Dose: 2.5 mg Collagenase (Santyl -) 1 applic TP DAILY [facility]; Protocol Last Admin: 08/12/18 09:32 Dose: 1 applic Docusate Sodium (Colace -) 100 mg PO BID [facility] Last Admin: 08/12/18 22:00 Dose: 100 mg Enoxaparin Sodium (Lovenox -) 40 mg SQ DAILY [facility] Last Admin: 08/12/18 09:31 Dose: 40 mg Memantine (Namenda -) 5 mg PO BID [facility] Last Admin: 08/12/18 22:00 Dose: 5 mg Polyethylene Glycol (Miralax (For Daily Use) -) 17 gm PO BID [facility] Last Admin: 08/12/18 22:00 Dose: 17 grams Senna/Docusate Sodium (Pericolace -) 2 tablet PO HS PRN PRN Reason: CONSTIPATION - Objective Vital Signs: Vital Signs Temperature 97.8 F 08/13/18 07:48 Pulse Rate 74 08/13/18 07:48 Respiratory Rate 20 08/13/18 07:48 Blood Pressure 164/72 08/13/18 07:48 O2 Sat by Pulse Oximetry (%) 97 08/13/18 08:53 Constitutional: Yes: No Distress, Calm Cardiovascular: Yes: S1, S2 Respiratory: Yes: Regular Gastrointestinal: Yes: Soft, Hypoactive Bowel Sounds Musculoskeletal: Yes: WNL Extremities: Yes: Other Neurological: Yes: Alert, Oriented Psychiatric: Yes: Alert, Oriented Labs: CBC, BMP 08/13/18 06:20 08/13/18 06:20 Assessment/Plan Problem List - Problems (1) Alzheimer disease Code(s): G30.9 - ALZHEIMER'S DISEASE, UNSPECIFIED; F02.80 - DEMENTIA IN OTH DISEASES CLASSD ELSWHR W/O BEHAVRL DISTURB Qualifiers: Alzheimer's disease onset: unspecified onset Dementia behavioral disturbance: with behavioral disturbance Qualified Code(s): G30.9 - Alzheimer' s disease, unspecified; F02.81 - Dementia in other diseases classified elsewhere with behavioral disturbance (2) Fecal impaction Code(s): K56.41 - FECAL IMPACTION (3) Necrotic eschar Code(s): L98.8 - OTH DISRD OF THE SKIN AND SUBCUTANEOUS TISSUE (4) Unstageable pressure ulcer Code(s): L89.95 - PRESSURE ULCER OF UNSPECIFIED SITE, UNSTAGEABLE Assessment/Plan Constipation/Colonic distention s/p disimpactions GI following Closely monitor off antibiotics await for imaging studies rest as per the team nutrition rest as per the patients
[2018-08-13] MEDS ORDERED: BISACODYL 10 MG SUPP.RECT RC PRN (11:04)
[2018-08-13] MEDS ORDERED: amLODIPine BESYLATE 5 MG TABLET (FP) PO ONE (11:30)
[2018-08-13] MEDS: COLLAGENASE CLOSTRIDIUM HIST. 30 GRAMS TUBE TP SCH (11:38)
[2018-08-13] MEDS: MEMANTINE HCL 5 MG TABLET (UD) PO SCH ×2 (11:38→22:46)
[2018-08-13] MEDS: ENOXAPARIN NA (PORCINE) 40 MG/0.4 ML DISP.SYRIN SQ SCH (11:38)
[2018-08-13] MEDS: DOCUSATE SODIUM 100 MG CAPSULE (FP) PO SCH ×2 (11:38→22:46)
[2018-08-13] MEDS: POLYETHYLENE GLYCOL 3350 119 GM BTL PO SCH (11:39)
[2018-08-13] MEDS: amLODIPine BESYLATE 2.5 MG TABLET (FP) PO SCH (11:39)
--- NOTE | 2018-08-13 12:33 | PN ---
GI Progress Note Subjective: No acute events No abdominal pain - Objective Vital Signs: Vital Signs Temperature 97.8 F 08/13/18 07:48 Pulse Rate 74 08/13/18 07:48 Respiratory Rate 20 08/13/18 07:48 Blood Pressure 164/72 08/13/18 07:48 O2 Sat by Pulse Oximetry (%) 97 08/13/18 08:53 Constitutional: Calm Eyes: No: Sclera Icterus Cardiovascular: Yes: Regular Rate and Rhythm Respiratory: Yes: Diminished (at bases b/l with poor insp effort) Gastrointestinal Inspection: Yes: Scars ...Auscultate: Yes: Normoactive Bowel Sounds ...Palpate: Yes: Soft. No: Tenderness ...Percussion: Yes: Tympanitic (mild tympaby) ...Rectal Exam: Yes: Other (mild prolapse of rectal tissue. Patient turned left the right lateral decubitus position with rectal exam performed on side. + flatus and liquid stool expelled.) Edema: No (No LE edema) Neurological: Yes: Alert Labs: CBC, BMP 08/13/18 06:20 08/13/18 06:20 Hepatic Panel Total Bilirubin 0.7 mg/dL (0.2-1) 08/10/18 11:20 AST 29 U/L (15-37) 08/10/18 11:20 ALT 35 U/L (13-61) 08/10/18 11:20 Alkaline Phosphatase 76 U/L (45-117) 08/10/18 11:20 Albumin 2.2 g/dl (3.4-5.0) L 08/10/18 11:20 Problem List - Problems (1) Colonic inertia Assessment/Plan: Continue to monitor for increasing abdominal distention. if persistent colonic dilatation, may need repeat CT scan of abdomen, rectal tube placement followed by trial of neostigmine in ICU setting if no contraindications. Needs electrolytes monitored and repleted regularly. potassium < 3 over the last few days Anusol suppository 1 MT daily for 5 days Code(s): K59.9 - FUNCTIONAL INTESTINAL DISORDER, UNSPECIFIED
[2018-08-13] MEDS ORDERED: BISACODYL 10 MG SUPP.RECT PR PRN (13:52)
--- NOTE | 2018-08-13 14:02 | PN ---
Physical Exam: SUBJECTIVE: Patient seen and examined at bedside. No acute events overnight. OBJECTIVE: Vital Signs Period Temp Pulse Resp BP Sys/Turcios Pulse Ox Last 24 Hr 97.8 F-98.5 F 74-88 20-20 133-164/72-89 97-98 GENERAL: Awake, Mild distress EYES: Extraocular movements intact, sclera anicteric, conjunctiva clear. LUNGS: CTAB HEART: RRR 3/6SM ABDOMEN: No guarding or rigidity appreciated. BS +. Slightly more distended. EXTREMITIES: 1+ edema. Onychomycosis SKIN: Right Hip Ulcer, no d/c, oozing or odor. Laboratory Results - last 24 hr 08/12/18 08/12/18 08/13/18 06:20 16:30 06:20 WBC 7.2 RBC 4.26 Hgb 13.6 Hct 39.7 MCV 93.4 MCH 32.0 MCHC 34.3 RDW 15.3 Plt Count 297 MPV 9.3 Sodium Potassium Cancelled 2.7 L* Chloride Carbon Dioxide Anion Gap BUN Creatinine Creat Clearance w eGFR Random Glucose Calcium Phosphorus Magnesium 08/13/18 06:20 WBC RBC Hgb Hct MCV MCH MCHC RDW Plt Count MPV Sodium 141 Potassium 3.5 Chloride 106 Carbon Dioxide 28 Anion Gap 8 BUN 6 L Creatinine 0.5 L Creat Clearance w eGFR > 60 Random Glucose 97 Calcium 8.1 L Phosphorus 2.3 L Magnesium 2.0 Active Medications Generic Name Dose Route Start Last Admin Trade Name Freq PRN Reason Stop Dose Admin Amlodipine Besylate 5 mg 08/14/18 10:00 Norvasc - PO DAILY [facility] Bisacodyl 10 mg 08/14/18 10:00 Dulcolax Suppository - [place] 08/19/18 09:59 DAILY [facility] Collagenase 1 applic 08/04/18 12:15 08/13/18 11:38 Santyl - TP 1 applic DAILY [facility] Administration Protocol Docusate Sodium 100 mg 08/12/18 22:00 08/13/18 11:38 Colace - PO 100 mg BID [facility] Administration Enoxaparin Sodium 40 mg 08/02/18 10:00 08/13/18 11:38 Lovenox - SQ 40 mg DAILY [facility] Administration Memantine 5 mg 08/02/18 10:00 08/13/18 11:38 Namenda - PO 5 mg BID [facility] Administration Polyethylene Glycol 17 gm 02/22/19 10:00 Miralax (For Daily Use) - PO DAILY [facility] Senna/Docusate Sodium 2 tablet 08/12/18 10:56 Pericolace - PO HS PRN CONSTIPATION ASSESSMENT/PLAN: 88F w/ pmhx of HTN, HLD, Alzheimer's dementia presented to the hospital for evaluation of R hip pressure ulcer as well as poor PO intake. #R pressure wound ulcer -No leukocytosis, or temperature -Ulcer does not appear to be infected -Continue to assess daily. Santyl Applied to wound daily. #Hypokalemia Potassium 2.9 today. repeat 2.7 Kdur 40 x 4, Kdur 20, + 2 Runs of 10 mEQ kCL I.V Potassium this am 3.5. Repeat pending #Abdominal distension; Pt has abd tenderness on exam. 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 Manually disimpacted 08/04/18 by myself along with RN (Ernestine). Large amount of watery stool and gas expelled from rectum. Distension visibly better. -senna, miralax to 17g daily -KUB 08/05/18---> Large colonic distension with fecal impaction remains. -Dr Morales on board. ---> Manually disempacted leading to explosion of gas and feces with decompression of distended abdomen. -Surgery on board Dr Parish---> Can try neostigmine and/or recommend evaluation by GI for possible colonoscopic decompression and placement of a rectal tube; all attempts at non operative management should be considered; CT scan a/p should be considered. -AXR 08/11/18---> Marked Improvement. Still some small bowel air distension. Disimpacted today by Dr Palmer. May require trial of neostigmine in icu setting if colonic distension does not resolve. -KUB tomorrow am 08/14/18 C Diff Antigen and Toxin #Alzheimer's Dementia Memantine 5 MG PO BID #HTN- Norvasc 2.5 INCREASED to 5 PO Daily. BP 160's systolic this am. #Prophylaxis -Lovenox 40 SQ #FEN -No Fluids -Monitor Electrolytes -Soft Diet #Dispo -Med-Surg Visit type - Emergency Visit Emergency Visit: Yes ED Registration Date: 08/01/18 Care time: The patient presented to the Emergency Department on the above date and was hospitalized for further evaluation of their emergent condition. - New Patient This patient is new to me today: No - Critical Care Critical Care patient: No - Discharge Referral Referred to [facility] Med P.C.: No
--- NOTE | 2018-08-13 14:42 | PN ---
Teaching Attending Note Name of Resident: Delvis Juarez ATTENDING PHYSICIAN STATEMENT I saw and evaluated the patient. I reviewed the resident's note and discussed the case with the resident. I agree with the resident's findings and plan as documented. SUBJECTIVE: No events over night but some agitation. OBJECTIVE: NAd , awake, alert CV: RRR, 3/6 SM Lungs: unable to examine Abd: NT, ND, hypoactive BS. Skin: R posterior hip ulcer was not examined today Assessment/Plan: Unfortunate 88 y/o lady with h/o Dementia, HTN, HLp, who comes form home with poor po intake, and for evaluation of R posterior hip. She was found to have constipation with severe colonic distention . 1- Large bowel obstruction: due to fecal impaction. abd exam is unchanged form yesterday, but was felt to be worse compared to Friday's exam by GI. - cont with dulcolax suppositories daily - cont with miralax, hung/colace . refusing most of those meds - get KUB in am 2- Volume depletion: resolved . cont oral hydration 3- R posterior decub: Not infected. No abx - Santyl 4- H/o HTN: cont norvasc . increase dose to 5 5- hypokalemia: monitor and replete as needed 6- DVT PX will cancel dc for today and access tomorrow. MI bed in search
--- NOTE | 2018-08-13 14:55 | PN ---
Progress Note, [employer] - Note Progress Note: Selected Entries 08/13/18 08/13/18 08/13/18 06:00 07:48 14:16 Diet Tolerated Poor Lunch 25% Temperature 98.3 F 97.8 F 98.1 F Laboratory Tests 08/13/18 06:20 WBC 7.2 Per PMD-Large bowel obstruction: due to fecal impaction. abd exam is unchanged form yesterday, but was felt to be worse compared to Friday's exam by GI. PO intake as tolerated and desired. Diet advanced to soft diet/thin liquids. Good tolerance but needs assistance/ and much encouragement. She is drinking well without signs of aspiration. Encourage supplement b/n meals, and sips throughout the day.
[2018-08-13] MEDS ORDERED: QUEtiapine FUMARATE 25 MG TABLET (FP) PO ONE (16:45)
[2018-08-14 06:54] LABS: HEMATOCRIT 38.7 % (32.4-45.2); HEMOGLOBIN 13.3 GM/dL (10.7-15.3); MCH 31.9 pg (25.7-33.7); MCHC 34.4 g/dl (32.0-36.0); MEAN CELL VOLUME 92.9 fl (80-96); MEAN PLT VOLUME 9.2 fl (7.5-11.1); PLATELET COUNT 291 K/MM3 (134-434); RBC 4.16 M/mm3 (3.60-5.2); RDW 15.6 % (11.6-15.6); WHITE BLOOD COUNT 6.1 K/mm3 (4.0-10.0)
[2018-08-14 07:14] LABS: ANION GAP 6 MMOL/L (8-16); BLOOD UREA NITROGEN 7 mg/dL (7-18); CALCIUM 8.1 mg/dL (8.5-10.1); CHLORIDE 104 mmol/L (98-107); CO2 31 mmol/L (21-32); CREATININE 0.4 mg/dL (0.55-1.3); GLUCOSE,RANDOM 86 mg/dL (74-106); MAGNESIUM 2.3 mg/dL (1.8-2.4); PHOSPHOROUS 2.5 mg/dL (2.5-4.9); POTASSIUM 3.8 mmol/L (3.5-5.1); SODIUM 140 mmol/L (136-145)
--- NOTE | 2018-08-14 08:58 | PN ---
GI Progress Note Subjective: No acute events BM last night - Objective Vital Signs: Vital Signs Temperature 98.3 F 08/14/18 05:48 Pulse Rate 78 08/14/18 05:48 Respiratory Rate 20 08/14/18 05:48 Blood Pressure 140/83 08/14/18 05:48 O2 Sat by Pulse Oximetry (%) 98 08/13/18 21:00 Constitutional: Calm Eyes: No: Sclera Icterus Cardiovascular: Yes: Regular Rate and Rhythm Respiratory: No: Diminished (decreased BS @ bases bilaterally with poor insp effort) Gastrointestinal Inspection: Yes: Distention (Improved from yesterday's exam. mildly distended. + BS, Improved tympany) ...Auscultate: Yes: Normoactive Bowel Sounds Edema: No (No LE edema) Neurological: Yes: Alert Labs: CBC, BMP 08/14/18 06:00 08/14/18 06:00 Problem List - Problems (1) Colonic inertia Assessment/Plan: Abdominal exam improved D/C'd Colace D/C'd Dulcolax suppository Continue MiraLAX / Senna: titrate to avoid excessively loose BM's Code(s): K59.9 - FUNCTIONAL INTESTINAL DISORDER, UNSPECIFIED
[2018-08-14] MEDS ORDERED: BISACODYL 10 MG SUPP.RECT PR SCH (10:00)
--- NOTE | 2018-08-14 10:26 | PN ---
Progress Note, Physician - Current Medication List Current Medications: Active Medications Amlodipine Besylate (Norvasc -) 5 mg PO DAILY [facility] Collagenase (Santyl -) 1 applic TP DAILY [facility]; Protocol Last Admin: 08/13/18 11:38 Dose: 1 applic Enoxaparin Sodium (Lovenox -) 40 mg SQ DAILY [facility] Last Admin: 08/13/18 11:38 Dose: 40 mg Memantine (Namenda -) 5 mg PO BID [facility] Last Admin: 08/13/18 22:46 Dose: 5 mg Polyethylene Glycol (Miralax (For Daily Use) -) 17 gm PO DAILY [facility] Senna/Docusate Sodium (Pericolace -) 2 tablet PO HS PRN PRN Reason: CONSTIPATION Last Admin: 08/13/18 22:46 Dose: 2 tablet - Objective Vital Signs: Vital Signs Temperature 98.3 F 08/14/18 05:48 Pulse Rate 78 08/14/18 05:48 Respiratory Rate 20 08/14/18 05:48 Blood Pressure 140/83 08/14/18 05:48 O2 Sat by Pulse Oximetry (%) 98 08/13/18 21:00 Labs: CBC, BMP 08/14/18 06:00 08/14/18 06:00
--- NOTE | 2018-08-14 10:29 | PN ---
Progress Note, Physician History of Present Illness: no new issues going for imaging studies - Current Medication List Current Medications: Active Medications Amlodipine Besylate (Norvasc -) 5 mg PO DAILY [facility] Collagenase (Santyl -) 1 applic TP DAILY [facility]; Protocol Last Admin: 08/13/18 11:38 Dose: 1 applic Enoxaparin Sodium (Lovenox -) 40 mg SQ DAILY [facility] Last Admin: 08/13/18 11:38 Dose: 40 mg Memantine (Namenda -) 5 mg PO BID [facility] Last Admin: 08/13/18 22:46 Dose: 5 mg Polyethylene Glycol (Miralax (For Daily Use) -) 17 gm PO DAILY [facility] Senna/Docusate Sodium (Pericolace -) 2 tablet PO HS PRN PRN Reason: CONSTIPATION Last Admin: 08/13/18 22:46 Dose: 2 tablet - Objective Vital Signs: Vital Signs Temperature 98.3 F 08/14/18 05:48 Pulse Rate 78 08/14/18 05:48 Respiratory Rate 20 08/14/18 05:48 Blood Pressure 140/83 08/14/18 05:48 O2 Sat by Pulse Oximetry (%) 98 08/13/18 21:00 Constitutional: Yes: No Distress, Calm Cardiovascular: Yes: S1, S2 Respiratory: Yes: Regular, CTA Bilaterally Gastrointestinal: Yes: Hyperactive Bowel Sounds Musculoskeletal: Yes: Other Extremities: Yes: Other Neurological: Yes: Alert, Other Labs: CBC, BMP 08/14/18 06:00 08/14/18 06:00 Assessment/Plan Problem List - Problems (1) Alzheimer disease Code(s): G30.9 - ALZHEIMER'S DISEASE, UNSPECIFIED; F02.80 - DEMENTIA IN OTH DISEASES CLASSD ELSWHR W/O BEHAVRL DISTURB Qualifiers: Alzheimer's disease onset: unspecified onset Dementia behavioral disturbance: with behavioral disturbance Qualified Code(s): G30.9 - Alzheimer' s disease, unspecified; F02.81 - Dementia in other diseases classified elsewhere with behavioral disturbance (2) Fecal impaction Code(s): K56.41 - FECAL IMPACTION (3) Necrotic eschar Code(s): L98.8 - OTH DISRD OF THE SKIN AND SUBCUTANEOUS TISSUE (4) Unstageable pressure ulcer Code(s): L89.95 - PRESSURE ULCER OF UNSPECIFIED SITE, UNSTAGEABLE Assessment/Plan Constipation/Colonic distention s/p disimpactions GI following Closely monitor off antibiotics await for imaging studies rest as per the team
[2018-08-14] MEDS: MEMANTINE HCL 5 MG TABLET (UD) PO SCH ×2 (11:41→22:19)
[2018-08-14] MEDS: POLYETHYLENE GLYCOL 3350 119 GM BTL PO SCH (11:41)
[2018-08-14] MEDS: amLODIPine BESYLATE 5 MG TABLET (FP) PO SCH (11:41)
[2018-08-14] MEDS: ENOXAPARIN NA (PORCINE) 40 MG/0.4 ML DISP.SYRIN SQ SCH (11:43)
[2018-08-14] MEDS: COLLAGENASE CLOSTRIDIUM HIST. 30 GRAMS TUBE TP SCH (13:13)
[2018-08-14] MEDS ORDERED: LACTATED RINGERS SOLUTION 1,000 ML/1,000 ML INFUS.BAG IV SCH (14:45)
--- NOTE | 2018-08-14 17:16 | PN ---
Progress Note (short form) - Note Progress Note: CT scan images reviewed: colonic distention with retained stool in distal sigmoid. did not appear to be a volvulus as noted on AXR. Rectal exam performed with placement of rectal tube. There was expulsion of air and copious amounts of liquid stool. Abdomen was soft. Ordered anusol 2.5 % cream to be applied internally and externally twice daily for 5 days Monitor abdominal exam Monitor lytes Problem List - Problems (1) Colonic inertia Code(s): K59.9 - FUNCTIONAL INTESTINAL DISORDER, UNSPECIFIED
--- NOTE | 2018-08-14 19:03 | PN ---
Physical Exam: SUBJECTIVE: Patient seen and examined at bedside. No acute events overnight. Underwent CTAP/KUB earlier today. OBJECTIVE: Vital Signs Period Temp Pulse Resp BP Sys/Turcios Pulse Ox Last 24 Hr 97.9 F-98.3 F 64-78 18-20 132-156/69-83 98-98 GENERAL: Awake, Mild distress EYES: Extraocular movements intact, sclera anicteric, conjunctiva clear. LUNGS: CTA B/L HEART: RRR 3/6SM ABDOMEN: Soft, No tenderness to deep palpation. No guarding or rigidity. EXTREMITIES: trace edema. Onychomycosis SKIN: Right Hip Ulcer Laboratory Results - last 24 hr 08/13/18 08/14/18 08/14/18 15:30 06:00 06:00 WBC 6.1 RBC 4.16 Hgb 13.3 Hct 38.7 MCV 92.9 MCH 31.9 MCHC 34.4 RDW 15.6 Plt Count 291 MPV 9.2 Sodium 140 Potassium 3.4 L 3.8 Chloride 104 Carbon Dioxide 31 Anion Gap 6 L BUN 7 Creatinine 0.4 L Creat Clearance w eGFR > 60 Random Glucose 86 Calcium 8.1 L Phosphorus 2.5 Magnesium 2.3 Active Medications Generic Name Dose Route Start Last Admin Trade Name Freq PRN Reason Stop Dose Admin Amlodipine Besylate 5 mg 08/14/18 10:00 08/14/18 11:41 Norvasc - PO Not Given DAILY [facility] Collagenase 1 applic 08/04/18 12:15 08/14/18 13:13 Santyl - TP 1 applic DAILY [facility] Administration Protocol Enoxaparin Sodium 40 mg 08/02/18 10:00 08/14/18 11:43 Lovenox - SQ 40 mg DAILY [facility] Administration Hydrocortisone 1 applic 08/14/18 22:00 Anusol 2.5% Hc Cream - TP 08/19/18 21:59 BID [facility] Lactated Ringer's 1,000 ml in 1,000 mls @ 83 mls/hr 08/14/18 14:45 08/14/18 14:53 Lactated Ringers Solution IV 83 mls/hr ASDIR [facility] Administration Memantine 5 mg 08/02/18 10:00 08/14/18 11:41 Namenda - PO Not Given BID [facility] Polyethylene Glycol 17 gm 08/14/18 10:00 08/14/18 11:41 Miralax (For Daily Use) - PO Not Given DAILY [facility] Senna/Docusate Sodium 2 tablet 08/12/18 10:56 08/13/18 22:46 Pericolace - PO 2 tablet HS PRN Administration CONSTIPATION ASSESSMENT/PLAN: 88F w/ pmhx of HTN, HLD, Alzheimer's dementia presented to the hospital for evaluation of R hip pressure ulcer as well as poor PO intake. #R pressure wound ulcer -No leukocytosis, or temperature -Ulcer does not appear to be infected -Continue to assess daily. Santyl Applied to wound daily. #Hypokalemia Potassium this am 3.8. Repeat BMP in am #Abdominal distension; Pt has abd tenderness on exam. 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 Manually disimpacted 08/04/18 by myself along with RN (Ernestine). Large amount of watery stool and gas expelled from rectum. Distension visibly better. -senna, miralax to 17g daily -KUB 08/05/18---> Large colonic distension with fecal impaction remains. -Dr Morales on board. ---> Manually disempacted leading to explosion of gas and feces with decompression of distended abdomen. -Surgery on board Dr Parish---> Can try neostigmine and/or recommend evaluation by GI for possible colonoscopic decompression and placement of a rectal tube; all attempts at non operative management should be considered; CT scan a/p should be considered. -AXR 08/11/18---> Marked Improvement. Still some small bowel air distension. May require trial of neostigmine in icu setting if colonic distension does not resolve. -KUB revealed possible sigmoid volvulos. CTAP did not suggest any volvulus. 08/14. Evaluated again by GI today---> anusol 2.5 % cream to be applied internally and externally twice daily for 5 days. C Diff Antigen and Toxin #Alzheimer's Dementia Memantine 5 MG PO BID #HTN- Norvasc 2.5 INCREASED to 5 PO Daily. BP 160's systolic this am. #Prophylaxis -Lovenox 40 SQ #FEN -No Fluids -Monitor Electrolytes -Soft Diet #Dispo -Med-Surg Visit type - Emergency Visit Emergency Visit: Yes ED Registration Date: 08/01/18 Care time: The patient presented to the Emergency Department on the above date and was hospitalized for further evaluation of their emergent condition. - New Patient This patient is new to me today: No - Critical Care Critical Care patient: No - Discharge Referral Referred to [facility] No
--- NOTE | 2018-08-14 19:21 | PN ---
Teaching Attending Note Name of Resident: Delvis Juarez ATTENDING PHYSICIAN STATEMENT I saw and evaluated the patient. I reviewed the resident's note and discussed the case with the resident. I agree with the resident's findings and plan as documented. SUBJECTIVE: no events over night large BM yesterday OBJECTIVE: NAd, awake, alert Abd: NT, slight distention , hypoactive BS. Assessment/Plan: Unfortunate 88 y/o lady with h/o Dementia, HTN, HLp, who comes form home with poor po intake, and for evaluation of R posterior hip. She was found to have constipation with severe colonic distention . 1- Large bowel obstruction: due to fecal impaction. CT and xray reviewed. - had rectal tube today cont bowel regimen anusol cream 2- Volume depletion: resolved . cont oral hydration 3- R posterior decub: Not infected. No abx - Santyl 4- H/o HTN: cont norvasc . 5- hypokalemia: monitor and replete as needed 6- DVT PX
[2018-08-14] MEDS: HYDROCORTISONE 2.5% TOPICAL CREAM 30 GM TUBE TP SCH (22:19)
[2018-08-15] MEDS ORDERED: PT OWN MED DRAWER 7, Y5N ONE (10:34)
[2018-08-15] MEDS: ENOXAPARIN NA (PORCINE) 40 MG/0.4 ML DISP.SYRIN SQ SCH (10:38)
[2018-08-15] MEDS: amLODIPine BESYLATE 5 MG TABLET (FP) PO SCH (10:38)
[2018-08-15] MEDS: POLYETHYLENE GLYCOL 3350 119 GM BTL PO SCH (10:38)
[2018-08-15] MEDS: MEMANTINE HCL 5 MG TABLET (UD) PO SCH ×2 (10:38→22:33)
[2018-08-15] MEDS: HYDROCORTISONE 2.5% TOPICAL CREAM 30 GM TUBE TP SCH ×2 (11:05→22:33)
[2018-08-15] MEDS: COLLAGENASE CLOSTRIDIUM HIST. 30 GRAMS TUBE TP SCH (11:06)
--- NOTE | 2018-08-15 14:44 | PN ---
Teaching Attending Note Name of Resident: Delvis Juarez ATTENDING PHYSICIAN STATEMENT I saw and evaluated the patient. I reviewed the resident's note and discussed the case with the resident. I agree with the resident's findings and plan as documented. SUBJECTIVE: unable to get hx. one BM last night OBJECTIVE: NAd, awake, alert Abd: NT, no distention, NT ,Nl BS Ext : no edema lungs: CTAB CV: RRR, 3/6 SM Assessment/Plan: Unfortunate 88 y/o lady with h/o Dementia, HTN, HLp, who comes form home with poor po intake, and for evaluation of R posterior hip. She was found to have constipation with severe colonic distention . 1- Large bowel obstruction: due to fecal impaction.resolved 2- severe constipation 3- HTN 4- hypokalemia 5- R posterior hip ulcer plan: - cont senna and miralax - cont norvasc - replete K - anusol - lovenox sq
--- NOTE | 2018-08-15 15:19 | PN ---
Physical Exam: SUBJECTIVE: Patient seen and examined this am. Combative overnight. OBJECTIVE: Vital Signs Period Temp Pulse Resp BP Sys/Turcios Pulse Ox Last 24 Hr 97.5 F-98.7 F 68-77 18-20 130-158/68-85 98-98 GENERAL: Awake, NAD EYES: Sclera clear EOMI LUNGS: CTA B/L HEART: RRR 3/6SM ABDOMEN: No tenderness to deep palpation. BS Audible 4 quadrants. Soft nondistended nontender EXTREMITIES: trace edema. Onychomycosis SKIN: Right Hip Ulcer Laboratory Results - last 24 hr 08/15/18 11:40 Potassium 3.3 L Active Medications Generic Name Dose Route Start Last Admin Trade Name Freq PRN Reason Stop Dose Admin Amlodipine Besylate 5 mg 08/14/18 10:00 08/15/18 10:38 Norvasc - PO 5 mg DAILY [facility] Administration Collagenase 1 applic 08/04/18 12:15 08/15/18 11:06 Santyl - TP 1 applic DAILY [facility] Administration Protocol Enoxaparin Sodium 40 mg 08/15/18 10:00 08/15/18 10:38 Lovenox - SQ 40 mg DAILY [facility] Administration Hydrocortisone 1 applic 08/14/18 22:00 08/15/18 11:05 Anusol 2.5% Hc Cream - TP 08/19/18 21:59 1 applic BID [facility] Administration Memantine 5 mg 08/02/18 10:00 08/15/18 10:38 Namenda - PO 5 mg BID [facility] Administration Polyethylene Glycol 17 gm 08/14/18 10:00 08/15/18 10:38 Miralax (For Daily Use) - PO 17 gm DAILY [facility] Administration Potassium Chloride 40 meq 08/15/18 20:00 Potassium Chloride Oral Liquid PO 08/15/18 20:01 ONCE ONE Senna/Docusate Sodium 2 tablet 08/12/18 10:56 08/13/18 22:46 Pericolace - PO 2 tablet HS PRN Administration CONSTIPATION ASSESSMENT/PLAN: 88F w/ pmhx of HTN, HLD, Alzheimer's dementia presented to the hospital for evaluation of R hip pressure ulcer as well as poor PO intake. #R pressure wound ulcer -No leukocytosis, or temperature -Ulcer does not appear to be infected -Continue to assess daily. Santyl Applied to wound daily. #Hypokalemia Potassium 3.3 this am 2/23/19---> KCL 40 mEQ Liquid administered . #Abdominal distension; Pt has abd tenderness on exam. 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 Manually disimpacted 08/04/18 by myself along with RN (Ernestine). Large amount of watery stool and gas expelled from rectum. Distension visibly better. -senna, miralax to 17g daily -KUB 08/05/18---> Large colonic distension with fecal impaction remains. -Dr Morales on board. ---> Manually disempacted leading to explosion of gas and feces with decompression of distended abdomen. -Surgery on board Dr Parish---> Can try neostigmine and/or recommend evaluation by GI for possible colonoscopic decompression and placement of a rectal tube; all attempts at non operative management should be considered; CT scan a/p should be considered. -AXR 08/11/18---> Marked Improvement. Still some small bowel air distension. May require trial of neostigmine in icu setting if colonic distension does not resolve. -KUB revealed possible sigmoid volvulos. CTAP did not suggest any volvulus. 08/14. -Anusol 2.5 % cream to be applied internally and externally twice daily for 5 days. -C Diff Antigen and Toxin #Alzheimer's Dementia Memantine 5 MG PO BID #HTN- Norvasc 5 PO Daily. #Prophylaxis -Lovenox 40 SQ #FEN -No Fluids -Monitor Electrolytes -Soft Diet #Dispo -Med-Surg Visit type - Emergency Visit Emergency Visit: Yes ED Registration Date: 08/01/18 Care time: The patient presented to the Emergency Department on the above date and was hospitalized for further evaluation of their emergent condition. - New Patient This patient is new to me today: No - Critical Care Critical Care patient: No - Discharge Referral Referred to [facility] Med P.C.: No
[2018-08-15] MEDS: POTASSIUM CHLORIDE ORAL LIQUID 20 MEQ/15 ML PO ONE ×2 (15:39→18:41)
--- NOTE | 2018-08-15 16:24 | PN ---
Progress Note, Physician History of Present Illness: Events noted. Pt had BM yesterday, remains afebrile. AXR results noted. - Current Medication List Current Medications: Active Medications Amlodipine Besylate (Norvasc -) 5 mg PO DAILY [facility] Last Admin: 08/15/18 10:38 Dose: 5 mg Collagenase (Santyl -) 1 applic TP DAILY [facility]; Protocol Last Admin: 08/15/18 11:06 Dose: 1 applic Enoxaparin Sodium (Lovenox -) 40 mg SQ DAILY [facility] Last Admin: 08/15/18 10:38 Dose: 40 mg Hydrocortisone (Anusol 2.5% Hc Cream -) 1 applic TP BID [facility] Stop: 08/19/18 21:59 Last Admin: 08/15/18 11:05 Dose: 1 applic Memantine (Namenda -) 5 mg PO BID [facility] Last Admin: 08/15/18 10:38 Dose: 5 mg Polyethylene Glycol (Miralax (For Daily Use) -) 17 gm PO DAILY [facility] Last Admin: 08/15/18 10:38 Dose: 17 gm Potassium Chloride (Potassium Chloride Oral Liquid) 40 meq PO ONCE ONE Stop: 08/15/18 20:01 Senna/Docusate Sodium (Pericolace -) 2 tablet PO HS PRN PRN Reason: CONSTIPATION Last Admin: 08/13/18 22:46 Dose: 2 tablet - Objective Vital Signs: Vital Signs Temperature 97.9 F 08/15/18 14:57 Pulse Rate 74 08/15/18 14:57 Respiratory Rate 20 08/15/18 14:57 Blood Pressure 135/70 08/15/18 14:57 O2 Sat by Pulse Oximetry (%) 98 08/15/18 09:00 Constitutional: Yes: No Distress Cardiovascular: Yes: Regular Rate and Rhythm Respiratory: Yes: Regular Gastrointestinal: Yes: Normal Bowel Sounds, Soft Neurological: Yes: Alert Labs: CBC, BMP 08/14/18 06:00 08/15/18 11:40 Microbiology 08/01/18 19:34 Blood - Peripheral Venous Blood Culture - Final NO GROWTH AFTER 5 DAYS INCUBATION 08/01/18 19:34 Blood - Peripheral Venous Blood Culture - Final NO GROWTH AFTER 5 DAYS INCUBATION 08/03/18 14:15 Urine - Urine Lynn Urine Culture - Final NO GROWTH OBTAINED 08/01/18 19:34 Urine - Urine Clean Catch Urine Culture - Final NO GROWTH OBTAINED - ....Imaging X-ray: Report Reviewed Problem List - Problems (1) Alzheimer disease Code(s): G30.9 - ALZHEIMER'S DISEASE, UNSPECIFIED; F02.80 - DEMENTIA IN OTH DISEASES CLASSD ELSWHR W/O BEHAVRL DISTURB Qualifiers: Alzheimer's disease onset: unspecified onset Dementia behavioral disturbance: with behavioral disturbance Qualified Code(s): G30.9 - Alzheimer' s disease, unspecified; F02.81 - Dementia in other diseases classified elsewhere with behavioral disturbance (2) Fecal impaction Code(s): K56.41 - FECAL IMPACTION (3) Necrotic eschar Code(s): L98.8 - OTH DISRD OF THE SKIN AND SUBCUTANEOUS TISSUE (4) Unstageable pressure ulcer Code(s): L89.95 - PRESSURE ULCER OF UNSPECIFIED SITE, UNSTAGEABLE Assessment/Plan Colonic distention / Fecal impaction -- slowly improving -- BM yesterday but none today -- off antibiotics continue monitor
[2018-08-15] MEDS ORDERED: POTASSIUM CHLORIDE ORAL LIQUID 20 MEQ/15 ML PO ONE (20:00)
[2018-08-15] MEDS: KCL 10 MEQ IVPB 10 MEQ/100 ML INFUS.BAG IVPB SCH (23:32)
[2018-08-16] MEDS: KCL 10 MEQ IVPB 10 MEQ/100 ML INFUS.BAG IVPB SCH (01:23)
[2018-08-16 08:18] LABS: HEMATOCRIT 38.9 % (32.4-45.2); HEMOGLOBIN 13.2 GM/dL (10.7-15.3); MCH 31.5 pg (25.7-33.7); MCHC 33.8 g/dl (32.0-36.0); MEAN CELL VOLUME 93.1 fl (80-96); MEAN PLT VOLUME 9.3 fl (7.5-11.1); PLATELET COUNT 302 K/MM3 (134-434); RBC 4.18 M/mm3 (3.60-5.2); RDW 15.4 % (11.6-15.6); WHITE BLOOD COUNT 4.4 K/mm3 (4.0-10.0)
[2018-08-16 08:54] LABS: ANION GAP 5 MMOL/L (8-16); BLOOD UREA NITROGEN 8 mg/dL (7-18); CALCIUM 8.3 mg/dL (8.5-10.1); CHLORIDE 104 mmol/L (98-107); CO2 28 mmol/L (21-32); CREATININE 0.4 mg/dL (0.55-1.3); GLUCOSE,RANDOM 90 mg/dL (74-106); MAGNESIUM 2.4 mg/dL (1.8-2.4); PHOSPHOROUS 2.7 mg/dL (2.5-4.9); POTASSIUM 4.3 mmol/L (3.5-5.1); SODIUM 137 mmol/L (136-145)
[2018-08-16] MEDS: COLLAGENASE CLOSTRIDIUM HIST. 30 GRAMS TUBE TP SCH (11:00)
[2018-08-16] MEDS: HYDROCORTISONE 2.5% TOPICAL CREAM 30 GM TUBE TP SCH ×2 (11:01→22:13)
[2018-08-16] MEDS: amLODIPine BESYLATE 5 MG TABLET (FP) PO SCH (11:02)
[2018-08-16] MEDS: POLYETHYLENE GLYCOL 3350 119 GM BTL PO SCH (11:02)
[2018-08-16] MEDS: ENOXAPARIN NA (PORCINE) 40 MG/0.4 ML DISP.SYRIN SQ SCH (11:02)
[2018-08-16] MEDS: MEMANTINE HCL 5 MG TABLET (UD) PO SCH ×2 (11:03→22:13)
--- NOTE | 2018-08-16 14:02 | PN ---
Progress Note, Physician History of Present Illness: stable calm - Current Medication List Current Medications: Active Medications Amlodipine Besylate (Norvasc -) 5 mg PO DAILY [facility] Last Admin: 08/16/18 11:02 Dose: 5 mg Collagenase (Santyl -) 1 applic TP DAILY [facility]; Protocol Last Admin: 08/16/18 11:00 Dose: 1 applic Enoxaparin Sodium (Lovenox -) 40 mg SQ DAILY [facility] Last Admin: 08/16/18 11:02 Dose: 40 mg Hydrocortisone (Anusol 2.5% Hc Cream -) 1 applic TP BID [facility] Stop: 08/19/18 21:59 Last Admin: 08/16/18 11:01 Dose: 1 applic Memantine (Namenda -) 5 mg PO BID [facility] Last Admin: 08/16/18 11:03 Dose: 5 mg Polyethylene Glycol (Miralax (For Daily Use) -) 17 gm PO DAILY [facility] Last Admin: 08/16/18 11:02 Dose: 17 gm Senna/Docusate Sodium (Pericolace -) 2 tablet PO HS PRN PRN Reason: CONSTIPATION Last Admin: 08/13/18 22:46 Dose: 2 tablet - Objective Vital Signs: Vital Signs Temperature 97.6 F 08/16/18 08:06 Pulse Rate 69 08/16/18 08:06 Respiratory Rate 20 08/16/18 09:00 Blood Pressure 137/85 08/16/18 08:06 O2 Sat by Pulse Oximetry (%) 97 08/16/18 09:00 Constitutional: Yes: No Distress, Calm Cardiovascular: Yes: S1, S2 Respiratory: Yes: Regular Gastrointestinal: Yes: Soft, Hypoactive Bowel Sounds Musculoskeletal: Yes: WNL Extremities: Yes: WNL Wound/Incision: Yes: Dressing Dry and Intact Neurological: Yes: Alert Labs: CBC, BMP 08/16/18 07:00 08/16/18 07:00 Assessment/Plan Problem List - Problems (1) Alzheimer disease Code(s): G30.9 - ALZHEIMER'S DISEASE, UNSPECIFIED; F02.80 - DEMENTIA IN OTH DISEASES CLASSD ELSWHR W/O BEHAVRL DISTURB Qualifiers: Alzheimer's disease onset: unspecified onset Dementia behavioral disturbance: with behavioral disturbance Qualified Code(s): G30.9 - Alzheimer' s disease, unspecified; F02.81 - Dementia in other diseases classified elsewhere with behavioral disturbance (2) Fecal impaction Code(s): K56.41 - FECAL IMPACTION (3) Necrotic eschar Code(s): L98.8 - OTH DISRD OF THE SKIN AND SUBCUTANEOUS TISSUE (4) Unstageable pressure ulcer Code(s): L89.95 - PRESSURE ULCER OF UNSPECIFIED SITE, UNSTAGEABLE Assessment/Plan Constipation/Colonic distention s/p disimpactions GI following Closely monitor off antibiotics await for imaging studies rest as per the team nutrition rest as per the patients
--- NOTE | 2018-08-16 15:37 | PN ---
Progress Note (short form) - Note Progress Note: Subjective: unable to obtain hx Objective: Vital Signs: Last Vital Signs Temp Pulse Resp BP Pulse Ox 97.6 F 69 20 137/85 97 08/16/18 08:06 08/16/18 08:06 08/16/18 09:00 08/16/18 08:06 08/16/18 09:00 Laboratory Results - last 24 hr 08/16/18 08/16/18 07:00 07:00 WBC 4.4 RBC 4.18 Hgb 13.2 Hct 38.9 MCV 93.1 MCH 31.5 MCHC 33.8 RDW 15.4 Plt Count 302 MPV 9.3 Sodium 137 Potassium 4.3 Chloride 104 Carbon Dioxide 28 Anion Gap 5 L BUN 8 Creatinine 0.4 L Creat Clearance w eGFR > 60 Random Glucose 90 Calcium 8.3 L Phosphorus 2.7 Magnesium 2.4 Physical Exam: NAd, awake, alert Abd: NT, no distention, NT ,hypoactive BS Ext : no edema lungs: CTAB CV: RRR, 3/6 SM Assessment/Plan: Unfortunate 88 y/o lady with h/o Dementia, HTN, HLp, who comes form home with poor po intake, and for evaluation of R posterior hip. She was found to have constipation with severe colonic distention . 1- Large bowel obstruction: due to fecal impaction.resolved 2- severe constipation 3- HTN 4- hypokalemia 5- R posterior hip ulcer plan: - cont senna and miralax - cont norvasc - K repleted this am , monitor - anusol - lovenox sq Visit type - Emergency Visit Emergency Visit: Yes ED Registration Date: 08/01/18 Care time: The patient presented to the Emergency Department on the above date and was hospitalized for further evaluation of their emergent condition. - New Patient This patient is new to me today: No - Critical Care Critical Care patient: No
--- NOTE | 2018-08-16 16:07 | PN ---
GI Progress Note Subjective: GI Note ( covering Dr. Palmer) : Call for distension and failure to move bowels. 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 Rectal tube instilled Miralax TID , may need to retrain x 24 hours to insert NG tube to do Golytely lavage Problem List - Problems (1) Constipation by delayed colonic transit Code(s): K59.01 - SLOW TRANSIT CONSTIPATION (2) Fecal impaction Code(s): K56.41 - FECAL IMPACTION (3) Alzheimer disease Code(s): G30.9 - ALZHEIMER'S DISEASE, UNSPECIFIED; F02.80 - DEMENTIA IN OTH DISEASES CLASSD ELSWHR W/O BEHAVRL DISTURB Qualifiers: Alzheimer's disease onset: unspecified onset Dementia behavioral disturbance: with behavioral disturbance Qualified Code(s): G30.9 - Alzheimer' s disease, unspecified; F02.81 - Dementia in other diseases classified elsewhere with behavioral disturbance (4) Unstageable pressure ulcer Code(s): L89.95 - PRESSURE ULCER OF UNSPECIFIED SITE, UNSTAGEABLE
[2018-08-17 09:35] LABS: MAGNESIUM 2.3 mg/dL (1.8-2.4); PHOSPHOROUS 3.1 mg/dL (2.5-4.9); POTASSIUM 4.1 mmol/L (3.5-5.1)
[2018-08-17] MEDS: amLODIPine BESYLATE 5 MG TABLET (FP) PO SCH (09:39)
[2018-08-17] MEDS: MEMANTINE HCL 5 MG TABLET (UD) PO SCH ×2 (09:39→22:12)
[2018-08-17] MEDS: ENOXAPARIN NA (PORCINE) 40 MG/0.4 ML DISP.SYRIN SQ SCH (09:39)
[2018-08-17] MEDS: HYDROCORTISONE 2.5% TOPICAL CREAM 30 GM TUBE TP SCH ×2 (09:40→22:10)
[2018-08-17] MEDS: COLLAGENASE CLOSTRIDIUM HIST. 30 GRAMS TUBE TP SCH (09:40)
--- NOTE | 2018-08-17 10:29 | PN ---
Progress Note, Physician History of Present Illness: no changes suspicious of food - Current Medication List Current Medications: Active Medications Amlodipine Besylate (Norvasc -) 5 mg PO DAILY [facility] Last Admin: 08/17/18 09:39 Dose: 5 mg Collagenase (Santyl -) 1 applic TP DAILY [facility]; Protocol Last Admin: 08/17/18 09:40 Dose: 1 applic Enoxaparin Sodium (Lovenox -) 40 mg SQ DAILY [facility] Last Admin: 08/17/18 09:39 Dose: 40 mg Hydrocortisone (Anusol 2.5% Hc Cream -) 1 applic TP BID [facility] Stop: 08/19/18 21:59 Last Admin: 08/17/18 09:40 Dose: 1 applic Memantine (Namenda -) 5 mg PO BID [facility] Last Admin: 08/17/18 09:39 Dose: 5 mg Polyethylene Glycol (Miralax (For Daily Use) -) 17 gm PO TID [facility] Senna/Docusate Sodium (Pericolace -) 2 tablet PO HS PRN PRN Reason: CONSTIPATION Last Admin: 08/13/18 22:46 Dose: 2 tablet - Objective Vital Signs: Vital Signs Temperature 97.2 F L 08/17/18 06:09 Pulse Rate 63 08/17/18 06:09 Respiratory Rate 16 08/17/18 06:09 Blood Pressure 142/52 L 08/17/18 06:09 O2 Sat by Pulse Oximetry (%) 96 08/16/18 21:00 Constitutional: Yes: No Distress, Calm Cardiovascular: Yes: S1, S2 Respiratory: Yes: Regular, CTA Bilaterally Gastrointestinal: Yes: Normal Bowel Sounds, Soft Musculoskeletal: Yes: WNL Extremities: Yes: Other Neurological: Yes: Alert Psychiatric: Yes: Alert Labs: CBC, BMP 08/16/18 07:00 08/17/18 08:25 Assessment/Plan Problem List - Problems (1) Alzheimer disease Code(s): G30.9 - ALZHEIMER'S DISEASE, UNSPECIFIED; F02.80 - DEMENTIA IN OTH DISEASES CLASSD ELSWHR W/O BEHAVRL DISTURB Qualifiers: Alzheimer's disease onset: unspecified onset Dementia behavioral disturbance: with behavioral disturbance Qualified Code(s): G30.9 - Alzheimer' s disease, unspecified; F02.81 - Dementia in other diseases classified elsewhere with behavioral disturbance (2) Fecal impaction Code(s): K56.41 - FECAL IMPACTION (3) Necrotic eschar Code(s): L98.8 - OTH DISRD OF THE SKIN AND SUBCUTANEOUS TISSUE (4) Unstageable pressure ulcer Code(s): L89.95 - PRESSURE ULCER OF UNSPECIFIED SITE, UNSTAGEABLE Assessment/Plan Constipation/Colonic distention s/p disimpactions GI following Closely monitor off antibiotics await for imaging studies rest as per the team nutrition rest as per the patients
--- NOTE | 2018-08-17 11:29 | PN ---
Progress Note (short form) - Note Progress Note: Patient seen and examined Abdomen soft, minimally distended Rectal tube removed - with soft brown stool at tip Labs reviewed, K and Mg appropriate Would continue Miralax 17g TID -- if does not respond to this, may need slow golytely purge
--- NOTE | 2018-08-17 12:57 | PN ---
Teaching Attending Note Name of Resident: Delvis Juarez ATTENDING PHYSICIAN STATEMENT I saw and evaluated the patient. I reviewed the resident's note and discussed the case with the resident. I agree with the resident's findings and plan as documented. SUBJECTIVE: No events over night OBJECTIVE: NAd, awake, alert Abd: NT, ND, hypoactive BS . Ext : no edema lungs:did not allow exam CV: RRR, 3/6 SM Assessment/Plan: Unfortunate 88 y/o lady with h/o Dementia, HTN, HLp, who comes form home with poor po intake, and for evaluation of R posterior hip. She was found to have constipation with severe colonic distention . 1- Large bowel obstruction: due to fecal impaction.resolved 2- severe constipation 3- HTN 4- hypokalemia 5- R posterior hip ulcer plan: - cont senna and miralax, change to TID. GI follow up appreciated - cont norvasc - monitor electrolytes - anusol - lovenox sq - cont santyl
[2018-08-17] MEDS: POLYETHYLENE GLYCOL 3350 119 GM BTL PO SCH ×2 (14:33→22:11)
--- NOTE | 2018-08-17 18:21 | PN ---
Physical Exam: SUBJECTIVE: Patient seen and examined at bedside. No acute events overnight. OBJECTIVE: Vital Signs Period Temp Pulse Resp BP Sys/Turcios Pulse Ox Last 24 Hr 97.2 F-98.3 F 63-88 16-20 123-149/52-78 96-96 GENERAL: Mild distress EYES: Sclera clear EOMI LUNGS: CTA B/L HEART: RRR 3/6SM ABDOMEN: NDNT bs + EXTREMITIES: Trace edema. Onychomycosis Laboratory Results - last 24 hr 08/17/18 08:25 Potassium 4.1 Phosphorus 3.1 Magnesium 2.3 Active Medications Generic Name Dose Route Start Last Admin Trade Name Freq PRN Reason Stop Dose Admin Amlodipine Besylate 5 mg 08/14/18 10:00 08/17/18 09:39 Norvasc - PO 5 mg DAILY [facility] Administration Collagenase 1 applic 08/04/18 12:15 08/17/18 09:40 Santyl - TP 1 applic DAILY [facility] Administration Protocol Enoxaparin Sodium 40 mg 08/15/18 10:00 08/17/18 09:39 Lovenox - SQ 40 mg DAILY [facility] Administration Hydrocortisone 1 applic 08/14/18 22:00 08/17/18 09:40 Anusol 2.5% Hc Cream - TP 08/19/18 21:59 1 applic BID [facility] Administration Memantine 5 mg 08/02/18 10:00 08/17/18 09:39 Namenda - PO 5 mg BID [facility] Administration Polyethylene Glycol 17 gm 08/17/18 07:41 08/17/18 14:33 Miralax (For Daily Use) - PO 17 gm TID [facility] Administration Senna/Docusate Sodium 2 tablet 08/12/18 10:56 08/13/18 22:46 Pericolace - PO 2 tablet HS PRN Administration CONSTIPATION ASSESSMENT/PLAN: 88F w/ pmhx of HTN, HLD, Alzheimer's dementia presented to the hospital for evaluation of R hip pressure ulcer as well as poor PO intake. #R pressure wound ulcer -No leukocytosis, or temperature -Ulcer does not appear to be infected -Continue to assess daily. Santyl Applied to wound daily. #Abdominal distension; Pt has abd tenderness on exam. 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 Manually disimpacted 08/04/18 by myself along with RN (Ernestine). Large amount of watery stool and gas expelled from rectum. Distension visibly better. -senna, miralax to 17g daily -KUB 08/05/18---> Large colonic distension with fecal impaction remains. -Dr Morales on board. ---> Manually disempacted leading to explosion of gas and feces with decompression of distended abdomen. -Surgery on board Dr Parish---> Can try neostigmine and/or recommend evaluation by GI for possible colonoscopic decompression and placement of a rectal tube; all attempts at non operative management should be considered; CT scan a/p should be considered. -AXR 08/11/18---> Marked Improvement. Still some small bowel air distension. May require trial of neostigmine in icu setting if colonic distension does not resolve. -KUB revealed possible sigmoid volvulos. CTAP did not suggest any volvulus. 08/14. -Anusol 2.5 % cream to be applied internally and externally twice daily for 5 days. -C Diff Antigen and Toxin -Dr Morales evaluated pt again over weekend---> Rectal tube instilled. Miralax TID , may need to retrain x 24 hours to insert NG tube to do Golytely lavage -Dr Nevarez today-->Miralax TID 17 G. Golytely if no improvement. #Alzheimer's Dementia Memantine 5 MG PO BID #HTN- Norvasc 5 PO Daily. #Prophylaxis -Lovenox 40 SQ #FEN -No Fluids -Monitor Electrolytes -Soft Diet #Dispo -Med-Surg Visit type - Emergency Visit Emergency Visit: Yes ED Registration Date: 08/01/18 Care time: The patient presented to the Emergency Department on the above date and was hospitalized for further evaluation of their emergent condition. - New Patient This patient is new to me today: No - Critical Care Critical Care patient: No - Discharge Referral Referred to [facility] Med P.C.: No
[2018-08-18] MEDS: POLYETHYLENE GLYCOL 3350 119 GM BTL PO SCH ×3 (06:13→22:35)
[2018-08-18 07:00] LABS: HEMATOCRIT 39.7 % (32.4-45.2); HEMOGLOBIN 13.3 GM/dL (10.7-15.3); MCH 31.5 pg (25.7-33.7); MCHC 33.6 g/dl (32.0-36.0); MEAN CELL VOLUME 93.7 fl (80-96); MEAN PLT VOLUME 8.9 fl (7.5-11.1); PLATELET COUNT 323 K/MM3 (134-434); RBC 4.24 M/mm3 (3.60-5.2); RDW 15.9 % (11.6-15.6); WHITE BLOOD COUNT 5.9 K/mm3 (4.0-10.0)
[2018-08-18 07:28] LABS: ANION GAP 3 MMOL/L (8-16); BLOOD UREA NITROGEN 16 mg/dL (7-18); CALCIUM 8.3 mg/dL (8.5-10.1); CHLORIDE 107 mmol/L (98-107); CO2 30 mmol/L (21-32); CREATININE 0.5 mg/dL (0.55-1.3); GLUCOSE,RANDOM 96 mg/dL (74-106); MAGNESIUM 2.4 mg/dL (1.8-2.4); PHOSPHOROUS 3.5 mg/dL (2.5-4.9); POTASSIUM 4.8 mmol/L (3.5-5.1); SODIUM 140 mmol/L (136-145)
[2018-08-18] MEDS: MEMANTINE HCL 5 MG TABLET (UD) PO SCH ×2 (10:25→22:35)
[2018-08-18] MEDS: ENOXAPARIN NA (PORCINE) 40 MG/0.4 ML DISP.SYRIN SQ SCH (10:25)
[2018-08-18] MEDS: amLODIPine BESYLATE 5 MG TABLET (FP) PO SCH (10:25)
[2018-08-18] MEDS: HYDROCORTISONE 2.5% TOPICAL CREAM 30 GM TUBE TP SCH ×2 (10:26→22:35)
[2018-08-18] MEDS: COLLAGENASE CLOSTRIDIUM HIST. 30 GRAMS TUBE TP SCH (10:26)
--- NOTE | 2018-08-18 11:35 | PN ---
Progress Note, [employer] - Note Progress Note: Selected Entries 08/17/18 08/17/18 08/17/18 06:09 10:00 14:39 Lunch 75% Supper Temperature 97.2 F L 98.3 F 98.2 F 08/17/18 08/17/18 08/17/18 19:14 22:00 23:28 Lunch Supper 75% Temperature 97.2 F L 97.5 F L 08/18/18 08/18/18 02:10 06:00 Lunch Supper Temperature 97.8 F 97.8 F Laboratory Tests 08/18/18 06:30 WBC 5.9 .Reported improving appetite yesterday. Good tolerance. Refused breakfast today. Pending lunch. She feels people are trying to poison her. Consider Psych? Appetite stimulant? Plan is discharge to [facility].
--- NOTE | 2018-08-18 12:21 | PN ---
Progress Note, Physician History of Present Illness: continues to have psych tendencies speech and swallow note noted no events - Current Medication List Current Medications: Active Medications Amlodipine Besylate (Norvasc -) 5 mg PO DAILY [facility] Last Admin: 08/18/18 10:25 Dose: 5 mg Collagenase (Santyl -) 1 applic TP DAILY [facility]; Protocol Last Admin: 08/18/18 10:26 Dose: 1 applic Enoxaparin Sodium (Lovenox -) 40 mg SQ DAILY [facility] Last Admin: 08/18/18 10:25 Dose: 40 mg Hydrocortisone (Anusol 2.5% Hc Cream -) 1 applic TP BID [facility] Stop: 08/19/18 21:59 Last Admin: 08/18/18 10:26 Dose: 1 applic Memantine (Namenda -) 5 mg PO BID [facility] Last Admin: 08/18/18 10:25 Dose: 5 mg Polyethylene Glycol (Miralax (For Daily Use) -) 17 gm PO TID [facility] Last Admin: 08/18/18 06:13 Dose: Not Given Senna/Docusate Sodium (Pericolace -) 2 tablet PO HS PRN PRN Reason: CONSTIPATION Last Admin: 08/13/18 22:46 Dose: 2 tablet - Objective Vital Signs: Vital Signs Temperature 97.5 F L 08/18/18 10:00 Pulse Rate 71 08/18/18 10:00 Respiratory Rate 18 08/18/18 10:00 Blood Pressure 130/57 L 08/18/18 10:00 O2 Sat by Pulse Oximetry (%) 98 08/17/18 21:00 Constitutional: Yes: No Distress, Calm Cardiovascular: Yes: S1, S2 Respiratory: Yes: Regular, CTA Bilaterally Gastrointestinal: Yes: Soft, Hypoactive Bowel Sounds Extremities: Yes: Other Neurological: Yes: Alert, Other Labs: CBC, BMP 08/18/18 06:30 08/18/18 06:30 Assessment/Plan Problem List - Problems (1) Alzheimer disease Code(s): G30.9 - ALZHEIMER'S DISEASE, UNSPECIFIED; F02.80 - DEMENTIA IN OTH DISEASES CLASSD ELSWHR W/O BEHAVRL DISTURB Qualifiers: Alzheimer's disease onset: unspecified onset Dementia behavioral disturbance: with behavioral disturbance Qualified Code(s): G30.9 - Alzheimer' s disease, unspecified; F02.81 - Dementia in other diseases classified elsewhere with behavioral disturbance (2) Fecal impaction Code(s): K56.41 - FECAL IMPACTION (3) Necrotic eschar Code(s): L98.8 - OTH DISRD OF THE SKIN AND SUBCUTANEOUS TISSUE (4) Unstageable pressure ulcer Code(s): L89.95 - PRESSURE ULCER OF UNSPECIFIED SITE, UNSTAGEABLE Assessment/Plan Constipation/Colonic distention s/p disimpactions GI following Closely monitor off antibiotics await for imaging studies rest as per the team nutrition rest as per the patients
--- NOTE | 2018-08-18 14:28 | PN ---
GI Progress Note Subjective: No acute events Patient found resting comfortably No BM reported today - Objective Vital Signs: Vital Signs Temperature 97.5 F L 08/18/18 10:00 Pulse Rate 71 08/18/18 10:00 Respiratory Rate 18 08/18/18 10:00 Blood Pressure 130/57 L 08/18/18 10:00 O2 Sat by Pulse Oximetry (%) 98 08/17/18 21:00 Constitutional: Calm Eyes: No: Sclera Icterus Cardiovascular: Yes: Regular Rate and Rhythm Respiratory: Yes: Diminished (at bases bilaterally with poor insp effort) Gastrointestinal Inspection: No: Distention, Scars ...Auscultate: Yes: Normoactive Bowel Sounds ...Palpate: No: Tenderness ...Percussion: Yes: Tympanitic (mildly, improved from previous) Edema: No (No LE edema) Labs: CBC, BMP 08/18/18 06:30 08/18/18 06:30 Problem List - Problems (1) Colonic inertia Assessment/Plan: Abdomen soft MiraLAX 17g TID ordered, however she has been refusing Added dulcolax suppository 1 [place] daily Monitor lytes given poor PO intake Monitor abdominal exam Patient should be turned on left and right side twice per shift. This seems to have helped facilitate passage of liquid stool and flatus on previous evaluations. ? goals of care Code(s): K59.9 - FUNCTIONAL INTESTINAL DISORDER, UNSPECIFIED
[2018-08-18] MEDS: BISACODYL 10 MG SUPP.RECT PR PRN (14:59)
[2018-08-18] MEDS ORDERED: ACETAMINOPHEN 1000 MG/100 ML VIAL (NON FORMULARY) IVPB ONE (16:02)
--- NOTE | 2018-08-18 19:12 | PN ---
Physical Exam: SUBJECTIVE: Patient seen and examined at bedside. No acute events overnight. No bowel movements documented or recorded per RN. OBJECTIVE: Vital Signs GENERAL: Mild distress, Awake Alert EYES: Sclera clear EOMI LUNGS: CTA B/L HEART: RRR 3/6SM ABDOMEN: Nondistended nontender. No facial grimacing when deep palpation. EXTREMITIES: Trace edema. Onychomycosis Period Temp Pulse Resp BP Sys/Turcios Pulse Ox Last 24 Hr 97.2 F-98.0 F 66-85 18-20 124-154/53-69 98-98 Laboratory Results - last 24 hr 08/18/18 08/18/18 06:30 06:30 WBC 5.9 RBC 4.24 Hgb 13.3 Hct 39.7 MCV 93.7 MCH 31.5 MCHC 33.6 RDW 15.9 H Plt Count 323 MPV 8.9 Sodium 140 Potassium 4.8 Chloride 107 Carbon Dioxide 30 Anion Gap 3 L BUN 16 Creatinine 0.5 L Creat Clearance w eGFR > 60 Random Glucose 96 Calcium 8.3 L Phosphorus 3.5 Magnesium 2.4 Active Medications Generic Name Dose Route Start Last Admin Trade Name Freq PRN Reason Stop Dose Admin Amlodipine Besylate 5 mg 08/14/18 10:00 08/18/18 10:25 Norvasc - PO 5 mg DAILY [facility] Administration Bisacodyl 10 mg 08/18/18 14:24 08/18/18 14:59 Dulcolax Suppository - [place] 10 mg DAILY PRN Administration CONSTIPATION Collagenase 1 applic 08/04/18 12:15 08/18/18 10:26 Santyl - TP 1 applic DAILY [facility] Administration Protocol Enoxaparin Sodium 40 mg 08/15/18 10:00 08/18/18 10:25 Lovenox - SQ 40 mg DAILY [facility] Administration Hydrocortisone 1 applic 08/14/18 22:00 08/18/18 10:26 Anusol 2.5% Hc Cream - TP 08/19/18 21:59 1 applic BID [facility] Administration Memantine 5 mg 08/02/18 10:00 08/18/18 10:25 Namenda - PO 5 mg BID [facility] Administration Polyethylene Glycol 17 gm 08/17/18 07:41 08/18/18 14:33 Miralax (For Daily Use) - PO Not Given TID [facility] Senna/Docusate Sodium 2 tablet 08/12/18 10:56 08/13/18 22:46 Pericolace - PO 2 tablet HS PRN Administration CONSTIPATION ASSESSMENT/PLAN: 88F w/ pmhx of HTN, HLD, Alzheimer's dementia presented to the hospital for evaluation of R hip pressure ulcer as well as poor PO intake. #R pressure wound ulcer -No leukocytosis, or temperature -Ulcer does not appear to be infected -Continue to assess daily. Santyl Applied to wound daily. #Abdominal distension; Pt has abd tenderness on exam. 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 Manually disimpacted 08/04/18 by myself along with RN (Ernestine). Large amount of watery stool and gas expelled from rectum. Distension visibly better. -senna, miralax to 17g daily -KUB 08/05/18---> Large colonic distension with fecal impaction remains. -Dr Morales on board. ---> Manually disempacted leading to explosion of gas and feces with decompression of distended abdomen. -Surgery on board Dr Parish---> Can try neostigmine and/or recommend evaluation by GI for possible colonoscopic decompression and placement of a rectal tube; all attempts at non operative management should be considered; CT scan a/p should be considered. -AXR 08/11/18---> Marked Improvement. Still some small bowel air distension. May require trial of neostigmine in icu setting if colonic distension does not resolve. -KUB revealed possible sigmoid volvulos. CTAP did not suggest any volvulus. 08/14. -Anusol 2.5 % cream to be applied internally and externally twice daily for 5 days. -C Diff Antigen and Toxin -Dr Morales evaluated pt again over weekend---> Rectal tube instilled. Miralax TID , may need to retrain x 24 hours to insert NG tube to do Golytely lavage -Dr Nevarez -->Miralax TID 17 G. Golytely if no improvement. -Revaluated today by Dr Palmer---> Pt not compliant with MiraLAX 17g TID. Dulcolax suppository 1 MO daily. #Alzheimer's Dementia Memantine 5 MG PO BID #HTN- Norvasc 5 PO Daily. #Prophylaxis -Lovenox 40 SQ #FEN -No Fluids -Monitor Electrolytes -Soft Diet #Dispo -Med-Surg Visit type - Emergency Visit Emergency Visit: Yes ED Registration Date: 08/01/18 Care time: The patient presented to the Emergency Department on the above date and was hospitalized for further evaluation of their emergent condition. - New Patient This patient is new to me today: No - Critical Care Critical Care patient: No - Discharge Referral Referred to [facility] Med P.C.: No
--- NOTE | 2018-08-18 19:30 | PN ---
Teaching Attending Note Name of Resident: Giovany Juarez ATTENDING PHYSICIAN STATEMENT I saw and evaluated the patient. I reviewed the resident's note and discussed the case with the resident. I agree with the resident's findings and plan as documented. SUBJECTIVE: No events over night OBJECTIVE: resistant to exam pushing Md away. was breifly able to exaine her abd which was not distended and NT. ASSESSMENT AND PLAN: Unfortunate 88 y/o lady with h/o Dementia, HTN, HLp, who comes form home with poor po intake, and for evaluation of R posterior hip. She was found to have constipation with severe colonic distention . 1- Large bowel obstruction: due to fecal impaction. 2- severe constipation 3- HTN 4- hypokalemia 5- R posterior hip ulcer plan: - cont oral meds ( refusing ) and dulgolax added - cont norvasc - monitor electrolytes - anusol - lovenox sq - cont santyl
[2018-08-19 07:07] LABS: HEMATOCRIT 40.6 % (32.4-45.2); HEMOGLOBIN 13.7 GM/dL (10.7-15.3); MCH 31.7 pg (25.7-33.7); MCHC 33.7 g/dl (32.0-36.0); MEAN CELL VOLUME 94.1 fl (80-96); PLATELET COUNT 308 K/MM3 (134-434); RBC 4.31 M/mm3 (3.60-5.2); RDW 15.9 % (11.6-15.6); WHITE BLOOD COUNT 6.6 K/mm3 (4.0-10.0)
[2018-08-19 07:36] LABS: ANION GAP 5 MMOL/L (8-16); BLOOD UREA NITROGEN 21 mg/dL (7-18); CALCIUM 8.5 mg/dL (8.5-10.1); CHLORIDE 106 mmol/L (98-107); CO2 30 mmol/L (21-32); CREATININE 0.5 mg/dL (0.55-1.3); GLUCOSE,RANDOM 96 mg/dL (74-106); MAGNESIUM 2.7 mg/dL (1.8-2.4); PHOSPHOROUS 3.8 mg/dL (2.5-4.9); POTASSIUM 4.1 mmol/L (3.5-5.1); SODIUM 141 mmol/L (136-145)
[2018-08-19] MEDS: POLYETHYLENE GLYCOL 3350 119 GM BTL PO SCH ×3 (07:36→21:07)
[2018-08-19] MEDS: ENOXAPARIN NA (PORCINE) 40 MG/0.4 ML DISP.SYRIN SQ SCH (09:06)
[2018-08-19] MEDS: MEMANTINE HCL 5 MG TABLET (UD) PO SCH ×2 (09:06→21:07)
[2018-08-19] MEDS: amLODIPine BESYLATE 5 MG TABLET (FP) PO SCH (09:06)
--- NOTE | 2018-08-19 09:06 | PN ---
Teaching Attending Note Name of Resident: Delvis Juarez ATTENDING PHYSICIAN STATEMENT I saw and evaluated the patient. I reviewed the resident's note and discussed the case with the resident. I agree with the resident's findings and plan as documented. SUBJECTIVE: Patient is still distended but less than before. OBJECTIVE: Vital Signs Temperature 97.5 F L 08/19/18 08:38 Pulse Rate 72 08/19/18 08:38 Respiratory Rate 20 08/19/18 08:38 Blood Pressure 109/86 08/19/18 08:38 O2 Sat by Pulse Oximetry (%) 96 08/18/18 21:00 GENERAL: Awake,in no distress EYES: EOMI, sclera anicteric, conjunctiva clear. LUNGS: BS BL, HEART: S1S2 positive ABDOMEN: less distended , BS positive. EXTREMITIES: pulses are positive, No C/C/E SKIN: Right Hip eschar. CBCD WBC 6.6 K/mm3 (4.0-10.0) 08/19/18 06:30 RBC 4.31 M/mm3 (3.60-5.2) 08/19/18 06:30 Hgb 13.7 GM/dL (10.7-15.3) 08/19/18 06:30 Hct 40.6 % (32.4-45.2) 08/19/18 06:30 MCV 94.1 fl (80-96) 08/19/18 06:30 MCHC 33.7 g/dl (32.0-36.0) 08/19/18 06:30 RDW 15.9 % (11.6-15.6) H 08/19/18 06:30 Plt Count 308 K/MM3 (134-434) 08/19/18 06:30 MPV 9.0 fl (7.5-11.1) 08/19/18 06:30 CMP Sodium 141 mmol/L (136-145) 08/19/18 06:30 Potassium 4.1 mmol/L (3.5-5.1) 08/19/18 06:30 Chloride 106 mmol/L (98-107) 08/19/18 06:30 Carbon Dioxide 30 mmol/L (21-32) 08/19/18 06:30 Anion Gap 5 MMOL/L (8-16) L 08/19/18 06:30 BUN 21 mg/dL (7-18) H 08/19/18 06:30 Creatinine 0.5 mg/dL (0.55-1.3) L 08/19/18 06:30 Creat Clearance w eGFR > 60 (>60) 08/19/18 06:30 Random Glucose 96 mg/dL (74-106) 08/19/18 06:30 Calcium 8.5 mg/dL (8.5-10.1) 08/19/18 06:30 Total Bilirubin 0.7 mg/dL (0.2-1) 08/10/18 11:20 AST 29 U/L (15-37) 08/10/18 11:20 ALT 35 U/L (13-61) 08/10/18 11:20 Alkaline Phosphatase 76 U/L (45-117) 08/10/18 11:20 Total Protein 4.6 g/dl (6.4-8.2) L 08/10/18 11:20 Albumin 2.2 g/dl (3.4-5.0) L 08/10/18 11:20 Current Medications Generic Name Dose Route Start Last Admin Trade Name Ryanq PRN Reason Stop Dose Admin Amlodipine Besylate 5 mg 08/14/18 10:00 08/18/18 10:25 Norvasc - PO 5 mg DAILY [facility] Administration Bisacodyl 10 mg 08/18/18 14:24 08/18/18 14:59 Dulcolax Suppository - [place] 10 mg DAILY PRN Administration CONSTIPATION Collagenase 1 applic 08/04/18 12:15 08/18/18 10:26 Santyl - TP 1 applic DAILY [facility] Administration Protocol Enoxaparin Sodium 40 mg 08/15/18 10:00 08/18/18 10:25 Lovenox - SQ 40 mg DAILY [facility] Administration Hydrocortisone 1 applic 08/14/18 22:00 08/18/18 22:35 Anusol 2.5% Hc Cream - TP 08/19/18 21:59 1 applic BID [facility] Administration Memantine 5 mg 08/02/18 10:00 08/18/18 22:35 Namenda - PO Not Given BID [facility] Polyethylene Glycol 17 gm 08/17/18 07:41 08/19/18 07:36 Miralax (For Daily Use) - PO Not Given TID [facility] Senna/Docusate Sodium 2 tablet 08/12/18 10:56 02/21/19 22:46 Pericolace - PO 2 tablet HS PRN Administration CONSTIPATION Home Medications Medication Instructions Recorded Cephalexin [Keflex] 500 mg PO QID 08/01/18 Memantine HCl 5 mg PO BID 08/01/18 Sulfamethoxazole/Trimethoprim 1 each PO BID 08/01/18 [Sulfamethoxazole-Tmp Ds Tablet] Aspirin [Adult Aspirin] 81 mg PO DAILY 08/02/18 Loperamide HCl Liquid [Imodium 1 mg PO DAILY 08/02/18 Liquid -] Saccharomyces Boulardii [Florastor] 250 mg PO DAILY 08/02/18 ASSESSMENT AND PLAN:Patient is a 88yo female with h/o Dementia, HTN, HLp, who comes form home with poor po intake, and for evaluation of R posterior hip. She was found to have constipation with severe colonic distention . # Severe colonic distention: due to fecal impaction, GI on the case, plan for Ng tube placement with golytely, discussed with GI . # severe constipation; NG tube with golytely # HTN : continue meds. # hypokalemia # R posterior hip Eschar: on santyl continue DVT Px: lovenox sq
[2018-08-19] MEDS: HYDROCORTISONE 2.5% TOPICAL CREAM 30 GM TUBE TP SCH (11:48)
[2018-08-19] MEDS: COLLAGENASE CLOSTRIDIUM HIST. 30 GRAMS TUBE TP SCH (11:48)
--- NOTE | 2018-08-19 11:50 | PN ---
Progress Note, Physician History of Present Illness: stable no new issues - Current Medication List Current Medications: Active Medications Amlodipine Besylate (Norvasc -) 5 mg PO DAILY [facility] Last Admin: 08/19/18 09:06 Dose: 5 mg Bisacodyl (Dulcolax Suppository -) 10 mg DC DAILY PRN PRN Reason: CONSTIPATION Last Admin: 08/18/18 14:59 Dose: 10 mg Collagenase (Santyl -) 1 applic TP DAILY [facility]; Protocol Last Admin: 08/18/18 10:26 Dose: 1 applic Enoxaparin Sodium (Lovenox -) 40 mg SQ DAILY [facility] Last Admin: 08/19/18 09:06 Dose: 40 mg Hydrocortisone (Anusol 2.5% Hc Cream -) 1 applic TP BID [facility] Stop: 08/19/18 21:59 Last Admin: 08/18/18 22:35 Dose: 1 applic Memantine (Namenda -) 5 mg PO BID [facility] Last Admin: 08/19/18 09:06 Dose: 5 mg Polyethylene Glycol (Miralax (For Daily Use) -) 17 gm PO TID [facility] Last Admin: 08/19/18 07:36 Dose: Not Given Senna/Docusate Sodium (Pericolace -) 2 tablet PO HS PRN PRN Reason: CONSTIPATION Last Admin: 08/13/18 22:46 Dose: 2 tablet - Objective Vital Signs: Vital Signs Temperature 97.5 F L 08/19/18 08:38 Pulse Rate 72 08/19/18 08:38 Respiratory Rate 20 08/19/18 09:00 Blood Pressure 109/86 08/19/18 08:38 O2 Sat by Pulse Oximetry (%) 97 08/19/18 09:00 Constitutional: Yes: No Distress, Calm Cardiovascular: Yes: S1, S2 Respiratory: Yes: Regular, CTA Bilaterally Gastrointestinal: Yes: Soft, Hypoactive Bowel Sounds Musculoskeletal: Yes: WNL Extremities: Yes: Other Wound/Incision: Yes: Dressing Dry and Intact Neurological: Yes: Alert, Other Psychiatric: Yes: Alert, Other Labs: CBC, BMP 08/19/18 06:30 08/19/18 06:30 Assessment/Plan Problem List - Problems (1) Alzheimer disease Code(s): G30.9 - ALZHEIMER'S DISEASE, UNSPECIFIED; F02.80 - DEMENTIA IN OTH DISEASES CLASSD ELSWHR W/O BEHAVRL DISTURB Qualifiers: Alzheimer's disease onset: unspecified onset Dementia behavioral disturbance: with behavioral disturbance Qualified Code(s): G30.9 - Alzheimer' s disease, unspecified; F02.81 - Dementia in other diseases classified elsewhere with behavioral disturbance (2) Fecal impaction Code(s): K56.41 - FECAL IMPACTION (3) Necrotic eschar Code(s): L98.8 - OTH DISRD OF THE SKIN AND SUBCUTANEOUS TISSUE (4) Unstageable pressure ulcer Code(s): L89.95 - PRESSURE ULCER OF UNSPECIFIED SITE, UNSTAGEABLE Assessment/Plan Constipation/Colonic distention s/p disimpactions GI following nutrition rest as per the team
[2018-08-19] MEDS: BISACODYL 10 MG SUPP.RECT PR PRN (12:00)
--- NOTE | 2018-08-19 20:11 | PN ---
Physical Exam: SUBJECTIVE: Patient seen and examined at bedside. No acute events overnight. OBJECTIVE: Vital Signs Period Temp Pulse Resp BP Sys/Turcios Pulse Ox Last 24 Hr 97.2 F-97.8 F 70-97 18-22 109-147/72-86 96-97 GENERAL: Moaning, mild distress EYES: Sclera clear EOMI LUNGS: Dec breath sounds at bases HEART: RRR 3/6SM ABDOMEN: Slightly more distended this am. Hypoactive Bowel sounds. Nontender to deep palpation. EXTREMITIES: Trace edema. Onychomycosis Laboratory Results - last 24 hr 08/19/18 08/19/18 06:30 06:30 WBC 6.6 RBC 4.31 Hgb 13.7 Hct 40.6 MCV 94.1 MCH 31.7 MCHC 33.7 RDW 15.9 H Plt Count 308 MPV 9.0 Sodium 141 Potassium 4.1 Chloride 106 Carbon Dioxide 30 Anion Gap 5 L BUN 21 H Creatinine 0.5 L Creat Clearance w eGFR > 60 Random Glucose 96 Calcium 8.5 Phosphorus 3.8 Magnesium 2.7 H Active Medications Generic Name Dose Route Start Last Admin Trade Name Freq PRN Reason Stop Dose Admin Amlodipine Besylate 5 mg 08/14/18 10:00 08/19/18 09:06 Norvasc - PO 5 mg DAILY [facility] Administration Bisacodyl 10 mg 08/18/18 14:24 08/19/18 12:00 Dulcolax Suppository - [place] 10 mg DAILY PRN Administration CONSTIPATION Collagenase 1 applic 08/04/18 12:15 08/19/18 11:48 Santyl - TP 1 applic DAILY [facility] Administration Protocol Enoxaparin Sodium 40 mg 08/15/18 10:00 08/19/18 09:06 Lovenox - SQ 40 mg DAILY [facility] Administration Hydrocortisone 1 applic 08/14/18 22:00 08/19/18 11:48 Anusol 2.5% Hc Cream - TP 08/19/18 21:59 1 applic BID [facility] Administration Memantine 5 mg 08/02/18 10:00 08/19/18 09:06 Namenda - PO 5 mg BID [facility] Administration Polyethylene Glycol 17 gm 08/17/18 07:41 08/19/18 14:37 Miralax (For Daily Use) - PO Not Given TID [facility] Senna/Docusate Sodium 2 tablet 08/12/18 10:56 02/21/19 22:46 Pericolace - PO 2 tablet HS PRN Administration CONSTIPATION ASSESSMENT/PLAN: 88F w/ pmhx of HTN, HLD, Alzheimer's dementia presented to the hospital for evaluation of R hip pressure ulcer as well as poor PO intake. #R pressure wound ulcer -No leukocytosis, or temperature -Ulcer does not appear to be infected -Continue to assess daily. Santyl Applied to wound daily. #Abdominal distension; Pt has abd tenderness on exam. 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 Manually disimpacted 08/04/18 by myself along with RN (Ernestine). Large amount of watery stool and gas expelled from rectum. Distension visibly better. -senna, miralax to 17g daily -KUB 08/05/18---> Large colonic distension with fecal impaction remains. -Dr Morales on board. ---> Manually disempacted leading to explosion of gas and feces with decompression of distended abdomen. -Surgery on board Dr Parish---> Can try neostigmine and/or recommend evaluation by GI for possible colonoscopic decompression and placement of a rectal tube; all attempts at non operative management should be considered; CT scan a/p should be considered. -AXR 08/11/18---> Marked Improvement. Still some small bowel air distension. May require trial of neostigmine in icu setting if colonic distension does not resolve. -KUB revealed possible sigmoid volvulos. CTAP did not suggest any volvulus. 08/14. -Anusol 2.5 % cream to be applied internally and externally twice daily for 5 days. -C Diff Antigen and Toxin -Dr Morales evaluated pt again over weekend---> Rectal tube instilled. Miralax TID , may need to retrain x 24 hours to insert NG tube to do Golytely lavage -Dr Nevarez -->Miralax TID 17 G. Golytely if no improvement. -Revaluated by Dr Palmer---> Pt not compliant with MiraLAX 17g TID. Dulcolax suppository 1 [place] daily. Ducolax given today. Moderate amount oif loose stool expelled. #Alzheimer's Dementia Memantine 5 MG PO BID #HTN- Norvasc 5 PO Daily. #Prophylaxis -Lovenox 40 SQ #FEN -No Fluids -Monitor Electrolytes -Soft Diet #Dispo -Med-Surg Visit type - Emergency Visit Emergency Visit: Yes ED Registration Date: 08/01/18 Care time: The patient presented to the Emergency Department on the above date and was hospitalized for further evaluation of their emergent condition. - New Patient This patient is new to me today: No - Critical Care Critical Care patient: No - Discharge Referral Referred to [facility] Med P.C.: No
[2018-08-20] MEDS: POLYETHYLENE GLYCOL 3350 119 GM BTL PO SCH ×3 (06:20→21:36)
[2018-08-20 08:01] LABS: HEMOGLOBIN 14.6 GM/dL (10.7-15.3); MCH 31.7 pg (25.7-33.7); MCHC 33.3 g/dl (32.0-36.0); MEAN CELL VOLUME 95.3 fl (80-96); MEAN PLT VOLUME 8.8 fl (7.5-11.1); PLATELET COUNT 324 K/MM3 (134-434); RBC 4.61 M/mm3 (3.60-5.2); RDW 16.4 % (11.6-15.6); WHITE BLOOD COUNT 6.8 K/mm3 (4.0-10.0)
[2018-08-20 08:25] LABS: ANION GAP 3 MMOL/L (8-16); BLOOD UREA NITROGEN 20 mg/dL (7-18); CALCIUM 8.9 mg/dL (8.5-10.1); CHLORIDE 107 mmol/L (98-107); CO2 31 mmol/L (21-32); CREATININE 0.4 mg/dL (0.55-1.3); GLUCOSE,RANDOM 114 mg/dL (74-106); MAGNESIUM 2.6 mg/dL (1.8-2.4); PHOSPHOROUS 3.3 mg/dL (2.5-4.9); POTASSIUM 4.4 mmol/L (3.5-5.1); SODIUM 141 mmol/L (136-145)
[2018-08-20] MEDS: MEMANTINE HCL 5 MG TABLET (UD) PO SCH ×2 (09:36→21:36)
[2018-08-20] MEDS: amLODIPine BESYLATE 5 MG TABLET (FP) PO SCH (09:36)
[2018-08-20] MEDS: ENOXAPARIN NA (PORCINE) 40 MG/0.4 ML DISP.SYRIN SQ SCH (09:36)
[2018-08-20] MEDS: COLLAGENASE CLOSTRIDIUM HIST. 30 GRAMS TUBE TP SCH (09:47)
[2018-08-20] MEDS ORDERED: CYCLOBENZAPRINE HCL 5 MG TABLET PO PRN (09:53)
[2018-08-20] MEDS ORDERED: LIDOCAINE 5% TOPICAL PATCH TP SCH (10:00)
--- NOTE | 2018-08-20 10:26 | PN ---
Progress Note, Physician - Current Medication List Current Medications: Active Medications Amlodipine Besylate (Norvasc -) 5 mg PO DAILY [facility] Last Admin: 08/20/18 09:36 Dose: 5 mg Bisacodyl (Dulcolax Suppository -) 10 mg IN DAILY PRN PRN Reason: CONSTIPATION Last Admin: 08/19/18 12:00 Dose: 10 mg Collagenase (Santyl -) 1 applic TP DAILY [facility]; Protocol Last Admin: 08/20/18 09:47 Dose: 1 applic Cyclobenzaprine HCl (Cyclobenzaprine Hcl) 5 mg PO Q8H PRN PRN Reason: MUSCLE SPASMS Enoxaparin Sodium (Lovenox -) 40 mg SQ DAILY [facility] Last Admin: 08/20/18 09:36 Dose: 40 mg Lidocaine (Lidoderm Patch -) 1 patch TP DAILY [facility] Last Admin: 08/20/18 10:19 Dose: Not Given Memantine (Namenda -) 5 mg PO BID [facility] Last Admin: 08/20/18 09:36 Dose: 5 mg Miscellaneous (Lidoderm Patch Removal) 1 each [facility] DAILY@2200 [facility] Polyethylene Glycol (Miralax (For Daily Use) -) 17 gm PO TID [facility] Last Admin: 08/20/18 06:20 Dose: Not Given Senna/Docusate Sodium (Pericolace -) 2 tablet PO HS PRN PRN Reason: CONSTIPATION Last Admin: 08/13/18 22:46 Dose: 2 tablet - Objective Vital Signs: Vital Signs Temperature 9704 F H 08/20/18 10:00 Pulse Rate 71 08/20/18 10:00 Respiratory Rate 18 08/20/18 10:00 Blood Pressure 171/84 H 08/20/18 10:00 O2 Sat by Pulse Oximetry (%) 95 08/19/18 21:00 Labs: CBC, BMP 08/20/18 07:27 08/20/18 07:27
[2018-08-20] MEDS ORDERED: PEG3350/SOD SULF,BICARB,CL/KCL 4,000 ML SOLN.RECON PO ONE (15:02)
--- NOTE | 2018-08-20 15:51 | PN ---
GI Progress Note Subjective: Called that abdomen more distended today. Had small BM yesterday - Objective Vital Signs: Vital Signs Temperature 98.8 F 08/20/18 14:30 Pulse Rate 84 08/20/18 14:30 Respiratory Rate 20 08/20/18 14:30 Blood Pressure 157/70 08/20/18 14:30 O2 Sat by Pulse Oximetry (%) 95 08/20/18 09:00 Constitutional: Calm Eyes: No: Sclera Icterus Cardiovascular: Yes: Regular Rate and Rhythm Respiratory: Yes: Diminished (at bases bilaterally with poor insp effort) Gastrointestinal Inspection: Yes: Scars (Pelvic) ...Auscultate: Yes: Normoactive Bowel Sounds ...Palpate: Yes: Soft. No: Tenderness (No grimacing upon palpation) ...Percussion: Yes: Tympanitic ...Rectal Exam: Yes: Other (JAMES performed. manually relaxed anal sphincter with passage of liquid stool and flatus. Rectal tube inserted and flushed with further air and liquid stool expulsion. Patient turned on left and right side.) Edema: No (No LE edema) Neurological: Yes: Alert Labs: CBC, BMP 08/20/18 07:27 08/20/18 07:27 Problem List - Problems (1) Colonic inertia Assessment/Plan: Agree with Dr. 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 Spoke with pharmacy: no topical therapies for anal fissure available in hospital (diltiazem / NTG ointments): Pharmacist looking into it a bit further. If options are available, could try topical diltiazem 2% cream or NTG ointment 0.2%, pea sized amount twice per day to see if this helps. generally diltiazem cream with less side effects and more easily tolerated. Rectal tube kept in place and AXR ordered Continue current bowel regimen Code(s): K59.9 - FUNCTIONAL INTESTINAL DISORDER, UNSPECIFIED
--- NOTE | 2018-08-20 15:52 | PN ---
Teaching Attending Note Name of Resident: Delvis Juarez ATTENDING PHYSICIAN STATEMENT I saw and evaluated the patient. I reviewed the resident's note and discussed the case with the resident. I agree with the resident's findings and plan as documented. SUBJECTIVE: OBJECTIVE: Vital Signs Temperature 98.8 F 08/20/18 14:30 Pulse Rate 84 08/20/18 14:30 Respiratory Rate 20 08/20/18 14:30 Blood Pressure 157/70 08/20/18 14:30 O2 Sat by Pulse Oximetry (%) 95 08/20/18 09:00 GENERAL: Awake,in no distress EYES: EOMI, sclera anicteric, conjunctiva clear. LUNGS: BS BL, HEART: S1S2 positive ABDOMEN: less distended , BS positive. EXTREMITIES: pulses are positive, No C/C/E SKIN: Right Hip eschar. WBC 6.8 K/mm3 (4.0-10.0) 08/20/18 07:27 RBC 4.61 M/mm3 (3.60-5.2) 08/20/18 07:27 Hgb 14.6 GM/dL (10.7-15.3) 08/20/18 07:27 Hct 44.0 % (32.4-45.2) 08/20/18 07:27 MCV 95.3 fl (80-96) 08/20/18 07:27 MCHC 33.3 g/dl (32.0-36.0) 08/20/18 07:27 RDW 16.4 % (11.6-15.6) H 08/20/18 07:27 Plt Count 324 K/MM3 (134-434) 08/20/18 07:27 MPV 8.8 fl (7.5-11.1) 08/20/18 07:27 CMP Sodium 141 mmol/L (136-145) 08/20/18 07:27 Potassium 4.4 mmol/L (3.5-5.1) 08/20/18 07:27 Chloride 107 mmol/L (98-107) 08/20/18 07:27 Carbon Dioxide 31 mmol/L (21-32) 08/20/18 07:27 Anion Gap 3 MMOL/L (8-16) L 08/20/18 07:27 BUN 20 mg/dL (7-18) H 08/20/18 07:27 Creatinine 0.4 mg/dL (0.55-1.3) L 08/20/18 07:27 Creat Clearance w eGFR > 60 (>60) 08/20/18 07:27 Random Glucose 114 mg/dL (74-106) H 08/20/18 07:27 Calcium 8.9 mg/dL (8.5-10.1) 08/20/18 07:27 Total Bilirubin 0.7 mg/dL (0.2-1) 08/10/18 11:20 AST 29 U/L (15-37) 08/10/18 11:20 ALT 35 U/L (13-61) 08/10/18 11:20 Alkaline Phosphatase 76 U/L (45-117) 08/10/18 11:20 Total Protein 4.6 g/dl (6.4-8.2) L 08/10/18 11:20 Albumin 2.2 g/dl (3.4-5.0) L 08/10/18 11:20 Current Medications Generic Name Dose Route Start Last Admin Trade Name Kareem PRN Reason Stop Dose Admin Amlodipine Besylate 5 mg 08/14/18 10:00 08/20/18 09:36 Norvasc - PO 5 mg DAILY [facility] Administration Bisacodyl 10 mg 08/18/18 14:24 08/19/18 12:00 Dulcolax Suppository - [place] 10 mg DAILY PRN Administration CONSTIPATION Collagenase 1 applic 08/04/18 12:15 08/20/18 09:47 Santyl - TP 1 applic DAILY [facility] Administration Protocol Enoxaparin Sodium 40 mg 08/15/18 10:00 08/20/18 09:36 Lovenox - SQ 40 mg DAILY [facility] Administration Memantine 5 mg 08/02/18 10:00 08/20/18 09:36 Namenda - PO 5 mg BID [facility] Administration Polyethylene Glycol 17 gm 08/17/18 07:41 08/20/18 13:18 Miralax (For Daily Use) - PO Not Given TID [facility] Senna/Docusate Sodium 2 tablet 08/12/18 10:56 08/13/18 22:46 Pericolace - PO 2 tablet HS PRN Administration CONSTIPATION Home Medications Medication Instructions Recorded Cephalexin [Keflex] 500 mg PO QID 08/01/18 Memantine HCl 5 mg PO BID 08/01/18 Sulfamethoxazole/Trimethoprim 1 each PO BID 08/01/18 [Sulfamethoxazole-Tmp Ds Tablet] Aspirin [Adult Aspirin] 81 mg PO DAILY 08/02/18 Loperamide HCl Liquid [Imodium 1 mg PO DAILY 08/02/18 Liquid -] Saccharomyces Boulardii [Florastor] 250 mg PO DAILY 08/02/18 ASSESSMENT AND PLAN: Patient is a 88yo female with h/o Dementia, HTN, HLp, who comes form home with poor po intake, and for evaluation of R posterior hip. She was found to have constipation with severe colonic distention . # Severe colonic distention: due to fecal impaction, Discussed with GI; Dr. Robert , plan for Ng tube placement with slow rate golytely. Also patient has anal fissure as per GI , ordered anusol. # severe constipation; NG tube with golytely # HTN : continue meds. # hypokalemia: repeleted # R posterior hip Eschar: on santyl continue DVT Px: lovenox sq
--- NOTE | 2018-08-20 16:32 | PN ---
Physical Exam: SUBJECTIVE: Patient seen and examined at bedside. No acute events overnight. Son at bedside. OBJECTIVE: Vital Signs Period Temp Pulse Resp BP Sys/Turcios Pulse Ox Last 24 Hr 97.5 F-9704 F 71-97 16-20 130-171/58-84 95-95 GENERAL: Moaning, mild distress EYES: Sclera clear EOMI LUNGS: Dec breath sounds at bases HEART: RRR 3/6SM ABDOMEN: Bowel sounds audible. Distended. Nontender to palpation. EXTREMITIES: Trace edema. Right hip ulcer with eschar. nonoozing no purulent discharge. Unwrapped today. Laboratory Results - last 24 hr 08/20/18 08/20/18 07:27 07:27 WBC 6.8 RBC 4.61 Hgb 14.6 Hct 44.0 MCV 95.3 MCH 31.7 MCHC 33.3 RDW 16.4 H Plt Count 324 MPV 8.8 Sodium 141 Potassium 4.4 Chloride 107 Carbon Dioxide 31 Anion Gap 3 L BUN 20 H Creatinine 0.4 L Creat Clearance w eGFR > 60 Random Glucose 114 H Calcium 8.9 Phosphorus 3.3 Magnesium 2.6 H Active Medications Generic Name Dose Route Start Last Admin Trade Name Freq PRN Reason Stop Dose Admin Amlodipine Besylate 5 mg 08/14/18 10:00 08/20/18 09:36 Norvasc - PO 5 mg DAILY [facility] Administration Bisacodyl 10 mg 08/18/18 14:24 08/19/18 12:00 Dulcolax Suppository - [place] 10 mg DAILY PRN Administration CONSTIPATION Collagenase 1 applic 08/04/18 12:15 08/20/18 09:47 Santyl - TP 1 applic DAILY [facility] Administration Protocol Enoxaparin Sodium 40 mg 08/15/18 10:00 08/20/18 09:36 Lovenox - SQ 40 mg DAILY [facility] Administration Memantine 5 mg 08/02/18 10:00 08/20/18 09:36 Namenda - PO 5 mg BID [facility] Administration Polyethylene Glycol 17 gm 08/17/18 07:41 08/20/18 13:18 Miralax (For Daily Use) - PO Not Given TID [facility] Senna/Docusate Sodium 2 tablet 08/12/18 10:56 08/13/18 22:46 Pericolace - PO 2 tablet HS PRN Administration CONSTIPATION ASSESSMENT/PLAN: 88F w/ pmhx of HTN, HLD, Alzheimer's dementia presented to the hospital for evaluation of R hip pressure ulcer as well as poor PO intake. #R pressure wound ulcer -No leukocytosis, or temperature -Ulcer does not appear to be infected -Continue to assess daily. Santyl Applied to wound daily. #Abdominal distension; Pt has abd tenderness on exam. 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 Manually disimpacted 08/04/18 by myself along with RN (Ernestine). Large amount of watery stool and gas expelled from rectum. Distension visibly better. -senna, miralax to 17g daily -KUB 08/05/18---> Large colonic distension with fecal impaction remains. -Dr Morales on board. ---> Manually disempacted leading to explosion of gas and feces with decompression of distended abdomen. -Surgery on board Dr Parish---> Can try neostigmine and/or recommend evaluation by GI for possible colonoscopic decompression and placement of a rectal tube; all attempts at non operative management should be considered; CT scan a/p should be considered. -AXR 08/11/18---> Marked Improvement. Still some small bowel air distension. May require trial of neostigmine in icu setting if colonic distension does not resolve. -KUB revealed possible sigmoid volvulos. CTAP did not suggest any volvulus. 08/14. -Anusol 2.5 % cream to be applied internally and externally twice daily for 5 days. -C Diff Antigen and Toxin -Dr Morales evaluated pt again over weekend---> Rectal tube instilled. Miralax TID , may need to retrain x 24 hours to insert NG tube to do Golytely lavage -Dr Nevarez -->Miralax TID 17 G. Golytely if no improvement. -Revaluated by Dr Palmer---> Pt not compliant with MiraLAX 17g TID. Dulcolax suppository 1 MO daily. - Tried to insert NGT this evening. Unable to successfully insert NGT. Spoke with pharmacy, will order oral Senna which can be mixed with tea, in addition to suppository treatment. 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 Evaluated by Rachael today, recommendations appreciated. Pharmacy looking into possible topical Diltiazem cream. Rachael also manually relaxed sphincter with expulsion of liquid stool and gas. Pt to be placed on left and right side twice per shift. Pt also ahd rectal tube inserted earlier today. #Alzheimer's Dementia Memantine 5 MG PO BID #HTN- Norvasc 5 PO Daily. #Prophylaxis -Lovenox 40 SQ #FEN -No Fluids -Monitor Electrolytes #Dispo -Med-Surg Visit type - Emergency Visit Emergency Visit: Yes ED Registration Date: 08/01/18 Care time: The patient presented to the Emergency Department on the above date and was hospitalized for further evaluation of their emergent condition. - New Patient This patient is new to me today: No - Critical Care Critical Care patient: No - Discharge Referral Referred to [facility] Med P.C.: No
[2018-08-20] MEDS ORDERED: LIDOCAINE PATCH REMOVAL MC SCH (22:00)
[2018-08-21] MEDS: POLYETHYLENE GLYCOL 3350 119 GM BTL PO SCH ×3 (05:28→21:45)
[2018-08-21 08:09] LABS: HEMATOCRIT 44.3 % (32.4-45.2); HEMOGLOBIN 14.6 GM/dL (10.7-15.3); MCH 31.3 pg (25.7-33.7); MEAN PLT VOLUME 9.2 fl (7.5-11.1); PLATELET COUNT 330 K/MM3 (134-434); RBC 4.67 M/mm3 (3.60-5.2); RDW 16.7 % (11.6-15.6); WHITE BLOOD COUNT 8.6 K/mm3 (4.0-10.0)
[2018-08-21 09:13] LABS: GLUCOSE,RANDOM 91 mg/dL (74-106)
[2018-08-21 10:43] LABS: ANION GAP 8 MMOL/L (8-16); BLOOD UREA NITROGEN 16 mg/dL (7-18); CHLORIDE 107 mmol/L (98-107); CO2 26 mmol/L (21-32); CREATININE 0.5 mg/dL (0.55-1.3); MAGNESIUM 2.7 mg/dL (1.8-2.4); PHOSPHOROUS 3.1 mg/dL (2.5-4.9); POTASSIUM 5.3 mmol/L (3.5-5.1); SODIUM 141 mmol/L (136-145)
[2018-08-21] MEDS ORDERED: PT OWN MED DRAWER 7, Y5N ONE (11:01)
[2018-08-21] MEDS: HYDROCORTISONE 2.5% TOPICAL CREAM 30 GM TUBE PR SCH ×2 (11:10→21:45)
[2018-08-21] MEDS: MEMANTINE HCL 5 MG TABLET (UD) PO SCH ×2 (11:10→21:45)
[2018-08-21] MEDS: amLODIPine BESYLATE 5 MG TABLET (FP) PO SCH (11:10)
[2018-08-21] MEDS: ENOXAPARIN NA (PORCINE) 40 MG/0.4 ML DISP.SYRIN SQ SCH (11:10)
[2018-08-21] MEDS: COLLAGENASE CLOSTRIDIUM HIST. 30 GRAMS TUBE TP SCH (11:11)
--- NOTE | 2018-08-21 13:23 | PN ---
Progress Note, Physician - Current Medication List Current Medications: Active Medications Amlodipine Besylate (Norvasc -) 5 mg PO DAILY [facility] Last Admin: 08/21/18 11:10 Dose: 5 mg Bisacodyl (Dulcolax Suppository -) 10 mg NE DAILY PRN PRN Reason: CONSTIPATION Last Admin: 08/19/18 12:00 Dose: 10 mg Collagenase (Santyl -) 1 applic TP DAILY [facility]; Protocol Last Admin: 08/21/18 11:11 Dose: 1 applic Enoxaparin Sodium (Lovenox -) 40 mg SQ DAILY [facility] Last Admin: 08/21/18 11:10 Dose: 40 mg Hydrocortisone (Anusol 2.5% Hc Cream -) 1 applic [place] BID [facility] Last Admin: 08/21/18 11:10 Dose: 1 applic Memantine (Namenda -) 5 mg PO BID [facility] Last Admin: 08/21/18 11:10 Dose: 5 mg Polyethylene Glycol (Miralax (For Daily Use) -) 17 gm PO TID [facility] Last Admin: 08/21/18 05:28 Dose: Not Given Senna/Docusate Sodium (Pericolace -) 2 tablet PO HS PRN PRN Reason: CONSTIPATION Last Admin: 08/13/18 22:46 Dose: 2 tablet - Objective Vital Signs: Vital Signs Temperature 98.1 F 08/21/18 06:27 Pulse Rate 73 08/21/18 06:27 Respiratory Rate 20 08/21/18 06:27 Blood Pressure 162/78 08/21/18 06:27 O2 Sat by Pulse Oximetry (%) 96 08/20/18 21:00 Labs: CBC, BMP 08/21/18 07:16 08/21/18 07:16
--- NOTE | 2018-08-21 20:38 | PN ---
Physical Exam: SUBJECTIVE: Patient seen and examined today at bedside. Son Delvis and daughter-in -law at bedside. Explained patient's current condition. OBJECTIVE: Vital Signs Period Temp Pulse Resp BP Sys/Turcios Pulse Ox Last 24 Hr 97.4 F-98.1 F 69-79 18-20 128-172/67-78 96-96 GENERAL: No acute distress. Resting comfortably in bed. EYES: Sclera clear EOMI LUNGS: Dec breath sounds at bases HEART: RRR 3/6SM ABDOMEN: Nondistended, soft, nontender. Rectal Tube. EXTREMITIES: Trace edema. Right hip ulcer with eschar. Laboratory Results - last 24 hr 08/21/18 08/21/18 07:16 07:16 WBC 8.6 RBC 4.67 Hgb 14.6 Hct 44.3 MCV 95.0 MCH 31.3 MCHC 33.0 RDW 16.7 H Plt Count 330 MPV 9.2 Sodium 141 Potassium 5.3 H Chloride 107 Carbon Dioxide 26 Anion Gap 8 BUN 16 Creatinine 0.5 L Creat Clearance w eGFR > 60 Random Glucose 91 Calcium 9.0 Phosphorus 3.1 Magnesium 2.7 H Active Medications Generic Name Dose Route Start Last Admin Trade Name Freq PRN Reason Stop Dose Admin Amlodipine Besylate 5 mg 08/14/18 10:00 08/21/18 11:10 Norvasc - PO 5 mg DAILY [facility] Administration Bisacodyl 10 mg 08/18/18 14:24 08/19/18 12:00 Dulcolax Suppository - [place] 10 mg DAILY PRN Administration CONSTIPATION Collagenase 1 applic 08/04/18 12:15 08/21/18 11:11 Santyl - TP 1 applic DAILY [facility] Administration Protocol Enoxaparin Sodium 40 mg 08/15/18 10:00 08/21/18 11:10 Lovenox - SQ 40 mg DAILY [facility] Administration Hydrocortisone 1 applic 08/21/18 10:00 08/21/18 11:10 Anusol 2.5% Hc Cream - [place] 1 applic BID [facility] Administration Memantine 5 mg 08/02/18 10:00 08/21/18 11:10 Namenda - PO 5 mg BID [facility] Administration Polyethylene Glycol 17 gm 08/17/18 07:41 08/21/18 14:17 Miralax (For Daily Use) - PO 17 gm TID [facility] Administration Senna/Docusate Sodium 2 tablet 08/12/18 10:56 08/13/18 22:46 Pericolace - PO 2 tablet HS PRN Administration CONSTIPATION ASSESSMENT/PLAN: 88F w/ pmhx of HTN, HLD, Alzheimer's dementia presented to the hospital for evaluation of R hip pressure ulcer as well as poor PO intake. #R pressure wound ulcer -No leukocytosis, or temperature -Ulcer does not appear to be infected -Continue to assess daily. Santyl Applied to wound daily. #Abdominal distension; Pt has abd tenderness on exam. 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 Manually disimpacted 08/04/18 by myself along with RN (Ernestine). Large amount of watery stool and gas expelled from rectum. Distension visibly better. -senna, miralax to 17g daily -KUB 08/05/18---> Large colonic distension with fecal impaction remains. -Dr Morales on board. ---> Manually disempacted leading to explosion of gas and feces with decompression of distended abdomen. -Surgery on board Dr Parish---> Can try neostigmine and/or recommend evaluation by GI for possible colonoscopic decompression and placement of a rectal tube; all attempts at non operative management should be considered; CT scan a/p should be considered. -AXR 08/11/18---> Marked Improvement. Still some small bowel air distension. May require trial of neostigmine in icu setting if colonic distension does not resolve. -KUB revealed possible sigmoid volvulos. CTAP did not suggest any volvulus. 08/14. -Anusol 2.5 % cream to be applied internally and externally twice daily for 5 days. -C Diff Antigen and Toxin -Dr Morales evaluated pt again over weekend---> Rectal tube instilled. Miralax TID , may need to retrain x 24 hours to insert NG tube to do Golytely lavage -Dr Nevarez -->Miralax TID 17 G. Golytely if no improvement. -Revaluated by Dr Palmer---> Pt not compliant with MiraLAX 17g TID. Dulcolax suppository 1 OK daily. - Tried to insert NGT yesterday, 08/20/18. Unable to successfully insert NGT. Spoke with pharmacy, will order oral Senna which can be mixed with tea, in addition to suppository treatment. 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 Evaluated by Rachael today, recommendations appreciated. Pharmacy looking into possible topical Diltiazem cream. Rachael also manually relaxed sphincter with expulsion of liquid stool and gas. Pt to be placed on left and right side twice per shift. -NGT retried today, 08/21/2018, by Surgery. Unable to place NGT. Will continue Senna and Dulcolax suppository for now. Rachael recommendations appreciated. #Alzheimer's Dementia Memantine 5 MG PO BID #HTN- Norvasc 5 PO Daily. Will increase to 10 mg PO Daily if BP remains elevated. #Prophylaxis -Lovenox 40 SQ #FEN -No Fluids -Monitor Electrolytes Soft Diet #Dispo -Med-Surg Visit type - Emergency Visit Emergency Visit: Yes ED Registration Date: 08/01/18 Care time: The patient presented to the Emergency Department on the above date and was hospitalized for further evaluation of their emergent condition. - New Patient This patient is new to me today: No - Critical Care Critical Care patient: No - Discharge Referral Referred to [facility] Med P.C.: No
--- NOTE | 2018-08-21 21:21 | PN ---
Teaching Attending Note Name of Resident: Delvis Juarez ATTENDING PHYSICIAN STATEMENT I saw and evaluated the patient. I reviewed the resident's note and discussed the case with the resident. I agree with the resident's findings and plan as documented. SUBJECTIVE: Patient is feeling better with no acute distress, no BM today OBJECTIVE: Vital Signs Temperature 97.8 F 08/21/18 21:04 Pulse Rate 73 08/21/18 21:04 Respiratory Rate 18 08/21/18 21:04 Blood Pressure 150/79 08/21/18 21:04 O2 Sat by Pulse Oximetry (%) 97 08/21/18 21:00 GENERAL: Awake,in no distress EYES: EOMI, sclera anicteric, conjunctiva clear. LUNGS: BS BL, HEART: S1S2 positive ABDOMEN: less distended , BS positive. EXTREMITIES: pulses are positive, No C/C/E SKIN: Right Hip eschar. CBCD WBC 8.6 K/mm3 (4.0-10.0) 08/21/18 07:16 RBC 4.67 M/mm3 (3.60-5.2) 08/21/18 07:16 Hgb 14.6 GM/dL (10.7-15.3) 08/21/18 07:16 Hct 44.3 % (32.4-45.2) 08/21/18 07:16 MCV 95.0 fl (80-96) 08/21/18 07:16 MCHC 33.0 g/dl (32.0-36.0) 08/21/18 07:16 RDW 16.7 % (11.6-15.6) H 08/21/18 07:16 Plt Count 330 K/MM3 (134-434) 08/21/18 07:16 MPV 9.2 fl (7.5-11.1) 08/21/18 07:16 CMP Sodium 141 mmol/L (136-145) 08/21/18 07:16 Potassium 5.3 mmol/L (3.5-5.1) H 08/21/18 07:16 Chloride 107 mmol/L (98-107) 08/21/18 07:16 Carbon Dioxide 26 mmol/L (21-32) 08/21/18 07:16 Anion Gap 8 MMOL/L (8-16) 08/21/18 07:16 BUN 16 mg/dL (7-18) 08/21/18 07:16 Creatinine 0.5 mg/dL (0.55-1.3) L 08/21/18 07:16 Creat Clearance w eGFR > 60 (>60) 08/21/18 07:16 Random Glucose 91 mg/dL (74-106) 08/21/18 07:16 Calcium 9.0 mg/dL (8.5-10.1) 08/21/18 07:16 Total Bilirubin 0.7 mg/dL (0.2-1) 08/10/18 11:20 AST 29 U/L (15-37) 08/10/18 11:20 ALT 35 U/L (13-61) 08/10/18 11:20 Alkaline Phosphatase 76 U/L (45-117) 08/10/18 11:20 Total Protein 4.6 g/dl (6.4-8.2) L 08/10/18 11:20 Albumin 2.2 g/dl (3.4-5.0) L 08/10/18 11:20 Current Medications Generic Name Dose Route Start Last Admin Trade Name Freq PRN Reason Stop Dose Admin Amlodipine Besylate 5 mg 08/14/18 10:00 08/21/18 11:10 Norvasc - PO 5 mg DAILY [facility] Administration Bisacodyl 10 mg 08/18/18 14:24 08/19/18 12:00 Dulcolax Suppository - [place] 10 mg DAILY PRN Administration CONSTIPATION Collagenase 1 applic 08/04/18 12:15 08/21/18 11:11 Santyl - TP 1 applic DAILY [facility] Administration Protocol Enoxaparin Sodium 40 mg 08/15/18 10:00 08/21/18 11:10 Lovenox - SQ 40 mg DAILY [facility] Administration Hydrocortisone 1 applic 08/21/18 10:00 08/21/18 11:10 Anusol 2.5% Hc Cream - [place] 1 applic BID [facility] Administration Memantine 5 mg 08/02/18 10:00 08/21/18 11:10 Namenda - PO 5 mg BID [facility] Administration Polyethylene Glycol 17 gm 08/17/18 07:41 08/21/18 14:17 Miralax (For Daily Use) - PO 17 gm TID [facility] Administration Senna/Docusate Sodium 2 tablet 08/12/18 10:56 08/13/18 22:46 Pericolace - PO 2 tablet HS PRN Administration CONSTIPATION Home Medications Medication Instructions Recorded Cephalexin [Keflex] 500 mg PO QID 08/01/18 Memantine HCl 5 mg PO BID 08/01/18 Sulfamethoxazole/Trimethoprim 1 each PO BID 08/01/18 [Sulfamethoxazole-Tmp Ds Tablet] Aspirin [Adult Aspirin] 81 mg PO DAILY 08/02/18 Loperamide HCl Liquid [Imodium 1 mg PO DAILY 08/02/18 Liquid -] Saccharomyces Boulardii [Florastor] 250 mg PO DAILY 08/02/18 ASSESSMENT AND PLAN: Patient is a 88yo female with h/o Dementia, HTN, HLP, who comes form home with poor po intake, and for evaluation of R posterior hip. She was found to have constipation with severe colonic distention . # Severe colonic distention: due to fecal impaction, GI consult Dr. Robert as per GI , patient has anal fissure as per GI , ordered cortisone 2.5% PA # Severe constipation: NG tube was not successful, rectal tube # HTN : continue meds. # Right posterior hip Eschar: on Santyl continue DVT Px: lovenox sq
[2018-08-22] MEDS: POLYETHYLENE GLYCOL 3350 119 GM BTL PO SCH ×3 (05:23→21:26)
--- NOTE | 2018-08-22 08:33 | PN ---
Progress Note, Physician Chief Complaint: daughter at the bedside -- pt denies abdominal pain / n/v ; has been tolerating PO intake - Current Medication List Current Medications: Active Medications Amlodipine Besylate (Norvasc -) 5 mg PO DAILY [facility] Last Admin: 08/21/18 11:10 Dose: 5 mg Bisacodyl (Dulcolax Suppository -) 10 mg [place] DAILY PRN PRN Reason: CONSTIPATION Last Admin: 08/19/18 12:00 Dose: 10 mg Collagenase (Santyl -) 1 applic TP DAILY [facility]; Protocol Last Admin: 08/21/18 11:11 Dose: 1 applic Enoxaparin Sodium (Lovenox -) 40 mg SQ DAILY [facility] Last Admin: 08/21/18 11:10 Dose: 40 mg Hydrocortisone (Anusol 2.5% Hc Cream -) 1 applic [place] BID [facility] Last Admin: 08/21/18 21:45 Dose: 1 applic Memantine (Namenda -) 5 mg PO BID [facility] Last Admin: 08/21/18 21:45 Dose: 5 mg Polyethylene Glycol (Miralax (For Daily Use) -) 17 gm PO TID [facility] Last Admin: 08/22/18 05:23 Dose: Not Given Senna/Docusate Sodium (Pericolace -) 2 tablet PO HS PRN PRN Reason: CONSTIPATION Last Admin: 08/13/18 22:46 Dose: 2 tablet - Objective Vital Signs: Vital Signs Temperature 97.3 F L 08/22/18 07:19 Pulse Rate 60 08/22/18 07:19 Respiratory Rate 18 08/22/18 07:19 Blood Pressure 158/84 08/22/18 07:19 O2 Sat by Pulse Oximetry (%) 97 08/21/18 21:00 Constitutional: Yes: Well Nourished, No Distress, Calm Neck: Yes: WNL Cardiovascular: Yes: WNL, Regular Rate and Rhythm Respiratory: Yes: WNL, Regular, CTA Bilaterally Gastrointestinal: Yes: WNL, Normal Bowel Sounds, Soft Musculoskeletal: Yes: WNL Extremities: Yes: WNL Edema: No Labs: CBC, BMP 08/21/18 07:16 08/21/18 07:16 Problem List - Problems (1) Constipation by delayed colonic transit Assessment/Plan: c/w bowel regimen rectal tube for decompression diet as tolerated OOB to chair keep electrolytes wnl Code(s): K59.01 - SLOW TRANSIT CONSTIPATION
[2018-08-22] MEDS: ENOXAPARIN NA (PORCINE) 40 MG/0.4 ML DISP.SYRIN SQ SCH (09:46)
[2018-08-22] MEDS: amLODIPine BESYLATE 5 MG TABLET (FP) PO SCH (09:46)
[2018-08-22] MEDS: MEMANTINE HCL 5 MG TABLET (UD) PO SCH ×2 (09:46→21:26)
[2018-08-22] MEDS: HYDROCORTISONE 2.5% TOPICAL CREAM 30 GM TUBE PR SCH ×2 (09:47→21:28)
[2018-08-22] MEDS: COLLAGENASE CLOSTRIDIUM HIST. 30 GRAMS TUBE TP SCH (09:47)
[2018-08-22 10:28] LABS: HEMATOCRIT 39.1 % (32.4-45.2); HEMOGLOBIN 13.1 GM/dL (10.7-15.3); MCH 31.9 pg (25.7-33.7); MCHC 33.6 g/dl (32.0-36.0); MEAN CELL VOLUME 94.8 fl (80-96); MEAN PLT VOLUME 8.6 fl (7.5-11.1); PLATELET COUNT 286 K/MM3 (134-434); RBC 4.12 M/mm3 (3.60-5.2); RDW 16.2 % (11.6-15.6); WHITE BLOOD COUNT 5.4 K/mm3 (4.0-10.0)
[2018-08-22 10:58] LABS: ANION GAP 3 MMOL/L (8-16); BLOOD UREA NITROGEN 15 mg/dL (7-18); CALCIUM 8.8 mg/dL (8.5-10.1); CHLORIDE 107 mmol/L (98-107); CO2 33 mmol/L (21-32); CREATININE 0.6 mg/dL (0.55-1.3); GLUCOSE,RANDOM 95 mg/dL (74-106); MAGNESIUM 2.6 mg/dL (1.8-2.4); PHOSPHOROUS 2.1 mg/dL (2.5-4.9); POTASSIUM 4.4 mmol/L (3.5-5.1); SODIUM 143 mmol/L (136-145)
--- NOTE | 2018-08-22 21:21 | PN ---
Progress Note (short form) - Note Progress Note: Patient is comfortable with no acute distress. Vital Signs Temperature 97.3 F L 08/22/18 13:32 Pulse Rate 67 08/22/18 13:32 Respiratory Rate 18 08/22/18 13:32 Blood Pressure 131/78 08/22/18 13:32 O2 Sat by Pulse Oximetry (%) 97 08/22/18 09:00 GENERAL: Awake, in no acute distress EYES: EOMI, sclera anicteric, conjunctiva clear. LUNGS: BS BL, No wheeze or rales. HEART: S1S2 positive, No murmur, no exudates ABDOMEN: less distended , BS positive. EXTREMITIES: pulses are positive, No C/C/E SKIN: Right Hip eschar. CBCD WBC 5.4 K/mm3 (4.0-10.0) 08/22/18 10:00 RBC 4.12 M/mm3 (3.60-5.2) 08/22/18 10:00 Hgb 13.1 GM/dL (10.7-15.3) 08/22/18 10:00 Hct 39.1 % (32.4-45.2) 08/22/18 10:00 MCV 94.8 fl (80-96) 08/22/18 10:00 MCHC 33.6 g/dl (32.0-36.0) 08/22/18 10:00 RDW 16.2 % (11.6-15.6) H 08/22/18 10:00 Plt Count 286 K/MM3 (134-434) 08/22/18 10:00 MPV 8.6 fl (7.5-11.1) 08/22/18 10:00 CMP Sodium 143 mmol/L (136-145) 08/22/18 10:00 Potassium 4.4 mmol/L (3.5-5.1) 08/22/18 10:00 Chloride 107 mmol/L (98-107) 08/22/18 10:00 Carbon Dioxide 33 mmol/L (21-32) H 08/22/18 10:00 Anion Gap 3 MMOL/L (8-16) L 08/22/18 10:00 BUN 15 mg/dL (7-18) 08/22/18 10:00 Creatinine 0.6 mg/dL (0.55-1.3) 08/22/18 10:00 Creat Clearance w eGFR > 60 (>60) 08/22/18 10:00 Random Glucose 95 mg/dL (74-106) 08/22/18 10:00 Calcium 8.8 mg/dL (8.5-10.1) 08/22/18 10:00 Total Bilirubin 0.7 mg/dL (0.2-1) 08/10/18 11:20 AST 29 U/L (15-37) 08/10/18 11:20 ALT 35 U/L (13-61) 08/10/18 11:20 Alkaline Phosphatase 76 U/L (45-117) 08/10/18 11:20 Total Protein 4.6 g/dl (6.4-8.2) L 08/10/18 11:20 Albumin 2.2 g/dl (3.4-5.0) L 08/10/18 11:20 Current Medications Generic Name Dose Route Start Last Admin Trade Name Freq PRN Reason Stop Dose Admin Amlodipine Besylate 5 mg 08/14/18 10:00 08/22/18 09:46 Norvasc - PO 5 mg DAILY [facility] Administration Bisacodyl 10 mg 08/18/18 14:24 08/19/18 12:00 Dulcolax Suppository - ND 10 mg DAILY PRN Administration CONSTIPATION Collagenase 1 applic 08/04/18 12:15 08/22/18 09:47 Santyl - TP 1 applic DAILY [facility] Administration Protocol Enoxaparin Sodium 40 mg 08/15/18 10:00 08/22/18 09:46 Lovenox - SQ 40 mg DAILY [facility] Administration Hydrocortisone 1 applic 08/21/18 10:00 08/22/18 09:47 Anusol 2.5% Hc Cream - ND 1 applic BID [facility] Administration Memantine 5 mg 08/02/18 10:00 08/22/18 09:46 Namenda - PO 5 mg BID [facility] Administration Polyethylene Glycol 17 gm 08/17/18 07:41 08/22/18 14:23 Miralax (For Daily Use) - PO 17 gm TID [facility] Administration Senna/Docusate Sodium 2 tablet 08/12/18 10:56 08/13/18 22:46 Pericolace - PO 2 tablet HS PRN Administration CONSTIPATION Home Medications Medication Instructions Recorded Cephalexin [Keflex] 500 mg PO QID 08/01/18 Memantine HCl 5 mg PO BID 08/01/18 Sulfamethoxazole/Trimethoprim 1 each PO BID 08/01/18 [Sulfamethoxazole-Tmp Ds Tablet] Aspirin [Adult Aspirin] 81 mg PO DAILY 08/02/18 Loperamide HCl Liquid [Imodium 1 mg PO DAILY 08/02/18 Liquid -] Saccharomyces Boulardii [Florastor] 250 mg PO DAILY 08/02/18 Assessment and plan: Patient is a 88yo female with h/o Dementia, HTN, HLp, who comes form home with poor po intake, and for evaluation of R posterior hip. She was found to have constipation with severe colonic distention . # Severe colonic distention: due to fecal impaction, rectal tube per GI . Also patient has anal fissure as per GI, cortisone 2.5% rectally, Miralax with prune juice as per daughter will give her the drinks. # severe constipation; NG tube with golytely # HTN : continue meds. # Right posterior hip Eschar: on santyl continue DVT Px: lovenox sq Visit type - Emergency Visit Emergency Visit: Yes ED Registration Date: 08/01/18 Care time: The patient presented to the Emergency Department on the above date and was hospitalized for further evaluation of their emergent condition. - New Patient This patient is new to me today: No - Critical Care Critical Care patient: No - Discharge Referral Referred to [facility] Med P.C.: No
[2018-08-23] MEDS: POLYETHYLENE GLYCOL 3350 119 GM BTL PO SCH ×3 (06:08→22:03)
[2018-08-23] MEDS ORDERED: INSULIN (NOVOLOG) ASPART 100 UNITS/ML 10ML VIAL ONE (06:58)
[2018-08-23] MEDS: MEMANTINE HCL 5 MG TABLET (UD) PO SCH ×2 (09:48→22:03)
[2018-08-23] MEDS: ENOXAPARIN NA (PORCINE) 40 MG/0.4 ML DISP.SYRIN SQ SCH (09:48)
[2018-08-23] MEDS: COLLAGENASE CLOSTRIDIUM HIST. 30 GRAMS TUBE TP SCH (09:48)
[2018-08-23] MEDS: HYDROCORTISONE 2.5% TOPICAL CREAM 30 GM TUBE PR SCH ×2 (09:48→22:02)
[2018-08-23] MEDS: amLODIPine BESYLATE 5 MG TABLET (FP) PO SCH (09:48)
--- NOTE | 2018-08-23 14:13 | PN ---
Progress Note, Physician History of Present Illness: Pt is alert, afebrile. Having BMs. Daughter at bedside. - Current Medication List Current Medications: Active Medications Amlodipine Besylate (Norvasc -) 5 mg PO DAILY [facility] Last Admin: 08/23/18 09:48 Dose: 5 mg Bisacodyl (Dulcolax Suppository -) 10 mg [place] DAILY PRN PRN Reason: CONSTIPATION Last Admin: 08/19/18 12:00 Dose: 10 mg Collagenase (Santyl -) 1 applic TP DAILY [facility]; Protocol Last Admin: 08/23/18 09:48 Dose: 1 applic Enoxaparin Sodium (Lovenox -) 40 mg SQ DAILY [facility] Last Admin: 08/23/18 09:48 Dose: 40 mg Hydrocortisone (Anusol 2.5% Hc Cream -) 1 applic [place] BID [facility] Last Admin: 08/23/18 09:48 Dose: 1 applic Memantine (Namenda -) 5 mg PO BID [facility] Last Admin: 08/23/18 09:48 Dose: 5 mg Polyethylene Glycol (Miralax (For Daily Use) -) 17 gm PO TID [facility] Last Admin: 08/23/18 14:07 Dose: 17 gm Senna/Docusate Sodium (Pericolace -) 2 tablet PO HS PRN PRN Reason: CONSTIPATION Last Admin: 08/13/18 22:46 Dose: 2 tablet - Objective Vital Signs: Vital Signs Temperature 96.5 F L 08/23/18 10:00 Pulse Rate 79 08/23/18 10:00 Respiratory Rate 20 08/23/18 10:00 Blood Pressure 155/95 08/23/18 10:00 O2 Sat by Pulse Oximetry (%) 95 08/22/18 21:00 Constitutional: Yes: No Distress, Calm Cardiovascular: Yes: Regular Rate and Rhythm Respiratory: Yes: Regular Gastrointestinal: Yes: Normal Bowel Sounds, Soft ...Rectal Exam: Yes: Other (rectal tube) Neurological: Yes: Alert Labs: CBC, BMP 08/22/18 10:00 08/22/18 10:00 Problem List - Problems (1) Alzheimer disease Code(s): G30.9 - ALZHEIMER'S DISEASE, UNSPECIFIED; F02.80 - DEMENTIA IN OTH DISEASES CLASSD ELSWHR W/O BEHAVRL DISTURB Qualifiers: Alzheimer's disease onset: unspecified onset Dementia behavioral disturbance: with behavioral disturbance Qualified Code(s): G30.9 - Alzheimer' s disease, unspecified; F02.81 - Dementia in other diseases classified elsewhere with behavioral disturbance (2) Fecal impaction Code(s): K56.41 - FECAL IMPACTION (3) Necrotic eschar Code(s): L98.8 - OTH DISRD OF THE SKIN AND SUBCUTANEOUS TISSUE (4) Unstageable pressure ulcer Code(s): L89.95 - PRESSURE ULCER OF UNSPECIFIED SITE, UNSTAGEABLE Assessment/Plan Colonic distention / Fecal impaction -- on bowel regimen, having BMs -- Remains afebrile, alert, without distress -- monitor off antibiotics
--- NOTE | 2018-08-23 20:10 | PN ---
Physical Exam: SUBJECTIVE: Patient seen and examined at bedside. No acute events overnight. Daughters at bedside. OBJECTIVE: Vital Signs Period Temp Pulse Resp BP Sys/Turcios Pulse Ox Last 24 Hr 96.5 F-98.5 F 60-86 18-20 145-155/69-95 95 GENERAL: NAD EYES: Sclera clear EOMI LUNGS: Dec breath sounds at bases HEART: RRR 3/6 SM ABDOMEN: Nondistended, soft, nontender. Rectal Tube. EXTREMITIES: Trace edema. Right hip ulcer with eschar. Examined Ulcer today. No dc or odor appreciated Active Medications Generic Name Dose Route Start Last Admin Trade Name Freq PRN Reason Stop Dose Admin Amlodipine Besylate 5 mg 08/14/18 10:00 08/23/18 09:48 Norvasc - PO 5 mg DAILY [facility] Administration Bisacodyl 10 mg 08/18/18 14:24 08/19/18 12:00 Dulcolax Suppository - [place] 10 mg DAILY PRN Administration CONSTIPATION Collagenase 1 applic 08/04/18 12:15 08/23/18 09:48 Santyl - TP 1 applic DAILY [facility] Administration Protocol Enoxaparin Sodium 40 mg 08/15/18 10:00 08/23/18 09:48 Lovenox - SQ 40 mg DAILY [facility] Administration Hydrocortisone 1 applic 08/21/18 10:00 08/23/18 09:48 Anusol 2.5% Hc Cream - [place] 1 applic BID [facility] Administration Memantine 5 mg 08/02/18 10:00 08/23/18 09:48 Namenda - PO 5 mg BID [facility] Administration Patient's Own 0 each 08/23/18 19:15 Medication (Non- PO Formulary)Senna BID [facility] Liquid Polyethylene Glycol 17 gm 08/17/18 07:41 08/23/18 14:07 Miralax (For Daily Use) - PO 17 gm TID [facility] Administration ASSESSMENT/PLAN: 88F w/ pmhx of HTN, HLD, Alzheimer's dementia presented to the hospital for evaluation of R hip pressure ulcer as well as poor PO intake. #R pressure wound ulcer -No leukocytosis, or temperature -Ulcer does not appear to be infected -Continue to assess daily. Santyl Applied to wound daily. #Abdominal distension; Pt has abd tenderness on exam. 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 Manually disimpacted 08/04/18 by myself along with RN (Ernestine). Large amount of watery stool and gas expelled from rectum. Distension visibly better. -senna, miralax to 17g daily -KUB 08/05/18---> Large colonic distension with fecal impaction remains. -Dr Morales on board. ---> Manually disempacted leading to explosion of gas and feces with decompression of distended abdomen. -Surgery on board Dr Parish---> Can try neostigmine and/or recommend evaluation by GI for possible colonoscopic decompression and placement of a rectal tube; all attempts at non operative management should be considered; CT scan a/p should be considered. -AXR 08/11/18---> Marked Improvement. Still some small bowel air distension. May require trial of neostigmine in icu setting if colonic distension does not resolve. -KUB revealed possible sigmoid volvulos. CTAP did not suggest any volvulus. 08/14. -Anusol 2.5 % cream to be applied internally and externally twice daily for 5 days. -C Diff Antigen and Toxin -Dr Morales evaluated pt again over weekend---> Rectal tube instilled. Miralax TID , may need to retrain x 24 hours to insert NG tube to do Golytely lavage -Dr Nevarez -->Miralax TID 17 G. Golytely if no improvement. -Revaluated by Dr Palmer---> Pt not compliant with MiraLAX 17g TID. Dulcolax suppository 1 CA daily. - Tried to insert NGT 08/20/18. Unable to successfully insert NGT. Spoke with pharmacy, will order oral Senna which can be mixed with tea, in addition to suppository treatment. 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 Evaluated by Rachael today, recommendations appreciated. Pharmacy looking into possible topical Diltiazem cream. Rachael also manually relaxed sphincter with expulsion of liquid stool and gas. Pt to be placed on left and right side twice per shift. -NGT retried 08/21/2018, by Surgery. Unable to place NGT. Will continue Senna and Dulcolax suppository for now. Examined by Dr Muir 08/22/18--Continue bowel regimen, rectal tube for decompression. #Alzheimer's Dementia Memantine 5 MG PO BID #HTN- Norvasc 5 PO Daily. Will increase to 10 mg PO Daily if BP remains elevated. #Prophylaxis -Lovenox 40 SQ #FEN -No Fluids -Monitor Electrolytes Soft Diet #Dispo -For SNF placement Friday Visit type - Emergency Visit Emergency Visit: Yes ED Registration Date: 08/01/18 Care time: The patient presented to the Emergency Department on the above date and was hospitalized for further evaluation of their emergent condition. - New Patient This patient is new to me today: No - Critical Care Critical Care patient: No - Discharge Referral Referred to [facility] Med P.C.: No
[2018-08-23] MEDS: SENNA PO SCH ×2 (22:03)
--- NOTE | 2018-08-23 22:45 | PN ---
Teaching Attending Note Name of Resident: Delvis Juarez ATTENDING PHYSICIAN STATEMENT I saw and evaluated the patient. I reviewed the resident's note and discussed the case with the resident. I agree with the resident's findings and plan as documented. SUBJECTIVE: Patient is better , abdomen is better OBJECTIVE: Vital Signs Temperature 96.5 F L 08/23/18 10:00 Pulse Rate 86 08/23/18 14:45 Respiratory Rate 18 08/23/18 14:45 Blood Pressure 148/79 08/23/18 14:45 O2 Sat by Pulse Oximetry (%) 95 08/22/18 21:00 GENERAL: Awake, in no acute distress EYES: EOMI, sclera anicteric, conjunctiva clear. LUNGS: BS BL, No wheeze or rales. HEART: S1S2 positive, No murmur, no exudates ABDOMEN: less distended , BS positive. EXTREMITIES: pulses are positive, No C/C/E SKIN: Right Hip eschar. Rectal: positive for rectal tube CBCD WBC 5.4 K/mm3 (4.0-10.0) 08/22/18 10:00 RBC 4.12 M/mm3 (3.60-5.2) 08/22/18 10:00 Hgb 13.1 GM/dL (10.7-15.3) 08/22/18 10:00 Hct 39.1 % (32.4-45.2) 08/22/18 10:00 MCV 94.8 fl (80-96) 08/22/18 10:00 MCHC 33.6 g/dl (32.0-36.0) 08/22/18 10:00 RDW 16.2 % (11.6-15.6) H 08/22/18 10:00 Plt Count 286 K/MM3 (134-434) 08/22/18 10:00 MPV 8.6 fl (7.5-11.1) 08/22/18 10:00 CMP Sodium 143 mmol/L (136-145) 08/22/18 10:00 Potassium 4.4 mmol/L (3.5-5.1) 08/22/18 10:00 Chloride 107 mmol/L (98-107) 08/22/18 10:00 Carbon Dioxide 33 mmol/L (21-32) H 08/22/18 10:00 Anion Gap 3 MMOL/L (8-16) L 08/22/18 10:00 BUN 15 mg/dL (7-18) 08/22/18 10:00 Creatinine 0.6 mg/dL (0.55-1.3) 08/22/18 10:00 Creat Clearance w eGFR > 60 (>60) 08/22/18 10:00 Random Glucose 95 mg/dL (74-106) 08/22/18 10:00 Calcium 8.8 mg/dL (8.5-10.1) 08/22/18 10:00 Total Bilirubin 0.7 mg/dL (0.2-1) 08/10/18 11:20 AST 29 U/L (15-37) 08/10/18 11:20 ALT 35 U/L (13-61) 08/10/18 11:20 Alkaline Phosphatase 76 U/L (45-117) 08/10/18 11:20 Total Protein 4.6 g/dl (6.4-8.2) L 08/10/18 11:20 Albumin 2.2 g/dl (3.4-5.0) L 08/10/18 11:20 Current Medications Generic Name Dose Route Start Last Admin Trade Name Freq PRN Reason Stop Dose Admin Amlodipine Besylate 5 mg 08/14/18 10:00 08/23/18 09:48 Norvasc - PO 5 mg DAILY [facility] Administration Bisacodyl 10 mg 08/18/18 14:24 08/19/18 12:00 Dulcolax Suppository - [place] 10 mg DAILY PRN Administration CONSTIPATION Collagenase 1 applic 08/04/18 12:15 08/23/18 09:48 Santyl - TP 1 applic DAILY [facility] Administration Protocol Enoxaparin Sodium 40 mg 08/15/18 10:00 08/23/18 09:48 Lovenox - SQ 40 mg DAILY [facility] Administration Hydrocortisone 1 applic 08/21/18 10:00 08/23/18 22:02 Anusol 2.5% Hc Cream - ID 1 applic BID [facility] Administration Memantine 5 mg 08/02/18 10:00 08/23/18 22:03 Namenda - PO 5 mg BID [facility] Administration Patient's Own 0 each 08/23/18 19:15 08/23/18 22:03 Medication (Non- PO 1 each Formulary)Senna BID [facility] Administration Liquid Polyethylene Glycol 17 gm 08/17/18 07:41 08/23/18 22:03 Miralax (For Daily Use) - PO 17 gm TID [facility] Administration Home Medications Medication Instructions Recorded Cephalexin [Keflex] 500 mg PO QID 08/01/18 Memantine HCl 5 mg PO BID 08/01/18 Sulfamethoxazole/Trimethoprim 1 each PO BID 08/01/18 [Sulfamethoxazole-Tmp Ds Tablet] Aspirin [Adult Aspirin] 81 mg PO DAILY 08/02/18 Loperamide HCl Liquid [Imodium 1 mg PO DAILY 08/02/18 Liquid -] Saccharomyces Boulardii [Florastor] 250 mg PO DAILY 08/02/18 ASSESSMENT AND PLAN: Patient is a 88yo female with h/o Dementia, HTN, HLp, who comes form home with poor po intake, and for evaluation of R posterior hip. She was found to have constipation with severe colonic distention . No new changes , will continue current therapy # Severe colonic distention: due to fecal impaction, rectal tube per GI . Also patient has anal fissure as per GI, cortisone 2.5% rectally, Miralax with prune juice as per daughter will give her the drinks. # severe constipation; NG tube with golytely # HTN : continue meds. # Right posterior hip Eschar: on santyl continue DVT Px: lovenox sq
[2018-08-24] MEDS: POLYETHYLENE GLYCOL 3350 119 GM BTL PO SCH ×3 (05:12→22:26)
[2018-08-24 08:13] LABS: HEMATOCRIT 42.3 % (32.4-45.2); HEMOGLOBIN 14.2 GM/dL (10.7-15.3); MCH 31.8 pg (25.7-33.7); MCHC 33.6 g/dl (32.0-36.0); MEAN CELL VOLUME 94.7 fl (80-96); MEAN PLT VOLUME 9.1 fl (7.5-11.1); PLATELET COUNT 327 K/MM3 (134-434); RBC 4.47 M/mm3 (3.60-5.2); RDW 16.6 % (11.6-15.6); WHITE BLOOD COUNT 6.9 K/mm3 (4.0-10.0)
[2018-08-24 08:48] LABS: ANION GAP 7 MMOL/L (8-16); BLOOD UREA NITROGEN 12 mg/dL (7-18); CALCIUM 8.6 mg/dL (8.5-10.1); CHLORIDE 105 mmol/L (98-107); CO2 31 mmol/L (21-32); CREATININE 0.4 mg/dL (0.55-1.3); GLUCOSE,RANDOM 94 mg/dL (74-106); MAGNESIUM 2.7 mg/dL (1.8-2.4); PHOSPHOROUS 2.6 mg/dL (2.5-4.9); POTASSIUM 3.9 mmol/L (3.5-5.1); SODIUM 143 mmol/L (136-145)
[2018-08-24] MEDS: HYDROCORTISONE 2.5% TOPICAL CREAM 30 GM TUBE PR SCH ×2 (10:15→22:27)
[2018-08-24] MEDS: COLLAGENASE CLOSTRIDIUM HIST. 30 GRAMS TUBE TP SCH (10:16)
[2018-08-24] MEDS: ENOXAPARIN NA (PORCINE) 40 MG/0.4 ML DISP.SYRIN SQ SCH (10:17)
[2018-08-24] MEDS: SENNA PO SCH ×2 (10:18→22:28)
[2018-08-24] MEDS: amLODIPine BESYLATE 5 MG TABLET (FP) PO SCH (10:18)
[2018-08-24] MEDS: MEMANTINE HCL 5 MG TABLET (UD) PO SCH ×2 (10:18→22:27)
--- NOTE | 2018-08-24 13:30 | PN ---
Progress Note, Physician History of Present Illness: stable eating food - Current Medication List Current Medications: Active Medications Amlodipine Besylate (Norvasc -) 5 mg PO DAILY [facility] Last Admin: 08/24/18 10:18 Dose: 5 mg Bisacodyl (Dulcolax Suppository -) 10 mg [place] DAILY PRN PRN Reason: CONSTIPATION Last Admin: 08/19/18 12:00 Dose: 10 mg Collagenase (Santyl -) 1 applic TP DAILY [facility]; Protocol Last Admin: 08/24/18 10:16 Dose: 1 applic Enoxaparin Sodium (Lovenox -) 40 mg SQ DAILY [facility] Last Admin: 08/24/18 10:17 Dose: 40 mg Hydrocortisone (Anusol 2.5% Hc Cream -) 1 applic [place] BID [facility] Last Admin: 08/24/18 10:15 Dose: 1 applic Memantine (Namenda -) 5 mg PO BID [facility] Last Admin: 08/24/18 10:18 Dose: 5 mg Patient's Own Medication (Non- Formulary)Senna Liquid 0 each PO BID [facility] Last Admin: 08/24/18 10:18 Dose: 1 each Polyethylene Glycol (Miralax (For Daily Use) -) 17 gm PO TID [facility] Last Admin: 08/24/18 05:12 Dose: 17 gm - Objective Vital Signs: Vital Signs Temperature 97.6 F 08/24/18 10:00 Pulse Rate 63 08/24/18 10:00 Respiratory Rate 20 08/24/18 10:00 Blood Pressure 162/71 08/24/18 10:00 O2 Sat by Pulse Oximetry (%) 98 08/24/18 09:00 Constitutional: Yes: No Distress, Calm Respiratory: Yes: Regular, CTA Bilaterally Gastrointestinal: Yes: Normal Bowel Sounds, Soft Musculoskeletal: Yes: WNL Extremities: Yes: WNL Neurological: Yes: Alert Psychiatric: Yes: Alert Labs: CBC, BMP 08/24/18 06:40 08/24/18 06:40 Assessment/Plan Problem List - Problems (1) Alzheimer disease Code(s): G30.9 - ALZHEIMER'S DISEASE, UNSPECIFIED; F02.80 - DEMENTIA IN OTH DISEASES CLASSD ELSWHR W/O BEHAVRL DISTURB Qualifiers: Alzheimer's disease onset: unspecified onset Dementia behavioral disturbance: with behavioral disturbance Qualified Code(s): G30.9 - Alzheimer' s disease, unspecified; F02.81 - Dementia in other diseases classified elsewhere with behavioral disturbance (2) Fecal impaction Code(s): K56.41 - FECAL IMPACTION (3) Necrotic eschar Code(s): L98.8 - OTH DISRD OF THE SKIN AND SUBCUTANEOUS TISSUE (4) Unstageable pressure ulcer Code(s): L89.95 - PRESSURE ULCER OF UNSPECIFIED SITE, UNSTAGEABLE Assessment/Plan Constipation/Colonic distention s/p disimpactions GI following nutrition rest as per the team
--- NOTE | 2018-08-24 13:58 | PN ---
Progress Note (short form) - Note Progress Note: Patient seen and examined Labs reviewed Hemodynamically stable. Rectal tube per RN with liquid brown stool output. Abdomen mildly distended, nontender. Impression: Chronic pseudo-obstruction with hypertonic anal sphincter Continue rectal tube decompression Bowel regimen as is being done
--- NOTE | 2018-08-24 18:40 | PN ---
Teaching Attending Note Name of Resident: Delvis Juarez ATTENDING PHYSICIAN STATEMENT I saw and evaluated the patient. I reviewed the resident's note and discussed the case with the resident. I agree with the resident's findings and plan as documented. SUBJECTIVE: Patient is better with no acute distress. OBJECTIVE: Vital Signs Temperature 97.5 F L 08/24/18 18:20 Pulse Rate 87 08/24/18 18:20 Respiratory Rate 20 08/24/18 18:20 Blood Pressure 150/60 08/24/18 18:20 O2 Sat by Pulse Oximetry (%) 98 08/24/18 09:00 GENERAL: Awake, in no acute distress EYES: EOMI, sclera anicteric, conjunctiva clear. LUNGS: BS BL, No wheeze or rales. HEART: S1S2 positive, No murmur, no exudates ABDOMEN: decreased distention , BS positive. soft EXTREMITIES: pulses are positive, No C/C/E SKIN: Right Hip eschar. : rectal tube CBCD WBC 6.9 K/mm3 (4.0-10.0) 08/24/18 06:40 RBC 4.47 M/mm3 (3.60-5.2) 08/24/18 06:40 Hgb 14.2 GM/dL (10.7-15.3) 08/24/18 06:40 Hct 42.3 % (32.4-45.2) 08/24/18 06:40 MCV 94.7 fl (80-96) 08/24/18 06:40 MCHC 33.6 g/dl (32.0-36.0) 08/24/18 06:40 RDW 16.6 % (11.6-15.6) H 08/24/18 06:40 Plt Count 327 K/MM3 (134-434) 08/24/18 06:40 MPV 9.1 fl (7.5-11.1) 08/24/18 06:40 CMP Sodium 143 mmol/L (136-145) 08/24/18 06:40 Potassium 3.9 mmol/L (3.5-5.1) 08/24/18 06:40 Chloride 105 mmol/L (98-107) 08/24/18 06:40 Carbon Dioxide 31 mmol/L (21-32) 08/24/18 06:40 Anion Gap 7 MMOL/L (8-16) L 08/24/18 06:40 BUN 12 mg/dL (7-18) 08/24/18 06:40 Creatinine 0.4 mg/dL (0.55-1.3) L 08/24/18 06:40 Creat Clearance w eGFR > 60 (>60) 08/24/18 06:40 Random Glucose 94 mg/dL (74-106) 08/24/18 06:40 Calcium 8.6 mg/dL (8.5-10.1) 08/24/18 06:40 Total Bilirubin 0.7 mg/dL (0.2-1) 08/10/18 11:20 AST 29 U/L (15-37) 08/10/18 11:20 ALT 35 U/L (13-61) 08/10/18 11:20 Alkaline Phosphatase 76 U/L (45-117) 08/10/18 11:20 Total Protein 4.6 g/dl (6.4-8.2) L 08/10/18 11:20 Albumin 2.2 g/dl (3.4-5.0) L 08/10/18 11:20 Current Medications Generic Name Dose Route Start Last Admin Trade Name Freq PRN Reason Stop Dose Admin Amlodipine Besylate 5 mg 08/14/18 10:00 08/24/18 10:18 Norvasc - PO 5 mg DAILY [facility] Administration Bisacodyl 10 mg 08/18/18 14:24 08/19/18 12:00 Dulcolax Suppository - [place] 10 mg DAILY PRN Administration CONSTIPATION Collagenase 1 applic 08/04/18 12:15 08/24/18 10:16 Santyl - TP 1 applic DAILY [facility] Administration Protocol Enoxaparin Sodium 40 mg 08/15/18 10:00 08/24/18 10:17 Lovenox - SQ 40 mg DAILY [facility] Administration Hydrocortisone 1 applic 08/21/18 10:00 08/24/18 10:15 Anusol 2.5% Hc Cream - [place] 1 applic BID [facility] Administration Memantine 5 mg 08/02/18 10:00 08/24/18 10:18 Namenda - PO 5 mg BID [facility] Administration Patient's Own 0 each 08/23/18 19:15 08/24/18 10:18 Medication (Non- PO 1 each Formulary)Senna BID [facility] Administration Liquid Polyethylene Glycol 17 gm 08/17/18 07:41 08/24/18 13:53 Miralax (For Daily Use) - PO 17 gm TID [facility] Administration Home Medications Medication Instructions Recorded Cephalexin [Keflex] 500 mg PO QID 08/01/18 Memantine HCl 5 mg PO BID 08/01/18 Sulfamethoxazole/Trimethoprim 1 each PO BID 08/01/18 [Sulfamethoxazole-Tmp Ds Tablet] Aspirin [Adult Aspirin] 81 mg PO DAILY 08/02/18 Loperamide HCl Liquid [Imodium 1 mg PO DAILY 08/02/18 Liquid -] Saccharomyces Boulardii [Florastor] 250 mg PO DAILY 08/02/18 ASSESSMENT AND PLAN: Patient is a 88yo female with h/o Dementia, HTN, HLp, who comes form home with poor po intake, and for evaluation of R posterior hip. She was found to have constipation with severe colonic distention . # Severe colonic distention: due to fecal impaction, rectal tube per GI . Also patient has anal fissure as per GI, cortisone 2.5% rectally, # severe constipation; Miralax with prune juice , patient has a rectal tube, if NH accepts the patient with the tube , will arrange for NH # HTN : continue meds. # Right posterior hip Eschar: on santyl continue DVT Px: lovenox sq
--- NOTE | 2018-08-24 19:07 | PN ---
Physical Exam: SUBJECTIVE: Patient seen and examined today. No acute events overnight. OBJECTIVE: Vital Signs Period Temp Pulse Resp BP Sys/Turcios Pulse Ox Last 24 Hr 97.5 F-97.8 F 63-88 20-20 149-167/60-77 96-98 GENERAL: No acute distress. resting in bed. EYES: Sclera clear EOMI LUNGS: Dec breath sounds at bases HEART: RRR 3/6 SM ABDOMEN: Nondistended, soft, nontender. Rectal Tube. EXTREMITIES: Trace edema. Right hip ulcer with eschar. Examined Ulcer today. No dc or odor appreciated Laboratory Results - last 24 hr 08/24/18 08/24/18 06:40 06:40 WBC 6.9 RBC 4.47 Hgb 14.2 Hct 42.3 MCV 94.7 MCH 31.8 MCHC 33.6 RDW 16.6 H Plt Count 327 MPV 9.1 Sodium 143 Potassium 3.9 Chloride 105 Carbon Dioxide 31 Anion Gap 7 L BUN 12 Creatinine 0.4 L Creat Clearance w eGFR > 60 Random Glucose 94 Calcium 8.6 Phosphorus 2.6 Magnesium 2.7 H Active Medications Generic Name Dose Route Start Last Admin Trade Name Freq PRN Reason Stop Dose Admin Amlodipine Besylate 5 mg 08/14/18 10:00 08/24/18 10:18 Norvasc - PO 5 mg DAILY MONSTER Administration Bisacodyl 10 mg 08/18/18 14:24 08/19/18 12:00 Dulcolax Suppository - TN 10 mg DAILY PRN Administration CONSTIPATION Collagenase 1 applic 08/04/18 12:15 08/24/18 10:16 Santyl - TP 1 applic DAILY MONSTER Administration Protocol Enoxaparin Sodium 40 mg 08/15/18 10:00 08/24/18 10:17 Lovenox - SQ 40 mg DAILY MONSTER Administration Hydrocortisone 1 applic 08/21/18 10:00 08/24/18 10:15 Anusol 2.5% Hc Cream - TN 1 applic BID MONSTER Administration Memantine 5 mg 08/02/18 10:00 08/24/18 10:18 Namenda - PO 5 mg BID MONSTER Administration Patient's Own 0 each 08/23/18 19:15 08/24/18 10:18 Medication (Non- PO 1 each Formulary)Senna BID MONSTER Administration Liquid Polyethylene Glycol 17 gm 08/17/18 07:41 08/24/18 13:53 Miralax (For Daily Use) - PO 17 gm TID MONSTER Administration ASSESSMENT/PLAN: 88F w/ pmhx of HTN, HLD, Alzheimer's dementia presented to the hospital for evaluation of R hip pressure ulcer as well as poor PO intake. #R pressure wound ulcer -No leukocytosis, or temperature -Ulcer does not appear to be infected -Continue to assess daily. Santyl Applied to wound daily. #Abdominal distension; Pt has abd tenderness on exam. 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 Manually disimpacted 08/04/18 by myself along with RN (Ernestine). Large amount of watery stool and gas expelled from rectum. Distension visibly better. -senna, miralax to 17g daily -KUB 08/05/18---> Large colonic distension with fecal impaction remains. -Dr Morales on board. ---> Manually disempacted leading to explosion of gas and feces with decompression of distended abdomen. -Surgery on board Dr Parish---> Can try neostigmine and/or recommend evaluation by GI for possible colonoscopic decompression and placement of a rectal tube; all attempts at non operative management should be considered; CT scan a/p should be considered. -AXR 08/11/18---> Marked Improvement. Still some small bowel air distension. May require trial of neostigmine in icu setting if colonic distension does not resolve. -KUB revealed possible sigmoid volvulos. CTAP did not suggest any volvulus. 08/14. -Anusol 2.5 % cream to be applied internally and externally twice daily for 5 days. -C Diff Antigen and Toxin -Dr Morales evaluated pt again over weekend---> Rectal tube instilled. Miralax TID , may need to retrain x 24 hours to insert NG tube to do Golytely lavage -Dr Nevarez -->Miralax TID 17 G. Golytely if no improvement. -Revaluated by Dr Palmer---> Pt not compliant with MiraLAX 17g TID. Dulcolax suppository 1 TN daily. - Tried to insert NGT 08/20/18. Unable to successfully insert NGT. Spoke with pharmacy, will order oral Senna which can be mixed with tea, in addition to suppository treatment. 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 Evaluated by Rachael today, recommendations appreciated. Pharmacy looking into possible topical Diltiazem cream. Rachael also manually relaxed sphincter with expulsion of liquid stool and gas. Pt to be placed on left and right side twice per shift. -NGT retried 08/21/2018, by Surgery. Unable to place NGT. Will continue Senna and Dulcolax suppository for now. Examined by Dr Muir 08/22/18--Continue bowel regimen, rectal tube for decompression. Dr Nevarez 08/24/18--> Chronic pseudo-obstruction with hypertonic anal sphincter. Recommends to continue rectal tube decompression and continue curent bowel regimen #Alzheimer's Dementia Memantine 5 MG PO BID #HTN- Norvasc 5 PO Daily. Will increase to 10 mg PO Daily if BP remains elevated. #Prophylaxis -Lovenox 40 SQ #FEN -No Fluids -Monitor Electrolytes Soft Diet #Dispo -For SNF placement [place] Visit type - Emergency Visit Emergency Visit: Yes ED Registration Date: 08/01/18 Care time: The patient presented to the Emergency Department on the above date and was hospitalized for further evaluation of their emergent condition. - New Patient This patient is new to me today: No - Critical Care Critical Care patient: No - Discharge Referral Referred to [facility] Med P.C.: No
[2018-08-25] MEDS: POLYETHYLENE GLYCOL 3350 119 GM BTL PO SCH (05:11)
[2018-08-25 08:05] LABS: MCH 31.5 pg (25.7-33.7); MCHC 33.4 g/dl (32.0-36.0); MEAN CELL VOLUME 94.5 fl (80-96); MEAN PLT VOLUME 8.8 fl (7.5-11.1); PLATELET COUNT 326 K/MM3 (134-434); RBC 4.44 M/mm3 (3.60-5.2); RDW 16.7 % (11.6-15.6); WHITE BLOOD COUNT 6.2 K/mm3 (4.0-10.0)
[2018-08-25 08:51] LABS: ANION GAP 7 MMOL/L (8-16); BLOOD UREA NITROGEN 16 mg/dL (7-18); CALCIUM 9.1 mg/dL (8.5-10.1); CHLORIDE 107 mmol/L (98-107); CO2 30 mmol/L (21-32); CREATININE 0.6 mg/dL (0.55-1.3); GLUCOSE,RANDOM 93 mg/dL (74-106); MAGNESIUM 2.8 mg/dL (1.8-2.4); PHOSPHOROUS 3.4 mg/dL (2.5-4.9); POTASSIUM 4.1 mmol/L (3.5-5.1); SODIUM 144 mmol/L (136-145)
[2018-08-25] MEDS: MEMANTINE HCL 5 MG TABLET (UD) PO SCH (09:26)
[2018-08-25] MEDS: SENNA PO SCH (09:26)
[2018-08-25] MEDS: amLODIPine BESYLATE 5 MG TABLET (FP) PO SCH (09:26)
[2018-08-25] MEDS: ENOXAPARIN NA (PORCINE) 40 MG/0.4 ML DISP.SYRIN SQ SCH (09:26)
[2018-08-25] MEDS: COLLAGENASE CLOSTRIDIUM HIST. 30 GRAMS TUBE TP SCH (09:28)
[2018-08-25] MEDS: HYDROCORTISONE 2.5% TOPICAL CREAM 30 GM TUBE PR SCH (09:28)
--- NOTE | 2018-08-25 09:53 | PN ---
Teaching Attending Note Name of Resident: Delvis Juarez ATTENDING PHYSICIAN STATEMENT I saw and evaluated the patient. I reviewed the resident's note and discussed the case with the resident. I agree with the resident's findings and plan as documented. SUBJECTIVE: Patient is feeling better, No further distention. OBJECTIVE: Vital Signs Temperature 98 F 08/25/18 08:26 Pulse Rate 86 08/25/18 08:26 Respiratory Rate 20 08/25/18 08:26 Blood Pressure 144/89 08/25/18 08:26 O2 Sat by Pulse Oximetry (%) 98 08/24/18 21:00 GENERAL: Awake, in no acute distress EYES: EOMI, sclera anicteric, conjunctiva clear. LUNGS: BS BL, No wheeze or rales. HEART: S1S2 positive, No murmur, no exudates ABDOMEN: No distention , BS positive. soft EXTREMITIES: pulses are positive, No C/C/E SKIN: Right Hip eschar. : rectal tube is removed today. CBCD WBC 6.2 K/mm3 (4.0-10.0) 08/25/18 07:30 RBC 4.44 M/mm3 (3.60-5.2) 08/25/18 07:30 Hgb 14.0 GM/dL (10.7-15.3) 08/25/18 07:30 Hct 42.0 % (32.4-45.2) 08/25/18 07:30 MCV 94.5 fl (80-96) 08/25/18 07:30 MCHC 33.4 g/dl (32.0-36.0) 08/25/18 07:30 RDW 16.7 % (11.6-15.6) H 08/25/18 07:30 Plt Count 326 K/MM3 (134-434) 08/25/18 07:30 MPV 8.8 fl (7.5-11.1) 08/25/18 07:30 CMP Sodium 144 mmol/L (136-145) 08/25/18 07:30 Potassium 4.1 mmol/L (3.5-5.1) 08/25/18 07:30 Chloride 107 mmol/L (98-107) 08/25/18 07:30 Carbon Dioxide 30 mmol/L (21-32) 08/25/18 07:30 Anion Gap 7 MMOL/L (8-16) L 08/25/18 07:30 BUN 16 mg/dL (7-18) 08/25/18 07:30 Creatinine 0.6 mg/dL (0.55-1.3) 08/25/18 07:30 Creat Clearance w eGFR > 60 (>60) 08/25/18 07:30 Random Glucose 93 mg/dL (74-106) 08/25/18 07:30 Calcium 9.1 mg/dL (8.5-10.1) 08/25/18 07:30 Total Bilirubin 0.7 mg/dL (0.2-1) 08/10/18 11:20 AST 29 U/L (15-37) 08/10/18 11:20 ALT 35 U/L (13-61) 08/10/18 11:20 Alkaline Phosphatase 76 U/L (45-117) 08/10/18 11:20 Total Protein 4.6 g/dl (6.4-8.2) L 08/10/18 11:20 Albumin 2.2 g/dl (3.4-5.0) L 08/10/18 11:20 Hepatic Panel Total Bilirubin 0.7 mg/dL (0.2-1) 08/10/18 11:20 AST 29 U/L (15-37) 08/10/18 11:20 ALT 35 U/L (13-61) 08/10/18 11:20 Alkaline Phosphatase 76 U/L (45-117) 08/10/18 11:20 Albumin 2.2 g/dl (3.4-5.0) L 08/10/18 11:20 Home Medications Medication Instructions Recorded Cephalexin [Keflex] 500 mg PO QID 08/01/18 Memantine HCl 5 mg PO BID 08/01/18 Sulfamethoxazole/Trimethoprim 1 each PO BID 08/01/18 [Sulfamethoxazole-Tmp Ds Tablet] Aspirin [Adult Aspirin] 81 mg PO DAILY 08/02/18 Loperamide HCl Liquid [Imodium 1 mg PO DAILY 08/02/18 Liquid -] Saccharomyces Boulardii [Florastor] 250 mg PO DAILY 08/02/18 ASSESSMENT AND PLAN: Patient is a 88yo female with h/o Dementia, HTN, HLp, who comes from home with poor po intake, and for evaluation of R posterior hip. She was found to have constipation with severe colonic distention . # Severe colonic distention: due to fecal impaction, removal of rectal tube ; improved, no further distention noted. # Anal fissure/ questionable hypertensive anal sphinctor with fissure ; will order diltiazem 2% bid apply to anul sphincter , also cortisone 2.5% rectally, # severe constipation; Miralax with prune juice , patient has a rectal tube, if NH accepts the patient with the tube , will arrange for NH # HTN : continue meds. # Right posterior hip Eschar: on Santyl continue DVT Px: lovenox sq
--- NOTE | 2018-08-25 11:54 | PN ---
Progress Note, Physician History of Present Illness: no new issues stable - Current Medication List Current Medications: Active Medications Amlodipine Besylate (Norvasc -) 5 mg PO DAILY [facility] Last Admin: 08/25/18 09:26 Dose: 5 mg Bisacodyl (Dulcolax Suppository -) 10 mg WI DAILY PRN PRN Reason: CONSTIPATION Last Admin: 08/19/18 12:00 Dose: 10 mg Collagenase (Santyl -) 1 applic TP DAILY [facility]; Protocol Last Admin: 08/25/18 09:28 Dose: 1 applic Enoxaparin Sodium (Lovenox -) 40 mg SQ DAILY [facility] Last Admin: 08/25/18 09:26 Dose: 40 mg Hydrocortisone (Anusol 2.5% Hc Cream -) 1 applic WI BID [facility] Last Admin: 08/25/18 09:28 Dose: 1 applic Memantine (Namenda -) 5 mg PO BID [facility] Last Admin: 08/25/18 09:26 Dose: 5 mg Patient's Own Medication (Non- Formulary)Senna Liquid 0 each PO BID [facility] Last Admin: 08/25/18 09:26 Dose: 1 each Polyethylene Glycol (Miralax (For Daily Use) -) 17 gm PO TID [facility] Last Admin: 08/25/18 05:11 Dose: 17 gm - Objective Vital Signs: Vital Signs Temperature 98 F 08/25/18 08:26 Pulse Rate 86 08/25/18 08:26 Respiratory Rate 20 08/25/18 09:00 Blood Pressure 144/89 08/25/18 08:26 O2 Sat by Pulse Oximetry (%) 98 08/25/18 09:00 Constitutional: Yes: No Distress, Calm Cardiovascular: Yes: S1, S2 Respiratory: Yes: Regular, CTA Bilaterally Gastrointestinal: Yes: Normal Bowel Sounds, Soft Musculoskeletal: Yes: Other Neurological: Yes: Alert Labs: CBC, BMP 08/25/18 07:30 08/25/18 07:30 Assessment/Plan Problem List - Problems (1) Alzheimer disease Code(s): G30.9 - ALZHEIMER'S DISEASE, UNSPECIFIED; F02.80 - DEMENTIA IN OTH DISEASES CLASSD ELSWHR W/O BEHAVRL DISTURB Qualifiers: Alzheimer's disease onset: unspecified onset Dementia behavioral disturbance: with behavioral disturbance Qualified Code(s): G30.9 - Alzheimer' s disease, unspecified; F02.81 - Dementia in other diseases classified elsewhere with behavioral disturbance (2) Fecal impaction Code(s): K56.41 - FECAL IMPACTION (3) Necrotic eschar Code(s): L98.8 - OTH DISRD OF THE SKIN AND SUBCUTANEOUS TISSUE (4) Unstageable pressure ulcer Code(s): L89.95 - PRESSURE ULCER OF UNSPECIFIED SITE, UNSTAGEABLE Assessment/Plan Constipation/Colonic distention s/p disimpactions GI following nutrition rest as per the team
--- NOTE | 2018-08-25 13:11 | PN ---
GI Progress Note Subjective: Multiple bowel movements per nurse, both around tube and through rectal tube - Objective Vital Signs: Vital Signs Temperature 98 F 08/25/18 08:26 Pulse Rate 86 08/25/18 08:26 Respiratory Rate 20 08/25/18 09:00 Blood Pressure 144/89 08/25/18 08:26 O2 Sat by Pulse Oximetry (%) 98 08/25/18 09:00 Constitutional: Calm Eyes: No: Sclera Icterus Cardiovascular: Yes: Regular Rate and Rhythm Respiratory: Yes: Diminished (at bases with poor insp effort) Gastrointestinal Inspection: No: Distention ...Auscultate: Yes: Normoactive Bowel Sounds ...Palpate: Yes: Soft. No: Hepatomegaly, Tenderness ...Percussion: No: Tympanitic ...Rectal Exam: Yes: Other (rectal tube removed) Labs: CBC, BMP 08/25/18 07:30 08/25/18 07:30 Problem List - Problems (1) Colonic inertia Assessment/Plan: With suspected component of hypertensive anal sphincter. ? chronic anal fissure Clinically much improved Trial of therapy with 2% diltiazem cream to the anal canal would optimal Continue MiraLAX 17g PO BID If persistent colonic distention, consider transfer to institution with colorectal surgeon Code(s): K59.9 - FUNCTIONAL INTESTINAL DISORDER, UNSPECIFIED
--- NOTE | 2018-08-25 16:07 | DS ---
Physical Exam: SUBJECTIVE: Patient seen and examined at bedside. No acute event overnight. OBJECTIVE: Vital Signs Period Temp Pulse Resp BP Sys/Turcios Pulse Ox Last 24 Hr 97.5 F-98.2 F 78-102 20-20 131-150/60-89 98-98 PHYSICAL EXAM GENERAL: NAD EYES: Sclera clear EOMI LUNGS: Dec breath sounds at bases HEART: RRR 3/6 SM ABDOMEN: Soft nondistended nontender. Rectal tube removed today. EXTREMITIES: Trace edema. Right hip ulcer with eschar. LABS Laboratory Results - last 24 hr 08/25/18 08/25/18 07:30 07:30 WBC 6.2 RBC 4.44 Hgb 14.0 Hct 42.0 MCV 94.5 MCH 31.5 MCHC 33.4 RDW 16.7 H Plt Count 326 MPV 8.8 Sodium 144 Potassium 4.1 Chloride 107 Carbon Dioxide 30 Anion Gap 7 L BUN 16 Creatinine 0.6 Creat Clearance w eGFR > 60 Random Glucose 93 Calcium 9.1 Phosphorus 3.4 Magnesium 2.8 H HOSPITAL COURSE: Date of Admission:08/01/18 88F w/ pmhx of HTN, HLD, Alzheimer's dementia presented to the hospital for evaluation of R hip pressure ulcer as well as poor PO intake. Pt was found to have constipation and severe colonic distension. Pt underwent a CTAP which revealed diffuse colonic distension and prominent rectosigmoid fecal retention/ impaction. There was no lactic acid elevation or signs of perforation or fever/ leukcocytosis. Pt was placed on senna, colace, and miralax all standing. 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 P was manually disimpacted during her stay by myself along with RN (Lexi). Large amount of watery stool and gas was expelled from the rectum. Pt remained distended during her stay and surgery suggested possible use of neostigmine and/or recommended evaluation by GI for possible colonoscopic decompression and placement of a rectal tube. HerbertI evaluated pt, Dr Morales, who manually disimpacted patient successfully with the expulsion of copious amounts of stool and gas. Rectal tube was inserted for colonic decompression. Pt's potassium level as noted to be low during stay at 2.9 and wad repeated accordingly. Pt underwent multiple abdominal xrays to assess the progress of her distension. Abdominal xray dated 08/14/18 stated that pt may have had a possible sigmoid volvulus. CTAP was subsequently ordered which led this out. 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 Rachael suggested a trial of therapy with 2% diltiazem cream to the anal canal. Unfortunately pharmacy indicated that they did not carry this medication. Pt was d/c'ed to [facility] with a prescription for this medication along with Miralax 17g PO BID and the rest of her other medications. Date of Discharge: 08/25/18 Minutes to complete discharge: 35 Discharge Summary Reason For Visit: ALZHEIMER DISEASE;FAILURE TO THRIVE;PRESSURE INJUR Current Active Problems Alzheimer disease (Acute) Bed sore (Acute) Colonic inertia (Acute) Constipation by delayed colonic transit (Acute) Failure to thrive (Acute) Fecal impaction (Acute) Necrotic eschar (Acute) Unstageable pressure ulcer (Acute) Condition: Improved - Instructions Diet, Activity, Other Instructions: You presented to the hospital due to suspected colonic obstruction. Please take the following medications as prescribed: Miralax 17 G Orally TWICE per day. Please make sure that this medication is placed in a hard mug with 4 packets of sugar in apple juice. Pt only likes to drink out of hard mug. Senna Liquid 30 ML TWICE per day. Please make sure that this medication is placed in a hard mug with 4 packets of sugar and apple juice. Pt only likes to drink out of hard mug. Cortisone 2.5% cream applied to rectum for your Hemorrhoids Diltiazem 2% cream applied to the rectum TWICE Daily. This is will help relieve the fissure. Dulcolax suppository 10 mg Rectally as needed for constipation. Please follow up with your primary care doctor this week. Please follow up with the R[facility] Diabetes in 1 week to assess your abdomen and see if any other interventions may be needed, Dr Palmer. Please apply santyl to the pressure ulcer on your right hip daily. PLEASE DO NOT TAKE LOPERAMIDE OR ANY IMMODIUM Please Return to the emergency department if you begin to experience chest pain , shortness of breath, abdominal distension, nausea, or vomiting. Referrals: Nadeem Barnes [Primary Care Provider] - DiGiorno,Murphy, DO [Staff Physician] - 1 Week Disposition: RESIDENTIAL FACILITY - Home Medications Comprehensive Discharge Medication List: Ambulatory Orders Memantine HCl 5 mg PO BID 08/01/18 Aspirin [Adult Aspirin] 81 mg PO DAILY 08/02/18 Saccharomyces Boulardii [Florastor] 250 mg PO DAILY 08/02/18 Amlodipine Besylate [Norvasc -] 5 mg PO DAILY tablet 08/25/18 Bisacodyl Suppository [Dulcolax Suppository -] 10 mg NM DAILY PRN supp.rect 11/08 Collagenase Clostridium Hist. [Santyl -] 1 applic TP DAILY tube 08/25/18 Enoxaparin [Lovenox -] 40 mg SQ DAILY disp.syrin 08/25/18 Hydrocortisone 2.5% Topical Cr [Anusol-Hc -] 1 applic NM BID tube 08/25/18 Miscellaneous Drug Not In Syst [Outpatient Lab Test] 1 each ASDIR #1 misc 11/08 Polyethylene Glycol 3350 [Miralax 119 gm Btl -] 17 gm PO BID bottle 08/25/18 Sennosides/Docusate Sodium [Pericolace -] 2 tablet PO HS PRN tablet 08/25/18 This patient is new to me today: No Emergency Visit: Yes ED Registration Date: 08/01/18 Care time: The patient presented to the Emergency Department on the above date and was hospitalized for further evaluation of their emergent condition. Critical Care patient: No - Discharge Referral Referred to [facility] Med P.C.: No
[2018-08-25 18:18] VITALS: BP 113/56; PULSE 70; TEMP 98
[2018-08-25] MEDS ORDERED: POLYETHYLENE GLYCOL 3350 119 GM BTL PO SCH (22:00)
== END 2018-08-25 09:00 | DRG 390 ==
LOC: JER 17:51 → JERBED 19:11 → J7W 08-02 17:31
PROVIDERS: ADMIT Internal Medicine; ATTEND Internal Medicine
DX: K56.699 Other intestinal obstruction unspecified as to partial versus complete obstruction (principal); K56.41 Fecal impaction; L89.221 Pressure ulcer of left hip, stage 1; L89.210 Pressure ulcer of right hip, unstageable; L89.511 Pressure ulcer of right ankle, stage 1; E86.9 Volume depletion, unspecified; E86.0 Dehydration; G30.0 Alzheimer's disease with early onset; F02.80 Dementia in other diseases classified elsewhere, unspecified severity, without behavioral disturbance, psychotic disturbance, mood disturbance, and anxiety; G30.9 Alzheimer's disease, unspecified; R62.7 Adult failure to thrive; I16.0 Hypertensive urgency; K60.2 Anal fissure, unspecified; I10 Essential (primary) hypertension; E78.5 Hyperlipidemia, unspecified; G89.29 Other chronic pain; M25.551 Pain in right hip; Z96.652 Presence of left artificial knee joint; L98.8 Other specified disorders of the skin and subcutaneous tissue; I44.0 Atrioventricular block, first degree; Z91.19 Patient's noncompliance with other medical treatment and regimen; R26.81 Unsteadiness on feet; Z66 Do not resuscitate; R45.1 Restlessness and agitation; E87.6 Hypokalemia
CPT/HCPCS: 36415; 71045-TC-FY; 74018-TC-FY; 74150-TC; 74176-TC; 80048; 80053; 81003; 81015; 82962; 83605; 83735; 84100; 84132; 84134; 85025; 85027; 85651; 86140; 87040; 87086; 93005; 93010; 97116-GP; 97161-GP; 99285-25; J0131

== ENCOUNTER 2018-09-02 18:12 | Inpatient (IN) | payer OTHER ==
[2018-09-02] MEDS ORDERED: ASPIRIN 81 MG CHEWABLE TABLETS PO ONE (18:46)
[2018-09-02] MEDS ORDERED: ATORVASTATIN CA 40 MG TABLET (FP) PO ONE (18:46)
--- NOTE | 2018-09-02 18:47 | PDOC ---
Attending Attestation - HPI HPI: 09/02/18 22:30 The patient is a 88 year old female, with a significant past medical history of alzheimer's dementia, HTN, and HLD who presents to the emergency department via EMS with altered mental status since 4pm today. As per daughter, the patient is able to speak and understand when at baseline. The patient is responding to simple commands when daughter speaks to her in [place] but has garbled speech. Allergies: warfarin sodium Past surgical history: left knee replacement 2005 Social history: None reported PCP: Dr. Nadeem Barnes - Physicial Exam PE: 09/02/18 22:30 GENERAL: (+) voluntarily moving. (+) generally weak. (+) follows simple commands. (+) garbled speech. Awake, alert. HEAD: No signs of trauma EYES: able to open eyes ENT: hearing grossly normal NECK: Normal ROM, supple LUNGS: Breath sounds equal, clear to auscultation bilaterally. No wheezes, and no crackles HEART: Regular rate and rhythm, normal S1 and S2, no murmurs, rubs or gallops EXTREMITIES: (+) weak arms and legs SKIN: Warm, Dry, normal turgor, no rashes or lesions noted. <Arturo Weaver - Last Filed: 09/02/18 22:30> - Resident Resident Name: Narayan Gallagher - ED Attending Attestation I have performed the following: I have examined & evaluated the patient, The case was reviewed & discussed with the resident, I agree w/resident's findings & plan, Exceptions are as noted - Critical Care Time Total Critical Care Time: 35 Critical Care Statement: The care of this patient involved high complexity decision making to prevent further life threatening deterioration of the patient 's condition and/or to evaluate & treat vital organ system(s) failure or risk of failure. - Medical Decision Making 09/02/18 18:39 I, Dr. Simran Lawrence, DO, attest that this document has been prepared under my direction and personally reviewed by me in its entirety. I further attest, that it accurately reflects all work, treatment, procedures and medical decision -making performed by me. 09/02/18 18:40 a/p: 88yo female with hx of alzheimers dementia with acute change in ms at 4p today -code bueno called, garbled speech - pt responding to simple commands when spoken to in [place] -pt still with garbled speech -moving all extremities, but will only follow simple commands -last normal at 4p per the NH -wont hold up limbs, difficult to assess full neuro -has improved since 4p, bc not initially speaking, but now garbled speech, but speaking more now -stat head ct obtain, will send labs 09/02/18 18:46 resident discussed the case with Dr. Espinoza - no tpa at this time improving mental status at this time 09/02/18 21:26 labs reviewed free t4 added no uti 09/02/18 21:28 cxr shows pna will start broad spectrum abx and add cultures 09/02/18 21:50 microblog sent to [facility] 09/02/18 22:36 facundoe discussed Gerald the [facility] residents who accepts pt to service <Simran Lawrence - Last Filed: 09/02/18 22:36> *DC/Admit/Observation/Transfer - Discharge Dispostion Decision to Admit order: Yes <Simran Lawrence - Last Filed: 09/02/18 22:36> Diagnosis at time of Disposition: Pneumonia, Altered mental status - Discharge Dispostion Condition at time of disposition: Fair - Referrals Referrals: Wilder Antonio MD [Primary Care Provider] - - Patient Instructions - Post Discharge Activity Heart Score/ECG Review - ECG Intrepretation Comment:: 09/02/18 21:28 sinus at 85, 1st degree av block, lvh, nl interval, no acute st/t wave findings <Simran Lawrence - Last Filed: 09/02/18 22:36> Attestations - Attestations 09/02/18 22:30 Documentation prepared by Arturo Weaver, acting as pesticide use medical coordinator for Simran Lawrence DO, MD <Arturo Weaver - Last Filed: 09/02/18 22:30>
[2018-09-02 19:28] LABS: BASO % 0.9 % (0-2.0); EOS % 0.6 % (0-4.5); HEMATOCRIT 47.6 % (32.4-45.2); HEMOGLOBIN 15.9 GM/dL (10.7-15.3); LYMPH % 14.1 % (8-40); MCH 31.9 pg (25.7-33.7); MCHC 33.5 g/dl (32.0-36.0); MEAN CELL VOLUME 95.3 fl (80-96); MEAN PLT VOLUME 9.5 fl (7.5-11.1); MONO % 13.2 % (3.8-10.2); NEUT % 71.2 % (42.8-82.8); PLATELET COUNT 262 K/MM3 (134-434); RBC 4.99 M/mm3 (3.60-5.2); WHITE BLOOD COUNT 7.5 K/mm3 (4.0-10.0)
[2018-09-02 19:40] LABS: INR 0.95 (0.83-1.09); PROTHROMBIN TIME (PATIENT) 11.2 SEC (9.7-13.0)
[2018-09-02 19:43] LABS: ACTIVATED PTT 29.1 SECONDS (25.2-36.5)
[2018-09-02 19:49] LABS: URINE APPEARANCE CLEAR; URINE BILIRUBIN NEGATIVE (<2.0 mg/dL); URINE COLOR DKYELLOW; URINE GLUCOSE (UA) NEGATIVE (NEGATIVE); URINE KETONE NEGATIVE (NEGATIVE); URINE LEUK ESTERASE NEGATIVE (NEGATIVE); URINE NITRITE NEGATIVE (NEGATIVE); URINE PROTEIN NEGATIVE (NEGATIVE)
--- NOTE | 2018-09-02 20:33 | PDOC ---
History of Present Illness - General Chief Complaint: Altered Mental Status Stated Complaint: ALTERED MENTAL STATUS Time Seen by Provider: 09/02/18 18:17 History Source: Patient Exam Limitations: No Limitations - History of Present Illness Initial Comments: 09/02/18 21:07 88 yo F with a hx of HTN, HLD, and Alzheimer's dementia presents to [facility] ED with AMS per daughter and EMS with last normal at 4pm. Per the daughter, the patient at baseline is able to speak (she only speaks and understands porteguese ) and follows commands. Per the facility which has a 1-1 observation of the patient, she stopped responding at 4pm. Denies head trauma or fall. Per the daughter, the mother was recently discharged from [facility] for SBO with conservative management and was at [facility] for rehabilitation. tPA Exclusion Checklist 0-3hr - Time Elapsed Date last known well: 09/02/18 Time last known well: 16:00 Elaspsed time: 1 Day(s) and 16 Hour(s) and 47 Minutes - Thrombolytic Therapy Candidate Is the patient eligible for Thrombolytic Therapy?: Yes - Exclusion Criteria 0-3hr SBP greater than 185 or DBP greater than 110mmHg despite tx: No Recent IC/spinal surgery,head trauma or stroke w/in last 3mo: No Hx of previous IC hemorrhage, IC neoplasm, AVM or aneurysm: No Active internal bleeding: No Blding diathesis(low plt ct, inc PTT,INR>1.7 or use of NOAC): No Symptoms suggest subarachnoid hemorrhage: No CT demonstrates multilobar infarct(>1/3 cerebral hemiphere): No Arterial puncture at noncompressible site in previous 7 days: No Blood glucose concentration less than 50mg/dL (2.7mmol/L): No - Relative Exclusion Criteria 0-3h Life expectancy <1yr/severe co-morbid illness/[employer] on admit: No : No Patient/family refused: No Rapid improvement: Yes Stroke severity too mild: Yes Recent acute AL (w/in previous 3 months): No Seizure at onset with postictal residual neuro impairments: No Major surgery or serious trauma w/in previous 14 days: No Recent GI or hemorrhage (w/in previous 21 days): No - Ineligibility reason(s) Reasons No tPA given: See reason(s) noted above (symptoms very mild and rapid improvement. likely AMS due to source other than CVA. daughter (healthcare proxy ) wished to not give the tpa and to assess for other etiologies. neurology also did not think tpa was necessary) NIH Stroke Scale - Last Known Well Date/Time & Onset Date Last Known Well: 09/02/18 Time Last Known Well: 16:00 - Initial Evaluation Level of consciousness: Not alert, requires repeat stimulation to attend Ask patient the month and their age: Both incorrect Ask patient to open & close eyes; make fist and let go: Both incorrect Best gaze (horizontal eye movement): Normal Visual field testing: No visual field loss Facial paresis (Show teeth/raise eyebrows/close eyes tight): Normal symmetrical movement Motor Function: Left Arm: Some effort against gravity Motor Function: Right Arm: Some effort against gravity Motor Function: Left Leg: Some effort against gravity Motor Function: Right Leg: Some effort against gravity Limb Ataxia: Untestable (Joint fused or limb amputated), explain: (not following commands) Sensory(Use pinprick test arms,legs,trunk,face/side to side): Normal Best language (Describe picture, name items, read sentences): Mild to moderate aphasia Dysarthria (read several words): Near unintelligible or unable to speak Extinction and Inattention: No abnormality (patient presented quite altered mental status. initially, she was unresponsive, had minimal movement of extremities, arousable only by sternal rub, and not following commands. as she progressed during her stay, she became alert and better movement of extremities with response to commands. likely ams due to etiology other than cva) - Total Score NIH Stroke Scale Score: 17 Past History - Past Medical History Allergies/Adverse Reactions: Allergies Allergy/AdvReac Type Severity Reaction Status Date / Time warfarin sodium AdvReac Verified 08/01/18 18:07 [From Coumadin] Home Medications: Ambulatory Orders NK [No Known Home Medication] 09/02/18 COPD: No Dementia: Yes HTN: Yes Hypercholesterolemia: Yes - Surgical History Orthopedic Surgery: Yes (left knee replacemet 2006) - Suicide/Smoking/Psychosocial Hx Smoking Status: No Smoking History: Unknown if ever smoked Have you smoked in the past 12 months: No Number of Cigarettes Smoked Daily: 0 Cigars Per Day: 0 Hx Alcohol Use: No Drug/Substance Use Hx: No Substance Use Type: None Review of Systems - Review of Systems Able to Perform ROS?: No (AMS) Is the patient limited Chinese proficient: Yes *Physical Exam - Vital Signs Last Vital Signs Temp Pulse Resp BP Pulse Ox 98.4 F 83 16 173/80 H 94 L 09/02/18 18:25 09/02/18 18:25 09/02/18 18:25 09/02/18 18:25 09/02/18 18:25 - Physical Exam General Appearance: Yes: Nourished, Appropriately Dressed, Apparent Distress. No: Intoxicated, Obese, Thin HEENT: positive: EOMI, RAUL, Pharynx Normal, Hearing Grossly Normal, Other (dry mucous membranes). negative: Pale Conjunctivae, Scleral Icterus (R), Scleral Icterus (L), Muffled/Hoarse voice, Pharyngeal Erythema, Tonsillar Exudate, Tonsillar Erythema, Excessive drooling Neck: positive: Trachea midline, Supple. negative: Tender, Lymphadenopathy (R) , Lymphadenopathy (L), Tender lateral, Tender midline Respiratory/Chest: positive: Lungs Clear, Normal Breath Sounds. negative: Chest Tender, Respiratory Distress, Accessory Muscle Use, Crackles, Rales, Rhonchi, Stridor, Wheezing Cardiovascular: positive: Regular Rhythm, Regular Rate, S1, S2. negative: Systolic Murmur Gastrointestinal/Abdominal: positive: Normal Bowel Sounds, Flat, Soft. negative : Tender, Guarding, Rebound Lymphatic: negative: Adenopathy Musculoskeletal: positive: Normal Inspection. negative: CVA Tenderness, Vertebral Tenderness Extremity: positive: Normal Capillary Refill, Normal Inspection, Normal Range of Motion. negative: Tender Integumentary: positive: Normal Color, Dry, Warm Neurologic: positive: Other. negative: Fully Oriented, Alert, Normal Response Moderate Sedation - Procedure Monitoring Vital Signs: Procedure Monitoring Vital Signs Temperature 98.4 F 09/02/18 18:25 Pulse Rate 83 09/02/18 18:25 Respiratory Rate 16 09/02/18 18:25 Blood Pressure 173/80 H 09/02/18 18:25 O2 Sat by Pulse Oximetry (%) 94 L 09/02/18 18:25 Heart Score/ECG Review - ECG Intrepretation Comment:: ventricular rate is 85 NSR. 1st degree AV block noted. No ST elevations or depressions noted. LVH noted. ED Treatment Course - LABORATORY CBC & Chemistry Diagram: 09/04/18 06:00 09/04/18 06:00 - ADDITIONAL ORDERS Additional order review: Laboratory Results 09/02/18 09/02/18 09/02/18 19:20 19:20 19:00 PT with INR 11.20 INR 0.95 PTT (Actin FS) 29.1 Hemoglobin A1c % 5.7 Urine Color Dkyellow Urine Appearance Clear Urine pH 5.0 Ur Specific [place] 1.024 Urine Protein Negative Urine Glucose (UA) Negative Urine Ketones Negative Urine Blood Negative Urine Nitrite Negative Urine Bilirubin Negative Urine Urobilinogen 2.0 H Ur Leukocyte Esterase Negative 09/02/18 19:20 RBC 4.99 MCV 95.3 MCHC 33.5 RDW 17.0 H MPV 9.5 Neutrophils % 71.2 Lymphocytes % 14.1 D Monocytes % 13.2 H Eosinophils % 0.6 D Basophils % 0.9 D - Medications Given in the ED: ED Medications Discontinued Medications Generic Name Dose Route Start Last Admin Trade Name Freq PRN Reason Stop Dose Admin Aspirin 324 mg 09/02/18 18:46 09/02/18 20:02 Asa - PO 09/02/18 18:47 Not Given ONCE ONE Atorvastatin Calcium 40 mg 09/02/18 18:46 09/02/18 20:02 Lipitor - PO 09/02/18 18:47 Not Given ONCE ONE Medical Decision Making - Medical Decision Making 88 yo F with a hx of HTN, HLD, and Alzheimer's dementia presents to [facility] ED with AMS per daughter and EMS with last normal at 4pm. Initial vitals: Initial Vital Signs Temp Pulse Resp BP Pulse Ox 98.4 F 83 16 173/80 H 94 L 09/02/18 18:25 09/02/18 18:25 09/02/18 18:25 09/02/18 18:25 09/02/18 18:25 Code bueno was called due to patient having sigificant alteration in mental status from baseline sudden onset while at rehabilitation center without obvious signs of trauma. Initially, patient was not responding to voice or touch , minimally to pain, and did not move extremities. Over the course of ED stay, patient became more alert and moving extremities spontaneously. A conversation with the daughter on the risks and benefits of tPA administration were held. Per the patient's daughter who is the health care proxy, wishes to withhold tpa administration. Neuro consult was placed and in agreeable with no tpa administrationl Laboratory Tests 09/02/18 09/02/18 09/02/18 19:00 19:20 19:20 WBC 7.5 RBC 4.99 Hgb 15.9 H Hct 47.6 H MCV 95.3 MCH 31.9 MCHC 33.5 RDW 17.0 H Plt Count 262 MPV 9.5 Absolute Neuts (auto) 5.3 Neutrophils % 71.2 Lymphocytes % 14.1 D Monocytes % 13.2 H Eosinophils % 0.6 D Basophils % 0.9 D Nucleated RBC % 0 PT with INR 11.20 INR 0.95 PTT (Actin FS) 29.1 Sodium Potassium Chloride Carbon Dioxide Anion Gap BUN Creatinine Creat Clearance w eGFR Random Glucose Hemoglobin A1c % Lactic Acid Calcium Magnesium Total Bilirubin AST ALT Alkaline Phosphatase Creatine Kinase Troponin I Total Protein Albumin Triglycerides Cholesterol Total LDL Cholesterol HDL Cholesterol TSH Free T4 Urine Color Dkyellow Urine Appearance Clear Urine pH 5.0 Ur Specific [place] 1.024 Urine Protein Negative Urine Glucose (UA) Negative Urine Ketones Negative Urine Blood Negative Urine Nitrite Negative Urine Bilirubin Negative Urine Urobilinogen 2.0 H Ur Leukocyte Esterase Negative 09/02/18 09/02/18 09/02/18 19:20 19:20 22:16 WBC RBC Hgb Hct MCV MCH MCHC RDW Plt Count MPV Absolute Neuts (auto) Neutrophils % Lymphocytes % Monocytes % Eosinophils % Basophils % Nucleated RBC % PT with INR INR PTT (Actin FS) Sodium 144 Potassium 4.5 Chloride 108 H Carbon Dioxide 29 Anion Gap 7 L BUN 22 H Creatinine 0.7 Creat Clearance w eGFR > 60 Random Glucose 111 H Hemoglobin A1c % 5.7 Lactic Acid 1.4 Calcium 9.8 Magnesium 2.9 H Total Bilirubin 0.7 AST 33 ALT 25 Alkaline Phosphatase 86 Creatine Kinase 47 Troponin I 0.03 Total Protein 6.7 Albumin 3.4 Triglycerides 148 Cholesterol 236 H Total LDL Cholesterol 143 H HDL Cholesterol 71 H TSH 0.25 L Free T4 1.55 H Urine Color Urine Appearance Urine pH Ur Specific [place] Urine Protein Urine Glucose (UA) Urine Ketones Urine Blood Urine Nitrite Urine Bilirubin Urine Urobilinogen Ur Leukocyte Esterase head ct was negative for intracranial acute pathology. labs are within normal limits save for the following: low tsh, high t4, and high magnesium. cholesterol levels elevated. cxr shows atelectasis vs PNA - will start broad spectrum abx for coverage. Patient given 1 L of NS for rehydration. Patient was accepted for admission. 09/04/18 09:17 09/04/18 09:19 *DC/Admit/Observation/Transfer Diagnosis at time of Disposition: Pneumonia Qualifiers: Pneumonia type: due to unspecified organism Laterality: unspecified laterality Lung location: unspecified part of lung Qualified Code(s): J18.9 - Pneumonia, unspecified organism Altered mental status Qualifiers: Altered mental status type: unspecified Qualified Code(s): R41.82 - Altered mental status, unspecified - Discharge Dispostion Condition at time of disposition: Fair - Referrals - Patient Instructions - Post Discharge Activity
[2018-09-02] MEDS ORDERED: SODIUM CHLORIDE 0.9% 1000 ML INFUS.BAG IV ONE (20:43)
[2018-09-02 21:07] LABS: ALBUMIN 3.4 g/dl (3.4-5.0); ALK PHOS 86 U/L (45-117); ANION GAP 7 MMOL/L (8-16); BILIRUBIN,TOTAL 0.7 mg/dL (0.2-1); BLOOD UREA NITROGEN 22 mg/dL (7-18); CALCIUM 9.8 mg/dL (8.5-10.1); CHLORIDE 108 mmol/L (98-107); CHOLESTEROL 236 mg/dL (50-200); CO2 29 mmol/L (21-32); CREATININE 0.7 mg/dL (0.55-1.3); GLUCOSE,RANDOM 111 mg/dL (74-106); HDL CHOLESTEROL 71 mg/dL (40-60); SGPT/ALT 25 U/L (13-61); SODIUM 144 mmol/L (136-145); TOT PROT 6.7 g/dl (6.4-8.2); TRIGLYCERIDES 148 mg/dL (0-150)
[2018-09-02] MEDS ORDERED: VANCOMYCIN 1 GM in D5W (PRE-DOCKED) 1,000 MG/250 ML IVPB ONE (21:27)
[2018-09-02] MEDS ORDERED: PIPERACILLIN/TAZOB 4.5 GM 4.5 GM in DEXTROSE 5%-WATER 100 ML IVPB ONE (21:27)
[2018-09-02 21:28] LABS: MAGNESIUM 2.9 mg/dL (1.8-2.4); POTASSIUM 4.5 mmol/L (3.5-5.1); SGOT/AST 33 U/L (15-37)
[2018-09-02] MEDS ORDERED: VANCOMYCIN 1,000 MG in DEXTROSE 5%-WATER - 250 ML IVPB ONE (21:28)
[2018-09-02] MEDS ORDERED: PIPERACILLIN/TAZOB 4.5 GM 4.5 GM/100 ML BAG IVPB ONE (21:50)
--- NOTE | 2018-09-02 22:40 | CON.NEURO ---
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 Cardio/Vascular: Yes: CAD, HTN, Hyperlipdemia Gastrointestinal: Yes: Constipation Endocrine: Yes: Osteopenia (with vertebral compression fracture) - Past Surgical History Past Surgical History: Yes: Cataract Removal (bilateral ), Colonoscopy, Hysterectomy, Joint Replacement (L TKR) - Alcohol/Substance Use Hx Alcohol Use: No History of Substance Use: reports: None - Smoking History Smoking history: Unknown if ever smoked Have you smoked in the past 12 months: No Aproximately how many cigarettes per day: 0 - Social History Usual Living Arrangement: With Child ADL: Family Assistance History of Recent Travel: No Home Medications - Allergies Allergies/Adverse Reactions: Allergies Allergy/AdvReac Type Severity Reaction Status Date / Time warfarin sodium AdvReac Verified 08/01/18 18:07 [From Coumadin] - Home Medications Home Medications: Ambulatory Orders NK [No Known Home Medication] 09/02/18 Family Disease History - Family Disease History Family Disease History: Other: Father (lived into 80s), Mother (lived into her 80s) Physical Exam-Neuro Vital Signs: Vital Signs Temperature 98.4 F 09/02/18 18:25 Pulse Rate 84 09/02/18 21:24 Respiratory Rate 16 09/02/18 21:24 Blood Pressure 163/90 09/02/18 21:24 O2 Sat by Pulse Oximetry (%) 98 09/02/18 21:24 Labs: CBC, BMP 09/02/18 19:20 09/02/18 19:20 INR, PTT INR 0.95 (0.83-1.09) 09/02/18 19:20 Assessment/Plan cc worsening of mental status for one day HPI 88 year old female history of alzheimer dementia, [facility]. She has garbled speech and was brought to hospital . Given her symptoms were more generalized and diagnosis of stroke was in doubt and she was not given tpa. Daughter is at bedside and feel that it appears to be slow detioration in her condition. Patient has been moving all extremity . She speaks protuguesse. Patient is able to speak and follow commond . Patient found to have Pneumonia on xray and she is on abx. PMH as above SH,ROS,FH reviewed in chart a Medication reviwed in chart NEUROLOGICAL EXAMINATION Alert and sleepy and able to open eye and was able to follow simple command there is neck muslce spasm due arthritis pupils reactive, no face asymmetry moving all extrey ct head no acute findings xray chest showed pneumonia Assessment 88 year old female with AD, came with worsening of mental status, most likley metabolic encephalopathy secondary to pneumonia and constipation Plan: not a candidate of tpa discussed with ED physician and family member - continue current level of care and abx - No need for any mri of brain Thanking you so much Peña Segura MD
--- NOTE | 2018-09-02 22:41 | PN ---
Teaching Attending Note Name of Resident: Robby Woods ATTENDING PHYSICIAN STATEMENT I saw and evaluated the patient. I reviewed the resident's note and discussed the case with the resident. I agree with the resident's findings and plan as documented. SUBJECTIVE: Patient is an 88 year old woman a [facility] resident with a PMH of alzheimer' s dementia, right hip pressure ulcer, failure to thrive, HTN, and HLD who presents to the ER via EMS with altered mental status since 4pm today. As per daughter, the patient is able to speak and understand when at baseline. The patient is responding to simple commands when daughter speaks to her in polish but has garbled speech. The daughter says the NH staff did not tell her whether patient had any complaints before the change in her mentation. Patient was recently hospitalized at [facility] for constipation, failure to thrive and right hip ulcer. On arrival in the ER today, a code duran was called. But a proper NIHSS could not be performed and head CT scan didnot show acute abnormality. Neurology advised against TPa therapy. OBJECTIVE: Somnolent but arousable. Vital Signs Period Temp Pulse Resp BP Sys/Turcios Pulse Ox Last 24 Hr 98.4 F 79-84 16-26 138-173/76-108 94-100 HEENT: No Jaundice, eye redness or discharge, PERRLA, EOMI. Normocephalic, atraumatic. External ears are normal; No nasal discharge. Neck: Supple, nontender. No palpable adenopathy or thyromegaly. No JVD Chest: Good effort. Clear to auscultation and percussion. Heart: Regular. No S3, rub or murmur Abdomen: Distended, soft, nontender and no HSM. No rebound or guarding. Normal bowel sounds. Ext: Peripheral pulses intact. No leg edema. Right hip 1.5-2 inch diameter ulcer with no drainage. Skin: Warm and dry. No petechiae, rash or ecchymosis. Neuro: Somnolent but arousable. Moves all limbs and withdraws to noxious stimuli. CN 2-12 grossly intact. Sensation grossly intact in all four extremities and DTR are symmetric. Psych: Cannot be properly assessed. Current Medications Generic Name Dose Route Start Last Admin Trade Name Freq PRN Reason Stop Dose Admin Acetaminophen 650 mg 09/02/18 22:47 Tylenol - PO Q4H PRN PAIN LEVEL 1-5 Heparin Sodium (Porcine) 5,000 unit 09/02/18 23:00 Heparin - SQ Q8H-IV MONSTER Sodium Chloride 1,000 mls @ 42 mls/hr 09/02/18 23:00 Normal Saline - IV ASDIR MONSTER Home Medications Medication Instructions Recorded NK [No Known Home Medication] 09/02/18 Abnormal Lab Results 09/02/18 09/02/18 09/02/18 19:00 19:20 19:20 Hgb 15.9 H Hct 47.6 H RDW 17.0 H Monocytes % 13.2 H Chloride 108 H Anion Gap 7 L BUN 22 H Random Glucose 111 H Magnesium 2.9 H Cholesterol 236 H Total LDL Cholesterol 143 H HDL Cholesterol 71 H TSH 0.25 L Urine Urobilinogen 2.0 H ASSESSMENT AND PLAN: 1. AMS and RLL Pneumonia (HCAP) - CXR shows RLL infiltrate. Toxic metabolic encephalopathy due to infection likely explains AMS. Being treated with IV vancomycin and zosyn. No acute pathology on head CT and no acute ST-T wave changes on EKG. With evidence of hemoconcentration, will hydrate gently and treat constipation with enema. Intensify treatment of hyperlipidemia and check full TFT in view of low TSH. Repeat Mg level after adequate hydration and provide comprehensive dementia care including frequent repositioning to prevent decubitus ulcers and fall precautions. Keep her NPO until she passes a swallow evaluation. Continue daily care of right hip ulcer and dressing with Santyl. 2. DVT prophylaxis - Lovenox 40 mg SQ q 24 hours. 3. Advance directives - Full code
[2018-09-02] MEDS ORDERED: ACETAMINOPHEN 325 MG TABLET (FP) PO PRN (22:47)
[2018-09-02] MEDS ORDERED: VANCOMYCIN 1 GRAM (PRE-DOCKED) 1,000 MG/250 ML BAG IVPB ONE (22:49)
[2018-09-02] MEDS ORDERED: BISACODYL 10 MG SUPP.RECT PR PRN (22:53)
[2018-09-02] MEDS ORDERED: DOCUSATE NA 100 MG/10 ML UNIT-DOSE CUPS PO PRN (22:53)
[2018-09-02] MEDS ORDERED: HEPARIN NA (PORCINE) 5,000 UNITS/ML 1ML VIAL SQ SCH (23:00)
[2018-09-02] MEDS ORDERED: SODIUM CHLORIDE 1,000 ML IV SCH (23:00)
[2018-09-02] MEDS: POLYETHYLENE GLYCOL 3350 119 GM BTL PO SCH (23:02)
--- NOTE | 2018-09-02 23:08 | HP ---
CHIEF COMPLAINT:Altered mental status PCP: Dr. Nadeem Barnes HISTORY OF PRESENT ILLNESS: The patient is a 88 year old female, with a significant past medical history of alzheimer's dementia, HTN, and HLD who presents to the emergency department via EMS with altered mental status since 4pm today. As per daughter, the patient is able to speak and understand when at baseline. The patient is responding to simple commands when daughter speaks to her in guatemalan but has garbled speech. after gentle hydration pt back to her base line pt is confused , demeted not able to provide history daughter at bed side pt came from detention , seems constipated , abdomen distended , low oral intake denies any cough,fever , chills, no BM for last few days recently DC from [facility] after sever constipation ER course was notable for: (1)cbc , cmp (2)CT head negative (3)neuroconsult Recent Travel:denies PAST MEDICAL HISTORY: as per HPI PAST SURGICAL HISTORY: left knee replacement 2005 Social History:per daughter Smoking:denies Alcohol:denies Drugs: denies Family History: Allergies warfarin sodium [From Coumadin] Adverse Reaction (Verified 08/01/18 18:07) patient took med 20 yrs ago and stated she didnt like the way it made her feel. HOME MEDICATIONS: Home Medications Medication Instructions Recorded NK [No Known Home Medication] 09/02/18 REVIEW OF SYSTEMS CONSTITUTIONAL: Absent: fever, chills, diaphoresis, generalized weakness, malaise, loss of appetite, weight change HEENT: Absent: rhinorrhea, nasal congestion, throat pain, throat swelling, difficulty swallowing, mouth swelling, ear pain, eye pain, visual changes CARDIOVASCULAR: Absent: chest pain, syncope, palpitations, irregular heart rate, lightheadedness , peripheral edema RESPIRATORY: Absent: cough, shortness of breath, dyspnea with exertion, orthopnea, wheezing, stridor, hemoptysis GASTROINTESTINAL: Absent: abdominal pain, abdominal distension, nausea, vomiting, diarrhea, constipation, melena, hematochezia GENITOURINARY: Absent: dysuria, frequency, urgency, hesitancy, hematuria, flank pain, genital pain MUSCULOSKELETAL: Absent: myalgia, arthralgia, joint swelling, back pain, neck pain SKIN: Absent: rash, itching, pallor HEMATOLOGIC/IMMUNOLOGIC: Absent: easy bleeding, easy bruising, lymphadenopathy, frequent infections ENDOCRINE: Absent: unexplained weight gain, unexplained weight loss, heat intolerance, cold intolerance NEUROLOGIC: Absent: headache, focal weakness or paresthesias, dizziness, unsteady gait, seizure, mental status changes, bladder or bowel incontinence PSYCHIATRIC: Absent: anxiety, depression, suicidal or homicidal ideation,dementia PHYSICAL EXAMINATION Vital Signs - 24 hr 09/02/18 09/02/18 09/02/18 18:25 19:05 19:40 Temperature 98.4 F Pulse Rate 83 Pulse Rate [ 84 84 Apical] Respiratory 16 24 H 26 H Rate Blood Pressure 173/80 H Blood Pressure 156/90 139/78 [Left Arm] O2 Sat by Pulse 94 L 98 97 Oximetry (%) 09/02/18 09/02/18 09/02/18 20:00 20:30 21:19 Temperature Pulse Rate Pulse Rate [ 79 79 Apical] Respiratory 24 H 20 Rate Blood Pressure Blood Pressure 143/76 138/108 H [Left Arm] O2 Sat by Pulse 100 100 99 Oximetry (%) 09/02/18 09/02/18 21:24 22:58 Temperature Pulse Rate Pulse Rate [ 84 80 Apical] Respiratory 16 17 Rate Blood Pressure Blood Pressure 163/90 155/96 [Left Arm] O2 Sat by Pulse 98 97 Oximetry (%) GENERAL: Awake, alert, but confused HEAD: NC/AT EYES: WALTER, EOMI ENT: Dry mucous membranes. NECK: supple LUNGS: CTA B/L HEART: Regular rate and rhythm, normal S1 and S2 , 2/6 systolic murmur murmur, No rub or gallop. ABDOMEN: Soft, nontender, distended, Hypo active bowel sounds, LOWER EXTREMITIES: 2+ pulses, warm, well-perfused. No calf tenderness. No peripheral edema. NEUROLOGICAL: Cranial nerves II-XII intact. Normal speech. PSYCHIATRIC: Confused SKIN: Warm, dry, normal turgor, right hip ulcer with no signs of infection Laboratory Results - last 24 hr 09/02/18 09/02/18 09/02/18 19:00 19:20 19:20 WBC 7.5 RBC 4.99 Hgb 15.9 H Hct 47.6 H MCV 95.3 MCH 31.9 MCHC 33.5 RDW 17.0 H Plt Count 262 MPV 9.5 Absolute Neuts (auto) 5.3 Neutrophils % 71.2 Lymphocytes % 14.1 D Monocytes % 13.2 H Eosinophils % 0.6 D Basophils % 0.9 D Nucleated RBC % 0 PT with INR 11.20 INR 0.95 PTT (Actin FS) 29.1 Sodium Potassium Chloride Carbon Dioxide Anion Gap BUN Creatinine Creat Clearance w eGFR Random Glucose Hemoglobin A1c % Calcium Magnesium Total Bilirubin AST ALT Alkaline Phosphatase Creatine Kinase Troponin I Total Protein Albumin Triglycerides Cholesterol Total LDL Cholesterol HDL Cholesterol TSH Urine Color Dkyellow Urine Appearance Clear Urine pH 5.0 Ur Specific [place] 1.024 Urine Protein Negative Urine Glucose (UA) Negative Urine Ketones Negative Urine Blood Negative Urine Nitrite Negative Urine Bilirubin Negative Urine Urobilinogen 2.0 H Ur Leukocyte Esterase Negative 09/02/18 09/02/18 19:20 19:20 WBC RBC Hgb Hct MCV MCH MCHC RDW Plt Count MPV Absolute Neuts (auto) Neutrophils % Lymphocytes % Monocytes % Eosinophils % Basophils % Nucleated RBC % PT with INR INR PTT (Actin FS) Sodium 144 Potassium 4.5 Chloride 108 H Carbon Dioxide 29 Anion Gap 7 L BUN 22 H Creatinine 0.7 Creat Clearance w eGFR > 60 Random Glucose 111 H Hemoglobin A1c % 5.7 Calcium 9.8 Magnesium 2.9 H Total Bilirubin 0.7 AST 33 ALT 25 Alkaline Phosphatase 86 Creatine Kinase 47 Troponin I 0.03 Total Protein 6.7 Albumin 3.4 Triglycerides 148 Cholesterol 236 H Total LDL Cholesterol 143 H HDL Cholesterol 71 H TSH 0.25 L Urine Color Urine Appearance Urine pH Ur Specific [place] Urine Protein Urine Glucose (UA) Urine Ketones Urine Blood Urine Nitrite Urine Bilirubin Urine Urobilinogen Ur Leukocyte Esterase ASSESSMENT/PLAN: # AMS-delirium # Acute metabolic encephalopathy [facility] due to dehydration vs low oral intake vs PNA vc constipation vs alzheimer worsening dementia * lethargic sleepy non responsive at 4 pm , improved with hydration , back to her base line * CT head negative * gentle hydration * fall precaution * aspiration precautions * Neurocheck * cont home meds memantine * PT # HPNA * CXR RLL consolidation not seen on previous image (reading was No acute pathology ) * aspiration precautions * head of bed elvation * Vanc/zosyn in ED, cont abx * ID cosnult Dr Davis # Constipation # anal fissure * Abdomen distended , no BM for last few days * Laxative so oral and suppository * NPO * Gentle hydration * consider GI consult if no improvement * cont home meds Anusol HC 2.5 % BID #HTN * Norvasc 5 mg PO Daily, monitor for hypotension * we can add Vasotec 1.25 Q6H if still elevated or refuse PO meds # right hip ulcer * no signs of infection * wound care # FEN * NS @ 42 CC monitor for any signs of over loaded or sob * Monitor lytes * NPO for now # DVT proph : lovenox 40 SQ daily #Dispo * inpatient tele # Code: DNR/DNI need to sign new forms for this visit , daughter Ananya [phone] Visit type - Emergency Visit Emergency Visit: Yes ED Registration Date: 09/02/18 Care time: The patient presented to the Emergency Department on the above date and was hospitalized for further evaluation of their emergent condition. - New Patient This patient is new to me today: Yes Date on this admission: 09/02/18 - Critical Care Critical Care patient: No
[2018-09-03 02:45] VITALS: BMI 21.9
[2018-09-03] MEDS: PIPERACILLIN/TAZOB 3.375 GM 3.375 GM in DEXTROSE 5%-WATER - 50 ML IVPB SCH ×3 (02:55→17:24)
[2018-09-03] MEDS ORDERED: DEXTROSE 5%-WATER - 50 ML IVPB ONE ×3 (02:56→17:19)
[2018-09-03] MEDS ORDERED: PIPERACILLIN/TAZOBACTAM 3.375 GM VIAL IVPB ONE ×3 (02:56→17:19)
[2018-09-03 07:32] LABS: EOS % 1.2 % (0-4.5); HEMATOCRIT 41.7 % (32.4-45.2); HEMOGLOBIN 14.2 GM/dL (10.7-15.3); LYMPH % 16.3 % (8-40); MCH 32.3 pg (25.7-33.7); MEAN CELL VOLUME 95.2 fl (80-96); MEAN PLT VOLUME 9.9 fl (7.5-11.1); MONO % 12.4 % (3.8-10.2); NEUT % 69.1 % (42.8-82.8); PLATELET COUNT 239 K/MM3 (134-434); RBC 4.38 M/mm3 (3.60-5.2); RDW 16.6 % (11.6-15.6); WHITE BLOOD COUNT 6.7 K/mm3 (4.0-10.0)
[2018-09-03 07:55] LABS: INR 0.94 (0.83-1.09); PROTHROMBIN TIME (PATIENT) 11.1 SEC (9.7-13.0)
[2018-09-03 07:58] LABS: ACTIVATED PTT 27.2 SECONDS (25.2-36.5)
[2018-09-03 08:13] LABS: ALK PHOS 75 U/L (45-117); ANION GAP 5 MMOL/L (8-16); BLOOD UREA NITROGEN 20 mg/dL (7-18); CALCIUM 9.5 mg/dL (8.5-10.1); CHLORIDE 108 mmol/L (98-107); CO2 31 mmol/L (21-32); CREATININE 0.7 mg/dL (0.55-1.3); GLUCOSE,RANDOM 88 mg/dL (74-106); MAGNESIUM 2.7 mg/dL (1.8-2.4); N-TERMINAL BNP 364.9 pg/ml (5-450); PHOSPHOROUS 3.8 mg/dL (2.5-4.9); POTASSIUM 3.8 mmol/L (3.5-5.1); SGOT/AST 23 U/L (15-37); SGPT/ALT 22 U/L (13-61); SODIUM 144 mmol/L (136-145); TOT PROT 5.8 g/dl (6.4-8.2)
[2018-09-03] MEDS ORDERED: amLODIPine BESYLATE 5 MG TABLET (FP) PO SCH (10:00)
[2018-09-03] MEDS ORDERED: HYDROCORTISONE 2.5% TOPICAL CREAM 30 GM TUBE PR SCH ×2 (10:00→22:00)
[2018-09-03] MEDS ORDERED: ENOXAPARIN NA (PORCINE) 40 MG/0.4 ML DISP.SYRIN SQ SCH (10:00)
[2018-09-03] MEDS ORDERED: MEMANTINE HCL 5 MG TABLET (UD) PO SCH (10:00)
[2018-09-03] MEDS: POLYETHYLENE GLYCOL 3350 119 GM BTL PO SCH ×2 (10:14→21:04)
--- NOTE | 2018-09-03 10:51 | EKG ---
Test Reason : Blood Pressure : / mmHG Vent. Rate : 085 BPM Atrial Rate : 085 BPM P-R Int : 270 ms QRS Dur : 088 ms QT Int : 376 ms P-R-T Axes : 064 -66 063 degrees QTc Int : 447 ms SINUS RHYTHM WITH 1ST DEGREE A-V BLOCK LEFT ANTERIOR FASCICULAR BLOCK MINIMAL VOLTAGE CRITERIA FOR LVH, MAY BE NORMAL VARIANT SEPTAL INFARCT (CITED ON OR BEFORE 01-AUG-2018) ABNORMAL ECG WHEN COMPARED WITH ECG OF 01-AUG-2018 20:17, T WAVE INVERSION NO LONGER EVIDENT IN INFERIOR LEADS NONSPECIFIC T WAVE ABNORMALITY, IMPROVED IN LATERAL LEADS Confirmed by VIRGEN BECKMAN, APARNA ([id number]) on 09/03/2018 10:50:25 AM Referred By: Confirmed By:APARNA NEW MD
--- NOTE | 2018-09-03 10:51 | EKG ---
Test Reason : Blood Pressure : / mmHG Vent. Rate : 069 BPM Atrial Rate : 069 BPM P-R Int : 286 ms QRS Dur : 088 ms QT Int : 412 ms P-R-T Axes : 065 -58 -62 degrees QTc Int : 441 ms SINUS RHYTHM WITH 1ST DEGREE A-V BLOCK WITH BLOCKED PREMATURE ATRIAL COMPLEXES WITH OCCASIONAL PREMATURE VENTRICULAR COMPLEXES LEFT ANTERIOR FASCICULAR BLOCK MINIMAL VOLTAGE CRITERIA FOR LVH, MAY BE NORMAL VARIANT NONSPECIFIC ST AND T WAVE ABNORMALITY ABNORMAL ECG WHEN COMPARED WITH ECG OF 02-SEP-2018 20:48, PREMATURE VENTRICULAR COMPLEXES ARE NOW PRESENT PREMATURE ATRIAL COMPLEXES ARE NOW PRESENT Confirmed by APARNA NEW MD ([id number]) on 09/03/2018 10:50:38 AM Referred By: Confirmed By:APARNA NEW MD
[2018-09-03] MEDS ORDERED: MINERAL OIL ENEMA 133 ML ENEMA PR ONE (14:29)
--- NOTE | 2018-09-03 15:06 | PN ---
Physical Exam: SUBJECTIVE: Patient seen and examined at bedside. Daughter at bedside. OBJECTIVE: Vital Signs Period Temp Pulse Resp BP Sys/Turcios Pulse Ox Last 24 Hr 97.5 F-98.4 F 73-108 16-26 111-173/76-108 94-100 GENERAL: No acute distress, Sinhala speaking HEAD: Atraumatic/Normocephalic EYES: EOMi Sclera Clear . ENT: Dry mucous membranes NECK: Trachea midline, full range of motion, supple. LUNGS: CTAB HEART: RRR nl S1S2 ABDOMEN: Distended, BS +, Tympanic to percussion. EXTREMITIES: Echymoses over b/l lower extremities. Trace edema. PSYCH: Dementia Laboratory Results - last 24 hr 09/02/18 09/02/18 09/02/18 19:00 19:20 19:20 WBC 7.5 RBC 4.99 Hgb 15.9 H Hct 47.6 H MCV 95.3 MCH 31.9 MCHC 33.5 RDW 17.0 H Plt Count 262 MPV 9.5 Absolute Neuts (auto) 5.3 Neutrophils % 71.2 Lymphocytes % 14.1 D Monocytes % 13.2 H Eosinophils % 0.6 D Basophils % 0.9 D Nucleated RBC % 0 PT with INR 11.20 INR 0.95 PTT (Actin FS) 29.1 Sodium Potassium Chloride Carbon Dioxide Anion Gap BUN Creatinine Creat Clearance w eGFR Random Glucose Hemoglobin A1c % Lactic Acid Calcium Phosphorus Magnesium Total Bilirubin AST ALT Alkaline Phosphatase Creatine Kinase Troponin I B-Natriuretic Peptide Total Protein Albumin Triglycerides Cholesterol Total LDL Cholesterol HDL Cholesterol TSH Free T4 Urine Color Dkyellow Urine Appearance Clear Urine pH 5.0 Ur Specific [place] 1.024 Urine Protein Negative Urine Glucose (UA) Negative Urine Ketones Negative Urine Blood Negative Urine Nitrite Negative Urine Bilirubin Negative Urine Urobilinogen 2.0 H Ur Leukocyte Esterase Negative 09/02/18 09/02/18 09/02/18 19:20 19:20 22:16 WBC RBC Hgb Hct MCV MCH MCHC RDW Plt Count MPV Absolute Neuts (auto) Neutrophils % Lymphocytes % Monocytes % Eosinophils % Basophils % Nucleated RBC % PT with INR INR PTT (Actin FS) Sodium 144 Potassium 4.5 Chloride 108 H Carbon Dioxide 29 Anion Gap 7 L BUN 22 H Creatinine 0.7 Creat Clearance w eGFR > 60 Random Glucose 111 H Hemoglobin A1c % 5.7 Lactic Acid 1.4 Calcium 9.8 Phosphorus Magnesium 2.9 H Total Bilirubin 0.7 AST 33 ALT 25 Alkaline Phosphatase 86 Creatine Kinase 47 Troponin I 0.03 B-Natriuretic Peptide Total Protein 6.7 Albumin 3.4 Triglycerides 148 Cholesterol 236 H Total LDL Cholesterol 143 H HDL Cholesterol 71 H TSH 0.25 L Free T4 1.55 H Urine Color Urine Appearance Urine pH Ur Specific [place] Urine Protein Urine Glucose (UA) Urine Ketones Urine Blood Urine Nitrite Urine Bilirubin Urine Urobilinogen Ur Leukocyte Esterase 09/03/18 09/03/18 09/03/18 02:00 06:00 06:00 WBC 6.7 RBC 4.38 Hgb 14.2 Hct 41.7 MCV 95.2 MCH 32.3 MCHC 34.0 RDW 16.6 H Plt Count 239 MPV 9.9 Absolute Neuts (auto) 4.6 Neutrophils % 69.1 Lymphocytes % 16.3 Monocytes % 12.4 H Eosinophils % 1.2 D Basophils % 1.0 Nucleated RBC % 0 PT with INR 11.10 INR 0.94 PTT (Actin FS) 27.2 Sodium Potassium Chloride Carbon Dioxide Anion Gap BUN Creatinine Creat Clearance w eGFR Random Glucose Hemoglobin A1c % Lactic Acid Calcium Phosphorus Magnesium Total Bilirubin AST ALT Alkaline Phosphatase Creatine Kinase 95 Troponin I 0.03 B-Natriuretic Peptide Total Protein Albumin Triglycerides Cholesterol Total LDL Cholesterol HDL Cholesterol TSH Free T4 Urine Color Urine Appearance Urine pH Ur Specific [place] Urine Protein Urine Glucose (UA) Urine Ketones Urine Blood Urine Nitrite Urine Bilirubin Urine Urobilinogen Ur Leukocyte Esterase 09/03/18 06:00 WBC RBC Hgb Hct MCV MCH MCHC RDW Plt Count MPV Absolute Neuts (auto) Neutrophils % Lymphocytes % Monocytes % Eosinophils % Basophils % Nucleated RBC % PT with INR INR PTT (Actin FS) Sodium 144 Potassium 3.8 Chloride 108 H Carbon Dioxide 31 Anion Gap 5 L BUN 20 H Creatinine 0.7 Creat Clearance w eGFR > 60 Random Glucose 88 Hemoglobin A1c % Lactic Acid Calcium 9.5 Phosphorus 3.8 Magnesium 2.7 H Total Bilirubin 1.0 AST 23 ALT 22 Alkaline Phosphatase 75 Creatine Kinase Troponin I B-Natriuretic Peptide 364.9 Total Protein 5.8 L Albumin 3.0 L Triglycerides Cholesterol Total LDL Cholesterol HDL Cholesterol TSH Free T4 Urine Color Urine Appearance Urine pH Ur Specific [place] Urine Protein Urine Glucose (UA) Urine Ketones Urine Blood Urine Nitrite Urine Bilirubin Urine Urobilinogen Ur Leukocyte Esterase Active Medications Generic Name Dose Route Start Last Admin Trade Name Freq PRN Reason Stop Dose Admin Acetaminophen 650 mg 09/02/18 22:47 Tylenol - PO Q4H PRN PAIN LEVEL 1-5 Amlodipine Besylate 5 mg 09/03/18 10:00 09/03/18 10:10 Norvasc - PO 5 mg DAILY MONSTER Administration Bisacodyl 10 mg 09/02/18 22:53 Dulcolax Suppository - CO DAILY PRN CONSTIPATION Docusate Sodium 300 mg 09/02/18 22:53 09/03/18 10:12 Colace Liquid - PO 300 mg DAILY PRN Administration CONSTIPATION Enoxaparin Sodium 40 mg 09/03/18 10:00 09/03/18 10:12 Lovenox - SQ 40 mg DAILY MONSTER Administration Hydrocortisone 1 applic 09/03/18 10:00 09/03/18 10:11 Anusol 2.5% Hc Cream - CO 1 applic BID MONSTER Administration Sodium Chloride 1,000 mls @ 42 mls/hr 09/02/18 23:00 09/02/18 23:02 Normal Saline - IV 42 mls/hr ASDIR MONSTER Administration Piperacillin Sod/Tazobactam 50 mls @ 100 mls/hr 09/04/18 02:00 Sod 3.375 gm/ Dextrose IVPB Q8H-IV MONSTER Protocol Piperacillin Sod/Tazobactam 50 mls @ 100 mls/hr 09/03/18 02:00 09/03/18 10:11 Sod 3.375 gm/ Dextrose IVPB 09/03/18 18:29 100 mls/hr Q8H-IV MONSTER Administration Protocol Memantine 5 mg 09/03/18 10:00 09/03/18 10:10 Namenda - PO 5 mg BID MONSTER Administration Polyethylene Glycol 17 gm 09/03/18 22:00 Miralax (For Daily Use) - PO TID MONSTER ASSESSMENT/PLAN: 88 y/ F w/ pmhx of HTN, HLD, and Alzheimer's dementia who presented to the hospital due to altered mental status. #AMS 2/2 RLL Pneumonia/ failure to thrive - Chest Xray official read reports no acute pathology however may be RLL infiltrate when compared to previous CXR -No WBC, Afebrile. -received Vanc/Zosyn in ED. Currently on Zosyn 3.375 Q8H. Blood cultures prelim read negative. Urine culture pending. -Head CT negative for any acute pathology -I.D Dr Chen on board -NS@42c/hr # Colonic distension/Fecal impaction -Miralax 17 gm PO TID -Colace 300 mg po daily -Dulcolax 10 mg CO daily -Received Mineral oil enema this afternoon with expulsion of minimal stool per RN -Daily abdominal exams. Family declining insertion of NGT. Agree to rectal tube f noninvasive therapies exhausted #Alzheimer's Dementia Continue Namenda 5 #HTN Continue Amlodipine 5 daily Will add Vasotec 1.25 Q8H if pt refuses po meds. #FEN NS@42cc/hr Monitor Electrolytes Clear Liquid Diet #DVT: Lovenox 40 Daily #Dispo: DNR/DNI Visit type - Emergency Visit Emergency Visit: Yes ED Registration Date: 09/02/18 Care time: The patient presented to the Emergency Department on the above date and was hospitalized for further evaluation of their emergent condition. - New Patient This patient is new to me today: Yes Date on this admission: 09/03/18 - Critical Care Critical Care patient: No - Discharge Referral Referred to [facility] No
--- NOTE | 2018-09-03 15:40 | CON.ID ---
Consult Consult Specialty:: infectious diseases Referred by:: hospitalist Reason for Consultation:: asp pna - History of Present Illness Chief Complaint: ams History of Present Illness: 88 year old female, with a significant past medical history of alzheimer's dementia, HTN, and HLD admitted with altered mental status since 4pm today. As per daughter, the patient is able to speak and understand when at baseline. The patient is responding to simple commands when daughter speaks to her in mongolian but has garbled speech. after gentle hydration pt back to her base line pt is confused , demeted not able to provide history patient unable to give any history which is taken from the chart as patient has severe dementia - History Source History Provided By: Medical Record Limitations to Obtaining History: Clinical Condition - Past Medical History TRANSITION MGR: Yes: Dementia Cardio/Vascular: Yes: CAD, HTN, Hyperlipdemia Gastrointestinal: Yes: Constipation ...: No Endocrine: Yes: Osteopenia (with vertebral compression fracture) - Past Surgical History Past Surgical History: Yes: Cataract Removal (bilateral ), Colonoscopy, Hysterectomy, Joint Replacement (L TKR) - Alcohol/Substance Use Hx Alcohol Use: No History of Substance Use: reports: None - Smoking History Smoking history: Unknown if ever smoked Have you smoked in the past 12 months: No Aproximately how many cigarettes per day: 0 - Social History Usual Living Arrangement: With Child ADL: Family Assistance History of Recent Travel: No Home Medications - Allergies Allergies/Adverse Reactions: Allergies Allergy/AdvReac Type Severity Reaction Status Date / Time warfarin sodium AdvReac Verified 08/01/18 18:07 [From Coumadin] - Home Medications Home Medications: Ambulatory Orders NK [No Known Home Medication] 09/02/18 Family Disease History - Family Disease History Family Disease History: Other: Father (lived into 80s), Mother (lived into her 80s) Review of Systems Unable to obtain ROS, reason: unable to obtain Physical Exam Vital Signs: Vital Signs Temperature 98 F 09/03/18 14:00 Pulse Rate 92 H 09/03/18 14:00 Respiratory Rate 20 09/03/18 14:00 Blood Pressure 140/87 09/03/18 14:00 O2 Sat by Pulse Oximetry (%) 98 09/03/18 08:00 Constitutional: Yes: No Distress, Calm Eyes: Yes: Conjunctiva Clear Cardiovascular: Yes: Regular Rate and Rhythm Respiratory: Yes: On Nasal O2, Poor Air Entry, Rhonchi Gastrointestinal: Yes: Normal Bowel Sounds, Soft Musculoskeletal: Yes: WNL Extremities: Yes: WNL Neurological: Yes: Alert, Other Psychiatric: Yes: Other Labs: CBC, BMP 09/03/18 06:00 09/03/18 06:00 Assessment/Plan patient known to me from previous admission coming back with probably aspiration ams htn pna confusion plan will start on zosyn will see how the patient does nutrition rest as per the team
--- NOTE | 2018-09-03 17:30 | PN ---
Progress Note (short form) - Note Progress Note: 88 year old female history of alzheimer dementia, [place] resident. She has garbled speech and was brought to hospital . Given her symptoms were more generalized and diagnosis of stroke was in doubt and she was not given tpa. Daughter is at bedside and feel that it appears to be slow detioration in her condition. Patient has been moving all extremity . She speaks protuguesse. Patient is able to speak and follow commond . Patient found to have Pneumonia on xray and she is on abx. Clinically patient seems to be improved and she is back to her baseline. NEUROLOGICAL EXAMINATION Alert and brighter today, there is neck muslce spasm due arthritis pupils reactive, no face asymmetry moving all extrey ct head no acute findings xray chest showed pneumonia Assessment 88 year old female with AD, came with worsening of mental status, most likley metabolic encephalopathy secondary to pneumonia and constipation. unlikley to be stroke Plan: - continue current level of care and abx - No need for any mri of brain Thanking you so much Peña Segura MD
[2018-09-03] MEDS ORDERED: BISACODYL 10 MG SUPP.RECT PR PRN (18:48)
[2018-09-03] MEDS ORDERED: DOCUSATE NA 100 MG/10 ML UNIT-DOSE CUPS PO PRN (18:48)
[2018-09-03] MEDS ORDERED: ACETAMINOPHEN 325 MG TABLET (FP) PO PRN (18:48)
[2018-09-03] MEDS: SODIUM CHLORIDE 1,000 ML IV SCH (19:07)
--- NOTE | 2018-09-03 20:09 | PN ---
Teaching Attending Note Name of Resident: Delvis Juarez ATTENDING PHYSICIAN STATEMENT I saw and evaluated the patient. I reviewed the resident's note and discussed the case with the resident. I agree with the resident's findings and plan as documented. SUBJECTIVE: Patient is lying in bed with no acute distress. OBJECTIVE: Vital Signs Temperature 98 F 09/03/18 14:00 Pulse Rate 92 H 09/03/18 14:00 Respiratory Rate 20 09/03/18 14:00 Blood Pressure 140/87 09/03/18 14:00 O2 Sat by Pulse Oximetry (%) 98 09/03/18 08:00 GENERAL: No acute distress, South African speaking HEAD: Atraumatic/Normocephalic EYES: EOMi Sclera Clear . ENT: Dry mucous membranes NECK: Trachea midline, full range of motion, supple. LUNGS:decreased BS BL HEART: RRR nl S1S2 ABDOMEN: Distended, BS positive. EXTREMITIES: Trace edema. PSYCH: Dementia CBCD WBC 6.7 K/mm3 (4.0-10.0) 09/03/18 06:00 RBC 4.38 M/mm3 (3.60-5.2) 09/03/18 06:00 Hgb 14.2 GM/dL (10.7-15.3) 09/03/18 06:00 Hct 41.7 % (32.4-45.2) 09/03/18 06:00 MCV 95.2 fl (80-96) 09/03/18 06:00 MCHC 34.0 g/dl (32.0-36.0) 09/03/18 06:00 RDW 16.6 % (11.6-15.6) H 09/03/18 06:00 Plt Count 239 K/MM3 (134-434) 09/03/18 06:00 MPV 9.9 fl (7.5-11.1) 09/03/18 06:00 CMP Sodium 144 mmol/L (136-145) 09/03/18 06:00 Potassium 3.8 mmol/L (3.5-5.1) 09/03/18 06:00 Chloride 108 mmol/L (98-107) H 09/03/18 06:00 Carbon Dioxide 31 mmol/L (21-32) 09/03/18 06:00 Anion Gap 5 MMOL/L (8-16) L 09/03/18 06:00 BUN 20 mg/dL (7-18) H 09/03/18 06:00 Creatinine 0.7 mg/dL (0.55-1.3) 09/03/18 06:00 Creat Clearance w eGFR > 60 (>60) 09/03/18 06:00 Random Glucose 88 mg/dL (74-106) 09/03/18 06:00 Calcium 9.5 mg/dL (8.5-10.1) 09/03/18 06:00 Total Bilirubin 1.0 mg/dL (0.2-1) 09/03/18 06:00 AST 23 U/L (15-37) 09/03/18 06:00 ALT 22 U/L (13-61) 09/03/18 06:00 Alkaline Phosphatase 75 U/L (45-117) 09/03/18 06:00 Total Protein 5.8 g/dl (6.4-8.2) L 09/03/18 06:00 Albumin 3.0 g/dl (3.4-5.0) L 09/03/18 06:00 CARDIAC ENZYMES Creatine Kinase 95 U/L (26-192) 09/03/18 02:00 Troponin I 0.03 ng/ml (0.00-0.05) 09/03/18 02:00 Current Medications Generic Name Dose Route Start Last Admin Trade Name Freq PRN Reason Stop Dose Admin Acetaminophen 650 mg 09/03/18 18:48 Tylenol - PO Q4H PRN PAIN LEVEL 1-5 Amlodipine Besylate 5 mg 09/04/18 10:00 Norvasc - PO DAILY MONSTER Bisacodyl 10 mg 09/03/18 18:48 Dulcolax Suppository - MS DAILY PRN CONSTIPATION Docusate Sodium 300 mg 09/03/18 18:48 Colace Liquid - PO DAILY PRN CONSTIPATION Enoxaparin Sodium 40 mg 09/04/18 10:00 Lovenox - SQ DAILY MONSTER Hydrocortisone 1 applic 09/03/18 22:00 Anusol 2.5% Hc Cream - MS BID MONSTER Piperacillin Sod/Tazobactam 50 mls @ 100 mls/hr 09/03/18 18:00 09/03/18 17:24 Sod 3.375 gm/ Dextrose IVPB 100 mls/hr Q8H-IV MONSTER Administration Protocol Sodium Chloride 1,000 mls @ 42 mls/hr 09/03/18 18:48 09/03/18 19:07 Normal Saline - IV 42 mls/hr ASDIR MONSTER Administration Memantine 5 mg 09/03/18 22:00 Namenda - PO BID MONSTER Polyethylene Glycol 17 gm 09/03/18 22:00 Miralax (For Daily Use) - PO TID MONSTER Home Medications Medication Instructions Recorded NK [No Known Home Medication] 09/02/18 ASSESSMENT AND PLAN: Patient is 88yo female with pmhx of HTN, HLD, and Alzheimer's dementia who presented to the hospital due to altered mental status. #Acute change of MS , no infiltrate reported on CXR , on IV antibiotic for possible for aspiration # Acute failure to thrive due to having dementia # Colonic distension/Fecal impaction on Miralax protocol #Alzheimer's Dementia continue Namenda 5 #HTN continue Amlodipine 5mg po bid with apple sauce ; Will add Vasotec 1.25 Q8H if pt refuses po meds. #DVT: Lovenox 40 Daily
[2018-09-03] MEDS: HYDROCORTISONE 2.5% TOPICAL CREAM 30 GM TUBE PR SCH (21:04)
[2018-09-03] MEDS: MEMANTINE HCL 5 MG TABLET (UD) PO SCH (21:04)
[2018-09-03] MEDS ORDERED: POLYETHYLENE GLYCOL 3350 119 GM BTL PO SCH (22:00)
[2018-09-04] MEDS ORDERED: PIPERACILLIN/TAZOB 3.375 GM 3.375 GM in DEXTROSE 5%-WATER - 50 ML IVPB SCH (02:00)
[2018-09-04] MEDS ORDERED: DEXTROSE 5%-WATER - 50 ML IVPB ONE ×3 (02:36→17:29)
[2018-09-04] MEDS ORDERED: PIPERACILLIN/TAZOBACTAM 3.375 GM VIAL IVPB ONE ×3 (02:36→17:29)
[2018-09-04] MEDS: PIPERACILLIN/TAZOB 3.375 GM 3.375 GM in DEXTROSE 5%-WATER - 50 ML IVPB SCH ×3 (02:45→18:01)
[2018-09-04] MEDS: POLYETHYLENE GLYCOL 3350 119 GM BTL PO SCH ×3 (05:33→22:31)
[2018-09-04 06:32] LABS: HEMOGLOBIN 13.7 GM/dL (10.7-15.3); MCH 31.7 pg (25.7-33.7); MCHC 33.5 g/dl (32.0-36.0); MEAN CELL VOLUME 94.6 fl (80-96); MEAN PLT VOLUME 9.5 fl (7.5-11.1); PLATELET COUNT 218 K/MM3 (134-434); RBC 4.34 M/mm3 (3.60-5.2); RDW 16.5 % (11.6-15.6); WHITE BLOOD COUNT 6.1 K/mm3 (4.0-10.0)
[2018-09-04 07:07] LABS: ANION GAP 5 MMOL/L (8-16); BLOOD UREA NITROGEN 18 mg/dL (7-18); CALCIUM 8.9 mg/dL (8.5-10.1); CHLORIDE 110 mmol/L (98-107); CO2 28 mmol/L (21-32); CREATININE 0.5 mg/dL (0.55-1.3); GLUCOSE,RANDOM 93 mg/dL (74-106); MAGNESIUM 2.8 mg/dL (1.8-2.4); PHOSPHOROUS 3.7 mg/dL (2.5-4.9); POTASSIUM 3.3 mmol/L (3.5-5.1); SODIUM 143 mmol/L (136-145)
[2018-09-04] MEDS ORDERED: POTASSIUM CHLORIDE ORAL LIQUID 20 MEQ/15 ML PO ONE (08:15)
[2018-09-04] MEDS ORDERED: KCL 10 MEQ IVPB 10 MEQ/100 ML INFUS.BAG IVPB SCH (08:45)
[2018-09-04] MEDS ORDERED: PT OWN MED DRAWER 7, Y5N ONE ×3 (08:57→13:33)
--- NOTE | 2018-09-04 09:23 | PN ---
Progress Note (short form) - Note Progress Note: 88 year old female history of alzheimer dementia, [place] resident. She has garbled speech and was brought to hospital . Given her symptoms were more generalized and diagnosis of stroke was in doubt and she was not given tpa. Daughter is at bedside and feel that it appears to be slow detioration in her condition. Patient has been moving all extremity . She speaks protuguesse. Patient is able to speak and follow commond . Patient found to have Pneumonia on xray and she is on abx. Clinically patient seems to be improved and she is back to her baseline. she has been stable overnight. NEUROLOGICAL EXAMINATION Alert and follow simple command there is neck muslce spasm due arthritis pupils reactive, no face asymmetry moving all extrey ct head no acute findings xray chest showed pneumonia Assessment 88 year old female with AD , presented with metabolic encephalopathy secondary to pneumonia and constipation. unlikley to be stroke Plan: - continue current level of care and abx - No need for any mri of brain Thanking you so much Peña Segura MD
[2018-09-04] MEDS ORDERED: amLODIPine BESYLATE 5 MG TABLET (FP) PO SCH (10:00)
[2018-09-04] MEDS: MEMANTINE HCL 5 MG TABLET (UD) PO SCH ×3 (10:11→22:31)
[2018-09-04] MEDS: ENOXAPARIN NA (PORCINE) 40 MG/0.4 ML DISP.SYRIN SQ SCH (10:11)
[2018-09-04] MEDS: HYDROCORTISONE 2.5% TOPICAL CREAM 30 GM TUBE PR SCH ×2 (11:54→22:31)
[2018-09-04] MEDS ORDERED: ENALAPRILAT DIHYDRATE 1.25 MG/1 ML VIAL IVPB PRN (12:15)
[2018-09-04] MEDS: amLODIPine BESYLATE 5 MG TABLET (FP) PO SCH (14:10)
--- NOTE | 2018-09-04 14:32 | PN ---
Physical Exam: SUBJECTIVE: Patient seen and examined. No acute events overnight. Daughter at bedside. OBJECTIVE: Vital Signs Period Temp Pulse Resp BP Sys/Turcios Pulse Ox Last 24 Hr 98.6 F-98.8 F 76-82 18-22 145-156/79-93 96 GENERAL: NAD HEAD: Atraumatic/Normocephalic EYES: EOMI Sclera Clear . ENT: Dry mucous membranes NECK: Trachea midline, full range of motion, supple. LUNGS: CTAB HEART: RRR nl S1S2 ABDOMEN: Nontender, distended, BS + EXTREMITIES: Trace edema. Laboratory Results - last 24 hr 09/04/18 09/04/18 06:00 06:00 WBC 6.1 RBC 4.34 Hgb 13.7 Hct 41.0 MCV 94.6 MCH 31.7 MCHC 33.5 RDW 16.5 H Plt Count 218 MPV 9.5 Sodium 143 Potassium 3.3 L Chloride 110 H Carbon Dioxide 28 Anion Gap 5 L BUN 18 Creatinine 0.5 L Creat Clearance w eGFR 116.71 Random Glucose 93 Calcium 8.9 Phosphorus 3.7 Magnesium 2.8 H Active Medications Generic Name Dose Route Start Last Admin Trade Name Freq PRN Reason Stop Dose Admin Acetaminophen 650 mg 09/03/18 18:48 Tylenol - PO Q4H PRN PAIN LEVEL 1-5 Amlodipine Besylate 5 mg 09/04/18 10:00 09/04/18 10:11 Norvasc - PO Not Given DAILY [facility] Bisacodyl 10 mg 09/03/18 18:48 Dulcolax Suppository - [place] DAILY PRN CONSTIPATION Docusate Sodium 300 mg 09/03/18 18:48 Colace Liquid - PO DAILY PRN CONSTIPATION Enalaprilat 1.25 mg 09/04/18 12:15 Vasotec Injection - IVPB Q6H PRN HYPERTENSION Enoxaparin Sodium 40 mg 09/04/18 10:00 09/04/18 10:11 Lovenox - SQ 40 mg DAILY [facility] Administration Hydrocortisone 1 applic 09/03/18 22:00 09/04/18 11:54 Anusol 2.5% Hc Cream - [place] Not Given BID [facility]STER Piperacillin Sod/Tazobactam 50 mls @ 100 mls/hr 09/03/18 18:00 09/04/18 10:11 Sod 3.375 gm/ Dextrose IVPB 100 mls/hr Q8H-IV [facility]STER Administration Protocol Sodium Chloride 1,000 mls @ 42 mls/hr 09/03/18 18:48 09/03/18 19:07 Normal Saline - IV 42 mls/hr ASDIR [facility] Administration Memantine 5 mg 09/03/18 22:00 09/04/18 10:11 Namenda - PO Not Given BID MONSTER Polyethylene Glycol 17 gm 09/03/18 22:00 09/04/18 14:25 Miralax (For Daily Use) - PO 17 grams TID [facility]STER Administration ASSESSMENT/PLAN: 88 y/ F w/ pmhx of HTN, HLD, and Alzheimer's dementia who presented to the hospital due to altered mental status. #AMS 2/2 RLL Pneumonia/ failure to thrive - Chest Xray official read reports no acute pathology however may be RLL infiltrate when compared to previous CXR -No WBC, Afebrile. -received Vanc/Zosyn in ED. Currently on Zosyn 3.375 Q8H. Blood cultures prelim read negative. Urine culture pending. -Head CT negative for any acute pathology -I.D Dr Chen on board -NS@42c/hr # Colonic distension/Fecal impaction -Miralax 17 gm PO TID -Colace 300 mg po daily -Dulcolax 10 mg HI daily -Daily abdominal exams. Family declining insertion of NGT. Agree to rectal tube f noninvasive therapies exhausted #Alzheimer's Dementia Continue Namenda 5 #HTN Continue Amlodipine 5 daily Will add Vasotec 1.25 Q8H if pt refuses po meds. #FEN NS@42cc/hr Monitor Electrolytes Clear Liquid Diet #DVT: Lovenox 40 Daily #Dispo: DNR/DNI Visit type - Emergency Visit Emergency Visit: Yes ED Registration Date: 09/02/18 Care time: The patient presented to the Emergency Department on the above date and was hospitalized for further evaluation of their emergent condition. - New Patient This patient is new to me today: No - Critical Care Critical Care patient: No - Discharge Referral Referred to [facility] Med P.C.: No
--- NOTE | 2018-09-04 15:02 | PN ---
Progress Note, Physician History of Present Illness: more stable today back to her base line calm - Current Medication List Current Medications: Active Medications Acetaminophen (Tylenol -) 650 mg PO Q4H PRN PRN Reason: PAIN LEVEL 1-5 Amlodipine Besylate (Norvasc -) 5 mg PO DAILY [facility] Last Admin: 09/04/18 10:11 Dose: Not Given Bisacodyl (Dulcolax Suppository -) 10 mg [place] DAILY PRN PRN Reason: CONSTIPATION Docusate Sodium (Colace Liquid -) 300 mg PO DAILY PRN PRN Reason: CONSTIPATION Enalaprilat (Vasotec Injection -) 1.25 mg IVPB Q6H PRN PRN Reason: HYPERTENSION Enoxaparin Sodium (Lovenox -) 40 mg SQ DAILY [facility] Last Admin: 09/04/18 10:11 Dose: 40 mg Hydrocortisone (Anusol 2.5% Hc Cream -) 1 applic [place] BID [facility] Last Admin: 09/04/18 11:54 Dose: Not Given Piperacillin Sod/Tazobactam (Sod 3.375 gm/ Dextrose) 50 mls @ 100 mls/hr IVPB Q8H-IV MONSTER; Protocol Last Admin: 09/04/18 10:11 Dose: 100 mls/hr Sodium Chloride (Normal Saline -) 1,000 mls @ 42 mls/hr IV ASDIR [facility] Last Admin: 09/03/18 19:07 Dose: 42 mls/hr Memantine (Namenda -) 5 mg PO BID [facility] Last Admin: 09/04/18 10:11 Dose: Not Given Polyethylene Glycol (Miralax (For Daily Use) -) 17 gm PO TID [facility] Last Admin: 09/04/18 14:25 Dose: 17 grams - Objective Vital Signs: Vital Signs Temperature 98.6 F 09/04/18 10:00 Pulse Rate 76 09/04/18 10:00 Respiratory Rate 22 H 09/04/18 10:00 Blood Pressure 156/81 09/04/18 10:00 O2 Sat by Pulse Oximetry (%) 96 09/03/18 21:00 Constitutional: Yes: No Distress, Calm Cardiovascular: Yes: S1, S2 Respiratory: Yes: Regular, Poor Air Entry Gastrointestinal: Yes: Normal Bowel Sounds, Soft Musculoskeletal: Yes: WNL Extremities: Yes: WNL Neurological: Yes: Alert, Other (dementia) Labs: CBC, BMP 03/15/19 06:00 09/04/18 06:00 INR, PTT INR 0.94 (0.83-1.09) 09/03/18 06:00 - ....Imaging Chest X-ray: Report Reviewed, Image Reviewed Assessment/Plan patient known to me from previous admission coming back with probably aspiration ams htn pna confusion plan continue abx nutrition all cx reports noted might switch to ceftriaxone
--- NOTE | 2018-09-04 19:01 | PN ---
Teaching Attending Note Name of Resident: Delvis Juarez ATTENDING PHYSICIAN STATEMENT I saw and evaluated the patient. I reviewed the resident's note and discussed the case with the resident. I agree with the resident's findings and plan as documented. SUBJECTIVE: Patient is comfortable with no acute distress, Had a bm, belly is mildly distended. OBJECTIVE: Vital Signs Temperature 97.4 F L 09/04/18 18:00 Pulse Rate 92 H 09/04/18 18:00 Respiratory Rate 20 09/04/18 18:00 Blood Pressure 155/80 09/04/18 18:00 O2 Sat by Pulse Oximetry (%) 96 09/03/18 21:00 GENERAL: No acute distress, Croatian speaking HEAD: Atraumatic/Normocephalic EYES: EOMi Sclera Clear . ENT: Dry mucous membranes NECK: Trachea midline, full range of motion, supple. LUNGS:decreased BS BL HEART: RRR nl S1S2 ABDOMEN: Distended, BS positive. EXTREMITIES: Trace edema. PSYCH: Dementia CBCD WBC 6.1 K/mm3 (4.0-10.0) 09/04/18 06:00 RBC 4.34 M/mm3 (3.60-5.2) 09/04/18 06:00 Hgb 13.7 GM/dL (10.7-15.3) 09/04/18 06:00 Hct 41.0 % (32.4-45.2) 09/04/18 06:00 MCV 94.6 fl (80-96) 09/04/18 06:00 MCHC 33.5 g/dl (32.0-36.0) 09/04/18 06:00 RDW 16.5 % (11.6-15.6) H 09/04/18 06:00 Plt Count 218 K/MM3 (134-434) 09/04/18 06:00 MPV 9.5 fl (7.5-11.1) 09/04/18 06:00 CMP Sodium 143 mmol/L (136-145) 09/04/18 06:00 Potassium 3.3 mmol/L (3.5-5.1) L 09/04/18 06:00 Chloride 110 mmol/L (98-107) H 09/04/18 06:00 Carbon Dioxide 28 mmol/L (21-32) 09/04/18 06:00 Anion Gap 5 MMOL/L (8-16) L 09/04/18 06:00 BUN 18 mg/dL (7-18) 09/04/18 06:00 Creatinine 0.5 mg/dL (0.55-1.3) L 09/04/18 06:00 Creat Clearance w eGFR 116.71 (>60) 09/04/18 06:00 Random Glucose 93 mg/dL (74-106) 09/04/18 06:00 Calcium 8.9 mg/dL (8.5-10.1) 09/04/18 06:00 Total Bilirubin 1.0 mg/dL (0.2-1) 09/03/18 06:00 AST 23 U/L (15-37) 09/03/18 06:00 ALT 22 U/L (13-61) 09/03/18 06:00 Alkaline Phosphatase 75 U/L (45-117) 09/03/18 06:00 Total Protein 5.8 g/dl (6.4-8.2) L 09/03/18 06:00 Albumin 3.0 g/dl (3.4-5.0) L 09/03/18 06:00 CARDIAC ENZYMES Creatine Kinase 95 U/L (26-192) 09/03/18 02:00 Troponin I 0.03 ng/ml (0.00-0.05) 09/03/18 02:00 Current Medications Generic Name Dose Route Start Last Admin Trade Name Freq PRN Reason Stop Dose Admin Acetaminophen 650 mg 09/03/18 18:48 Tylenol - PO Q4H PRN PAIN LEVEL 1-5 Amlodipine Besylate 5 mg 09/04/18 10:00 09/04/18 10:11 Norvasc - PO Not Given DAILY [facility] Bisacodyl 10 mg 09/03/18 18:48 Dulcolax Suppository - [place] DAILY PRN CONSTIPATION Docusate Sodium 300 mg 09/03/18 18:48 Colace Liquid - PO DAILY PRN CONSTIPATION Enalaprilat 1.25 mg 09/04/18 12:15 Vasotec Injection - IVPB Q6H PRN HYPERTENSION Enoxaparin Sodium 40 mg 09/04/18 10:00 09/04/18 10:11 Lovenox - SQ 40 mg DAILY [facility] Administration Hydrocortisone 1 applic 09/03/18 22:00 09/04/18 11:54 Anusol 2.5% Hc Cream - [place] Not Given BID MONSTER Piperacillin Sod/Tazobactam 50 mls @ 100 mls/hr 09/03/18 18:00 09/04/18 18:01 Sod 3.375 gm/ Dextrose IVPB 100 mls/hr Q8H-IV [facility] Administration Protocol Sodium Chloride 1,000 mls @ 42 mls/hr 09/03/18 18:48 09/03/18 19:07 Normal Saline - IV 42 mls/hr ASDIR [facility] Administration Memantine 5 mg 09/03/18 22:00 09/04/18 10:11 Namenda - PO Not Given BID MONSTER Polyethylene Glycol 17 gm 09/03/18 22:00 09/04/18 14:25 Miralax (For Daily Use) - PO 17 grams TID MONSTER Administration Home Medications Medication Instructions Recorded NK [No Known Home Medication] 09/02/18 ASSESSMENT AND PLAN: Patient is 88yo female with pmhx of HTN, HLD, and Alzheimer's dementia who presented to the hospital due to altered mental status. #Acute change of MS ,back to her baseline, no infiltrate reported on CXR , will stop the antibiotics #Failure to thrive due to having dementia # Colonic distension/Fecal impaction on Miralx protocol continue #Alzheimer's Dementia continue Namenda 5 #HTN continue Amlodipine 5 daily; Will add Vasotec 1.25 Q8H if pt refuses po meds. #DVT: Lovenox 40 Daily
[2018-09-04] MEDS: SODIUM CHLORIDE 1,000 ML IV SCH (19:58)
[2018-09-05] MEDS ORDERED: PIPERACILLIN/TAZOBACTAM 3.375 GM VIAL IVPB ONE ×3 (01:13→17:54)
[2018-09-05] MEDS ORDERED: DEXTROSE 5%-WATER - 50 ML IVPB ONE ×3 (01:14→17:54)
[2018-09-05] MEDS: PIPERACILLIN/TAZOB 3.375 GM 3.375 GM in DEXTROSE 5%-WATER - 50 ML IVPB SCH ×3 (01:49→18:10)
[2018-09-05] MEDS: POLYETHYLENE GLYCOL 3350 119 GM BTL PO SCH ×3 (06:51→21:30)
[2018-09-05 08:54] LABS: HEMATOCRIT 39.2 % (32.4-45.2); HEMOGLOBIN 13.2 GM/dL (10.7-15.3); MCHC 33.8 g/dl (32.0-36.0); MEAN CELL VOLUME 94.6 fl (80-96); MEAN PLT VOLUME 10.2 fl (7.5-11.1); PLATELET COUNT 226 K/MM3 (134-434); RBC 4.14 M/mm3 (3.60-5.2); RDW 16.7 % (11.6-15.6); WHITE BLOOD COUNT 4.8 K/mm3 (4.0-10.0)
[2018-09-05 09:06] LABS: ANION GAP 5 MMOL/L (8-16); BLOOD UREA NITROGEN 14 mg/dL (7-18); CALCIUM 8.5 mg/dL (8.5-10.1); CHLORIDE 112 mmol/L (98-107); CO2 28 mmol/L (21-32); CREATININE 0.5 mg/dL (0.55-1.3); GLUCOSE,RANDOM 94 mg/dL (74-106); MAGNESIUM 2.7 mg/dL (1.8-2.4); POTASSIUM 3.3 mmol/L (3.5-5.1); SODIUM 145 mmol/L (136-145)
[2018-09-05] MEDS ORDERED: PT OWN MED DRAWER 7, Y5N ONE (09:49)
[2018-09-05] MEDS: ENOXAPARIN NA (PORCINE) 40 MG/0.4 ML DISP.SYRIN SQ SCH (10:00)
[2018-09-05] MEDS: amLODIPine BESYLATE 5 MG TABLET (FP) PO SCH ×2 (10:02→21:30)
[2018-09-05] MEDS: MEMANTINE HCL 5 MG TABLET (UD) PO SCH ×2 (10:02→21:29)
[2018-09-05] MEDS: HYDROCORTISONE 2.5% TOPICAL CREAM 30 GM TUBE PR SCH ×2 (10:04→21:44)
--- NOTE | 2018-09-05 10:04 | PN ---
Progress Note (short form) - Note Progress Note: 88 year old female history of alzheimer dementia, [place] resident. She has garbled speech and was brought to hospital . Given her symptoms were more generalized and diagnosis of stroke was in doubt and she was not given tpa. Daughter is at bedside and feel that it appears to be slow detioration in her condition. Patient has been moving all extremity . She speaks protuguesse. Patient is able to speak and follow commond . Now new complain, patient has been more alert . NEUROLOGICAL EXAMINATION Alert and follow simple command there is neck muslce spasm due arthritis pupils reactive, no face asymmetry moving all extrey ct head no acute findings xray chest showed pneumonia Assessment 88 year old female with AD , presented with metabolic encephalopathy secondary to pneumonia and constipation. Clinically she has improved with abx, and almost back to baseline Plan: - continue current level of care and abx - No need for any mri of brain Thanking you so much Peña Segura MD
[2018-09-05] MEDS: SODIUM CHLORIDE 1,000 ML IV SCH ×2 (16:19→21:09)
[2018-09-05] MEDS: ENALAPRIL MALEATE 10 MG TABLET (FP) PO ONE ×2 (19:03→19:06)
[2018-09-05] MEDS ORDERED: ENALAPRIL MALEATE 10 MG TABLET (FP) PO ONE (19:30)
--- NOTE | 2018-09-05 19:34 | PN ---
Progress Note, Physician History of Present Illness: Pt seen and examined, events noted, labs/imaging results reviewed. She is alert , verbal, without acute distress. No distress noted. - Current Medication List Current Medications: Active Medications Acetaminophen (Tylenol -) 650 mg PO Q4H PRN PRN Reason: PAIN LEVEL 1-5 Amlodipine Besylate (Norvasc -) 5 mg PO DAILY [facility] Last Admin: 09/05/18 10:02 Dose: 5 mg Bisacodyl (Dulcolax Suppository -) 10 mg [place] DAILY PRN PRN Reason: CONSTIPATION Docusate Sodium (Colace Liquid -) 300 mg PO DAILY PRN PRN Reason: CONSTIPATION Enalapril Maleate (Vasotec -) 5 mg PO ONCE ONE Stop: 09/05/18 19:31 Enalaprilat (Vasotec Injection -) 1.25 mg IVPB Q6H PRN PRN Reason: HYPERTENSION Enoxaparin Sodium (Lovenox -) 40 mg SQ DAILY [facility] Last Admin: 09/05/18 10:00 Dose: 40 mg Hydrocortisone (Anusol 2.5% Hc Cream -) 1 applic [place] BID [facility] Last Admin: 09/05/18 10:04 Dose: Not Given Piperacillin Sod/Tazobactam (Sod 3.375 gm/ Dextrose) 50 mls @ 100 mls/hr IVPB Q8H-IV MONSTER; Protocol Last Admin: 09/05/18 18:10 Dose: 100 mls/hr Sodium Chloride (Normal Saline -) 1,000 mls @ 42 mls/hr IV ASDIR [facility] Last Admin: 09/05/18 16:19 Dose: 42 mls/hr Memantine (Namenda -) 5 mg PO BID [facility] Last Admin: 09/05/18 10:02 Dose: 5 mg Polyethylene Glycol (Miralax (For Daily Use) -) 17 gm PO TID [facility] Last Admin: 09/05/18 14:19 Dose: 17 grams - Objective Vital Signs: Vital Signs Temperature 98.1 F 09/05/18 18:00 Pulse Rate 89 09/05/18 18:00 Respiratory Rate 20 09/05/18 18:00 Blood Pressure 163/98 09/05/18 18:00 O2 Sat by Pulse Oximetry (%) 96 09/04/18 09:00 Constitutional: Yes: No Distress, Other (slightly agitated) Eyes: Yes: Conjunctiva Clear Cardiovascular: Yes: Regular Rate and Rhythm Respiratory: Yes: Other (poor inspiratory effort) Gastrointestinal: Yes: Normal Bowel Sounds, Soft Edema: No Neurological: Yes: Alert Labs: CBC, BMP 09/05/18 07:15 09/05/18 07:15 INR, PTT INR 0.94 (0.83-1.09) 09/03/18 06:00 Active Medications Acetaminophen (Tylenol -) 650 mg PO Q4H PRN PRN Reason: PAIN LEVEL 1-5 Amlodipine Besylate (Norvasc -) 5 mg PO DAILY [facility] Last Admin: 09/05/18 10:02 Dose: 5 mg Bisacodyl (Dulcolax Suppository -) 10 mg [place] DAILY PRN PRN Reason: CONSTIPATION Docusate Sodium (Colace Liquid -) 300 mg PO DAILY PRN PRN Reason: CONSTIPATION Enalaprilat (Vasotec Injection -) 1.25 mg IVPB Q6H PRN PRN Reason: HYPERTENSION Enoxaparin Sodium (Lovenox -) 40 mg SQ DAILY [facility] Last Admin: 09/05/18 10:00 Dose: 40 mg Hydrocortisone (Anusol 2.5% Hc Cream -) 1 applic [place] BID [facility] Last Admin: 09/05/18 10:04 Dose: Not Given Piperacillin Sod/Tazobactam (Sod 3.375 gm/ Dextrose) 50 mls @ 100 mls/hr IVPB Q8H-IV MONSTER; Protocol Last Admin: 09/05/18 18:10 Dose: 100 mls/hr Sodium Chloride (Normal Saline -) 1,000 mls @ 42 mls/hr IV ASDIR [facility] Last Admin: 09/05/18 16:19 Dose: 42 mls/hr Memantine (Namenda -) 5 mg PO BID [facility] Last Admin: 09/05/18 10:02 Dose: 5 mg Polyethylene Glycol (Miralax (For Daily Use) -) 17 gm PO TID [facility] Last Admin: 09/05/18 14:19 Dose: 17 grams Microbiology 09/02/18 19:20 Blood - Peripheral Venous Blood Culture - Preliminary NO GROWTH OBTAINED AFTER 72 HOURS, INCUBATION TO CONTINUE FOR 2 DAYS. 09/02/18 19:20 Blood - Peripheral Venous Blood Culture - Preliminary NO GROWTH OBTAINED AFTER 72 HOURS, INCUBATION TO CONTINUE FOR 2 DAYS. 09/02/18 19:00 Urine - Urine - Catheterized Urine Culture - Final NO GROWTH OBTAINED - ....Imaging Chest X-ray: Report Reviewed Problem List - Problems (1) Altered mental status Code(s): R41.82 - ALTERED MENTAL STATUS, UNSPECIFIED Qualifiers: Altered mental status type: unspecified Qualified Code(s): R41.82 - Altered mental status, unspecified (2) Pneumonia Code(s): J18.9 - PNEUMONIA, UNSPECIFIED ORGANISM Qualifiers: Pneumonia type: due to unspecified organism Laterality: unspecified laterality Lung location: unspecified part of lung Qualified Code(s): J18.9 - Pneumonia, unspecified organism (3) Alzheimer disease Code(s): G30.9 - ALZHEIMER'S DISEASE, UNSPECIFIED; F02.80 - DEMENTIA IN OTH DISEASES CLASSD ELSWHR W/O BEHAVRL DISTURB Qualifiers: Alzheimer's disease onset: unspecified onset Dementia behavioral disturbance: with behavioral disturbance Qualified Code(s): G30.9 - Alzheimer' s disease, unspecified; F02.81 - Dementia in other diseases classified elsewhere with behavioral disturbance Assessment/Plan AMS Possible Aspiration PNA Dementia -- pt is alert, afebrile -- will change antibiotics tomorrow if remains stable
--- NOTE | 2018-09-05 19:54 | PN ---
Progress Note (short form) - Note Progress Note: Patient is awake with no acute distress. Vital Signs Temperature 98.1 F 09/05/18 18:00 Pulse Rate 89 09/05/18 18:00 Respiratory Rate 20 09/05/18 18:00 Blood Pressure 163/98 09/05/18 18:00 O2 Sat by Pulse Oximetry (%) 96 09/04/18 09:00 GENERAL: No acute distress, Czech speaking HEAD: Atraumatic/Normocephalic EYES: EOMi Sclera Clear . ENT: Dry mucous membranes NECK: Trachea midline, full range of motion, supple. LUNGS:decreased BS BL HEART: RRR nl S1S2 ABDOMEN: Distended, BS positive. EXTREMITIES: Trace edema. PSYCH: Dementia CBCD WBC 4.8 K/mm3 (4.0-10.0) 09/05/18 07:15 RBC 4.14 M/mm3 (3.60-5.2) 09/05/18 07:15 Hgb 13.2 GM/dL (10.7-15.3) 09/05/18 07:15 Hct 39.2 % (32.4-45.2) 09/05/18 07:15 MCV 94.6 fl (80-96) 09/05/18 07:15 MCHC 33.8 g/dl (32.0-36.0) 09/05/18 07:15 RDW 16.7 % (11.6-15.6) H 09/05/18 07:15 Plt Count 226 K/MM3 (134-434) 09/05/18 07:15 MPV 10.2 fl (7.5-11.1) 09/05/18 07:15 CMP Sodium 145 mmol/L (136-145) 09/05/18 07:15 Potassium 3.3 mmol/L (3.5-5.1) L 09/05/18 07:15 Chloride 112 mmol/L (98-107) H 09/05/18 07:15 Carbon Dioxide 28 mmol/L (21-32) 09/05/18 07:15 Anion Gap 5 MMOL/L (8-16) L 09/05/18 07:15 BUN 14 mg/dL (7-18) 09/05/18 07:15 Creatinine 0.5 mg/dL (0.55-1.3) L 09/05/18 07:15 Creat Clearance w eGFR 116.71 (>60) 09/05/18 07:15 Random Glucose 94 mg/dL (74-106) 09/05/18 07:15 Calcium 8.5 mg/dL (8.5-10.1) 09/05/18 07:15 Total Bilirubin 1.0 mg/dL (0.2-1) 09/03/18 06:00 AST 23 U/L (15-37) 09/03/18 06:00 ALT 22 U/L (13-61) 09/03/18 06:00 Alkaline Phosphatase 75 U/L (45-117) 09/03/18 06:00 Total Protein 5.8 g/dl (6.4-8.2) L 09/03/18 06:00 Albumin 3.0 g/dl (3.4-5.0) L 09/03/18 06:00 CARDIAC ENZYMES Creatine Kinase 95 U/L (26-192) 09/03/18 02:00 Troponin I 0.03 ng/ml (0.00-0.05) 09/03/18 02:00 Current Medications Generic Name Dose Route Start Last Admin Trade Name Freq PRN Reason Stop Dose Admin Acetaminophen 650 mg 09/03/18 18:48 Tylenol - PO Q4H PRN PAIN LEVEL 1-5 Amlodipine Besylate 5 mg 09/04/18 14:00 09/05/18 10:02 Norvasc - PO 5 mg DAILY [facility] Administration Bisacodyl 10 mg 09/03/18 18:48 Dulcolax Suppository - [place] DAILY PRN CONSTIPATION Docusate Sodium 300 mg 09/03/18 18:48 Colace Liquid - PO DAILY PRN CONSTIPATION Enalaprilat 1.25 mg 09/04/18 12:15 Vasotec Injection - IVPB Q6H PRN HYPERTENSION Enoxaparin Sodium 40 mg 09/04/18 10:00 09/05/18 10:00 Lovenox - SQ 40 mg DAILY [facility] Administration Hydrocortisone 1 applic 09/03/18 22:00 09/05/18 10:04 Anusol 2.5% Hc Cream - [place] Not Given BID MONSTER Piperacillin Sod/Tazobactam 50 mls @ 100 mls/hr 09/03/18 18:00 09/05/18 18:10 Sod 3.375 gm/ Dextrose IVPB 100 mls/hr Q8H-IV [facility] Administration Protocol Sodium Chloride 1,000 mls @ 42 mls/hr 09/03/18 18:48 09/05/18 16:19 Normal Saline - IV 42 mls/hr ASDIR [facility] Administration Memantine 5 mg 09/04/18 14:00 09/05/18 10:02 Namenda - PO 5 mg BID [facility] Administration Polyethylene Glycol 17 gm 09/03/18 22:00 09/05/18 14:19 Miralax (For Daily Use) - PO 17 grams TID [facility] Administration Home Medications Medication Instructions Recorded NK [No Known Home Medication] 09/02/18 Assessment and plan: Patient is 88yo female with pmhx of HTN, HLD, and Alzheimer's dementia who presented to the hospital due to altered mental status. #Acute change of MS ,back to her baseline, no infiltrate reported on CXR , will change the antibiotic in am to po per ID #Failure to thrive due to having dementia # Colonic distension/Fecal impaction on Miralx protocol continue #Alzheimer's Dementia continue Namenda 5 #HTN continue Amlodipine 5 daily; Will add Vasotec 1.25 Q8H if pt refuses po meds. #DVT: Lovenox 40 Daily Visit type - Emergency Visit Emergency Visit: Yes ED Registration Date: 09/02/18 Care time: The patient presented to the Emergency Department on the above date and was hospitalized for further evaluation of their emergent condition. - New Patient This patient is new to me today: No - Critical Care Critical Care patient: No - Discharge Referral Referred to [facility] Med P.C.: No
[2018-09-06] MEDS ORDERED: PIPERACILLIN/TAZOBACTAM 3.375 GM VIAL IVPB ONE ×3 (01:29→17:48)
[2018-09-06] MEDS ORDERED: DEXTROSE 5%-WATER - 50 ML IVPB ONE ×3 (01:30→17:48)
[2018-09-06] MEDS: PIPERACILLIN/TAZOB 3.375 GM 3.375 GM in DEXTROSE 5%-WATER - 50 ML IVPB SCH ×3 (02:23→17:55)
[2018-09-06] MEDS: POLYETHYLENE GLYCOL 3350 119 GM BTL PO SCH ×3 (05:39→22:02)
[2018-09-06] MEDS: HYDROCORTISONE 2.5% TOPICAL CREAM 30 GM TUBE PR SCH ×2 (09:08→22:06)
[2018-09-06] MEDS: amLODIPine BESYLATE 5 MG TABLET (FP) PO SCH ×2 (09:09→22:02)
[2018-09-06] MEDS: ENOXAPARIN NA (PORCINE) 40 MG/0.4 ML DISP.SYRIN SQ SCH (09:09)
[2018-09-06] MEDS: MEMANTINE HCL 5 MG TABLET (UD) PO SCH ×3 (09:09→22:02)
--- NOTE | 2018-09-06 09:28 | PN ---
Progress Note (short form) - Note Progress Note: 88 year old female history of alzheimer dementia, [place] resident. She has garbled speech and was brought to hospital . Given her symptoms were more generalized and diagnosis of stroke was in doubt and she was not given tpa. Daughter is at bedside and feel that it appears to be slow detioration in her condition. Patient has been moving all extremity . She speaks protuguesse. Patient is able to speak and follow commond . Patient remains confused but more alert NEUROLOGICAL EXAMINATION Alert and follow simple command , remains cofused there is neck muslce spasm due arthritis pupils reactive, no face asymmetry moving all extrey ct head no acute findings Assessment 88 year old female with AD , presented with metabolic encephalopathy secondary to pneumonia and constipation. Clinically she has improved with abx, and almost back to baseline. She have moderate to severe AD Plan: - continue current level of care and abx - Continue namenda - Thanking you so much Peña Segura MD
--- NOTE | 2018-09-06 09:38 | PN ---
Physical Exam: SUBJECTIVE: HPI limited OBJECTIVE: Vital Signs Period Temp Pulse Resp BP Sys/Turcios Pulse Ox Last 24 Hr 97.1 F-98.1 F 80-95 18-22 142-180/80-98 98 GENERAL: The patient is awake, alert, and fully oriented, in no acute distress. HEAD: Normal with no signs of trauma. EYES: PERRL, extraocular movements intact, sclera anicteric, conjunctiva clear. No ptosis. ENT: Ears normal, nares patent, oropharynx clear without exudates, moist mucous membranes. NECK: Trachea midline, full range of motion, supple. LUNGS: Breath sounds equal, clear to auscultation bilaterally, no wheezes, no crackles, no accessory muscle use. HEART: Regular rate and rhythm, S1, S2 without murmur, rub or gallop. ABDOMEN: Soft, nontender, nondistended, normoactive bowel sounds, no guarding, no rebound, no hepatosplenomegaly, no masses. EXTREMITIES: 2+ pulses, warm, well-perfused, no edema. NEUROLOGICAL: Cranial nerves II through XII grossly intact. Normal speech, gait not observed. PSYCH: Normal mood, normal affect. SKIN: Warm, dry, normal turgor, no rashes or lesions noted Active Medications Generic Name Dose Route Start Last Admin Trade Name Freq PRN Reason Stop Dose Admin Acetaminophen 650 mg 09/03/18 18:48 Tylenol - PO Q4H PRN PAIN LEVEL 1-5 Amlodipine Besylate 5 mg 09/05/18 20:15 09/06/18 09:09 Norvasc - PO 5 mg BID MONSTER Administration Bisacodyl 10 mg 09/03/18 18:48 Dulcolax Suppository - IN DAILY PRN CONSTIPATION Docusate Sodium 300 mg 09/03/18 18:48 Colace Liquid - PO DAILY PRN CONSTIPATION Enalaprilat 1.25 mg 09/04/18 12:15 Vasotec Injection - IVPB Q6H PRN HYPERTENSION Enoxaparin Sodium 40 mg 09/04/18 10:00 09/06/18 09:09 Lovenox - SQ 40 mg DAILY MONSTER Administration Hydrocortisone 1 applic 09/03/18 22:00 09/06/18 09:08 Anusol 2.5% Hc Cream - IN 1 applic BID MONSTER Administration Piperacillin Sod/Tazobactam 50 mls @ 100 mls/hr 09/03/18 18:00 09/06/18 09:09 Sod 3.375 gm/ Dextrose IVPB 100 mls/hr Q8H-IV MONSTER Administration Protocol Sodium Chloride 1,000 mls @ 42 mls/hr 09/03/18 18:48 09/05/18 21:09 Normal Saline - IV Not Given ASDIR MONSTER Memantine 5 mg 09/04/18 14:00 09/06/18 09:20 Namenda - PO Not Given BID MONSTER Polyethylene Glycol 17 gm 09/03/18 22:00 09/06/18 05:39 Miralax (For Daily Use) - PO Not Given TID MONSTER ASSESSMENT/PLAN:
--- NOTE | 2018-09-06 11:25 | PN ---
Progress Note, Physician History of Present Illness: Pt alert, no respiratory distress, remains afebrile. Less agitated today. - Current Medication List Current Medications: Active Medications Acetaminophen (Tylenol -) 650 mg PO Q4H PRN PRN Reason: PAIN LEVEL 1-5 Amlodipine Besylate (Norvasc -) 5 mg PO BID [facility] Last Admin: 09/06/18 09:09 Dose: 5 mg Bisacodyl (Dulcolax Suppository -) 10 mg [place] DAILY PRN PRN Reason: CONSTIPATION Docusate Sodium (Colace Liquid -) 300 mg PO DAILY PRN PRN Reason: CONSTIPATION Enoxaparin Sodium (Lovenox -) 40 mg SQ DAILY [facility] Last Admin: 09/06/18 09:09 Dose: 40 mg Hydrocortisone (Anusol 2.5% Hc Cream -) 1 applic [place] BID [facility] Last Admin: 09/06/18 09:08 Dose: 1 applic Piperacillin Sod/Tazobactam (Sod 3.375 gm/ Dextrose) 50 mls @ 100 mls/hr IVPB Q8H-IV [facility]; Protocol Last Admin: 09/06/18 09:09 Dose: 100 mls/hr Sodium Chloride (Normal Saline -) 1,000 mls @ 42 mls/hr IV ASDIR [facility] Last Admin: 09/05/18 21:09 Dose: Not Given Memantine (Namenda -) 5 mg PO BID [facility] Last Admin: 09/06/18 09:20 Dose: Not Given Polyethylene Glycol (Miralax (For Daily Use) -) 17 gm PO TID [facility] Last Admin: 09/06/18 05:39 Dose: Not Given - Objective Vital Signs: Vital Signs Temperature 98.0 F 09/06/18 09:03 Pulse Rate 87 09/06/18 09:03 Respiratory Rate 20 09/06/18 09:03 Blood Pressure 157/90 09/06/18 09:03 O2 Sat by Pulse Oximetry (%) 98 09/05/18 21:00 Constitutional: Yes: No Distress Cardiovascular: Yes: Regular Rate and Rhythm Respiratory: Yes: CTA Bilaterally Gastrointestinal: Yes: Normal Bowel Sounds, Soft Integumentary: Yes: WNL Neurological: Yes: Alert Labs: CBC, BMP 09/05/18 07:15 09/05/18 07:15 INR, PTT INR 0.94 (0.83-1.09) 09/03/18 06:00 Problem List - Problems (1) Altered mental status Code(s): R41.82 - ALTERED MENTAL STATUS, UNSPECIFIED Qualifiers: Altered mental status type: unspecified Qualified Code(s): R41.82 - Altered mental status, unspecified (2) Pneumonia Code(s): J18.9 - PNEUMONIA, UNSPECIFIED ORGANISM Qualifiers: Pneumonia type: due to unspecified organism Laterality: unspecified laterality Lung location: unspecified part of lung Qualified Code(s): J18.9 - Pneumonia, unspecified organism (3) Alzheimer disease Code(s): G30.9 - ALZHEIMER'S DISEASE, UNSPECIFIED; F02.80 - DEMENTIA IN OTH DISEASES CLASSD ELSWHR W/O BEHAVRL DISTURB Qualifiers: Alzheimer's disease onset: unspecified onset Dementia behavioral disturbance: with behavioral disturbance Qualified Code(s): G30.9 - Alzheimer' s disease, unspecified; F02.81 - Dementia in other diseases classified elsewhere with behavioral disturbance Assessment/Plan AMS Possible Aspiration PNA Dementia -- pt is more alert, still with some confusion -- d/c IV antibiotics and switch to Augmentin 875 mg po BID x 3 days if tolerates po -- continue monitor, aspiration precautions
[2018-09-06] MEDS: SODIUM CHLORIDE 1,000 ML IV SCH ×2 (13:13→17:55)
[2018-09-06] MEDS ORDERED: AMOX TR/POT CLAV 875MG/125MG TABLETS (FP) PO SCH (17:30)
--- NOTE | 2018-09-06 19:16 | PN ---
Teaching Attending Note Name of Resident: Jewel Duarte ATTENDING PHYSICIAN STATEMENT I saw and evaluated the patient. I reviewed the resident's note and discussed the case with the resident. I agree with the resident's findings and plan as documented. SUBJECTIVE: Patient ws disimpacted today by the nurse. feels better OBJECTIVE: Vital Signs Temperature 97.3 F L 09/06/18 14:38 Pulse Rate 90 09/06/18 18:00 Respiratory Rate 20 09/06/18 18:00 Blood Pressure 150/84 09/06/18 18:00 O2 Sat by Pulse Oximetry (%) 98 09/06/18 09:00 GENERAL: No acute distress, Italian speaking HEAD: Atraumatic/Normocephalic EYES: EOMi Sclera Clear . ENT: Dry mucous membranes NECK: Trachea midline, full range of motion, supple. LUNGS:decreased BS BL HEART: RRR nl S1S2 ABDOMEN: Distended, BS positive. EXTREMITIES: Trace edema. PSYCH: DementiaCBCD WBC 4.8 K/mm3 (4.0-10.0) 09/05/18 07:15 RBC 4.14 M/mm3 (3.60-5.2) 09/05/18 07:15 Hgb 13.2 GM/dL (10.7-15.3) 09/05/18 07:15 Hct 39.2 % (32.4-45.2) 09/05/18 07:15 MCV 94.6 fl (80-96) 09/05/18 07:15 MCHC 33.8 g/dl (32.0-36.0) 09/05/18 07:15 RDW 16.7 % (11.6-15.6) H 09/05/18 07:15 Plt Count 226 K/MM3 (134-434) 09/05/18 07:15 MPV 10.2 fl (7.5-11.1) 09/05/18 07:15 CMP Sodium 145 mmol/L (136-145) 09/05/18 07:15 Potassium 3.3 mmol/L (3.5-5.1) L 09/05/18 07:15 Chloride 112 mmol/L (98-107) H 09/05/18 07:15 Carbon Dioxide 28 mmol/L (21-32) 09/05/18 07:15 Anion Gap 5 MMOL/L (8-16) L 09/05/18 07:15 BUN 14 mg/dL (7-18) 09/05/18 07:15 Creatinine 0.5 mg/dL (0.55-1.3) L 09/05/18 07:15 Creat Clearance w eGFR 116.71 (>60) 09/05/18 07:15 Random Glucose 94 mg/dL (74-106) 09/05/18 07:15 Calcium 8.5 mg/dL (8.5-10.1) 09/05/18 07:15 Total Bilirubin 1.0 mg/dL (0.2-1) 09/03/18 06:00 AST 23 U/L (15-37) 09/03/18 06:00 ALT 22 U/L (13-61) 09/03/18 06:00 Alkaline Phosphatase 75 U/L (45-117) 09/03/18 06:00 Total Protein 5.8 g/dl (6.4-8.2) L 09/03/18 06:00 Albumin 3.0 g/dl (3.4-5.0) L 09/03/18 06:00 CARDIAC ENZYMES Creatine Kinase 95 U/L (26-192) 09/03/18 02:00 Troponin I 0.03 ng/ml (0.00-0.05) 09/03/18 02:00 Current Medications Generic Name Dose Route Start Last Admin Trade Name Freq PRN Reason Stop Dose Admin Acetaminophen 650 mg 09/03/18 18:48 Tylenol - PO Q4H PRN PAIN LEVEL 1-5 Amlodipine Besylate 5 mg 09/05/18 20:15 09/06/18 09:09 Norvasc - PO 5 mg BID MONSTER Administration Bisacodyl 10 mg 09/03/18 18:48 Dulcolax Suppository - [place] DAILY PRN CONSTIPATION Docusate Sodium 300 mg 09/03/18 18:48 Colace Liquid - PO DAILY PRN CONSTIPATION Enoxaparin Sodium 40 mg 09/04/18 10:00 09/06/18 09:09 Lovenox - SQ 40 mg DAILY MONSTER Administration Hydrocortisone 1 applic 09/03/18 22:00 09/06/18 09:08 Anusol 2.5% Hc Cream - [place] 1 applic BID MONSTER Administration Sodium Chloride 1,000 mls @ 42 mls/hr 09/03/18 18:48 09/06/18 17:55 Normal Saline - IV Not Given ASDIR MONSTER Piperacillin Sod/Tazobactam 50 mls @ 100 mls/hr 09/06/18 18:00 09/06/18 17:55 Sod 3.375 gm/ Dextrose IVPB 100 mls/hr Q8H-IV MONSTER Administration Protocol Memantine 5 mg 09/04/18 14:00 09/06/18 09:20 Namenda - PO Not Given BID MONSTER Polyethylene Glycol 17 gm 09/03/18 22:00 09/06/18 13:35 Miralax (For Daily Use) - PO Not Given TID MONSTER Home Medications Medication Instructions Recorded NK [No Known Home Medication] 09/02/18 Assessment and plan: Patient is 88yo female with pmhx of HTN, HLD, and Alzheimer's dementia who presented to the hospital due to altered mental status. #Acute change of MS ,back to her baseline, no infiltrate reported on CXR , will change the antibiotic zosyn to po augmentin x 3 days in am as per ID #Failure to thrive due to having dementia, better aspiration precautions, elevate the head # Colonic distension/Fecal impaction on Miralx protocol continue #Alzheimer's Dementia continue Namenda 5 #HTN continue Amlodipine 5 daily; Will add Vasotec 1.25 Q8H if pt refuses po meds. #DVT: Lovenox 40 Daily
[2018-09-07] MEDS ORDERED: PIPERACILLIN/TAZOBACTAM 3.375 GM VIAL IVPB ONE ×2 (01:10→10:13)
[2018-09-07] MEDS ORDERED: DEXTROSE 5%-WATER - 50 ML IVPB ONE ×2 (01:10→10:13)
[2018-09-07] MEDS: PIPERACILLIN/TAZOB 3.375 GM 3.375 GM in DEXTROSE 5%-WATER - 50 ML IVPB SCH ×2 (01:26→10:21)
[2018-09-07] MEDS ORDERED: POTASSIUM CHLORIDE 20 MEQ PREMIX IVPB 100 ML IVPB ONE (02:01)
[2018-09-07] MEDS ORDERED: ENALAPRILAT DIHYDRATE 1.25 MG/1 ML VIAL IVPB ONE (02:01)
[2018-09-07] MEDS ORDERED: hydrALAZINE HCL 20 MG/ML VIAL IVPUSH ONE (02:10)
[2018-09-07] MEDS: KCL 10 MEQ IVPB 10 MEQ/100 ML INFUS.BAG IVPB SCH ×2 (02:24→05:04)
[2018-09-07] MEDS ORDERED: hydrALAZINE HCL 20 MG/ML VIAL IVPB ONE ×2 (02:30→15:27)
[2018-09-07] MEDS: POLYETHYLENE GLYCOL 3350 119 GM BTL PO SCH ×2 (05:05→14:16)
[2018-09-07] MEDS ORDERED: PT OWN MED DRAWER 7, Y5N ONE ×2 (10:12→16:47)
[2018-09-07] MEDS: amLODIPine BESYLATE 5 MG TABLET (FP) PO SCH (10:20)
[2018-09-07] MEDS: MEMANTINE HCL 5 MG TABLET (UD) PO SCH (10:20)
[2018-09-07] MEDS: ENOXAPARIN NA (PORCINE) 40 MG/0.4 ML DISP.SYRIN SQ SCH (10:21)
[2018-09-07] MEDS: HYDROCORTISONE 2.5% TOPICAL CREAM 30 GM TUBE PR SCH (10:32)
--- NOTE | 2018-09-07 13:05 | PN ---
Progress Note, Physician History of Present Illness: stable awake and alrt dementia - Current Medication List Current Medications: Active Medications Acetaminophen (Tylenol -) 650 mg PO Q4H PRN PRN Reason: PAIN LEVEL 1-5 Amlodipine Besylate (Norvasc -) 5 mg PO BID [facility] Last Admin: 09/07/18 10:20 Dose: 5 mg Bisacodyl (Dulcolax Suppository -) 10 mg [place] DAILY PRN PRN Reason: CONSTIPATION Docusate Sodium (Colace Liquid -) 300 mg PO DAILY PRN PRN Reason: CONSTIPATION Enoxaparin Sodium (Lovenox -) 40 mg SQ DAILY [facility] Last Admin: 09/07/18 10:21 Dose: 40 mg Hydrocortisone (Anusol 2.5% Hc Cream -) 1 applic [place] BID [facility] Last Admin: 09/07/18 10:32 Dose: 1 applic Sodium Chloride (Normal Saline -) 1,000 mls @ 42 mls/hr IV ASDIR [facility] Last Admin: 09/06/18 17:55 Dose: Not Given Piperacillin Sod/Tazobactam (Sod 3.375 gm/ Dextrose) 50 mls @ 100 mls/hr IVPB Q8H-IV MONSTER; Protocol Last Admin: 09/07/18 10:21 Dose: 100 mls/hr Memantine (Namenda -) 5 mg PO BID [facility] Last Admin: 09/07/18 10:20 Dose: 5 mg Polyethylene Glycol (Miralax (For Daily Use) -) 17 gm PO TID [facility] Last Admin: 09/07/18 05:05 Dose: Not Given - Objective Vital Signs: Vital Signs Temperature 97.2 F L 09/07/18 06:00 Pulse Rate 86 09/07/18 10:00 Respiratory Rate 22 H 09/07/18 10:00 Blood Pressure 158/78 09/07/18 10:00 O2 Sat by Pulse Oximetry (%) 98 09/07/18 09:00 Constitutional: Yes: No Distress, Calm Cardiovascular: Yes: S1, S2 Gastrointestinal: Yes: Normal Bowel Sounds, Soft Musculoskeletal: Yes: WNL Extremities: Yes: WNL Neurological: Yes: Alert, Oriented Psychiatric: Yes: Alert, Oriented Labs: CBC, BMP 09/05/18 07:15 09/05/18 07:15 INR, PTT INR 0.94 (0.83-1.09) 09/03/18 06:00 Assessment/Plan patient known to me from previous admission coming back with probably aspiration ams htn pna confusion plan continue abx as planned nutrition rest as per the team
--- NOTE | 2018-09-07 13:34 | PN ---
Teaching Attending Note Name of Resident: Delvis Juarez ATTENDING PHYSICIAN STATEMENT I saw and evaluated the patient. I reviewed the resident's note and discussed the case with the resident. I agree with the resident's findings and plan as documented. SUBJECTIVE: Patient is comfortable, belly is less distended. able to tolerate diet. OBJECTIVE: Vital Signs Temperature 97.2 F L 09/07/18 06:00 Pulse Rate 86 09/07/18 10:00 Respiratory Rate 22 H 09/07/18 10:00 Blood Pressure 158/78 09/07/18 10:00 O2 Sat by Pulse Oximetry (%) 98 09/07/18 09:00 GENERAL: No acute distress, Guamanian speaking HEAD: Atraumatic/Normocephalic EYES: EOMi Sclera Clear . ENT: Dry mucous membranes NECK: Trachea midline, full range of motion, supple. LUNGS:decreased BS BL HEART: RRR nl S1S2 ABDOMEN: Distended, BS positive. EXTREMITIES: Trace edema. PSYCH: Dementia CBCD WBC 4.8 K/mm3 (4.0-10.0) 09/05/18 07:15 RBC 4.14 M/mm3 (3.60-5.2) 09/05/18 07:15 Hgb 13.2 GM/dL (10.7-15.3) 09/05/18 07:15 Hct 39.2 % (32.4-45.2) 09/05/18 07:15 MCV 94.6 fl (80-96) 09/05/18 07:15 MCHC 33.8 g/dl (32.0-36.0) 09/05/18 07:15 RDW 16.7 % (11.6-15.6) H 09/05/18 07:15 Plt Count 226 K/MM3 (134-434) 09/05/18 07:15 MPV 10.2 fl (7.5-11.1) 09/05/18 07:15 CMP Sodium 145 mmol/L (136-145) 09/05/18 07:15 Potassium 3.3 mmol/L (3.5-5.1) L 09/05/18 07:15 Chloride 112 mmol/L (98-107) H 09/05/18 07:15 Carbon Dioxide 28 mmol/L (21-32) 09/05/18 07:15 Anion Gap 5 MMOL/L (8-16) L 09/05/18 07:15 BUN 14 mg/dL (7-18) 09/05/18 07:15 Creatinine 0.5 mg/dL (0.55-1.3) L 09/05/18 07:15 Creat Clearance w eGFR 116.71 (>60) 09/05/18 07:15 Random Glucose 94 mg/dL (74-106) 09/05/18 07:15 Calcium 8.5 mg/dL (8.5-10.1) 09/05/18 07:15 Total Bilirubin 1.0 mg/dL (0.2-1) 09/03/18 06:00 AST 23 U/L (15-37) 09/03/18 06:00 ALT 22 U/L (13-61) 09/03/18 06:00 Alkaline Phosphatase 75 U/L (45-117) 09/03/18 06:00 Total Protein 5.8 g/dl (6.4-8.2) L 09/03/18 06:00 Albumin 3.0 g/dl (3.4-5.0) L 09/03/18 06:00 CARDIAC ENZYMES Creatine Kinase 95 U/L (26-192) 09/03/18 02:00 Troponin I 0.03 ng/ml (0.00-0.05) 09/03/18 02:00 Current Medications Generic Name Dose Route Start Last Admin Trade Name Freq PRN Reason Stop Dose Admin Acetaminophen 650 mg 09/03/18 18:48 Tylenol - PO Q4H PRN PAIN LEVEL 1-5 Amlodipine Besylate 5 mg 09/05/18 20:15 09/07/18 10:20 Norvasc - PO 5 mg BID MONSTER Administration Bisacodyl 10 mg 09/03/18 18:48 Dulcolax Suppository - [place] DAILY PRN CONSTIPATION Docusate Sodium 300 mg 09/03/18 18:48 Colace Liquid - PO DAILY PRN CONSTIPATION Enoxaparin Sodium 40 mg 09/04/18 10:00 09/07/18 10:21 Lovenox - SQ 40 mg DAILY [facility] Administration Hydrocortisone 1 applic 09/03/18 22:00 09/07/18 10:32 Anusol 2.5% Hc Cream - [place] 1 applic BID [facility]STER Administration Memantine 5 mg 09/04/18 14:00 09/07/18 10:20 Namenda - PO 5 mg BID MONSTER Administration Polyethylene Glycol 17 gm 09/03/18 22:00 09/07/18 05:05 Miralax (For Daily Use) - PO Not Given TID [facility] Home Medications Medication Instructions Recorded Amox-Tr/K Cl [Augmentin 400 mg/5 5 ml PO TID #105 ml 09/07/18 ml Oral Suspension -] ASSESSMENT AND PLAN: Patient is 88yo female with pmhx of HTN, HLD, and Alzheimer's dementia who presented to the hospital due to altered mental status. #Acute change of MS ,back to her baseline, no infiltrate reported on CXR , will discharge her on oral Augmentin liquid for 3 days as per ID , will discharge the patient to rehab. #Failure to thrive due to having dementia, better aspiration precautions, elevate the head # Colonic distension/Fecal impaction on Miralx protocol continue #Alzheimer's Dementia continue Namenda 5 #HTN continue Amlodipine 5 to bid increased need to give her with an apple suace added 2 packets of sugar. #DVT: Lovenox 40 Daily
--- NOTE | 2018-09-07 13:42 | DS ---
Physical Exam: SUBJECTIVE: Patient seen and examined at bedside. Hypertensive overnight. OBJECTIVE: Vital Signs Period Temp Pulse Resp BP Sys/Turcios Pulse Ox Last 24 Hr 97.1 F-97.4 F 76-93 18-22 136-159/65-84 98-98 PHYSICAL EXAM GENERAL: No acute distress HEAD: NC/AT EYES: EOMI Sclera Clear . ENT: Dry mucous membranes NECK: Trachea midline, full range of motion, supple. LUNGS: CTAB HEART: RRR nl S1S2 ABDOMEN: Distended, nontender no facial grimacing to deep palpation. BS audible EXTREMITIES: Trace edema. LABS HOSPITAL COURSE: Date of Admission:09/02/18 88 y/ F w/ pmhx of HTN, HLD, and Alzheimer's dementia who presented to the hospital due to altered mental status. Pt had no infiltrate reported on CXR but was started on IV antibiotics for possible for aspiration. Pt initially given Vanc/Zosyn in ED and remained on zosyn. Pt was noted to be impacted with stool on clinical exam as well as abdominal xray. Pt was started on her outpatient regime of Miralax and Colace. Pt was also noted to be hypertensive in the 150's systolic and hydralazine 5 mg ivpb was given 1 time overnight. Pt was evaluated by Neurology to assess for possible etiology of her AMS. Neurology attributed her AMS " most likely metabolic encephalopathy secondary to pneumonia and constipation. Unlikely to be stroke." Pt transferred back to [facility]. Date of Discharge: 09/07/18 Minutes to complete discharge: 35 Discharge Summary Reason For Visit: PNEUMONIA Current Active Problems Altered mental status (Acute) Pneumonia (Acute) Condition: Improved - Instructions Diet, Activity, Other Instructions: You presented to the hospital due to altered mental status. You were treated with antibiotics and I.V fluids. You will be sent back to [facility] on 2 more days of antibiotics Please take Augmentin as prescribed. Miralax 17 G Orally THREE times per day. Please make sure that this medication is placed in a hard mug with 4 packets of sugar in apple juice. Pt only likes to drink out of hard mug. Senna Liquid 30 ML TWICE per day. Please make sure that this medication is placed in a hard mug with 4 packets of sugar and apple juice. Pt only likes to drink out of hard mug. Please have the Nurse at [facility] manually disimpact you once every other day to ensure you do not continue to retain stool and become distended. Cortisone 2.5% cream applied to rectum for your Hemorrhoids Diltiazem 2% cream applied to the rectum TWICE Daily. This is will help relieve the fissure. Dulcolax suppository 10 mg Rectally as needed for constipation. Please follow up with your primary care doctor this week. Please follow up with the [employer] Team Member in 1 week to assess your abdomen and see if any other interventions may be needed, Dr Palmer. Please apply santyl to the pressure ulcer on your right hip daily. PLEASE DO NOT TAKE LOPERAMIDE OR ANY IMMODIUM Please follow up with the [employer] Team Member in 1 week, Dr Palmer please follow up with the Neurologist in 2 weeks, Dr Segura. Please Return to the emergency department if you begin to experience chest pain , shortness of breath, abdominal distension, nausea, or vomiting. Referrals: Peña Segura MD [Staff Physician] - Murphy Palmer DO [Staff Physician] - Disposition: [facility]F-WAY FACILITY - Home Medications Comprehensive Discharge Medication List: Ambulatory Orders Amlodipine Besylate [Norvasc -] 5 mg PO BID tablet 09/07/18 Amox-Tr/K Cl [Augmentin 400 mg/5 ml Oral Suspension -] 5 ml PO TID #105 ml 09/07 Bisacodyl Suppository [Dulcolax Suppository -] 10 mg [place] DAILY PRN supp.rect Enoxaparin [Lovenox -] 40 mg SQ DAILY disp.syrin 09/07/18 Hydrocortisone 2.5% Topical Cr [Anusol-Hc -] 1 applic [place] BID tube 09/07/18 Memantine HCl [Namenda -] 5 mg PO BID tab 09/07/18 Miscellaneous Medical Supply [Outpatient Order] 30 ml PO BID #1 misc 09/07/18 Polyethylene Glycol 3350 [Miralax 119 gm Btl -] 17 gm PO TID bottle 09/07/18 This patient is new to me today: No Emergency Visit: Yes ED Registration Date: 09/02/18 Care time: The patient presented to the Emergency Department on the above date and was hospitalized for further evaluation of their emergent condition. Critical Care patient: No - Discharge Referral Referred to [facility] Med P.C.: No
[2018-09-07 14:36] VITALS: BP 152/84; PULSE 96; TEMP 97.9
--- NOTE | 2018-09-07 17:21 | PN ---
Progress Note (short form) - Note Progress Note: 88 year old female history of alzheimer dementia, [place] resident. She has garbled speech and was brought to hospital . Given her symptoms were more generalized and diagnosis of stroke was in doubt and she was not given tpa. Daughter is at bedside and feel that it appears to be slow detioration in her condition. Since admission, she has been treated with abx, and clinically she has improved. Patient was seen with niece at bedside. SHe is being discharged today. NEUROLOGICAL EXAMINATION Alert and follow simple command , remains concused. there is neck muslce spasm due arthritis pupils reactive, no face asymmetry moving all extrey ct head no acute findings Assessment/PLAN : 88 year old female with AD , presented with metabolic encephalopathy secondary to pneumonia and constipation. Clinically she has improved with abx, and almost back to baseline. continue current level of care. Thanking you so much Peña Segura MD
== END 2018-09-07 17:43 | DRG 177 ==
LOC: JER 18:12 → JERBED 22:37 → J4W 09-03 00:32 → J5S 09-03 18:35
PROVIDERS: ADMIT Internal Medicine; ATTEND Internal Medicine
DX: J69.0 Pneumonitis due to inhalation of food and vomit (principal); G93.41 Metabolic encephalopathy; G30.9 Alzheimer's disease, unspecified; F02.80 Dementia in other diseases classified elsewhere, unspecified severity, without behavioral disturbance, psychotic disturbance, mood disturbance, and anxiety; I10 Essential (primary) hypertension; E86.0 Dehydration; K59.00 Constipation, unspecified; E78.5 Hyperlipidemia, unspecified; R41.82 Altered mental status, unspecified; R62.7 Adult failure to thrive
CPT/HCPCS: 36415; 70450-TC; 71045-TC-FY; 74018-TC-FY; 80048; 80053; 80061; 81003; 82550; 83036; 83605; 83721; 83735; 83880; 84100; 84439; 84443; 84484; 85025; 85027; 85610; 85730; 87040; 87086; 93005; 93010; 97116-GP; 97161-GP; 99285-25; J7030

== ENCOUNTER 2018-09-09 15:19 | Inpatient (IN) | payer OTHER ==
--- NOTE | 2018-09-09 16:21 | PDOC ---
History of Present Illness - General History Source: Patient Exam Limitations: No Limitations - History of Present Illness Initial Comments: 09/09/18 17:05 The patient is an 88-year-old female, DNR/DNI, with a past medical history of HTN, HLD, Alzheimers dementia, who presents to the ED via EMS from [facility] with abdominal distension, diarrhea, and loss of appetite r/o bowel obstruction. Son is at bedside and reports that the patient has had 2 similar episodes in the last month and was found to be impacted. Son was at the residential yesterday and noted gurgling sounds coming from the patients stomach after consuming some soup. He also reports that the patient was complaining of abdominal pain. LBM was yesterday and was loose. Denies any hematochezia or hematuria. HPI is limited due to patient's dementia. Allergies: warfarin sodium Social History: None reported. Surgical History: LT knee replacement - 2005. <Kate Castillo - Last Filed: 09/09/18 17:05> <Simran Lawrence - Last Filed: 09/10/18 01:19> - General Chief Complaint: Pain Stated Complaint: BOWEL OBSTRUCTION Time Seen by Provider: 09/09/18 16:20 Past History <Kate Castillo - Last Filed: 09/09/18 17:05> - Past Medical History COPD: No Dementia: Yes GI Disorders: Yes (constipation) HTN: Yes Hypercholesterolemia: Yes - Surgical History Orthopedic Surgery: Yes (left knee replacemet 2005) - Suicide/Smoking/Psychosocial Hx Smoking Status: No Smoking History: Never smoked Have you smoked in the past 12 months: No Number of Cigarettes Smoked Daily: 0 Cigars Per Day: 0 Information on smoking cessation initiated: No Hx Alcohol Use: No Drug/Substance Use Hx: No Substance Use Type: None <Simran Lawrence - Last Filed: 09/10/18 01:19> - Past Medical History Allergies/Adverse Reactions: Allergies Allergy/AdvReac Type Severity Reaction Status Date / Time warfarin sodium AdvReac Verified 08/01/18 18:07 [From Coumadin] Home Medications: Ambulatory Orders Amlodipine Besylate [Norvasc -] 5 mg PO BID 09/09/18 Amoxicillin/Potassium Clav [Amox Tr-K Clv 400-57/5 Susp] 5 ml PO TID 09/09/18 Enoxaparin [Lovenox -] 40 mg SQ DAILY 09/09/18 Memantine HCl [Namenda -] 5 mg PO BID 09/09/18 Polyethylene Glycol 1000 [Polyethylene Glycol] 17 gm PO TID 09/09/18 Sennosides [Senna] 8.8 mg PO BID 09/09/18 Review of Systems - Review of Systems Able to Perform ROS?: Yes Comments:: 09/09/18 17:10 ROS is limited due to patient's dementia. <Kate Castillo - Last Filed: 09/09/18 17:05> *Physical Exam - Vital Signs Last Vital Signs Temp Pulse Resp BP Pulse Ox 59 L 18 129/75 99 09/09/18 15:35 09/09/18 15:35 09/09/18 15:35 09/09/18 15:35 - Physical Exam Comments: 09/09/18 17:10 GENERAL: (+)Pleasantly demented, moaning. In no acute distress HEAD: No signs of trauma EYES: PERRLA, EOMI, sclera anicteric, conjunctiva clear ENT: (+)Dry mucous membranes. Auricles normal inspection, hearing grossly normal , nares patent, oropharynx clear without exudates. NECK: Normal ROM, supple, no lymphadenopathy, JVD, or masses LUNGS: Breath sounds equal, clear to auscultation bilaterally. No wheezes, and no crackles HEART: Regular rate and rhythm, normal S1 and S2, no murmurs, rubs or gallops ABDOMEN: (+)Abdomen is distended but soft, hyperactive bowel sounds. Nontender. No guarding, no rebound. No masses EXTREMITIES: Normal range of motion, no edema. No clubbing or cyanosis. No cords, erythema, or tenderness NEUROLOGICAL: (+)Awake, demented, patient is at baseline as per son. SKIN: Warm, Dry, normal turgor, no rashes or lesions noted <Kate Castillo - Last Filed: 09/09/18 17:05> - Vital Signs Last Vital Signs Temp Pulse Resp BP Pulse Ox 59 L 18 129/75 99 09/09/18 15:35 09/09/18 15:35 09/09/18 15:35 09/09/18 15:35 <Simran Lawrence - Last Filed: 09/10/18 01:19> Moderate Sedation - Procedure Monitoring Vital Signs: Procedure Monitoring Vital Signs Temperature Pulse Rate 59 L 09/09/18 15:35 Respiratory Rate 18 09/09/18 15:35 Blood Pressure 129/75 09/09/18 15:35 O2 Sat by Pulse Oximetry (%) 99 09/09/18 15:35 <Kate Castillo - Last Filed: 09/09/18 17:05> - Procedure Monitoring Vital Signs: Procedure Monitoring Vital Signs Temperature Pulse Rate 59 L 09/09/18 15:35 Respiratory Rate 18 09/09/18 15:35 Blood Pressure 129/75 09/09/18 15:35 O2 Sat by Pulse Oximetry (%) 99 09/09/18 15:35 <Simran Lawrence - Last Filed: 09/10/18 01:19> Heart Score/ECG Review - ECG Intrepretation Comment:: 09/09/18 20:24 sinus tach at 116, lafb, t wave inversions avl, abnl ekg <Simran Lawrence - Last Filed: 09/10/18 01:19> ED Treatment Course - LABORATORY CBC & Chemistry Diagram: 09/09/18 18:01 09/09/18 19:49 <Simran Lawrence - Last Filed: 09/10/18 01:19> Medical Decision Making - Medical Decision Making 09/09/18 16:39 a/p: 88yo female sent from [facility] for eval of poss partial sbo seen on outpt xray today -pt with distended abd -pt intermittently c/o abd pain - none currently -pt with hyperactive bs -last bm was yesterday- diarrhea per the son -pt is demented and unable to provide hx -will send labs, ua, ucx, ct abd/pelvis with po contrast to eval for transition point -no n/v per the son -pt is dnr/i per the transfer paperwork -pt will most likely need admission 09/09/18 18:02 large liquid brown bm after rectal exam, vault empty, external hemorrhoid no bleeding, no masses palpated 09/09/18 22:51 elevated trop pt denies cp case discussed with Dr. Balderrama and Dr. Perry who accepts pt to service 09/09/18 22:52 family updated 09/10/18 01:19 pt denies cp <Simran Lawrence - Last Filed: 09/10/18 01:19> *DC/Admit/Observation/Transfer - Attestations Scribe Attestion: 09/09/18 17:14 Documentation prepared by Kate Castillo, acting as medical practitioners for Simran Lawrence DO. <Kate Castillo - Last Filed: 09/09/18 17:05> - Discharge Dispostion Decision to Admit order: Yes - Attestations Physician Attestion: 09/09/18 22:52 I, Dr. Simran Lawrence DO, attest that this document has been prepared under my direction and personally reviewed by me in its entirety. I further attest, that it accurately reflects all work, treatment, procedures and medical decision -making performed by me. <Simran Lawrence - Last Filed: 09/10/18 01:19> Diagnosis at time of Disposition: Colonic inertia, Constipation by delayed colonic transit, Elevated troponin, Colon distention - Discharge Dispostion Condition at time of disposition: Fair
[2018-09-09] MEDS ORDERED: SODIUM CHLORIDE 0.9% 1000 ML INFUS.BAG IV ONE (16:34)
[2018-09-09 18:12] LABS: VENOUS PC02 44.5 mmHg (41-51); VENOUS PH 7.44 (7.31-7.41); VENOUS PO2 28.7 mmHg (30-40)
[2018-09-09 18:13] LABS: BASO % 0.7 % (0-2.0); EOS % 0.1 % (0-4.5); HEMATOCRIT 47.4 % (32.4-45.2); HEMOGLOBIN 16.1 GM/dL (10.7-15.3); LYMPH % 10.3 % (8-40); MCH 32.2 pg (25.7-33.7); MCHC 33.9 g/dl (32.0-36.0); MEAN CELL VOLUME 95.1 fl (80-96); MEAN PLT VOLUME 10.6 fl (7.5-11.1); MONO % 16.5 % (3.8-10.2); NEUT % 72.4 % (42.8-82.8); RBC 4.99 M/mm3 (3.60-5.2); RDW 16.6 % (11.6-15.6); WHITE BLOOD COUNT 6.9 K/mm3 (4.0-10.0)
[2018-09-09 18:41] LABS: INR 1.08 (0.83-1.09); PROTHROMBIN TIME (PATIENT) 12.8 SEC (9.7-13.0)
[2018-09-09 19:05] LABS: PLATELET COUNT 227 K/MM3 (134-434); PLATELET ESTIMATE ADEQUATE
[2018-09-09 20:31] LABS: ALBUMIN 2.5 g/dl (3.4-5.0); ALK PHOS 67 U/L (45-117); ANION GAP 6 MMOL/L (8-16); BILIRUBIN,TOTAL 0.5 mg/dL (0.2-1); BLOOD UREA NITROGEN 11 mg/dL (7-18); CALCIUM 8.4 mg/dL (8.5-10.1); CHLORIDE 110 mmol/L (98-107); CO2 29 mmol/L (21-32); CREATININE 0.7 mg/dL (0.55-1.3); GLUCOSE,RANDOM 94 mg/dL (74-106); LIPASE 49 U/L (73-393); MAGNESIUM 2.4 mg/dL (1.8-2.4); POTASSIUM 3.1 mmol/L (3.5-5.1); SGOT/AST 36 U/L (15-37); SGPT/ALT 22 U/L (13-61); SODIUM 145 mmol/L (136-145); TOT PROT 5.3 g/dl (6.4-8.2)
[2018-09-09] MEDS ORDERED: ASPIRIN 300 MG SUPP.RECT PR ONE (22:53)
--- NOTE | 2018-09-09 22:54 | HP ---
Addendum entered and electronically signed by James Pascal, RESIDENT 09/25/18 21:03: Patient's troponemia was present on last admission and is currently trending down. No EKG changes noted. Patient denies active chest pain at the time of interview. Original Note: <Robby Woods - Last Filed: 09/10/18 01:31> CHIEF COMPLAINT: abdominal distension PCP:Dr. Nadeem Barnes HISTORY OF PRESENT ILLNESS: The patient is an 88-year-old female, DNR/DNI, with a past medical history of HTN, HLD, Alzheimers dementia, who presents to the ED via EMS from [facility] with abdominal distension, diarrhea, and loss of appetite to r/o bowel obstruction. Son is at bedside and reports that the patient has had 2 similar episodes in the last month and was found to be impacted. Son was at the halfway yesterday and noted gurgling sounds coming from the patients stomach after consuming some soup. He also reports that the patient was complaining of abdominal pain. LBM was yesterday and was loose. Denies any hematochezia or hematuria. HPI is limited due to patient's dementia. denies any fever, chills, N/V/ chest pain, sob , leg swelling , cough or sob. pt son denies any recent cardiac history , last seen by solutions development analyst 5 years ago , Dr Ji Castillo , was on coreg and stop taking oral meds in last 2 years. no recent echo or stress test ER course was notable for: (1) CT Abdomen (2)Elevated trop (3)K3.1 Recent Travel:denies PAST MEDICAL HISTORY: as per HPI PAST SURGICAL HISTORY: left knee replacement 2005 Social History: Smoking:denies Alcohol:denies Drugs: denies Family History:non contributory , Allergies warfarin sodium [From Coumadin] Adverse Reaction (Verified 08/01/18 18:07) patient took med 20 yrs ago and stated she didnt like the way it made her feel. HOME MEDICATIONS: Home Medications Medication Instructions Recorded Amlodipine Besylate [Norvasc -] 5 mg PO BID 09/09/18 Amoxicillin/Potassium Clav [Amox 5 ml PO TID 09/09/18 Tr-K Clv 400-57/5 Susp] Enoxaparin [Lovenox -] 40 mg SQ DAILY 09/09/18 Memantine HCl [Namenda -] 5 mg PO BID 09/09/18 Polyethylene Glycol 1000 17 gm PO TID 09/09/18 [Polyethylene Glycol] Sennosides [Senna] 8.8 mg PO BID 09/09/18 REVIEW OF SYSTEMS abdominal distension , poor oral intake , dementia , PHYSICAL EXAMINATION Vital Signs - 24 hr 09/09/18 15:35 Pulse Rate 59 L Respiratory 18 Rate Blood Pressure 129/75 O2 Sat by Pulse 99 Oximetry (%) GENERAL: AAOx0 , confused HEAD: NC/AT EYES: WALTER, EOMI ENT: Dry mucous membranes. NECK: supple LUNGS: CTA B/L HEART: Regular rate and rhythm, normal S1 and S2 , 2/6 systolic murmur,No rub or gallop. ABDOMEN: Soft, nontender, distended, hyperactive active bowel sounds, LOWER EXTREMITIES: 2+ pulses, warm, well-perfused. No calf tenderness. No peripheral edema. NEUROLOGICAL: Cranial nerves II-XII intact. PSYCHIATRIC: Confused SKIN: Warm, dry, normal turgor, right hip ulcer with no signs of infection Laboratory Results - last 24 hr 09/09/18 09/09/18 09/09/18 18:00 18:00 18:01 WBC 6.9 RBC 4.99 Hgb 16.1 H Hct 47.4 H D MCV 95.1 MCH 32.2 MCHC 33.9 RDW 16.6 H Plt Count 227 MPV 10.6 Absolute Neuts (auto) 5.0 Total Counted 100 Neutrophils % 72.4 Neutrophils % (Manual) 75.0 Band Neutrophils % 2.0 Lymphocytes % 10.3 D Lymphocytes % (Manual) 10.0 Monocytes % 16.5 H Monocytes % (Manual) 13 H Eosinophils % 0.1 D Basophils % 0.7 Nucleated RBC % 0 Platelet Estimate Adequate Platelet Comment No clumping noted PT with INR INR PTT (Actin FS) VBG pH 7.44 H POC VBG pCO2 44.5 POC VBG pO2 28.7 L VBG HCO3 29.6 H VBG O2 Sat (Viviana) 52.4 L VBG Base Excess 5.0 H Sodium Potassium Chloride Carbon Dioxide Anion Gap BUN Creatinine Creat Clearance w eGFR Random Glucose Lactic Acid Calcium Magnesium Total Bilirubin AST ALT Alkaline Phosphatase Creatine Kinase Troponin I B-Natriuretic Peptide Cancelled Total Protein Albumin Lipase Blood Type Antibody Screen 09/09/18 09/09/18 09/09/18 18:01 18:01 18:01 WBC RBC Hgb Hct MCV MCH MCHC RDW Plt Count MPV Absolute Neuts (auto) Total Counted Neutrophils % Neutrophils % (Manual) Band Neutrophils % Lymphocytes % Lymphocytes % (Manual) Monocytes % Monocytes % (Manual) Eosinophils % Basophils % Nucleated RBC % Platelet Estimate Platelet Comment PT with INR INR PTT (Actin FS) 30.0 VBG pH POC VBG pCO2 POC VBG pO2 VBG HCO3 VBG O2 Sat (Viviana) VBG Base Excess Sodium Cancelled Potassium Cancelled Chloride Cancelled Carbon Dioxide Cancelled Anion Gap Cancelled BUN Cancelled Creatinine Cancelled Creat Clearance w eGFR Cancelled Random Glucose Cancelled Lactic Acid 2.1 H Calcium Cancelled Magnesium Cancelled Total Bilirubin Cancelled AST Cancelled ALT Cancelled Alkaline Phosphatase Cancelled Creatine Kinase Cancelled Troponin I Cancelled B-Natriuretic Peptide Total Protein Cancelled Albumin Cancelled Lipase Cancelled Blood Type Antibody Screen 09/09/18 09/09/18 09/09/18 18:02 18:25 19:49 WBC RBC Hgb Hct MCV MCH MCHC RDW Plt Count MPV Absolute Neuts (auto) Total Counted Neutrophils % Neutrophils % (Manual) Band Neutrophils % Lymphocytes % Lymphocytes % (Manual) Monocytes % Monocytes % (Manual) Eosinophils % Basophils % Nucleated RBC % Platelet Estimate Platelet Comment PT with INR 12.80 INR 1.08 PTT (Actin FS) VBG pH POC VBG pCO2 POC VBG pO2 VBG HCO3 VBG O2 Sat (Viviana) VBG Base Excess Sodium 145 Potassium 3.1 L Chloride 110 H Carbon Dioxide 29 Anion Gap 6 L BUN 11 Creatinine 0.7 Creat Clearance w eGFR 79.15 Random Glucose 94 Lactic Acid Calcium 8.4 L Magnesium 2.4 Total Bilirubin 0.5 AST 36 ALT 22 Alkaline Phosphatase 67 Creatine Kinase 30 Troponin I 0.13 H B-Natriuretic Peptide Total Protein 5.3 L Albumin 2.5 L Lipase 49 L Blood Type A POSITIVE Antibody Screen Negative CBC, BMP 09/09/18 18:01 09/09/18 19:49 EKG NSR with No specific St, T wave changes , QTC 475 ASSESSMENT/PLAN: 88-year-old female, DNR/DNI, with a past medical history of HTN, HLD, Alzheimer s dementia, who presents to the ED via EMS from [facility] with abdominal distension, diarrhea, and loss of appetite admitted to tele due to elevated trop R.o [place] possible bowel obstruction # Elevated trop * tropI 0.13...0.20 trend and repeat EKG * EKG with No St, T wave changes , pt is symptomatic , ASA 162 was given in Ed * Echo in AM * Cardiology consult Dr Real * last seen by cardiology 5 years ago , was on coreg and stop in last 2 years. # Constipation # anal fissure * Abdomen distended , no BM for last few days * Laxative oral and suppository * NPO * Gentle hydration @ 42 CC/hr * consider GI consult if no improvement * cont home meds Anusol HC 2.5 % BID * I discuss with son option of rsurgical intervention he deffer decision to his sister who is health care proxy # Alzheimer demntia * worsening , refusing meds or food , spitting out every thing * gentle hydration * fall precaution * aspiration precautions * Neurocheck * cont home meds memantine * PT #HTN * Norvasc 5 mg PO Daily, monitor for hypotension * we can add Hydralysine IV if still elevated or refuse PO meds # right hip ulcer * no signs of infection * wound care # FEN * NS @ 42 CC monitor for any signs of over loaded or sob * Monitor lytes * NPO for now except meds # DVT proph : lovenox 40 SQ daily #Dispo * obs tele # Code: DNR/DNI need to sign new forms for this visit , daughter Ananya Visit type - Emergency Visit Emergency Visit: Yes ED Registration Date: 09/09/18 Care time: The patient presented to the Emergency Department on the above date and was hospitalized for further evaluation of their emergent condition. - New Patient This patient is new to me today: Yes Date on this admission: 09/10/18 - Critical Care Critical Care patient: No <Narayan Perry - Last Filed: 10/12/18 22:08> Seen and examined; agree with above aside from what is supplemented in my own documentation. Repeated all bermudez parts of exam, supervised all vital parts of patient care.
[2018-09-09] MEDS ORDERED: BISACODYL 10 MG SUPP.RECT PR PRN (22:58)
[2018-09-09] MEDS ORDERED: ASPIRIN 81 MG CHEWABLE TABLETS PO ONE (22:59)
[2018-09-09] MEDS ORDERED: SODIUM CHLORIDE 1,000 ML IV SCH (23:00)
--- NOTE | 2018-09-09 23:28 | PN ---
Teaching Attending Note Name of Resident: Robby Woods ATTENDING PHYSICIAN STATEMENT I saw and evaluated the patient. I reviewed the resident's note and discussed the case with the resident. I agree with the resident's findings and plan as documented. SUBJECTIVE: Seen and examined; please refer to resident note for further historical information. Briefly, this is a 88 y/o female known to the medicine service from previous admissions who presents today with increasing abdominal distention. She is a poor historian. Her son was concerned with the increased distension and thus wanted her at the hospital. She is unsure why she is here. HCP confirmed. She had a large BM in the ER during rectal exam. Denied any chest pain, SOB, etc. Troponin noted to be elevated in the ER. 10 sys ROS done and negative aside from HPI PMH (alzheimer's dementia, right hip pressure ulcer, failure to thrive, HTN, and HLD), PSH, Family Hx, Social Hx reviewed Medication list reviewed; pending reconciliation Home Medications Medication Instructions Recorded Amlodipine Besylate [Norvasc -] 5 mg PO BID 09/09/18 Amoxicillin/Potassium Clav [Amox 5 ml PO TID 09/09/18 Tr-K Clv 400-57/5 Susp] Enoxaparin [Lovenox -] 40 mg SQ DAILY 09/09/18 Memantine HCl [Namenda -] 5 mg PO BID 09/09/18 Polyethylene Glycol 1000 17 gm PO TID 09/09/18 [Polyethylene Glycol] Sennosides [Senna] 8.8 mg PO BID 09/09/18 OBJECTIVE: VS, labs, imaging reviewed NAD, AAO, resting comfortably in bed NC AT EOMI PERRLA RRR s1/2 no mgr Lungs CTAB, w/ sym exp NT, distended and appears similar to previous encounters, +BS CN2-12 wnl, no fnd Normal mood, appropriate behavior CT report reviewed ASSESSMENT AND PLAN: Patient presents for increasing abdominal distension and is found to have mild troponemia 1) Abdominal Distension -Chronic; per recent DCS was discharged on miralax protocol. CT reviewed. Reviewed previous admit with hx rectal tube, etc. -Seen by GI in the past (Dr. 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 Mentioned if persistent colonic distention that we should consider transfer to institution with colorectal surgeon. Given the results of the CT, will consult GI here and discuss with their service/family if such a transfer would benefit the patient. -ER discussed with sgy; no large bowel obstruction 2) Troponemia -Telemetry, trend troponin. EKG was unremarkable compared to prior studies; she is asx. Check echo to r/o wma's. Consider CV consult in AM. 3) Dehydration -Elevated h/h, physical exam findings endorse this. 75cc NS overnight. 4) Hypoalbuminemia/Hx Failure to Thrive -Consult nutrition, check prealbumin. 5) Dementia -Monitor for agitation, continue home meds 6) HTN -Continue home meds 7) HLD -OP lipids FENA -LR@75 -PRN replete -Continue home diet -As tolerated Code Status Unchanged from prior encounters
[2018-09-09] MEDS ORDERED: KCL 10 MEQ IVPB 10 MEQ/100 ML INFUS.BAG IVPB ONE ×2 (23:44→23:57)
[2018-09-09] MEDS: KCL 10 MEQ IVPB 10 MEQ/100 ML INFUS.BAG IVPB SCH (23:55)
[2018-09-09] MEDS ORDERED: ASPIRIN 81 MG CHEWABLE TABLETS ONE (23:57)
[2018-09-10] MEDS: KCL 10 MEQ IVPB 10 MEQ/100 ML INFUS.BAG IVPB SCH ×3 (00:11→14:27)
[2018-09-10 07:25] LABS: BASO % 0.5 % (0-2.0); EOS % 0.1 % (0-4.5); HEMATOCRIT 43.8 % (32.4-45.2); HEMOGLOBIN 14.7 GM/dL (10.7-15.3); LYMPH % 14.4 % (8-40); MCH 31.9 pg (25.7-33.7); MCHC 33.6 g/dl (32.0-36.0); MEAN CELL VOLUME 94.7 fl (80-96); MEAN PLT VOLUME 9.8 fl (7.5-11.1); MONO % 20.6 % (3.8-10.2); NEUT % 64.4 % (42.8-82.8); PLATELET COUNT 190 K/MM3 (134-434); RBC 4.63 M/mm3 (3.60-5.2); RDW 16.2 % (11.6-15.6); WHITE BLOOD COUNT 5.5 K/mm3 (4.0-10.0)
[2018-09-10 07:52] LABS: ALBUMIN 2.6 g/dl (3.4-5.0); ALK PHOS 67 U/L (45-117); AMYLASE 16 U/L (25-115); ANION GAP 8 MMOL/L (8-16); BILIRUBIN,TOTAL 0.4 mg/dL (0.2-1); BLOOD UREA NITROGEN 9 mg/dL (7-18); CALCIUM 8.9 mg/dL (8.5-10.1); CHLORIDE 114 mmol/L (98-107); CO2 26 mmol/L (21-32); CREATININE 0.5 mg/dL (0.55-1.3); GLUCOSE,RANDOM 85 mg/dL (74-106); LIPASE 59 U/L (73-393); MAGNESIUM 2.4 mg/dL (1.8-2.4); N-TERMINAL BNP 1884.2 pg/ml (5-450); PHOSPHOROUS 2.8 mg/dL (2.5-4.9); POTASSIUM 3.3 mmol/L (3.5-5.1); SGOT/AST 39 U/L (15-37); SGPT/ALT 25 U/L (13-61); SODIUM 148 mmol/L (136-145); TOT PROT 5.2 g/dl (6.4-8.2)
[2018-09-10] MEDS ORDERED: AMOX TR/POTASSIUM CLAVULANATE 250 MG/5 ML BOTTLE PO SCH (08:00)
[2018-09-10 08:04] LABS: INR 1.07 (0.83-1.09); PROTHROMBIN TIME (PATIENT) 12.6 SEC (9.7-13.0)
[2018-09-10 08:07] LABS: ACTIVATED PTT 29.8 SECONDS (25.2-36.5)
[2018-09-10] MEDS ORDERED: SODIUM CHLORIDE 0.45%/POT 20 MEQ/1,000 ML INFUS.BAG IV SCH (08:30)
[2018-09-10] MEDS ORDERED: POTASSIUM CHLORIDE ORAL LIQUID 20 MEQ/15 ML PO ONE (09:18)
[2018-09-10] MEDS ORDERED: HEPARIN NA (PORCINE) 5,000 UNITS/ML 1ML VIAL SQ SCH (10:00)
--- NOTE | 2018-09-10 11:01 | EKG ---
Test Reason : Blood Pressure : / mmHG Vent. Rate : 116 BPM Atrial Rate : 122 BPM P-R Int : 000 ms QRS Dur : 088 ms QT Int : 342 ms P-R-T Axes : 000 -65 106 degrees QTc Int : 475 ms SINUS TACHYCARDIA WITH 1ST DEGREE A-V BLOCK LEFT ANTERIOR FASCICULAR BLOCK Confirmed by VIRGEN BECKMAN, APARNA ([id number]) on 09/10/2018 11:00:43 AM Referred By: Confirmed By:APARNA NEW MD
[2018-09-10 11:14] VITALS: BMI 17.9
--- NOTE | 2018-09-10 11:28 | PN ---
Teaching Attending Note Name of Resident: Delvis Juarez ATTENDING PHYSICIAN STATEMENT I saw and evaluated the patient. I reviewed the resident's note and discussed the case with the resident. I agree with the resident's findings and plan as documented. SUBJECTIVE: unable to obtain hx. OBJECTIVE: NAD , wining and talking Lungs: CTAB CV: RRR, unablel to assess for murmurs due to other noises Abd: soft, distended, tympanic, NT. hypoactive BS. Rectal area with external hemorrhoids with erythema , but no ulceration. digital exam was not done due to no cooperation R poterior hip ulcer with eschar and no drainage ASSESSMENT AND PLAN: Unfortunate 88 y/o lady with h/o Dementia, HTN, HLP, chronic colonic distention who was sent from [place] for abdominal distention. She was found to have colonic distention on CT scan 1- Large bowel distention: probably due to decreased motility . there is no solid stool in rectum on CT scan, only liquid stool is seen. rectal exam in ER with expulsion of air and liquid non bloody stool. - consult GI for further management, ? rectal tube. correction plan - cont miralax and senna fro now - ? reglan 2- Troponin leak : can't determine if she had CP . EKG with sinus rhythm and 1st degree AV block.NO ST or TW changes. trop elevation is insignificant and trended down. trop leak could be a result of severe hypertension as pt intermittently spits meds out - will decide on aspirin use pending any planned GI procedure/ sx - card consulted. 3- HTN: - cont norvasc. pt did not receive her meds this am yet. 4- hypokalemia: change IVF and replete 5- hypernatremia : change IVF 6- DVT PX : lovenox
[2018-09-10 11:34] LABS: ANISOCYTOSIS 0; MACROCYTOSIS 1+; OVALOCYTE 1+; PLATELET ESTIMATE NORMAL
[2018-09-10] MEDS ORDERED: PT OWN MED DRAWER 7, Y5N ONE (11:35)
[2018-09-10] MEDS: ENOXAPARIN NA (PORCINE) 40 MG/0.4 ML DISP.SYRIN SQ SCH (11:39)
[2018-09-10] MEDS: amLODIPine BESYLATE 5 MG TABLET (FP) PO SCH ×2 (11:39→21:34)
[2018-09-10] MEDS: POLYETHYLENE GLYCOL 3350 119 GM BTL PO SCH (11:40)
[2018-09-10] MEDS: MEMANTINE HCL 5 MG TABLET (UD) PO SCH ×2 (12:15→21:32)
[2018-09-10] MEDS: SENNOSIDES 8.8 MG/5 ML BULK BOTTLE PO SCH ×2 (12:15→21:33)
--- NOTE | 2018-09-10 12:35 | PN ---
Physical Exam: SUBJECTIVE: Patient seen and examined at bedside in ED. Sent from [facility] due to colonic distension and loss of appetite. OBJECTIVE: Vital Signs Period Temp Pulse Resp BP Sys/Turcios Pulse Ox Last 24 Hr 97.8 F-98.0 F 59-95 17-18 129-176/73-84 98-99 GENERAL: Mild distress. Not oriented to time or place HEAD: Atraumatic/Normocephalic EYES: EOMI Sclera clear ENT: Dry mucous membranes NECK: Trachea midline, full range of motion, supple. LUNGS: Poor inspiratory effort HEART: Unable to appreciate any murmurs 2/2 constant talking, moaning ABDOMEN: Hyperactive bowl sounds, nontender. Distended. EXTREMITIES: No CCE NEUROLOGICAL: Cranial nerves II through XII grossly intact. PSYCH: Normal mood, normal affect. SKIN: Right hip ulcer with eschar. No purulent discharge or odor appreciated Laboratory Results - last 24 hr 09/09/18 09/09/18 09/09/18 18:00 18:00 18:01 WBC 6.9 RBC 4.99 Hgb 16.1 H Hct 47.4 H D MCV 95.1 MCH 32.2 MCHC 33.9 RDW 16.6 H Plt Count 227 MPV 10.6 Absolute Neuts (auto) 5.0 Total Counted 100 Neutrophils % 72.4 Neutrophils % (Manual) 75.0 Band Neutrophils % 2.0 Lymphocytes % 10.3 D Lymphocytes % (Manual) 10.0 Monocytes % 16.5 H Monocytes % (Manual) 13 H Eosinophils % 0.1 D Eosinophils % (Manual) Basophils % 0.7 Basophils % (Manual) Myelocytes % (Man) Promyelocytes % (Man) Blast Cells % (Manual) Nucleated RBC % 0 Metamyelocytes Hypochromia Platelet Estimate Adequate Platelet Comment No clumping noted Polychromasia Poikilocytosis Anisocytosis Microcytosis Macrocytosis Ovalocytes PT with INR INR PTT (Actin FS) VBG pH 7.44 H POC VBG pCO2 44.5 POC VBG pO2 28.7 L VBG HCO3 29.6 H VBG O2 Sat (Viviana) 52.4 L VBG Base Excess 5.0 H Sodium Potassium Chloride Carbon Dioxide Anion Gap BUN Creatinine Creat Clearance w eGFR Random Glucose Lactic Acid Calcium Phosphorus Magnesium Total Bilirubin AST ALT Alkaline Phosphatase Creatine Kinase Troponin I B-Natriuretic Peptide Cancelled Total Protein Albumin Total Amylase Lipase Blood Type Antibody Screen 09/09/18 09/09/18 09/09/18 18:01 18:01 18:01 WBC RBC Hgb Hct MCV MCH MCHC RDW Plt Count MPV Absolute Neuts (auto) Total Counted Neutrophils % Neutrophils % (Manual) Band Neutrophils % Lymphocytes % Lymphocytes % (Manual) Monocytes % Monocytes % (Manual) Eosinophils % Eosinophils % (Manual) Basophils % Basophils % (Manual) Myelocytes % (Man) Promyelocytes % (Man) Blast Cells % (Manual) Nucleated RBC % Metamyelocytes Hypochromia Platelet Estimate Platelet Comment Polychromasia Poikilocytosis Anisocytosis Microcytosis Macrocytosis Ovalocytes PT with INR INR PTT (Actin FS) 30.0 VBG pH POC VBG pCO2 POC VBG pO2 VBG HCO3 VBG O2 Sat (Viviana) VBG Base Excess Sodium Cancelled Potassium Cancelled Chloride Cancelled Carbon Dioxide Cancelled Anion Gap Cancelled BUN Cancelled Creatinine Cancelled Creat Clearance w eGFR Cancelled Random Glucose Cancelled Lactic Acid 2.1 H Calcium Cancelled Phosphorus Magnesium Cancelled Total Bilirubin Cancelled AST Cancelled ALT Cancelled Alkaline Phosphatase Cancelled Creatine Kinase Cancelled Troponin I Cancelled B-Natriuretic Peptide Total Protein Cancelled Albumin Cancelled Total Amylase Lipase Cancelled Blood Type Antibody Screen 09/09/18 09/09/18 09/09/18 18:02 18:25 19:49 WBC RBC Hgb Hct MCV MCH MCHC RDW Plt Count MPV Absolute Neuts (auto) Total Counted Neutrophils % Neutrophils % (Manual) Band Neutrophils % Lymphocytes % Lymphocytes % (Manual) Monocytes % Monocytes % (Manual) Eosinophils % Eosinophils % (Manual) Basophils % Basophils % (Manual) Myelocytes % (Man) Promyelocytes % (Man) Blast Cells % (Manual) Nucleated RBC % Metamyelocytes Hypochromia Platelet Estimate Platelet Comment Polychromasia Poikilocytosis Anisocytosis Microcytosis Macrocytosis Ovalocytes PT with INR 12.80 INR 1.08 PTT (Actin FS) VBG pH POC VBG pCO2 POC VBG pO2 VBG HCO3 VBG O2 Sat (Viviana) VBG Base Excess Sodium 145 Potassium 3.1 L Chloride 110 H Carbon Dioxide 29 Anion Gap 6 L BUN 11 Creatinine 0.7 Creat Clearance w eGFR 79.15 Random Glucose 94 Lactic Acid Calcium 8.4 L Phosphorus Magnesium 2.4 Total Bilirubin 0.5 AST 36 ALT 22 Alkaline Phosphatase 67 Creatine Kinase 30 Troponin I 0.13 H B-Natriuretic Peptide Total Protein 5.3 L Albumin 2.5 L Total Amylase Lipase 49 L Blood Type A POSITIVE Antibody Screen Negative 09/10/18 09/10/18 09/10/18 00:35 06:40 06:40 WBC 5.5 RBC 4.63 Hgb 14.7 Hct 43.8 MCV 94.7 MCH 31.9 MCHC 33.6 RDW 16.2 H Plt Count 190 MPV 9.8 Absolute Neuts (auto) 3.5 Total Counted Neutrophils % 64.4 Neutrophils % (Manual) 62.0 Band Neutrophils % 1.0 Lymphocytes % 14.4 D Lymphocytes % (Manual) 11.0 Monocytes % 20.6 H Monocytes % (Manual) 21 H Eosinophils % 0.1 Eosinophils % (Manual) 0.0 Basophils % 0.5 Basophils % (Manual) 1.0 Myelocytes % (Man) 0 Promyelocytes % (Man) 0 Blast Cells % (Manual) 0 Nucleated RBC % 0 Metamyelocytes 0 Hypochromia 0 Platelet Estimate Normal Platelet Comment Polychromasia 0 Poikilocytosis 1+ Anisocytosis 0 Microcytosis 0 Macrocytosis 1+ Ovalocytes 1+ PT with INR 12.60 INR 1.07 PTT (Actin FS) 29.8 VBG pH POC VBG pCO2 POC VBG pO2 VBG HCO3 VBG O2 Sat (Viviana) VBG Base Excess Sodium Potassium Chloride Carbon Dioxide Anion Gap BUN Creatinine Creat Clearance w eGFR Random Glucose Lactic Acid Calcium Phosphorus Magnesium Total Bilirubin AST ALT Alkaline Phosphatase Creatine Kinase Troponin I 0.20 H B-Natriuretic Peptide Total Protein Albumin Total Amylase Lipase Blood Type Antibody Screen 09/10/18 09/10/18 09/10/18 06:40 06:40 06:40 WBC RBC Hgb Hct MCV MCH MCHC RDW Plt Count MPV Absolute Neuts (auto) Total Counted Neutrophils % Neutrophils % (Manual) Band Neutrophils % Lymphocytes % Lymphocytes % (Manual) Monocytes % Monocytes % (Manual) Eosinophils % Eosinophils % (Manual) Basophils % Basophils % (Manual) Myelocytes % (Man) Promyelocytes % (Man) Blast Cells % (Manual) Nucleated RBC % Metamyelocytes Hypochromia Platelet Estimate Platelet Comment Polychromasia Poikilocytosis Anisocytosis Microcytosis Macrocytosis Ovalocytes PT with INR INR PTT (Actin FS) VBG pH POC VBG pCO2 POC VBG pO2 VBG HCO3 VBG O2 Sat (Viviana) VBG Base Excess Sodium 148 H Potassium 3.3 L Chloride 114 H Carbon Dioxide 26 Anion Gap 8 BUN 9 Creatinine 0.5 L Creat Clearance w eGFR 116.71 Random Glucose 85 Lactic Acid 1.2 Calcium 8.9 Phosphorus 2.8 Magnesium 2.4 Total Bilirubin 0.4 AST 39 H ALT 25 Alkaline Phosphatase 67 Creatine Kinase Troponin I 0.18 H B-Natriuretic Peptide 1884.2 H Total Protein 5.2 L Albumin 2.6 L Total Amylase 16 L Lipase 59 L Blood Type Antibody Screen Active Medications Generic Name Dose Route Start Last Admin Trade Name Freq PRN Reason Stop Dose Admin Amlodipine Besylate 5 mg 09/10/18 10:00 09/10/18 11:39 Norvasc - PO 5 mg BID MONSTER Administration Bisacodyl 10 mg 09/09/18 22:58 Dulcolax Suppository - HI DAILY PRN CONSTIPATION Enoxaparin Sodium 40 mg 09/10/18 10:00 09/10/18 11:39 Lovenox - SQ 40 mg DAILY MONSTER Administration Hydrocortisone 1 applic 09/10/18 10:00 Anusol 2.5% Hc Cream - TP BID MONSTER Potassium Chloride/Sodium Chloride 20 meq in 1,000 mls @ 75 mls/hr 09/10/18 08 :30 09/10/18 09:30 1/2ns+20meq Kcl IV 09/10/18 21:49 75 mls/hr ASDIR MONSTER Administration Potassium Chloride 10 meq in 100 mls @ 100 mls/hr 09/10/18 12:15 Potassium Chloride 10 Meq Premix Ivpb - IVPB 09/10/18 14:14 Q60M MONSTER Memantine 5 mg 09/10/18 10:00 Namenda - PO BID MONSTER Polyethylene Glycol 17 gm 09/10/18 10:00 09/10/18 11:40 Miralax (For Daily Use) - PO 17 gm BID MONSTER Administration Senna 8.8 mg 09/10/18 10:00 Senna Oral Solution - PO BID MONSTER ASSESSMENT/PLAN: 88 y/ F w/ pmhx of HTN, HLD, and Alzheimer's dementia who presented to the [facility] due to decreased appetite and increasing colonic distension per [facility]. 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 Consider possible transfer to tertiary care facility. Possible Botox therapy to anal sphincter or possible venting colostomy. KUB Pending #Troponin leak -Initial Troponin 0.13--> .20--.18 -Sinus rhythm and 1st degree AV block without st or t wave changes -Cardiology on board #Alzheimer's Dementia Continue Namenda 5 #HTN Continue Amlodipine 5 daily Will add Vasotec 1.25 Q8H if pt refuses po meds. #FEN 1/2 NS + 20 mEQ KCL @75 cc/hr Monitor Electrolytes Soft Diet #DVT: Lovenox 40 Daily #Dispo: Tele DNR/DNI Visit type - Emergency Visit Emergency Visit: Yes ED Registration Date: 09/09/18 Care time: The patient presented to the Emergency Department on the above date and was hospitalized for further evaluation of their emergent condition. - New Patient This patient is new to me today: No - Critical Care Critical Care patient: No - Discharge Referral Referred to [facility] Med P.C.: No
--- NOTE | 2018-09-10 13:08 | CON.GI ---
Consult Consult Specialty:: GI Referred by:: Hospitalist Service Reason for Consultation:: Abdominal distention - History of Present Illness Chief Complaint: Abdominal distention History of Present Illness: 88F admitted for management of abdominal distension and vomiting of stagnant small bowel contents. She had a prolonged hospitalization in 08/11: at that time she was noted to have colonic distention. On exam, she was noted to have a hypertensive anal sphincter raising question of ? chronic fissure. She was disimpacted by Dr. Morales at first evaluation. She had persistent abdominal distention. This responded repeatedly to digital rectal exam with manual release of the anal sphinter and placement of rectal tube. Copious liquid stool and flatus has been expelled. I recommended transfer to an institution with colorectal surgical capabilities / evaluation for possible botox therapy and colostomy if necessary. Her daughter was favoring her not having surgery. She has chronic constipation in the past managed with Miralax. but this was stopped when she developed gastroenteritis at the beginning of June and it has been resumed. The history is given by two of her daughters on prior admission. Christa lives with her son. She had a negative colonoscopy remotely. NO FH of colon cancer. 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 Cardio/Vascular: Yes: CAD, HTN, Hyperlipdemia Gastrointestinal: Yes: Constipation Endocrine: Yes: Osteopenia (with vertebral compression fracture) - Past Surgical History Past Surgical History: Yes: Cataract Removal (bilateral ), Colonoscopy, Hysterectomy, Joint Replacement (L TKR) - Alcohol/Substance Use Hx Alcohol Use: No History of Substance Use: reports: None - Smoking History Smoking history: Never smoked Have you smoked in the past 12 months: No Aproximately how many cigarettes per day: 0 - Social History Usual Living Arrangement: With Child ADL: Family Assistance Place of : Other ([place]) History of Recent Travel: No Home Medications - Allergies Allergies/Adverse Reactions: Allergies Allergy/AdvReac Type Severity Reaction Status Date / Time warfarin sodium AdvReac Verified 08/01/18 18:07 [From Coumadin] - Home Medications Home Medications: Ambulatory Orders Amlodipine Besylate [Norvasc -] 5 mg PO BID 09/09/18 Amoxicillin/Potassium Clav [Amox Tr-K Clv 400-57/5 Susp] 5 ml PO TID 09/09/18 Enoxaparin [Lovenox -] 40 mg SQ DAILY 09/09/18 Memantine HCl [Namenda -] 5 mg PO BID 09/09/18 Polyethylene Glycol 1000 [Polyethylene Glycol] 17 gm PO TID 09/09/18 Sennosides [Senna] 8.8 mg PO BID 09/09/18 Family Disease History - Family Disease History Family Disease History: Other: Father (lived into 80s), Mother (lived into her 80s) Review of Systems Unable to obtain ROS, reason: Patient uncooperative Physical Exam-GI Vital Signs: Vital Signs Temperature 97.8 F 09/10/18 10:15 Pulse Rate 90 09/10/18 10:15 Respiratory Rate 18 09/10/18 10:15 Blood Pressure 176/73 H 09/10/18 10:15 O2 Sat by Pulse Oximetry (%) 98 09/10/18 10:00 Constitutional: Yes: Calm Cardiovascular: Yes: Other (Heart sounds obsucred by patient verbalizing) ...Auscultate: Yes: Normoactive Bowel Sounds ...Palpate: No: Tenderness (No grimacing upon palpation) ...Percussion: Yes: Tympanitic ...Rectal Exam: Yes: Other (No external lesions, hypertensive anal canal. Air and liquid stool expelled. Rectal tube placed, the tube was flushed repeatedly with sterile water and copious liquid stool air was expelled from the tube. The patient was kept in the left lateral and right lateral positions with further air expulsion. Abdominal exam improved.) Edema: No (No LE edema) Neurological: Yes: Alert Labs: CBC, BMP 09/10/18 06:40 09/10/18 06:40 INR, PTT INR 1.07 (0.83-1.09) 09/10/18 06:40 Hepatic Panel Total Bilirubin 0.4 mg/dL (0.2-1) 09/10/18 06:40 AST 39 U/L (15-37) H 09/10/18 06:40 ALT 25 U/L (13-61) 09/10/18 06:40 Alkaline Phosphatase 67 U/L (45-117) 09/10/18 06:40 Albumin 2.6 g/dl (3.4-5.0) L 09/10/18 06:40 Problem List - Problems (1) Colonic inertia Assessment/Plan: Diffuse recurrent colonic ileus with suspected hypertensive anal sphicter Rectal tube place: patient responded well to digital rectal exam decompression and rectal tube Monitor lytes Consider transfer to tertiary care center for definitive therapy: unclear if EUS /Botox therapy to anal sphincter would help. ? venting colostomy Surgical evaluation placed evaluate for discuss potential options Code(s): K59.9 - FUNCTIONAL INTESTINAL DISORDER, UNSPECIFIED
[2018-09-10] MEDS: HYDROCORTISONE 2.5% TOPICAL CREAM 30 GM TUBE TP SCH ×2 (13:12→21:31)
--- NOTE | 2018-09-10 15:49 | EKG ---
Test Reason : Blood Pressure : / mmHG Vent. Rate : 059 BPM Atrial Rate : 049 BPM P-R Int : 218 ms QRS Dur : 088 ms QT Int : 414 ms P-R-T Axes : 082 -53 127 degrees QTc Int : 409 ms SINUS BRADYCARDIA WITH 1ST DEGREE A-V BLOCK WITH PREMATURE SUPRAVENTRICULAR COMPLEXES LEFT ANTERIOR FASCICULAR BLOCK MINIMAL VOLTAGE CRITERIA FOR LVH, MAY BE NORMAL VARIANT SEPTAL INFARCT , AGE UNDETERMINED ABNORMAL ECG WHEN COMPARED WITH ECG OF 09-SEP-2018 18:08, PREMATURE SUPRAVENTRICULAR COMPLEXES ARE NOW PRESENT VENT. RATE HAS DECREASED BY 57 BPM SEPTAL INFARCT IS NOW PRESENT Confirmed by APARNA NEW MD ([id number]) on 09/10/2018 3:49:03 PM Referred By: ALFREDO ZEPEDA Confirmed By:APARNA NEW MD
--- NOTE | 2018-09-10 17:05 | CON.CARD ---
Consult Consult Specialty:: cardiology Referred by:: icu Reason for Consultation:: elevated troponin - History of Present Illness Chief Complaint: abd distention History of Present Illness: 88 year old woman with pmh HTN, HLD, dementia recurrent colonic distention, admitted for colonic distention/colonic ileus. Cardiac enzymes were sent in the ER and incidentally noted to have a mildly elevated troponin with normal CK level. Pt was seen and examined today in [facility]. pt unable to provide a clear history. No reported chest pain or sob. no known prior cardiac disease. 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 Cardio/Vascular: Yes: CAD, HTN, Hyperlipdemia Gastrointestinal: Yes: Constipation Endocrine: Yes: Osteopenia (with vertebral compression fracture) - Past Surgical History Past Surgical History: Yes: Cataract Removal (bilateral ), Colonoscopy, Hysterectomy, Joint Replacement (L TKR) - Alcohol/Substance Use Hx Alcohol Use: No History of Substance Use: reports: None - Smoking History Smoking history: Never smoked Have you smoked in the past 12 months: No Aproximately how many cigarettes per day: 0 - Social History Usual Living Arrangement: With Child ADL: Family Assistance History of Recent Travel: No Home Medications - Allergies Allergies/Adverse Reactions: Allergies Allergy/AdvReac Type Severity Reaction Status Date / Time warfarin sodium AdvReac Verified 08/01/18 18:07 [From Coumadin] - Home Medications Home Medications: Ambulatory Orders Amlodipine Besylate [Norvasc -] 5 mg PO BID 09/09/18 Amoxicillin/Potassium Clav [Amox Tr-K Clv 400-57/5 Susp] 5 ml PO TID 09/09/18 Enoxaparin [Lovenox -] 40 mg SQ DAILY 09/09/18 Memantine HCl [Namenda -] 5 mg PO BID 09/09/18 Polyethylene Glycol 1000 [Polyethylene Glycol] 17 gm PO TID 09/09/18 Sennosides [Senna] 8.8 mg PO BID 09/09/18 Family Disease History - Family Disease History Family Disease History: Other: Father (lived into 80s), Mother (lived into her 80s) Review of Systems - Review of Systems Constitutional: denies: No Symptoms, Chills, Diaphoresis, Fever, Lethargy, Loss of Appetite, Malaise, Night Sweats, Unintentional Wgt. Loss, Weakness, Other Eyes: denies: No Symptoms, Blind Spots, Blurred Vision, Double Vision, Eye Pain , Floaters, Photophobia, Recent Change in Vision, Other HENT: denies: No Symptoms, Difficult Swallowing, Ear Discharge, Ear Pain, Epistaxis, Gingival Bleeding, Hearing Loss, Mouth Swelling, Nasal Congestion, Ocular Prosthesis, Throat Pain, Toothache, Ringing in Ears, Other Neck: denies: No Symptoms, Decreased ROM, Lumps, Pain on Movement, Stiffness, Swollen Glands, Tenderness, Other Cardiovascular: denies: No Symptoms, Chest Pain, Edema, Palpitations, Shortness of Breath, Other Respiratory: denies: No Symptoms, Cough, Exercise Intolerance, Hemoptysis, Orthopnea, PND, Snoring, SOB, SOB on Exertion, Wheezing, Other Gastrointestinal: reports: Bloating. denies: No Symptoms, Abdominal Pain, Constipation, Diarrhea, Dysphagia, Indigestion, Melena, Nausea, Rectal Bleeding , Vomiting, Vomiting Blood, Other Genitourinary: denies: No Symptoms, Burning, Discharge, Dysuria, Flank Pain, Frequency, Hematuria, Incontinence, Lesions, Menses, Pain, Testicular Mass, Testicular Pain, Testicular Swelling, Urgency, Vaginal Bleeding, Other Breasts: denies: No Symptoms Reported, See HPI, Breast Implants, Discharge from Nipple, Lumps, Pain, Skin Changes, Other Musculoskeletal: denies: No Symptoms, Back Pain, Crepitus, Decreased ROM, Extremity Pain, Joint Pain, Joint Swelling, Muscle Pain, Muscle Cramps, Muscle Weakness, Other Integumentary: denies: No Symptoms, Blister, Bruising, Change in Color, Eczema, Erythema, Incision, Lesions, Lump, Pallor, Pruritis, Rash, Wound, Other Neurological: denies: No Symptoms, Change in LOC, Change in Speech, Confusion, Dizziness, Headache, Incoordination, Numbness, Parasthesia, Pre-Existing Deficit , Seizure, Syncope, Tremors, Unsteady Gait, Weakness, Other Endocrine: denies: No Symptoms, Excessive Sweating, Flushing, Increased Hunger, Increased Thirst, Intolerance to Cold, Intolerance to Heat, Unexplained Weight Gain, Unexplained Weight Loss, Other Hematology/Lymphatic: denies: No Symptoms, Easily Bruised, Excessive Bleeding, Swollen Glands, Other Psychiatric: denies: No Symptoms, Altered Sleep Pattern, Anxiety, Depression, Hallucinations, Panic, Paranoia, Suicidal, Other Vital Signs: Vital Signs Temperature 97.8 F 09/10/18 10:15 Pulse Rate 90 09/10/18 10:15 Respiratory Rate 18 09/10/18 10:15 Blood Pressure 176/73 H 09/10/18 10:15 O2 Sat by Pulse Oximetry (%) 98 09/10/18 10:00 Constitutional: Yes: No Distress, Calm Eyes: Yes: Conjunctiva Clear, EOM Intact HENT: Yes: Atraumatic, Normocephalic Neck: Yes: Supple, Trachea Midline Respiratory: Yes: Regular, CTA Bilaterally. No: Rales, Rhonchi, Wheezes Cardiovascular: Yes: Regular Rate and Rhythm. No: Bradycardia, Tachycardia, Pulse Irregular, Gallop, Rub, Varicosities JVD: No Carotid Bruit: No PMI: Non-Displaced Heart Sounds: Yes: S1, S2. No: Split S2, S3, S4, Clicks, Gallop, Rub, Bruit Murmur: No: Systolic Murmur Musculoskeletal: Yes: WNL Extremities: Yes: WNL Edema: No Neurological: Yes: Alert Psychiatric: Yes: Alert - Other Data Labs, Other Data: CBC, BMP 09/10/18 06:40 09/10/18 06:40 INR, PTT INR 1.07 (0.83-1.09) 09/10/18 06:40 Troponin, BNP 09/09/18 09/09/18 09/09/18 18:00 18:01 19:49 Troponin I Cancelled 0.13 H B-Natriuretic Peptide Cancelled 09/10/18 09/10/18 09/10/18 00:35 06:40 06:40 Troponin I 0.20 H 0.18 H B-Natriuretic Peptide 1884.2 H Troponin, BNP 09/09/18 09/09/18 09/09/18 18:00 18:01 19:49 Troponin I Cancelled 0.13 H B-Natriuretic Peptide Cancelled 09/10/18 09/10/18 09/10/18 00:35 06:40 06:40 Troponin I 0.20 H 0.18 H B-Natriuretic Peptide 1884.2 H ekg-sinus 59bpm, 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 Cardiac enzymes were sent in the ER and incidentally noted to have a mildly elevated troponin with normal CK level. pt unable to provide a clear history. No reported chest pain or sob. no known prior cardiac disease. 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 No other inpatient cardiac work up needed at this time. Please call with any additional questions.
[2018-09-11] MEDS: POLYETHYLENE GLYCOL 3350 119 GM BTL PO SCH ×3 (04:11→23:10)
[2018-09-11 06:26] LABS: HEMATOCRIT 37.3 % (32.4-45.2); HEMOGLOBIN 12.6 GM/dL (10.7-15.3); MCH 31.8 pg (25.7-33.7); MCHC 33.8 g/dl (32.0-36.0); MEAN CELL VOLUME 93.9 fl (80-96); MEAN PLT VOLUME 10.4 fl (7.5-11.1); PLATELET COUNT 184 K/MM3 (134-434); RBC 3.97 M/mm3 (3.60-5.2); RDW 16.4 % (11.6-15.6); WHITE BLOOD COUNT 4.8 K/mm3 (4.0-10.0)
[2018-09-11 07:24] LABS: ANION GAP 4 MMOL/L (8-16); BLOOD UREA NITROGEN 10 mg/dL (7-18); CALCIUM 7.8 mg/dL (8.5-10.1); CHLORIDE 111 mmol/L (98-107); CO2 28 mmol/L (21-32); CREATININE 0.3 mg/dL (0.55-1.3); GLUCOSE,RANDOM 81 mg/dL (74-106); MAGNESIUM 2.3 mg/dL (1.8-2.4); POTASSIUM 3.4 mmol/L (3.5-5.1); SODIUM 143 mmol/L (136-145)
[2018-09-11] MEDS ORDERED: PT OWN MED DRAWER 7, Y5N ONE (09:36)
[2018-09-11] MEDS: amLODIPine BESYLATE 5 MG TABLET (FP) PO SCH ×2 (10:12→23:12)
[2018-09-11] MEDS: MEMANTINE HCL 5 MG TABLET (UD) PO SCH ×2 (10:12→23:11)
[2018-09-11] MEDS: ENOXAPARIN NA (PORCINE) 40 MG/0.4 ML DISP.SYRIN SQ SCH (10:12)
[2018-09-11] MEDS: SENNOSIDES 8.8 MG/5 ML BULK BOTTLE PO SCH ×2 (10:13→23:12)
[2018-09-11] MEDS: HYDROCORTISONE 2.5% TOPICAL CREAM 30 GM TUBE TP SCH (10:14)
--- NOTE | 2018-09-11 11:28 | PN.GI ---
GI Progress Note Subjective: No acute events Patient found sitting up, in no distress - Objective Vital Signs: Vital Signs Temperature 98.6 F 09/11/18 06:00 Pulse Rate 74 09/11/18 06:00 Respiratory Rate 18 09/11/18 06:00 Blood Pressure 145/72 09/11/18 06:00 O2 Sat by Pulse Oximetry (%) 98 09/10/18 19:55 Constitutional: Calm Eyes: No: Sclera Icterus Cardiovascular: Yes: Regular Rate and Rhythm Respiratory: Yes: Diminished (at bases but with poor insp effort) Gastrointestinal Inspection: No: Distention ...Auscultate: Yes: Normoactive Bowel Sounds ...Palpate: No: Tenderness ...Percussion: Yes: Tympanitic (Much improved tympany) Edema: No (No LE edema) Neurological: Yes: Alert Labs: CBC, BMP 09/11/18 05:30 09/11/18 05:30 INR, PTT INR 1.07 (0.83-1.09) 09/10/18 06:40 - ....Imaging X-ray: Report Reviewed (Rectal tube with tip in sigmoid colon), Image Reviewed Problem List - Problems (1) Colonic inertia Assessment/Plan: Clinically much improved in terms of abdominal distention Keep rectal tube in place with nursing care as outlined in order section AXR in AM Dr. Morales covering this evening after 5 and through weekend Code(s): K59.9 - FUNCTIONAL INTESTINAL DISORDER, UNSPECIFIED
[2018-09-11] MEDS ORDERED: BISACODYL 10 MG SUPP.RECT PR PRN (17:37)
--- NOTE | 2018-09-11 18:38 | PN ---
Teaching Attending Note Name of Resident: Delvis Juarez ATTENDING PHYSICIAN STATEMENT I saw and evaluated the patient. I reviewed the resident's note and discussed the case with the resident. I agree with the resident's findings and plan as documented. SUBJECTIVE: No events over night . OBJECTIVE: NAD, rambling Lungs: CTAB CV: RRR, unable to assess for murmurs due to rambling Abd: soft,NT, ND , nl BS ASSESSMENT AND PLAN: Unfortunate 88 y/o lady with h/o Dementia, HTN, HLP, chronic colonic distention who was sent from [place] for abdominal distention. She was found to have colonic distention on CT scan 1- Large bowel distention: probably due to decreased motility/increased rectal tone . - cont rectal tube - cont miralax and senna for now - await surgical opinion 2- Troponin leak : no further ischemic w/u - start low dose BB - to decide on Aspirin pending any surgical intervention 3- HTN: - cont norvasc. add low dose BB 4- hypokalemia:replete . cont IVF. will probably stop tomorrow 5- hypernatremia : resolved 6- DVT PX : lovenox dispo : Dc pending surgical consult and then d/w family
--- NOTE | 2018-09-11 21:11 | PN ---
Physical Exam: SUBJECTIVE: Patient seen and examined at bedside. Daughter at bedside. OBJECTIVE: Vital Signs Period Temp Pulse Resp BP Sys/Turcios Pulse Ox Last 24 Hr 98.6 F-99.2 F 67-78 18-22 101-151/50-87 98 GENERAL: NAD HEAD: Atraumatic/Normocephalic EYES: EOMI Sclera clear ENT: Dry mucous membranes NECK: Trachea midline, full range of motion, supple. LUNGS: Poor inspiratory effort HEART: Unable to appreciate any murmurs 2/2 constant talking, moaning ABDOMEN: Slightly distended nontender TTP, Rectal tube EXTREMITIES: No CCE NEUROLOGICAL: Cranial nerves II through XII grossly intact. PSYCH: Normal mood, normal affect. SKIN: Right hip ulcer with eschar. No purulent discharge or odor appreciated Laboratory Results - last 24 hr 09/11/18 09/11/18 05:30 05:30 WBC 4.8 RBC 3.97 Hgb 12.6 Hct 37.3 MCV 93.9 MCH 31.8 MCHC 33.8 RDW 16.4 H Plt Count 184 MPV 10.4 Sodium 143 Potassium 3.4 L Chloride 111 H Carbon Dioxide 28 Anion Gap 4 L BUN 10 Creatinine 0.3 L Creat Clearance w eGFR 210.43 Random Glucose 81 Calcium 7.8 L Phosphorus 2.0 L Magnesium 2.3 Active Medications Generic Name Dose Route Start Last Admin Trade Name Freq PRN Reason Stop Dose Admin Amlodipine Besylate 5 mg 09/11/18 22:00 Norvasc - PO BID [facility] Bisacodyl 10 mg 09/11/18 17:37 Dulcolax Suppository - [place] DAILY PRN CONSTIPATION Enoxaparin Sodium 40 mg 09/12/18 10:00 Lovenox - SQ DAILY [facility] Hydrocortisone 1 applic 09/11/18 22:00 Anusol 2.5% Hc Cream - TP BID [facility] Memantine 5 mg 09/11/18 22:00 Namenda - PO BID [facility] Metoprolol Tartrate 12.5 mg 09/11/18 22:00 Lopressor - PO BID [facility] Polyethylene Glycol 17 gm 09/11/18 22:00 Miralax (For Daily Use) - PO BID [facility] Senna 8.8 mg 09/11/18 22:00 Senna Oral Solution - PO BID [facility] ASSESSMENT/PLAN: 88 y/ F w/ pmhx of HTN, HLD, and Alzheimer's dementia who presented to [facility] due to decreased appetite and increasing colonic distension per Kate [place]. 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 Consider possible transfer to tertiary care facility. Possible Botox therapy to anal sphincter or possible venting colostomy. -Surgery on board KUB---> Colonic distension w/ some small bowel distension #Troponin leak -Initial Troponin 0.13--> .20--.18 -Sinus rhythm and 1st degree AV block without st or t wave changes -Cardiology on board --Lopressor 12.5 PO BID #Alzheimer's Dementia Continue Namenda 5 #HTN Continue Amlodipine 5 daily -Lopressor 12.5 PO BID #FEN No Fluids Monitor Electrolytes Soft Diet #DVT: Lovenox 40 Daily #Dispo: Tele DNR/DNI Visit type - Emergency Visit Emergency Visit: Yes ED Registration Date: 09/09/18 Care time: The patient presented to the Emergency Department on the above date and was hospitalized for further evaluation of their emergent condition. - New Patient This patient is new to me today: No - Critical Care Critical Care patient: No - Discharge Referral Referred to [facility] Med P.C.: No
[2018-09-11] MEDS: METOPROLOL TARTRATE 25 MG TABLET (FP) PO SCH (23:11)
[2018-09-12] MEDS: HYDROCORTISONE 2.5% TOPICAL CREAM 30 GM TUBE TP SCH ×3 (02:45→21:26)
[2018-09-12 07:36] LABS: HEMATOCRIT 39.5 % (32.4-45.2); HEMOGLOBIN 13.4 GM/dL (10.7-15.3); MEAN CELL VOLUME 94.1 fl (80-96); MEAN PLT VOLUME 10.4 fl (7.5-11.1); PLATELET COUNT 186 K/MM3 (134-434); RDW 16.7 % (11.6-15.6); WHITE BLOOD COUNT 4.3 K/mm3 (4.0-10.0)
[2018-09-12 07:43] LABS: ANION GAP 7 MMOL/L (8-16); BLOOD UREA NITROGEN 8 mg/dL (7-18); CALCIUM 8.1 mg/dL (8.5-10.1); CHLORIDE 107 mmol/L (98-107); CO2 29 mmol/L (21-32); CREATININE 0.4 mg/dL (0.55-1.3); GLUCOSE,RANDOM 79 mg/dL (74-106); MAGNESIUM 2.1 mg/dL (1.8-2.4); PHOSPHOROUS 2.7 mg/dL (2.5-4.9); POTASSIUM 3.5 mmol/L (3.5-5.1); SODIUM 142 mmol/L (136-145)
[2018-09-12] MEDS ORDERED: PT OWN MED DRAWER 7, Y5N ONE ×2 (10:40→16:58)
[2018-09-12] MEDS: ENOXAPARIN NA (PORCINE) 40 MG/0.4 ML DISP.SYRIN SQ SCH (10:49)
[2018-09-12] MEDS: METOPROLOL TARTRATE 25 MG TABLET (FP) PO SCH ×2 (10:49→21:26)
[2018-09-12] MEDS: amLODIPine BESYLATE 5 MG TABLET (FP) PO SCH ×2 (10:49→21:27)
[2018-09-12] MEDS: MEMANTINE HCL 5 MG TABLET (UD) PO SCH ×2 (10:50→21:26)
[2018-09-12] MEDS: SENNOSIDES 8.8 MG/5 ML BULK BOTTLE PO SCH ×2 (10:51→21:26)
[2018-09-12] MEDS: POLYETHYLENE GLYCOL 3350 119 GM BTL PO SCH ×2 (10:52→21:26)
--- NOTE | 2018-09-12 14:27 | PN ---
Teaching Attending Note Name of Resident: Delvis Juarez ATTENDING PHYSICIAN STATEMENT I saw and evaluated the patient. I reviewed the resident's note and discussed the case with the resident. I agree with the resident's findings and plan as documented. SUBJECTIVE: No events over night . can't obtain hx OBJECTIVE: NAD, rambling could only feel abdomen which was soft and not distended. pt did not allow rest of exam ASSESSMENT AND PLAN: Unfortunate 88 y/o lady with h/o Dementia, HTN, HLP, chronic colonic distention who was sent [place] for abdominal distention. She was found to have colonic distention on CT scan. 1- Large bowel distention: probably due to decreased motility/increased rectal tone. KUB with improved gas pattern - cont rectal tube - cont miralax and senna for now - awaiting surgical opinion , then will d/w family 2- Troponin leak: no further ischemic w/u - low dose BB - to decide on Aspirin pending any surgical intervention 3- HTN: - cont norvasc. cont low dose BB 4- Hypokalemia:resolved. dc IVF 5- hypernatremia: resolved 6- DVT PX: lovenox dispo : Dc pending surgical consult and then d/w family .? transfer
--- NOTE | 2018-09-12 17:52 | PN ---
Physical Exam: SUBJECTIVE: Patient seen and examined at bedside. No acute events overnight. Son Delvis at bedside. OBJECTIVE: Vital Signs Period Temp Pulse Resp BP Sys/Turcios Pulse Ox Last 24 Hr 97.4 F-99.2 F 69-78 19-22 126-142/57-71 96-100 GENERAL: No acute distress HEAD: Atraumatic/Normocephalic EYES: EOMI Sclera clear ENT: Dry mucous membranes NECK: Trachea midline, full range of motion, supple. LUNGS: Poor inspiratory effort HEART: 3/6 SM. S1S2 ABDOMEN: Nondistended Nontender, no facial grimacing to deep palpation. EXTREMITIES: No CCE NEUROLOGICAL: Cranial nerves II through XII grossly intact. PSYCH: Normal mood, normal affect. Laboratory Results - last 24 hr 09/12/18 09/12/18 06:00 06:00 WBC 4.3 RBC 4.20 Hgb 13.4 Hct 39.5 MCV 94.1 MCH 32.0 MCHC 34.0 RDW 16.7 H Plt Count 186 MPV 10.4 Sodium 142 Potassium 3.5 Chloride 107 Carbon Dioxide 29 Anion Gap 7 L BUN 8 Creatinine 0.4 L Creat Clearance w eGFR 150.99 Random Glucose 79 Calcium 8.1 L Phosphorus 2.7 Magnesium 2.1 Active Medications Generic Name Dose Route Start Last Admin Trade Name Ryanq PRN Reason Stop Dose Admin Amlodipine Besylate 5 mg 09/11/18 22:00 09/12/18 10:49 Norvasc - PO 5 mg BID [facility] Administration Bisacodyl 10 mg 09/11/18 17:37 Dulcolax Suppository - [place] DAILY PRN CONSTIPATION Enoxaparin Sodium 40 mg 09/12/18 10:00 09/12/18 10:49 Lovenox - SQ 40 mg DAILY [facility] Administration Hydrocortisone 1 applic 09/11/18 22:00 09/12/18 10:53 Anusol 2.5% Hc Cream - TP 1 applic BID [facility] Administration Memantine 5 mg 09/11/18 22:00 09/12/18 10:50 Namenda - PO 5 mg BID [facility] Administration Metoprolol Tartrate 12.5 mg 09/11/18 22:00 09/12/18 10:49 Lopressor - PO 12.5 mg BID [facility] Administration Polyethylene Glycol 17 gm 09/11/18 22:00 09/12/18 10:52 Miralax (For Daily Use) - PO 17 gm BID [facility] Administration Senna 8.8 mg 09/11/18 22:00 09/12/18 10:51 Senna Oral Solution - PO 5 ml BID [facility] Administration ASSESSMENT/PLAN: 88 y/ F w/ pmhx of HTN, HLD, and Alzheimer's dementia who presented to the [facility] due to decreased appetite and increasing colonic distension per Kate [place]. 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 Consider possible transfer to tertiary care facility. Possible Botox therapy to anal sphincter or possible venting colostomy. -Surgery on board KUB---> Colonic distension w/ some small bowel distension -Spoke with Dr Morales today. Recommends outpatient referral to Colorectal surgeon Dr Nora Fierro, Colorectal surgeon for possible Botox of anal sphincter. Advised to inform family that if pt becomes visibly distended once more and is in need of HLOC, should preferably go to a tertiary institution with a colorectal surgeon. -Family does not want any major surgical interventions such as a venting colostomy. Spoke in detail to Son Delvis and daughter Mary about options. #Troponin leak -Initial Troponin 0.13--> .20--.18 -Sinus rhythm and 1st degree AV block without st or t wave changes -Cardiology on board -Lopressor 12.5 PO BID #Alzheimer's Dementia Continue Namenda 5 #HTN Continue Amlodipine 5 daily -Lopressor 12.5 PO BID #FEN No Fluids Monitor Electrolytes Soft Diet #DVT: Lovenox 40 Daily #Dispo: Tele DNR/DNI Visit type - Emergency Visit Emergency Visit: Yes ED Registration Date: 09/09/18 Care time: The patient presented to the Emergency Department on the above date and was hospitalized for further evaluation of their emergent condition. - New Patient This patient is new to me today: No - Critical Care Critical Care patient: No - Discharge Referral Referred to [facility] Med P.C.: No
[2018-09-13 09:34] LABS: HEMATOCRIT 43.3 % (32.4-45.2); HEMOGLOBIN 14.9 GM/dL (10.7-15.3); MCH 32.5 pg (25.7-33.7); MCHC 34.3 g/dl (32.0-36.0); MEAN CELL VOLUME 94.8 fl (80-96); MEAN PLT VOLUME 10.4 fl (7.5-11.1); PLATELET COUNT 193 K/MM3 (134-434); RBC 4.57 M/mm3 (3.60-5.2); RDW 16.3 % (11.6-15.6); WHITE BLOOD COUNT 6.1 K/mm3 (4.0-10.0)
[2018-09-13 09:59] LABS: ANION GAP 7 MMOL/L (8-16); BLOOD UREA NITROGEN 9 mg/dL (7-18); CALCIUM 8.4 mg/dL (8.5-10.1); CHLORIDE 107 mmol/L (98-107); CO2 30 mmol/L (21-32); CREATININE 0.4 mg/dL (0.55-1.3); GLUCOSE,RANDOM 78 mg/dL (74-106); MAGNESIUM 2.4 mg/dL (1.8-2.4); PHOSPHOROUS 2.1 mg/dL (2.5-4.9); POTASSIUM 3.5 mmol/L (3.5-5.1); SODIUM 144 mmol/L (136-145)
[2018-09-13] MEDS: POLYETHYLENE GLYCOL 3350 119 GM BTL PO SCH ×3 (10:03→21:14)
[2018-09-13] MEDS: ENOXAPARIN NA (PORCINE) 40 MG/0.4 ML DISP.SYRIN SQ SCH (10:03)
[2018-09-13] MEDS: amLODIPine BESYLATE 5 MG TABLET (FP) PO SCH ×2 (10:03→21:15)
[2018-09-13] MEDS: SENNOSIDES 8.8 MG/5 ML BULK BOTTLE PO SCH ×2 (10:03→21:15)
[2018-09-13] MEDS: MEMANTINE HCL 5 MG TABLET (UD) PO SCH ×2 (10:03→21:14)
[2018-09-13] MEDS: METOPROLOL TARTRATE 25 MG TABLET (FP) PO SCH ×2 (10:03→21:14)
[2018-09-13] MEDS: HYDROCORTISONE 2.5% TOPICAL CREAM 30 GM TUBE TP SCH ×2 (10:04→21:14)
[2018-09-13] MEDS ORDERED: NAPH,MB-DB/K PH,MBDB POWDER PACKET PO ONE (13:25)
--- NOTE | 2018-09-13 13:33 | PN ---
Progress Note (short form) - Note Progress Note: Subjective: no fever or chills. No pain , no N/V . daughter at bed side and she helped with translation as the patient would not use the drug and alcohol counselor phone. Objective: Vital Signs: Last Vital Signs Temp Pulse Resp BP Pulse Ox 98.0 F 80 19 138/90 98 09/13/18 10:00 09/13/18 10:00 09/13/18 10:00 09/13/18 10:00 09/12/18 21:00 Laboratory Results - last 24 hr 09/13/18 09/13/18 08:40 08:40 WBC 6.1 RBC 4.57 Hgb 14.9 Hct 43.3 MCV 94.8 MCH 32.5 MCHC 34.3 RDW 16.3 H Plt Count 193 MPV 10.4 Sodium 144 Potassium 3.5 Chloride 107 Carbon Dioxide 30 Anion Gap 7 L BUN 9 Creatinine 0.4 L Creat Clearance w eGFR 150.99 Random Glucose 78 Calcium 8.4 L Phosphorus 2.1 L Magnesium 2.4 Physical Exam: NAD, calm and cooperative Cv: RRR, 3/6 SM at RUSB Lungs: CTAB except for the L base with some crackles ABd: soft, NT, ND , NL BS Ext : no edema or erythema A/P : Unfortunate 88 y/o lady with h/o Dementia, HTN, HLP, chronic colonic distention who was sent from [place] for abdominal distention. She was found to have colonic distention on CT scan. 1- Large bowel distention: probably due to decreased motility/increased rectal tone. - cont rectal tube - cont miralax and senna for now - case was d/w Dr. Morales by Dr. Juarez yesterday. Recs fro Botox treatment to the rectal sphincter as out pt . WILL REFER TO Dr. franci Fierro , colorectal surgeon . 2- Troponin leak: no further ischemic w/u - low dose BB - will start aspirin 3- HTN: - cont norvasc. cont low dose BB 4- Hypophosphatemia : replete 5- DVT PX: lovenox 6- check cxray for cough noted by daughter Above d/w daughter at bedside Visit type - Emergency Visit Emergency Visit: Yes ED Registration Date: 09/09/18 Care time: The patient presented to the Emergency Department on the above date and was hospitalized for further evaluation of their emergent condition. - New Patient This patient is new to me today: No - Critical Care Critical Care patient: No
--- NOTE | 2018-09-13 19:36 | CONSULT ---
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 GI has been following, and recommendations have been made for consultation with colorectal surgeon at OSH with potential for anorectal diagnostics like manometry, EUS or other and potential treatment with botox injections or other modalities, none of which are available here. Per family at bedside, she gets abdominal distention and constipation, which leads to anorexia, and seems associated with worsening of her dementia intermittently - when dementia is bad, her abdomen get bad and vice versa. She has been treated with rectal tube placements, and has been scoped. Surgery was asked to assess. She is seen and examined in her room in bed with family present. She does not offer much in response to questions, even when asked by family in Lithuanian. She appears comfortable and calm, though per family, she does not like the rectal tube. She urinates in her diaper, and did eat some dinner with family assistance earlier. Her abdomen is essentially flat at this time, and per nursing, there has not been much out of the rectal tube today, but it gets flushed periodically. The patient is easily agitated, and per family is currently upset because she was just cleaned up by nursing/staff. CT few days ago showed diffusely dilated colon with air-fluid levels, and f/u AXR have shown improvement with rectal tube placement. Per family, she self-medicated her chronic constipation with senna tea and dulcolax for many years at home. She is DNR/DNI, and family is clear that they prefer the least invasive options with potential benefit, as her general comfort is a high priority. She has developed a recent wet cough, and it seems to occur both before and after po intake, so is not clearly aspiration-related. She did cough several times during my exam, but tends to swallow any secretions instead of expectorating them. - History Source History Provided By: Family Member, Medical Record Limitations to Obtaining History: Other (language barrier, dementia) - Past Medical History [employer]: Yes: Dementia Cardio/Vascular: Yes: CAD, HTN, Hyperlipdemia Gastrointestinal: Yes: Constipation Reproductive: Yes: Postmenopausal Endocrine: Yes: Osteopenia (with vertebral compression fracture) - Past Surgical History Past Surgical History: Yes: Cataract Removal (bilateral ), Colonoscopy, Hysterectomy, Joint Replacement (L TKR) Additional Surgical History: years ago in [facility], she had abdominal distention requiring OR - per son, they only had to "untwist" bowels, unknown if SB or LB - Alcohol/Substance Use Hx Alcohol Use: No History of Substance Use: reports: None - Smoking History Smoking history: Never smoked Have you smoked in the past 12 months: No - Social History Usual Living Arrangement: With Child ADL: Family Assistance History of Recent Travel: No Home Medications - Allergies Allergies/Adverse Reactions: Allergies Allergy/AdvReac Type Severity Reaction Status Date / Time warfarin sodium AdvReac Verified 08/01/18 18:07 [From Coumadin] - Home Medications Home Medications: Ambulatory Orders Amlodipine Besylate [Norvasc -] 5 mg PO BID 09/09/18 Amoxicillin/Potassium Clav [Amox Tr-K Clv 400-57/5 Susp] 5 ml PO TID 09/09/18 Enoxaparin [Lovenox -] 40 mg SQ DAILY 09/09/18 Memantine HCl [Namenda -] 5 mg PO BID 09/09/18 Polyethylene Glycol 1000 [Polyethylene Glycol] 17 gm PO TID 09/09/18 Sennosides [Senna] 8.8 mg PO BID 09/09/18 Family Disease History - Family Disease History Family Disease History: Other: Father (lived into 80s), Mother (lived into her 80s) Review of Systems Unable to obtain ROS, reason: ltd - pt cannot offer Findings/Remarks: family provided information - Review of Systems Constitutional: reports: Loss of Appetite (when abdomen distended). denies: Chills, Fever HENT: denies: Difficult Swallowing (eats with family assistance, refuses at times) Cardiovascular: denies: Chest Pain Respiratory: reports: Cough (just recently, wet/raspy) Gastrointestinal: reports: Bloating (distention at times, correlates with worse dementia), Constipation (long-standing - treated at home with senna tea and dulcolax prn). denies: Abdominal Pain, Nausea, Vomiting Genitourinary: reports: Incontinence Musculoskeletal: denies: Joint Swelling Integumentary: denies: Change in Color, Rash Neurological: reports: Confusion (at times with dementia). denies: Headache Physical Exam Vital Signs: Vital Signs Temperature 97.9 F 09/13/18 19:06 Pulse Rate 70 09/13/18 19:06 Respiratory Rate 18 09/13/18 19:06 Blood Pressure 146/71 09/13/18 19:06 O2 Sat by Pulse Oximetry (%) 98 09/13/18 10:05 Constitutional: Yes: No Distress, Calm, Thin Eyes: Yes: Conjunctiva Clear, EOM Intact HENT: Yes: Atraumatic, Normocephalic Neck: Yes: Supple, Trachea Midline Cardiovascular: Yes: Regular Rate and Rhythm, Murmur Respiratory: Yes: Regular, CTA Bilaterally, Cough (wet/swallows without expectorating). No: On Nasal O2, Wheezes Gastrointestinal: Yes: Normal Bowel Sounds, Soft. No: Distention, Tenderness ...Rectal Exam: Yes: Deferred, Other (rectal tube in place per nursing and family) Renal/: Yes: Incontinence. No: Hematuria Musculoskeletal: No: Joint Stiffness, Joint Swelling Extremities: No: Cool, Cyanosis Edema: No Peripheral Pulses WNL: Yes Integumentary: No: Jaundice, Rash Neurological: Yes: Alert, Other (vocal in her language - cannot assess orientation - per family, she is currently upset after being cleaned up by staff and continues to refer to it in her speech) Labs: CBC, BMP 09/13/18 08:40 09/13/18 08:40 CMP Sodium 144 mmol/L (136-145) 09/13/18 08:40 Potassium 3.5 mmol/L (3.5-5.1) 09/13/18 08:40 Chloride 107 mmol/L (98-107) 09/13/18 08:40 Carbon Dioxide 30 mmol/L (21-32) 09/13/18 08:40 Anion Gap 7 MMOL/L (8-16) L 09/13/18 08:40 BUN 9 mg/dL (7-18) 09/13/18 08:40 Creatinine 0.4 mg/dL (0.55-1.3) L 09/13/18 08:40 Creat Clearance w eGFR 150.99 (>60) 09/13/18 08:40 Random Glucose 78 mg/dL (74-106) 09/13/18 08:40 Lactic Acid 1.2 mmol/L (0.4-2.0) 09/10/18 06:40 Calcium 8.4 mg/dL (8.5-10.1) L 09/13/18 08:40 Phosphorus 2.1 mg/dL (2.5-4.9) L 09/13/18 08:40 Magnesium 2.4 mg/dL (1.8-2.4) 09/13/18 08:40 Total Bilirubin 0.4 mg/dL (0.2-1) 09/10/18 06:40 AST 39 U/L (15-37) H 09/10/18 06:40 ALT 25 U/L (13-61) 09/10/18 06:40 Alkaline Phosphatase 67 U/L (45-117) 09/10/18 06:40 Creatine Kinase 30 U/L (26-192) 09/09/18 19:49 Troponin I 0.18 ng/ml (0.00-0.05) H 09/10/18 06:40 B-Natriuretic Peptide 1884.2 pg/ml (5-450) H 09/10/18 06:40 Total Protein 5.2 g/dl (6.4-8.2) L 09/10/18 06:40 Albumin 2.6 g/dl (3.4-5.0) L 09/10/18 06:40 Total Amylase 16 U/L (25-115) L 09/10/18 06:40 Lipase 59 U/L (73-393) L 09/10/18 06:40 INR, PTT INR 1.07 (0.83-1.09) 09/10/18 06:40 Microbiology 09/09/18 18:06 Blood Culture - Preliminary Blood - Peripheral Venous NO GROWTH OBTAINED AFTER 96 HOURS, INCUBATION TO CONTINUE FOR 1 DAYS. 09/09/18 18:00 Blood Culture - Preliminary Blood - Peripheral Venous NO GROWTH OBTAINED AFTER 96 HOURS, INCUBATION TO CONTINUE FOR 1 DAYS. Imaging - Results X-ray: Report Reviewed, Image Reviewed (images reviewed - rectal tube in place on 09/10 and 09/12 with progressive improvement of gaseous distended colon - yesterday marked improvement noted) Cat Scan: Report Reviewed, Image Reviewed (images reviewed - diffuse colonic distention with air and fluid levels, no free air or fluid, + renal cysts) Problem List - Problems (1) Chronic intestinal pseudo-obstruction Assessment/Plan: pt being followed by GI, with rectal tube in place and successful colonic decompression abdomen not currently distended or tender notes reviewed agree with plan for referral to colorectal specialist for further diagnostic evaluation with resources unavailable at [facility] and possible interventions (? botox injection or others) also not available here - defer to colorectal opinion pt seems relatively comfortable, eats some with family, takes medications intermittently consider holding aspirin if colorectal evaluation or intervention to happen soon , as it may require a window off of all anticoagulants? pt DNR/DNI with family clear on desire for comfort above significantly aggressive interventions would not consider major abdominal operation under these circumstances or placement of device or dressing on patient's abdomen which is not absolutely necessary, as she is likely to disrupt it and have it cause more discomfort than it relieves family in agreement with above Thank you for the opportunity to participate in the care of this patient. will sign off, please recall with questions if needed Code(s): K59.8 - OTHER SPECIFIED FUNCTIONAL INTESTINAL DISORDERS (2) Abdominal distension Code(s): R14.0 - ABDOMINAL DISTENSION (GASEOUS) (3) Constipation by delayed colonic transit Code(s): K59.01 - SLOW TRANSIT CONSTIPATION (4) Alzheimer disease Code(s): G30.9 - ALZHEIMER'S DISEASE, UNSPECIFIED; F02.80 - DEMENTIA IN OTH DISEASES CLASSD ELSWHR W/O BEHAVRL DISTURB Qualifiers: Alzheimer's disease onset: unspecified onset Dementia behavioral disturbance: with behavioral disturbance Qualified Code(s): G30.9 - Alzheimer' s disease, unspecified; F02.81 - Dementia in other diseases classified elsewhere with behavioral disturbance (5) Failure to thrive Code(s): THO1100 - Qualifiers: Failure to thrive age range: in adult Qualified Code(s): R62.7 - Adult failure to thrive
[2018-09-14] MEDS ORDERED: PT OWN MED DRAWER 7, Y5N ONE (09:33)
[2018-09-14] MEDS: MEMANTINE HCL 5 MG TABLET (UD) PO SCH ×2 (10:54→23:11)
[2018-09-14] MEDS: METOPROLOL TARTRATE 25 MG TABLET (FP) PO SCH ×2 (10:54→23:11)
[2018-09-14] MEDS: ENOXAPARIN NA (PORCINE) 40 MG/0.4 ML DISP.SYRIN SQ SCH (10:54)
[2018-09-14] MEDS: POLYETHYLENE GLYCOL 3350 119 GM BTL PO SCH ×2 (10:54→23:12)
[2018-09-14] MEDS: amLODIPine BESYLATE 5 MG TABLET (FP) PO SCH ×2 (10:54→23:11)
[2018-09-14] MEDS: SENNOSIDES 8.8 MG/5 ML BULK BOTTLE PO SCH ×2 (10:55→23:11)
[2018-09-14] MEDS: HYDROCORTISONE 2.5% TOPICAL CREAM 30 GM TUBE TP SCH ×2 (10:56→23:10)
--- NOTE | 2018-09-14 17:16 | PN ---
Teaching Attending Note Name of Resident: Delvis Juarez ATTENDING PHYSICIAN STATEMENT I saw and evaluated the patient. I reviewed the resident's note and discussed the case with the resident. I agree with the resident's findings and plan as documented. SUBJECTIVE: Not able to obtain hx OBJECTIVE: NAD, being changed by aids. she incidently puled tube ABD: soft, NT, ND, NL BS Ext: no edema or erythema A/P : Unfortunate 88 y/o lady with h/o Dementia, HTN, HLP, chronic colonic distention who was sent from [place] for abdominal distention. She was found to have colonic distention on CT scan. 1- Large bowel distention: probably due to decreased motility/increased rectal tone. - she pulled her rectal tube today. - will monitor exam and KUB in am - will d/w GI. - cont miralax and senna for now -will refer to dr. franci Fierro , colorectal surgeon for Botox injection as out pt . 2- Troponin leak: no further ischemic w/u - low dose BB - cont aspirin. it can be held as out pt a week prior to any planned intervention 3- HTN: - cont norvasc. cont low dose BB 4- DVT PX: lovenox Dispo: will follow exam and xray tomorrow and decide on timing of dc
--- NOTE | 2018-09-14 18:52 | PN ---
Addendum entered and electronically signed by Delvis Juarez, RESIDENT 09/15/18 12 :36: Pt's meets criteria for severe malnutrition with BMI of 17.9 Original Note: Physical Exam: SUBJECTIVE: Patient seen and examined at bedside. Pt removed rectal tube. OBJECTIVE: Vital Signs Period Temp Pulse Resp BP Sys/Turcios Pulse Ox Last 24 Hr 97.0 F-98.0 F 64-77 18-18 117-146/61-74 98-98 GENERAL: NAD HEAD: Atraumatic/Normocephalic EYES: EOMI Sclera clear ENT: Dry mucous membranes NECK: Trachea midline, full range of motion, supple. LUNGS: Poor inspiratory effort HEART: 3/6 SM. S1S2 ABDOMEN: Nondistended Nontender, no facial grimacing to deep palpation. EXTREMITIES: No CCE Active Medications Generic Name Dose Route Start Last Admin Trade Name Freq PRN Reason Stop Dose Admin Amlodipine Besylate 5 mg 09/11/18 22:00 09/14/18 10:54 Norvasc - PO 5 mg BID MONSTER Administration Bisacodyl 10 mg 09/11/18 17:37 Dulcolax Suppository - [place] DAILY PRN CONSTIPATION Enoxaparin Sodium 40 mg 09/12/18 10:00 09/14/18 10:54 Lovenox - SQ 40 mg DAILY MONSTER Administration Hydrocortisone 1 applic 09/11/18 22:00 09/14/18 10:56 Anusol 2.5% Hc Cream - TP 1 applic BID MONSTER Administration Memantine 5 mg 09/11/18 22:00 09/14/18 10:54 Namenda - PO 5 mg BID MONSTER Administration Metoprolol Tartrate 12.5 mg 09/11/18 22:00 09/14/18 10:54 Lopressor - PO 12.5 mg BID MONSTER Administration Polyethylene Glycol 17 gm 09/11/18 22:00 09/14/18 10:54 Miralax (For Daily Use) - PO 17 gm BID MONSTER Administration Senna 8.8 mg 09/11/18 22:00 09/14/18 10:55 Senna Oral Solution - PO 5 ml BID MONSTER Administration ASSESSMENT/PLAN: 88 y/ F w/ pmhx of HTN, HLD, and Alzheimer's dementia who presented to the [facility] due to decreased appetite and increasing colonic distension per [facility]. 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 Consider possible transfer to tertiary care facility. Possible Botox therapy to anal sphincter or possible venting colostomy. -Surgery on board KUB---> Colonic distension w/ some small bowel distension -Spoke with Dr Morales Recommends outpatient referral to Colorectal surgeon Dr Nora Fierro, Colorectal surgeon for possible Botox of anal sphincter. Advised to inform family that if pt becomes visibly distended once more and is in need of HLOC, should preferably go to a tertiary institution with a colorectal surgeon. -Family does not want any major surgical interventions such as a venting colostomy. Spoke in detail to Son Delvis and daughter Mary about options. KUB in am #Troponin leak -Initial Troponin 0.13--> .20--.18 -Sinus rhythm and 1st degree AV block without st or t wave changes -Cardiology on board -Lopressor 12.5 PO BID #Alzheimer's Dementia Continue Namenda 5 #HTN Continue Amlodipine 5 daily -Lopressor 12.5 PO BID #FEN No Fluids Monitor Electrolytes Soft Diet #DVT: Lovenox 40 Daily #Dispo: Possible DC tomorrow DNR/DNI Visit type - Emergency Visit Emergency Visit: Yes ED Registration Date: 09/14/18 Care time: The patient presented to the Emergency Department on the above date and was hospitalized for further evaluation of their emergent condition. - New Patient This patient is new to me today: No - Critical Care Critical Care patient: No - Discharge Referral Referred to [facility] No
[2018-09-15 08:25] LABS: HEMATOCRIT 39.9 % (32.4-45.2); HEMOGLOBIN 13.3 GM/dL (10.7-15.3); MCH 31.4 pg (25.7-33.7); MCHC 33.4 g/dl (32.0-36.0); PLATELET COUNT 196 K/MM3 (134-434); RBC 4.24 M/mm3 (3.60-5.2); RDW 16.4 % (11.6-15.6); WHITE BLOOD COUNT 5.7 K/mm3 (4.0-10.0)
[2018-09-15 08:56] LABS: ANION GAP 5 MMOL/L (8-16); BLOOD UREA NITROGEN 14 mg/dL (7-18); CHLORIDE 108 mmol/L (98-107); CO2 30 mmol/L (21-32); CREATININE 0.3 mg/dL (0.55-1.3); GLUCOSE,RANDOM 75 mg/dL (74-106); MAGNESIUM 2.3 mg/dL (1.8-2.4); PHOSPHOROUS 2.1 mg/dL (2.5-4.9); SODIUM 143 mmol/L (136-145)
[2018-09-15] MEDS ORDERED: PT OWN MED DRAWER 7, Y5N ONE ×2 (10:00→10:04)
[2018-09-15] MEDS: SENNOSIDES 8.8 MG/5 ML BULK BOTTLE PO SCH (10:44)
[2018-09-15] MEDS: ENOXAPARIN NA (PORCINE) 40 MG/0.4 ML DISP.SYRIN SQ SCH (10:44)
[2018-09-15] MEDS: amLODIPine BESYLATE 5 MG TABLET (FP) PO SCH (10:45)
[2018-09-15] MEDS: POLYETHYLENE GLYCOL 3350 119 GM BTL PO SCH (10:45)
[2018-09-15] MEDS: MEMANTINE HCL 5 MG TABLET (UD) PO SCH (10:45)
[2018-09-15] MEDS: METOPROLOL TARTRATE 25 MG TABLET (FP) PO SCH (10:45)
[2018-09-15] MEDS: HYDROCORTISONE 2.5% TOPICAL CREAM 30 GM TUBE TP SCH (10:46)
--- NOTE | 2018-09-15 14:34 | PN ---
Teaching Attending Note Name of Resident: Delvis Juarez ATTENDING PHYSICIAN STATEMENT I saw and evaluated the patient. I reviewed the resident's note and discussed the case with the resident. I agree with the resident's findings and plan as documented. SUBJECTIVE: No events over night OBJECTIVE: NAD, calm and not cooperative. allowed only abd exam Abd: soft, NT, ND, + BS A/P : Unfortunate 88 y/o lady with h/o Dementia, HTN, HLP, chronic colonic distention who was sent from [place] for abdominal distention. She was found to have colonic distention on CT scan. 1- Large bowel distention: probably due to decreased motility/increased rectal tone. - rectal tube off since yesterday, KUB reviewed, distention of bowl is worse compared to prior KUB - will monitor exam and another KUB in am - cont miralax and senna for now -will refer to dr. franci Fierro , colorectal surgeon for Botox injection as out pt .Unless distention worsens, then might need to be transferred 2- Troponin leak: no further ischemic w/u - low dose BB - hold aspirin in case an intervention is needed 3- HTN: - cont norvasc. cont low dose BB 4- DVT PX: lovenox Dispo: HLOC
--- NOTE | 2018-09-15 14:51 | PN.GI ---
GI Progress Note Subjective: No acute events Per nursing, patient pulled rectal tube No BM today - Objective Vital Signs: Vital Signs Temperature 97.5 F L 09/15/18 14:24 Pulse Rate 84 09/15/18 14:24 Respiratory Rate 20 09/15/18 14:24 Blood Pressure 152/89 09/15/18 14:24 O2 Sat by Pulse Oximetry (%) 98 09/14/18 20:33 Constitutional: Calm Eyes: No: Sclera Icterus Cardiovascular: Yes: Regular Rate and Rhythm Respiratory: Yes: Diminished (at bases with poor inspiratory effort) ...Auscultate: Yes: Normoactive Bowel Sounds ...Palpate: Yes: Soft (mildly protuberant). 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 Had long conversation with Dr. Nora Fierro, colorectal surgeon at [facility]. Discussed the clinical situation including Ms. Wallace' readmission for same problem. Agreed with attempt at treatment of anal sphincter dysfunnction. Also discussed possible need for colostoimy as ultimate therapeutic option. Suggested continued suppotive measuires for now with intermittent rectal tube decompression and trial of topical therapies. SHe did not feel that transfer was needed at this time. I explained that topical anal fissure therapies not available from our pharmacy. One thought would be ordering from a compound pharmacy and having the family pick it up or have it delivered to [facility]. I spoke to our pharmacy. it would need to be prescribed to the compounding pharmacy directly by a physician. Gave number of compounding pharmacy: [facility] in [place], [place] [phone]. Another compounding pharmacy is the [facility] in [place], [place] [phone]. If no contraindications given other medications, I would start with a pea sized amount of 0.2% topical diltiazem ointment applied to the anal canal TID and increasing to QID if tolerated for 4-6 weeks. Would favor this over NTG ointment given better side effect profile. Can have patient / family follow-up with colorectal surgeon Dr. Fierro as an outpatient [phone] If increasing abdominal distention, rectal tube decompression and manula release of anal sphincter via digital rectal exam. Left message to discuss with Dr. Hobbs. Discussed with internet webmaster Delvis Juarez Code(s): K59.9 - FUNCTIONAL INTESTINAL DISORDER, UNSPECIFIED
--- NOTE | 2018-09-15 18:20 | PN ---
Physical Exam: SUBJECTIVE: Patient seen and examined at bedside. No acute events overnight. OBJECTIVE: Vital Signs Period Temp Pulse Resp BP Sys/Turcios Pulse Ox Last 24 Hr 97.5 F-98.3 F 62-84 18-20 121-152/64-89 98-98 GENERAL: No acute distress HEAD: NC/AT EYES: EOMI Sclera clear ENT: Dry mucous membranes NECK: Trachea midline, full range of motion, supple. LUNGS: Poor inspiratory effort HEART: 3/6 SM. S1S2 ABDOMEN: Nondistended Nontender, no facial grimacing to deep palpation. EXTREMITIES: No Clubbing cyanosis or edema Laboratory Results - last 24 hr 09/15/18 09/15/18 06:00 07:30 WBC 5.7 RBC 4.24 Hgb 13.3 Hct 39.9 MCV 94.0 MCH 31.4 MCHC 33.4 RDW 16.4 H Plt Count 196 MPV 10.0 Sodium 143 Potassium 4.0 Chloride 108 H Carbon Dioxide 30 Anion Gap 5 L BUN 14 Creatinine 0.3 L Creat Clearance w eGFR 210.43 Random Glucose 75 Calcium 9.0 Phosphorus 2.1 L Magnesium 2.3 Active Medications Generic Name Dose Route Start Last Admin Trade Name Freq PRN Reason Stop Dose Admin Amlodipine Besylate 5 mg 09/11/18 22:00 09/15/18 10:45 Norvasc - PO 5 mg BID MONSTER Administration Bisacodyl 10 mg 09/11/18 17:37 Dulcolax Suppository - [place] DAILY PRN CONSTIPATION Enoxaparin Sodium 40 mg 09/12/18 10:00 09/15/18 10:44 Lovenox - SQ 40 mg DAILY MONSTER Administration Hydrocortisone 1 applic 09/11/18 22:00 09/15/18 10:46 Anusol 2.5% Hc Cream - TP 1 applic BID MONSTER Administration Memantine 5 mg 09/11/18 22:00 09/15/18 10:45 Namenda - PO 5 mg BID MONSTER Administration Metoprolol Tartrate 12.5 mg 09/11/18 22:00 09/15/18 10:45 Lopressor - PO 12.5 mg BID MONSTER Administration Polyethylene Glycol 17 gm 09/11/18 22:00 09/15/18 10:45 Miralax (For Daily Use) - PO 17 gm BID MONSTER Administration Senna 8.8 mg 09/11/18 22:00 09/15/18 10:44 Senna Oral Solution - PO 5 ml BID MONSTER Administration ASSESSMENT/PLAN: 88 y/ F w/ pmhx of HTN, HLD, and Alzheimer's dementia who presented to the [facility] due to decreased appetite and increasing colonic distension per [facility]. 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 Consider possible transfer to tertiary care facility. Possible Botox therapy to anal sphincter or possible venting colostomy. -Surgery on board KUB---> Colonic distension w/ some small bowel distension -Spoke with Dr Morales Recommends outpatient referral to Colorectal surgeon Dr Nora Fierro, Colorectal surgeon for possible Botox of anal sphincter. Advised to inform family that if pt becomes visibly distended once more and is in need of HLOC, should preferably go to a tertiary institution with a colorectal surgeon. -Family does not want any major surgical interventions such as a venting colostomy. Spoke in detail to Son Delvis and daughter Mary about options. KUB this am worse than previous one. Another KUB in am. Will refer to Dr Rebel Mcmillan Colorectal surgeon as outpatient for botox procedure ( Dr Fierro did not have availability until February). Spoke with Dr Palmer this afternoon. Will call Compound pharmacy for Diltiazem cream. Daughters both informed today by myself via telephone conversion. #Troponin leak -Initial Troponin 0.13--> .20--.18 -Sinus rhythm and 1st degree AV block without st or t wave changes -Cardiology on board -Lopressor 12.5 PO BID #Alzheimer's Dementia Continue Namenda 5 #HTN Continue Amlodipine 5 daily -Lopressor 12.5 PO BID #FEN No Fluids Monitor Electrolytes Soft Diet #DVT: Lovenox 40 Daily #Dispo: Possible DC tomorrow DNR/DNI Visit type - Emergency Visit Emergency Visit: Yes ED Registration Date: 09/14/18 Care time: The patient presented to the Emergency Department on the above date and was hospitalized for further evaluation of their emergent condition. - New Patient This patient is new to me today: No - Critical Care Critical Care patient: No - Discharge Referral Referred to [facility] No
[2018-09-16] MEDS: METOPROLOL TARTRATE 25 MG TABLET (FP) PO SCH ×2 (02:45→10:40)
[2018-09-16] MEDS: MEMANTINE HCL 5 MG TABLET (UD) PO SCH ×2 (02:45→10:40)
[2018-09-16] MEDS: POLYETHYLENE GLYCOL 3350 119 GM BTL PO SCH ×2 (02:45→10:42)
[2018-09-16] MEDS: HYDROCORTISONE 2.5% TOPICAL CREAM 30 GM TUBE TP SCH ×2 (02:45→10:41)
[2018-09-16] MEDS: amLODIPine BESYLATE 5 MG TABLET (FP) PO SCH ×2 (02:46→10:40)
[2018-09-16] MEDS: SENNOSIDES 8.8 MG/5 ML BULK BOTTLE PO SCH ×2 (02:46→10:40)
[2018-09-16 07:58] LABS: HEMATOCRIT 39.1 % (32.4-45.2); HEMOGLOBIN 13.5 GM/dL (10.7-15.3); MCH 32.5 pg (25.7-33.7); MCHC 34.6 g/dl (32.0-36.0); MEAN PLT VOLUME 10.1 fl (7.5-11.1); PLATELET COUNT 212 K/MM3 (134-434); RBC 4.16 M/mm3 (3.60-5.2); RDW 16.4 % (11.6-15.6); WHITE BLOOD COUNT 13.8 K/mm3 (4.0-10.0)
--- NOTE | 2018-09-16 08:05 | PN ---
Teaching Attending Note Name of Resident: Delvis Juarez ATTENDING PHYSICIAN STATEMENT I saw and evaluated the patient. I reviewed the resident's note and discussed the case with the resident. I agree with the resident's findings and plan as documented. SUBJECTIVE: Patient is feeling better with no acute distress. OBJECTIVE: Vital Signs Temperature 98.1 F 09/16/18 06:50 Pulse Rate 77 09/16/18 06:50 Respiratory Rate 20 09/16/18 06:50 Blood Pressure 126/59 L 09/16/18 06:50 O2 Sat by Pulse Oximetry (%) 98 09/15/18 21:00 REFUSING PHYSICAL EXAM. AID AT HER BEDSIDE. CBCD WBC 13.8 K/mm3 (4.0-10.0) H 09/16/18 06:40 RBC 4.16 M/mm3 (3.60-5.2) 09/16/18 06:40 Hgb 13.5 GM/dL (10.7-15.3) 09/16/18 06:40 Hct 39.1 % (32.4-45.2) 09/16/18 06:40 MCV 94.0 fl (80-96) 09/16/18 06:40 MCHC 34.6 g/dl (32.0-36.0) 09/16/18 06:40 RDW 16.4 % (11.6-15.6) H 09/16/18 06:40 Plt Count 212 K/MM3 (134-434) 09/16/18 06:40 MPV 10.1 fl (7.5-11.1) 09/16/18 06:40 CMP Sodium 143 mmol/L (136-145) 09/15/18 07:30 Potassium 4.0 mmol/L (3.5-5.1) 09/15/18 07:30 Chloride 108 mmol/L (98-107) H 09/15/18 07:30 Carbon Dioxide 30 mmol/L (21-32) 09/15/18 07:30 Anion Gap 5 MMOL/L (8-16) L 09/15/18 07:30 BUN 14 mg/dL (7-18) 09/15/18 07:30 Creatinine 0.3 mg/dL (0.55-1.3) L 09/15/18 07:30 Creat Clearance w eGFR 210.43 (>60) 09/15/18 07:30 Random Glucose 75 mg/dL (74-106) 09/15/18 07:30 Calcium 9.0 mg/dL (8.5-10.1) 09/15/18 07:30 Total Bilirubin 0.4 mg/dL (0.2-1) 09/10/18 06:40 AST 39 U/L (15-37) H 09/10/18 06:40 ALT 25 U/L (13-61) 09/10/18 06:40 Alkaline Phosphatase 67 U/L (45-117) 09/10/18 06:40 Total Protein 5.2 g/dl (6.4-8.2) L 09/10/18 06:40 Albumin 2.6 g/dl (3.4-5.0) L 09/10/18 06:40 CARDIAC ENZYMES Creatine Kinase 30 U/L (26-192) 09/09/18 19:49 Troponin I 0.18 ng/ml (0.00-0.05) H 09/10/18 06:40 Current Medications Generic Name Dose Route Start Last Admin Trade Name Kareem PRN Reason Stop Dose Admin Amlodipine Besylate 5 mg 09/11/18 22:00 09/16/18 02:46 Norvasc - PO Not Given BID [facility] Bisacodyl 10 mg 09/11/18 17:37 Dulcolax Suppository - [place] DAILY PRN CONSTIPATION Enoxaparin Sodium 40 mg 09/12/18 10:00 09/15/18 10:44 Lovenox - SQ 40 mg DAILY [facility] Administration Hydrocortisone 1 applic 09/11/18 22:00 09/16/18 02:45 Anusol 2.5% Hc Cream - TP Not Given BID [facility] Memantine 5 mg 09/11/18 22:00 09/16/18 02:45 Namenda - PO Not Given BID [facility] Metoprolol Tartrate 12.5 mg 09/11/18 22:00 09/16/18 02:45 Lopressor - PO Not Given BID [facility] Polyethylene Glycol 17 gm 09/11/18 22:00 09/16/18 02:45 Miralax (For Daily Use) - PO Not Given BID [facility] Senna 8.8 mg 09/11/18 22:00 09/16/18 02:46 Senna Oral Solution - PO Not Given BID [facility] Home Medications Medication Instructions Recorded Amlodipine Besylate [Norvasc -] 5 mg PO BID 09/09/18 Amoxicillin/Potassium Clav [Amox 5 ml PO TID 09/09/18 Tr-K Clv 400-57/5 Susp] Enoxaparin [Lovenox -] 40 mg SQ DAILY 09/09/18 Memantine HCl [Namenda -] 5 mg PO BID 09/09/18 Polyethylene Glycol 1000 17 gm PO TID 09/09/18 [Polyethylene Glycol] Sennosides [Senna] 8.8 mg PO BID 09/09/18 ASSESSMENT AND PLAN: Patient is a 88yo F with pmhx of HTN, HLD, and Alzheimer's dementia who presented to ED. for increasing colonic distension and no appetite, per Kate [facility]. # Acute over chronic Colonic distention: due to increased rectal tone. will need diltiazem rectal cream ( from a compounded pharmacy) ,s/p rectal tube off x 2 days. cont miralax and senna for now . will try to get an appointment with dr. franci Fierro , colorectal surgeon for Botox injection as out pt .Unless distention worsens, then might need to be transferred . HC ointment 2.5% continue. # Troponin leak: no further ischemic w/u , low dose BB , hold aspirin in case an intervention is needed # HTN: cont norvasc. low dose BB # Hx of Dementia continue Namenda DVT PX: lovenox
[2018-09-16 08:15] LABS: ANION GAP 5 MMOL/L (8-16); BLOOD UREA NITROGEN 15 mg/dL (7-18); CALCIUM 8.1 mg/dL (8.5-10.1); CHLORIDE 110 mmol/L (98-107); CO2 30 mmol/L (21-32); CREATININE 0.4 mg/dL (0.55-1.3); GLUCOSE,RANDOM 96 mg/dL (74-106); MAGNESIUM 2.1 mg/dL (1.8-2.4); PHOSPHOROUS 2.3 mg/dL (2.5-4.9); POTASSIUM 3.9 mmol/L (3.5-5.1); SODIUM 144 mmol/L (136-145)
[2018-09-16] MEDS ORDERED: PT OWN MED DRAWER 7, Y5N ONE (10:24)
[2018-09-16] MEDS: ENOXAPARIN NA (PORCINE) 40 MG/0.4 ML DISP.SYRIN SQ SCH (10:41)
[2018-09-16 11:41] VITALS: BP 155/62; PULSE 84; TEMP 97.7
--- NOTE | 2018-09-16 14:26 | DS ---
Physical Exam: SUBJECTIVE: Patient seen and examined at bedside. No acute events overnight. Daughter Mary at bedside. OBJECTIVE: Vital Signs Period Temp Pulse Resp BP Sys/Turcios Pulse Ox Last 24 Hr 97.7 F-98.8 F 77-88 19-20 126-155/59-81 98-98 PHYSICAL EXAM GENERAL: No acute distress HEAD: NC/AT EYES: EOMI Sclera clear ENT: Dry mucous membranes NECK: Trachea midline, full range of motion, supple. LUNGS: Poor inspiratory effort HEART: 3/6 SM. S1S2 ABDOMEN: Slightly more distended this afternoon. EXTREMITIES: Trace edema LABS Laboratory Results - last 24 hr 09/16/18 09/16/18 06:40 06:40 WBC 13.8 H RBC 4.16 Hgb 13.5 Hct 39.1 MCV 94.0 MCH 32.5 MCHC 34.6 RDW 16.4 H Plt Count 212 MPV 10.1 Sodium 144 Potassium 3.9 Chloride 110 H Carbon Dioxide 30 Anion Gap 5 L BUN 15 Creatinine 0.4 L Creat Clearance w eGFR 150.99 Random Glucose 96 Calcium 8.1 L Phosphorus 2.3 L Magnesium 2.1 HOSPITAL COURSE: Date of Admission:09/14/18 88 y/ F w/ pmhx of HTN, HLD, and Alzheimer's dementia who presented to the [facility] due to decreased appetite and increasing colonic distension per Kate [facility]. Pt was noted to have elevated troponin of 0.13 which went up to 0.20 and then trended downwards. EKG: sinus 59bpm, 1st deg AVB, LVH, LAFB, septal infarct , and apcs. Cardiology was consulted, Dr Cho who did not advise further cardiac workup in light of pt's advanced age and dementia. Cardiology also recommended pt be placed on a low dose beta arabella. Furthermore, pt underwent various imaging studies throughout her stay of her abdomen which revealed diffuse colonic distension. Pt was resumed on her home bowel regimen in addition to a rectal tube being inserted by Rachael. Pt became significantly less distended after insertion of the rectal tube. Rachael was contacted for advice on how to prevent recurrence of further episodes. It was recommended for pt to receive diltiazem 0.2% cream to anal sphincter for possible hypertensive anal canal/fissure. Referral to colorectal surgeon Dr Dalila Fierro was also recommended as pt may benefit for Botox therapy to anus. Prescription for Diltiazem cream was sent to compound pharmacy in [place], [place] and Dr Fierro's office was contacted and made aware of pt as well as given daughter's phone number to schedule appointment as outpatient. Date of Discharge: 09/16/18 Minutes to complete discharge: 35 Discharge Summary Reason For Visit: COLON DISTENTON,ELEVATED TROPNIN LEVEL Condition: Improved - Instructions Diet, Activity, Other Instructions: You were hospitalized due to your bowel distention. You were seen here and had your bowels decompressed to help with the distention. Ms. Cartwright was seen by Dr. Palmer (Gastroenterology) and were recommended to follow-up with a colorectal surgeon ( Dr. Rebel Vernon) for possible procedure to relief the hyperdynamic anal sphincter tone. Due to marked improvement of her bowel distention, Ms. Cartwright is being discharged back to her [facility]. MEDICATION: Please continue Norvasc 5mg TWICE DAILY by MOUTH if able please continue Namenda 5mg TWICE DAILY if able Please continue Lopressor 12.5mg TWICE DAILY if able Stool softeners are important. Please continue Dulcolax suppositories and warm water enemas for constipation. Please continue Miralax 17gm THREE TIMES DAILY. Please continue Senna TWICE DAILY If no surgical procedure is planned after seeing Dr. Nora Fierro, aspirin 81mg could be started DAILY We will call a special pharmacy to have a Diltiazem ointment (0.2% topical) medication available to have a pea-sized amount applied to the anal canal THREE TIMES DAILY (can increased to FOUR TIMES DAILY after 4-6 weeks with tolerance to medication) --The pharmacy is [facility] [place], [place] FOLLOWUP: Please follow with Dr. Nora Fierro. We had spoken to her anti air warfare operations officer who will be contacting you about a more recent appointment Please follow with Dr. Palmer after Dr. Nora Fierro at some point Please follow Dr. Nadeem Barnes, the [facility] physician with his recommendations. Referrals: Lotus Fierro [Other] Murphy Palmer DO [Staff Physician] - Disposition: S[facility]IOR CARE FACILITY - Home Medications Comprehensive Discharge Medication List: Ambulatory Orders Amlodipine Besylate [Norvasc -] 5 mg PO BID 09/09/18 Memantine HCl [Namenda -] 5 mg PO BID 09/09/18 Polyethylene Glycol 1000 [Polyethylene Glycol] 17 gm PO TID 09/09/18 Sennosides [Senna] 8.8 mg PO BID 09/09/18 Bisacodyl Suppository [Dulcolax Suppository -] 10 mg [place] DAILY PRN supp.rect Metoprolol Tartrate [Lopressor -] 12.5 mg PO BID tablet 09/16/18 Miscellaneous Drug Not in Syst 1 each TP TID #1 tube 09/16/18 This patient is new to me today: No Emergency Visit: Yes ED Registration Date: 09/14/18 Care time: The patient presented to the Emergency Department on the above date and was hospitalized for further evaluation of their emergent condition. Critical Care patient: No - Discharge Referral Referred to [facility] No
--- NOTE | 2018-10-01 16:21 | ECHO ---
Name: DENNISCARSON Exam:Adult Echocardiogram Study Date: 09/10/2018 10:00 AM Age: 88 yrs Reason For Study: ELEVATED TROPONIN Height: 63 in Weight: 120 lb BSA: 1.6 m2 MMode/2D Measurements & Calculations IVSd: 0.98 cm Ao root diam: 2.4 cm LVIDd: 3.6 cm LA dimension: 2.8 cm LVIDs: 1.9 cm LVPWd: 0.97 cm EDV(Teich): 55.4 ml LVOT diam: 2.0 cm ESV(Teich): 11.9 ml LAV (MOD-bp): 30.8 ml Doppler Measurements & Calculations MV E max marquise: 73.2 cm/sec Ao V2 max: 265.4 cm/sec MV A max marquise: 128.5 cm/sec Ao max P.2 mmHg MV E/A: 0.57 Ao V2 mean: 190.1 cm/sec MV dec time: 0.02 sec Ao mean P.6 mmHg Ao V2 VTI: 55.9 cm BERNARDA(I,D): 1.0 cm2 AI P1/2t: 483.6 msec BERNARDA(V,D): 1.1 cm2 AI max marquise: 404.7 cm/sec LV V1 max P.7 mmHg AI max P.6 mmHg LV V1 mean P.0 mmHg AI dec slope: 245.1 cm/sec2 LV V1 max: 96.8 cm/sec LV V1 mean: 63.7 cm/sec LV V1 VTI: 18.2 cm MR max marquise: 327.3 cm/sec SV(LVOT): 56.6 ml MR max P.8 mmHg TR max marquise: 247.5 cm/sec PA V2 max: 99.1 cm/sec TR max P.8 mmHg PA max P.9 mmHg Med Peak E' Marquise: 10.0 cm/sec Med E/e': 7.3 Lat Peak E' Marquise: 7.1 cm/sec Lat E/e': 10.4 Procedure A complete two-dimensional transthoracic echocardiogram was performed (2D, M-mode, Doppler and color flow Doppler). Left Ventricle The left ventricular size, thickness and function are normal. The left ventricular ejection fraction is normal. Ejection Fraction = 60-65%. The left ventricular wall motion is normal. Right Ventricle The right ventricle is normal in size and function. Atria Normal left and right atrial size and function. Mitral Valve There is no mitral regurgitation noted. Tricuspid Valve There is mild tricuspid regurgitation. Right ventricular systolic pressure is normal. Aortic Valve Moderate valvular aortic stenosis. Mild aortic regurgitation. Pulmonic Valve There is no pulmonic valvular regurgitation. Great Vessels The aortic root is normal size. Pericardium/Pleura There is no pericardial effusion. Interpretation Summary The left ventricular size, thickness and function are normal The right ventricle is normal in size and function. There is mild tricuspid regurgitation. Mild aortic regurgitation. Moderate valvular aortic stenosis. MD Delvin Monterroso 10/01/2018 04:20 PM
== END 2018-09-16 13:22 | DRG 393 ==
LOC: JER 15:19 → JERBED 22:53 → J2W 09-10 10:10 → J7W 09-11 20:26 → OBSVTOIN 09-14 13:06
PROVIDERS: ADMIT Internal Medicine; ATTEND Internal Medicine
DX: K63.89 Other specified diseases of intestine (principal); E43 Unspecified severe protein-calorie malnutrition; E87.0 Hyperosmolality and hypernatremia; Z68.1 Body mass index [BMI] 19.9 or less, adult; K56.7 Ileus, unspecified; K59.01 Slow transit constipation; Z66 Do not resuscitate; I10 Essential (primary) hypertension; E78.5 Hyperlipidemia, unspecified; G30.9 Alzheimer's disease, unspecified; F02.80 Dementia in other diseases classified elsewhere, unspecified severity, without behavioral disturbance, psychotic disturbance, mood disturbance, and anxiety; K60.2 Anal fissure, unspecified; E86.0 Dehydration; R62.7 Adult failure to thrive; E87.6 Hypokalemia
CPT/HCPCS: 36415; 71045-TC-FY; 74018-TC-FY; 74177-TC; 80048; 80053; 82150; 82550; 82803; 83605; 83690; 83735; 83880; 84100; 84484; 85025; 85027; 85610; 85730; 86850; 86900; 86901; 87040; 93005; 93010; 93306-TC; 97116-GP; 97161-GP; 99284-25; G0378; J3480; J7030

== ENCOUNTER 2018-09-25 15:45 | Inpatient (IN) | payer OTHER ==
[2018-09-25] MEDS ORDERED: SODIUM CHLORIDE 1,000 ML IV STA ×2 (16:53→18:31)
--- NOTE | 2018-09-25 17:00 | PDOC ---
History of Present Illness - General Chief Complaint: Loss of Appetite Stated Complaint: Altered Mental Status Time Seen by Provider: 09/25/18 16:12 History Source: Family (daughter), [facility] Records Exam Limitations: Dementia - History of Present Illness Initial Comments: 09/25/18 16:55 *History obtained by daughter Pt is an 88yo F with PMH of Alzheimer's Dementia, HTN, HLD BIBA from [facility] for decreased PO intake, dehydration x1week and elevated Na (148). Per daughter , pt does not have good PO intake, does not drink much fluids. She was told by the CO that pt needs IV hydration. Pt fights and pulls out IV lines and suggested to daughter (who is proxy) that pt would benefit from PICC line. CO tried to set up appointment but deemed it necessary that pt receive IV hydration and cannot wait for PICC line appointment. Per daughter, pt is at baseline. She recognizes daughter about 50% of the time and may or may not respond to commands depending on her mood. Pt is DNR/DNI. PMD: Will PMH: see hpi PSH: L knee replacement Meds: see med rec Allergies: warfarin Past History - Past Medical History Allergies/Adverse Reactions: Allergies Allergy/AdvReac Type Severity Reaction Status Date / Time warfarin sodium AdvReac Verified 09/25/18 16:10 [From Coumadin] Home Medications: Ambulatory Orders Amlodipine Besylate [Norvasc -] 5 mg PO BID 09/25/18 Memantine HCl 5 mg PO BID 09/25/18 Metoprolol Tartrate 25 mg PO BID 09/25/18 Polyethylene Glycol 3350 17 gm PO TID 09/25/18 Sennosides [Senna] 8.8 mg PO BID 09/25/18 Anemia: Yes Asthma: No COPD: No Dementia: Yes GI Disorders: Yes (constipation) HTN: Yes Hypercholesterolemia: Yes - Surgical History Orthopedic Surgery: Yes (left knee replacemet 2006) - Suicide/Smoking/Psychosocial Hx Smoking Status: No Smoking History: Never smoked Have you smoked in the past 12 months: No Number of Cigarettes Smoked Daily: 0 Cigars Per Day: 0 Information on smoking cessation initiated: No Hx Alcohol Use: No Drug/Substance Use Hx: No Substance Use Type: None Review of Systems - Review of Systems Comments:: 09/25/18 16:59 pt has dementia *Physical Exam - Vital Signs Last Vital Signs Temp Pulse Resp BP Pulse Ox 97.2 F L 81 16 140/73 100 09/25/18 15:45 09/25/18 15:45 09/25/18 15:45 09/25/18 15:45 09/25/18 15:45 - Physical Exam Comments: 09/25/18 17:26 exam limited due to clinical condition and not following commands General Appearance: Yes: Appropriately Dressed, Thin. No: Apparent Distress HEENT: positive: EOMI, RAUL, Other (dry mucosal membranes) Neck: positive: Trachea midline, Rigid. negative: Carotid bruit, Lymphadenopathy (R), Lymphadenopathy (L) Respiratory/Chest: positive: Lungs Clear, Normal Breath Sounds. negative: Crackles, Wheezing Cardiovascular: positive: Regular Rhythm, Regular Rate, S1, S2. negative: Edema Vascular Pulses: Carotid (R): 2+, Carotid (L): 2+, Dorsalis-Pedis (R): 2+, Doralis-Pedis (L): 2+ Gastrointestinal/Abdominal: positive: Normal Bowel Sounds, Soft. negative: Tender Musculoskeletal: negative: CVA Tenderness Extremity: positive: Normal Capillary Refill. negative: Pedal Edema, Swelling, Calf Tenderness Integumentary: positive: Normal Color, Dry, Warm Neurologic: positive: Alert, Other (spontaneously moving extremities. Not following commands) ED Treatment Course - LABORATORY CBC & Chemistry Diagram: 09/25/18 16:30 09/25/18 16:30 - RADIOLOGY Radiology Studies Ordered: Category Date Time Status CHEST X-RAY PORTABLE* [RAD] Stat Radiology 09/25/18 16:53 Ordered Medical Decision Making - Medical Decision Making 09/25/18 16:59 Pt is an 88yo F with PMH of Alzheimer's Dementia, HTN, HLD BIBA from [facility] for decreased PO intake, dehydration and elevated Na (148). Per daughter, pt does not have good PO intake, does not drink much fluids. She was told by the CO that pt needs IV hydration. Pt fights and pulls out IV lines and suggested to daughter (who is proxy) that pt would benefit from PICC line. CO tried to set up appointment but deemed it necessary that pt receive IV hydration and cannot wait for PICC line appointment. Per daughter, pt is at baseline. She recognizes daughter about 50% of the time and may or may not respond to commands depending on her mood. Pt is DNR/DNI. vitals: wnl PE: dry mucosal membranes, not following commands, moving extremities spontaneously, alert ddx includes but not limited to alie, electrolyte/metabolic disturbance, dehydration -labs, ua -ekg, cxr -IV fluids 09/25/18 17:06 Daughter refusing UA (only way to collect would be with catheter) and EKG. 09/25/18 19:34 labs significant for Na 156, Mg 3 (pt taking laxatives), Trop 0.06, WBC 12. Pt getting fluids. Will admit for IV hydration. *DC/Admit/Observation/Transfer Diagnosis at time of Disposition: Dehydration Failure to thrive Qualifiers: Failure to thrive age range: in adult Qualified Code(s): R62.7 - Adult failure to thrive Alzheimer disease Qualifiers: Alzheimer's disease onset: unspecified onset Dementia behavioral disturbance: without behavioral disturbance Qualified Code(s): G30.9 - Alzheimer's disease, unspecified - Discharge Dispostion Decision to Admit order: Yes - Referrals - Patient Instructions - Post Discharge Activity
[2018-09-25 17:17] LABS: BASO % 0.6 % (0-2.0); EOS % 0.1 % (0-4.5); HEMATOCRIT 43.9 % (32.4-45.2); HEMOGLOBIN 14.2 GM/dL (10.7-15.3); LYMPH % 9.7 % (8-40); MCH 30.9 pg (25.7-33.7); MCHC 32.4 g/dl (32.0-36.0); MEAN CELL VOLUME 95.4 fl (80-96); MEAN PLT VOLUME 9.8 fl (7.5-11.1); MONO % 8.8 % (3.8-10.2); NEUT % 80.8 % (42.8-82.8); PLATELET COUNT 208 K/MM3 (134-434); RDW 16.7 % (11.6-15.6); WHITE BLOOD COUNT 12.3 K/mm3 (4.0-10.0)
[2018-09-25 17:54] LABS: ALBUMIN 2.4 g/dl (3.4-5.0); ALK PHOS 126 U/L (45-117); ANION GAP 8 MMOL/L (8-16); BILIRUBIN,TOTAL 0.5 mg/dL (0.2-1); BLOOD UREA NITROGEN 30 mg/dL (7-18); CALCIUM 8.9 mg/dL (8.5-10.1); CHLORIDE 119 mmol/L (98-107); CO2 29 mmol/L (21-32); CREATININE 0.5 mg/dL (0.55-1.3); GLUCOSE,RANDOM 118 mg/dL (74-106); PHOSPHOROUS 2.9 mg/dL (2.5-4.9); POTASSIUM 3.8 mmol/L (3.5-5.1); SGOT/AST 24 U/L (15-37); SGPT/ALT 20 U/L (13-61); SODIUM 156 mmol/L (136-145); TOT PROT 6.2 g/dl (6.4-8.2)
--- NOTE | 2018-09-25 17:54 | PDOC ---
Attending Attestation - Resident Resident Name: Janneth Ferrer - ED Attending Attestation I have performed the following: I have examined & evaluated the patient, The case was reviewed & discussed with the resident, I agree w/resident's findings & plan, Exceptions are as noted - HPI HPI: 09/25/18 17:50 88 yo F from [facility] h/o severe dementia, with concerns for dehydration by nursing facility staff. per pt daughter at bedside who provides history pt hasn't eaten or drank anything in one week. they had discussed possiblilty of picc line and ivf, however daughter is hesitant to do invasive treatments for her mother at this time. she is currently DNR/ DNI. denies n/v is confused at baseline. and easily agitated. no know f/c/ n/v. - Physicial Exam PE: 09/25/18 17:51 awake alert dry mucous membranes, lung clear bilaterally heart rrr no mrg abd soft nt nd. ext wwp no edema. no calf tenderness. skin dry. 2 + dp/ pt bilaterally . - Medical Decision Making 09/25/18 17:52 88 yo severe dementia, here with suspected dehydration anorexia. differnetial infection such as uti or pna, renal failure, electrolyte disturbance, plan labs ekg ua. pt daughter agreeable to labs, does not want cath for ua or ekg . we will hydrate, check labs, and rediscuss admission . pt may benefil from palliateive consult for end stage dementia. 09/25/18 19:15 pt with hypernatremia, likley hypovolemic hypernatreima, will hydrate ad repeat. will admit pt.
[2018-09-25] MEDS ORDERED: SODIUM CHLORIDE 1,000 ML IV SCH (20:00)
[2018-09-25] MEDS ORDERED: MAGNESIUM SULF 50% (8.12 MEQ/2 ML-1 GM VIAL) IVPB ONE (20:02)
--- NOTE | 2018-09-25 20:02 | HP ---
CHIEF COMPLAINT: Dehydration, decreased PO intake. PCP: Dr. Nadeem Barnes HISTORY OF PRESENT ILLNESS: The patient is an 88-year-old female with a past medical history of Alzheimer's dementia, hypertension, hyperlipidemia who was sent to the emergency department from [facility] due to decrease PO intake and elevated sodium (148). The patient is demented and confused at baseline, therefore the following history was obtained from the patient's daughter at bedside. The patient's daughter states that the staff from the prison informed her that the patient was not eating or drinking at all. Since the patient requires regular IV hydration, the option of PICC line was discussed. [facility] staff did not believe that the patient would be able to last until possible line placement on Friday as there was no current line. For this reason, the prison sent the [facility] to the ED for evaluation. Upon further discussion with the patient's daughter, she states that she does not wish to place the PICC line as this would place the patient under undue stress while prolonging the inevitable. The patient's daughter expressed wishes to have the patient go back and [facility] under hosp[facility] care after being fluid resuscitated. ER course was notable for: (1) 1L NS bolus x2 (2) Na 156, BUN 30, Cr .5 Recent Travel: none PAST MEDICAL HISTORY: seee hPI PAST SURGICAL HISTORY: Left TKA Social History: Smoking: denies Alcohol: denies Drugs: denies Family History: non-contributory Allergies warfarin sodium [From Coumadin] Adverse Reaction (Verified 09/25/18 16:10) patient took med 20 yrs ago and stated she didnt like the way it made her feel. HOME MEDICATIONS: Home Medications Medication Instructions Recorded Amlodipine Besylate [Norvasc -] 5 mg PO BID 09/25/18 Memantine HCl 5 mg PO BID 09/25/18 Metoprolol Tartrate 25 mg PO BID 09/25/18 Polyethylene Glycol 3350 17 gm PO TID 09/25/18 Sennosides [Senna] 8.8 mg PO BID 09/25/18 REVIEW OF SYSTEMS Unable to obtain due to patient's clinical status PHYSICAL EXAMINATION Vital Signs - 24 hr 09/25/18 09/25/18 15:45 19:32 Temperature 97.2 F L Pulse Rate 81 Pulse Rate [ 86 Right Radial] Respiratory 16 18 Rate Blood Pressure 140/73 Blood Pressure 139/86 [Left Arm] O2 Sat by Pulse 100 98 Oximetry (%) GENERAL: Awake, alert, and fully oriented, in no acute distress. HEAD: Normal with no signs of trauma. EYES: Pupils equal, round and reactive to light, extraocular movements intact, sclera anicteric, conjunctiva clear. No lid lag. EARS, NOSE, THROAT: Ears normal, nares patent, oropharynx clear without exudates. Dry mucous membranes. LUNGS: Breath sounds equal, clear to auscultation bilaterally. No wheezes, and no crackles. No accessory muscle use. HEART: Regular rate and rhythm, normal S1 and S2 without murmur, rub or gallop. ABDOMEN: Soft, nontender, not distended, normoactive bowel sounds, no guarding, no rebound, no masses. No hepatomegaly or splenomegaly. LOWER EXTREMITIES: 2+ pulses, warm, well-perfused. No calf tenderness. No peripheral edema. NEUROLOGICAL: Cranial nerves II-X intact. Normal speech. SKIN: Warm, dry, decreased skin turgor, no rashes or lesions noted, normal capillary refill. Laboratory Results - last 24 hr 09/25/18 09/25/18 16:30 16:30 WBC 12.3 H RBC 4.60 Hgb 14.2 Hct 43.9 MCV 95.4 MCH 30.9 MCHC 32.4 RDW 16.7 H Plt Count 208 MPV 9.8 Absolute Neuts (auto) 10.0 H Neutrophils % 80.8 D Lymphocytes % 9.7 D Monocytes % 8.8 Eosinophils % 0.1 Basophils % 0.6 Nucleated RBC % 0 Sodium 156 H Potassium 3.8 Chloride 119 H Carbon Dioxide 29 Anion Gap 8 BUN 30 H Creatinine 0.5 L Creat Clearance w eGFR 116.71 Random Glucose 118 H Calcium 8.9 Phosphorus 2.9 Magnesium 3.0 H Total Bilirubin 0.5 AST 24 ALT 20 Alkaline Phosphatase 126 H Troponin I 0.06 H Total Protein 6.2 L Albumin 2.4 L ASSESSMENT/PLAN: The patient is an 88-year-old female with a past medical history of Alzheimer's dementia, hypertension, hyperlipidemia who was sent to the emergency department from [facility] due to decrease PO intake and elevated sodium (148). #Dehydration, failure to thrive and increased sodium 2/2 decreased PO intake. -s/p 2L NS bolus in ED -will hydrate w/ NS @ 75 -Patient's daughter expresses desire to have patient go back to [facility] under hospice care once fluid resuscitated. -Will place palliative care consult to speak with the patient's family on Friday. #Alzheimer's dementia -resume home memantine 5mg BID #HTN -resume home metoprolol 25mg BID -resume pt home Norvasc 5mg BID #FEN -NS@ 75 -Magnesium low. replete 2g mag IV -Sodium controlled diet. #Prophy -Lovenox 40mg SQ daily #Dispo -admit med surg -patient DNR/DNI -patient's family would like hospice care on DC -medications verified w/ family Visit type - Emergency Visit Emergency Visit: Yes ED Registration Date: 09/25/18 Care time: The patient presented to the Emergency Department on the above date and was hospitalized for further evaluation of their emergent condition. - New Patient This patient is new to me today: Yes Date on this admission: 09/25/18 - Critical Care Critical Care patient: No
--- NOTE | 2018-09-25 20:37 | PN ---
Teaching Attending Note Name of Resident: James Pascal ATTENDING PHYSICIAN STATEMENT I saw and evaluated the patient. I reviewed the resident's note and discussed the case with the resident. I agree with the resident's findings and plan as documented. SUBJECTIVE: This is an 88 year old woman with a history of HTN, hyperlipidemia, Alzheimer dementia who was sent in to the ED from [facility] for dehydration. The patient is unable to provide any history. She has had poor oral intake and was found to have sodium 148. IV hydration was recommended but an IV line was unable to be placed. PICC was recommended but it could not be done for several days. The patient appears comfortable. OBJECTIVE: Vital Signs Period Temp Pulse Resp BP Sys/Turcios Pulse Ox Last 24 Hr 97.2 F 81-86 16-18 139-140/73-86 98-100 HEENT: Dry mucous membranes HEART: S1S2, RRR, (+) 3/6 SM LUNGS: Clear ABDOMEN: Soft, mild distention, normal BS EXTREMITIES: No edema SKIN: Warm, dry, poor turgor MUSCULOSKELETAL: Bilateral temporal wasting, sunken eyes, protruding clavicles Laboratory Tests 09/25/18 09/25/18 16:30 16:30 WBC 12.3 H RBC 4.60 Hgb 14.2 Hct 43.9 MCV 95.4 MCH 30.9 MCHC 32.4 RDW 16.7 H Plt Count 208 MPV 9.8 Absolute Neuts (auto) 10.0 H Neutrophils % 80.8 D Lymphocytes % 9.7 D Monocytes % 8.8 Eosinophils % 0.1 Basophils % 0.6 Nucleated RBC % 0 Sodium 156 H Potassium 3.8 Chloride 119 H Carbon Dioxide 29 Anion Gap 8 BUN 30 H Creatinine 0.5 L Creat Clearance w eGFR 116.71 Random Glucose 118 H Calcium 8.9 Phosphorus 2.9 Magnesium 3.0 H Total Bilirubin 0.5 AST 24 ALT 20 Alkaline Phosphatase 126 H Troponin I 0.06 H Total Protein 6.2 L Albumin 2.4 L Current Medications Generic Name Dose Route Start Last Admin Trade Name Freq PRN Reason Stop Dose Admin Amlodipine Besylate 5 mg 09/25/18 22:00 Norvasc - PO BID MONSTER Sodium Chloride 1,000 mls @ 75 mls/hr 09/25/18 20:00 Normal Saline - IV ASDIR MONSTER Metoprolol Tartrate 25 mg 09/25/18 22:00 Lopressor - PO BID [facility] Non-Formulary Medication 5 mg 09/25/18 22:00 Memantine Hcl [Memantine Hcl] PO BID [facility] ASSESSMENT AND PLAN: This is an 88 year old woman with a history of HTN, hyperlipidemia, Alzheimer dementia who was sent in to the ED from [facility] for dehydration. 1. Hypernatremia secondary to dehydration - Na 156 (144 on 09/16) and BUN/creatinine 30/0.5 (15/0.4 on 09/16) - IV fluid and monitor electrolytes - Discussed with patient's daughter - She understands that given her mother' s underlying dementia, her oral intake will likely remain poor after she is hydrated and her electrolytes are corrected. Therefore, dehydration and electrolyte abnormalities are likely to recur. The patient is DNR/DNI. Her daughter does not want any artificial means of feeding and she does not want a PICC line for IV fluid. She is agreeable to IV hydration at the moment, but would like to discuss hospice care at [facility]. 2. HTN - Continue Rola Norvasc 3. Hyperlipidemia 4. Alzheimer dementia - Continue Namenda 5. Severe malnutrition secondary to dementia with poor oral intake
[2018-09-25] MEDS ORDERED: MEMANTINE HCL 5 MG PO SCH (22:00)
[2018-09-25] MEDS: MEMANTINE HCL 5 MG TABLET (UD) PO SCH (23:03)
[2018-09-25] MEDS: amLODIPine BESYLATE 5 MG TABLET (FP) PO SCH (23:03)
[2018-09-25] MEDS: METOPROLOL TARTRATE 25 MG TABLET (FP) PO SCH (23:03)
[2018-09-26 00:48] VITALS: BMI 16.8
[2018-09-26 07:47] LABS: HEMATOCRIT 43.6 % (32.4-45.2); HEMOGLOBIN 13.9 GM/dL (10.7-15.3); MCH 30.8 pg (25.7-33.7); MCHC 31.9 g/dl (32.0-36.0); MEAN CELL VOLUME 96.6 fl (80-96); MEAN PLT VOLUME 9.8 fl (7.5-11.1); PLATELET COUNT 199 K/MM3 (134-434); RBC 4.51 M/mm3 (3.60-5.2); RDW 16.8 % (11.6-15.6)
[2018-09-26 08:02] LABS: ALBUMIN 2.1 g/dl (3.4-5.0); ALK PHOS 103 U/L (45-117); ANION GAP 7 MMOL/L (8-16); BILIRUBIN,TOTAL 0.5 mg/dL (0.2-1); BLOOD UREA NITROGEN 25 mg/dL (7-18); CALCIUM 8.9 mg/dL (8.5-10.1); CHLORIDE 122 mmol/L (98-107); CO2 28 mmol/L (21-32); CREATININE 0.5 mg/dL (0.55-1.3); GLUCOSE,RANDOM 96 mg/dL (74-106); MAGNESIUM 3.6 mg/dL (1.8-2.4); PHOSPHOROUS 2.8 mg/dL (2.5-4.9); POTASSIUM 3.6 mmol/L (3.5-5.1); SGOT/AST 21 U/L (15-37); SGPT/ALT 21 U/L (13-61); SODIUM 157 mmol/L (136-145); TOT PROT 5.5 g/dl (6.4-8.2)
[2018-09-26] MEDS ORDERED: DEXTROSE 5%-WATER - 1,000 ML IV SCH (08:15)
[2018-09-26] MEDS: METOPROLOL TARTRATE 25 MG TABLET (FP) PO SCH ×2 (10:36→23:17)
[2018-09-26] MEDS: amLODIPine BESYLATE 5 MG TABLET (FP) PO SCH ×2 (10:36→23:17)
[2018-09-26] MEDS: MEMANTINE HCL 5 MG TABLET (UD) PO SCH ×2 (10:36→23:17)
[2018-09-26] MEDS: ENOXAPARIN NA (PORCINE) 40 MG/0.4 ML DISP.SYRIN SQ SCH (10:36)
--- NOTE | 2018-09-26 10:47 | PN ---
Teaching Attending Note Name of Resident: Jewel Duarte ATTENDING PHYSICIAN STATEMENT I saw and evaluated the patient. I reviewed the resident's note and discussed the case with the resident. I agree with the resident's findings and plan as documented. SUBJECTIVE: combative over night. Mumbling, refused I touch her . ASSESSMENT AND PLAN: Unfortunate 88 y/o lady with h/o Dementia, HTN, HLP, chronic colonic distention who was sent from [place] for hypernatremia and poor po intake. 1- Hypernatremia: due to dehydration form poor po intake. - change IVF to 1/2 NS - po intake as tolerated . refused this am 2- Chronic constipation and colonic distention. per resident exam, no distention and Abd was soft and had NL BS. - bowel regimen 3- Trop leak, less than last admission. if patient is to be made hospice then will not trend 4- HTN: cont norvasc and BB Goals of care, daughter will be in shortly . Hospice will be d/w her and pt is to be transferred back to [facility] for hospice today. for now , DNR/DNI
[2018-09-26] MEDS ORDERED: SODIUM CHLORIDE 0.45% 1,000 ML IV SCH (12:15)
[2018-09-26] MEDS: POLYETHYLENE GLYCOL 3350 119 GM BTL PO SCH ×2 (13:00→23:17)
--- NOTE | 2018-09-26 21:18 | PN ---
Physical Exam: SUBJECTIVE: Patient seen and examined OBJECTIVE: Vital Signs Period Temp Pulse Resp BP Sys/Turcios Pulse Ox Last 24 Hr 97.5 F-99 F 53-102 20-20 128-162/51-83 94-95 GENERAL: The patient is awake, alert, and fully oriented, in no acute distress. HEAD: Normal with no signs of trauma. EYES: PERRL, extraocular movements intact, sclera anicteric, conjunctiva clear. No ptosis. ENT: Ears normal, nares patent, oropharynx clear without exudates, moist mucous membranes. NECK: Trachea midline, full range of motion, supple. LUNGS: Breath sounds equal, clear to auscultation bilaterally, no wheezes, no crackles, no accessory muscle use. HEART: Regular rate and rhythm, S1, S2 without murmur, rub or gallop. ABDOMEN: Soft, nontender, nondistended, normoactive bowel sounds, no guarding, no rebound, no hepatosplenomegaly, no masses. EXTREMITIES: 2+ pulses, warm, well-perfused, no edema. NEUROLOGICAL: Cranial nerves II through XII grossly intact. Normal speech, gait not observed. PSYCH: Normal mood, normal affect. SKIN: Warm, dry, normal turgor, no rashes or lesions noted Laboratory Results - last 24 hr 09/26/18 09/26/18 09/26/18 05:00 05:00 15:38 WBC 9.0 RBC 4.51 Hgb 13.9 Hct 43.6 MCV 96.6 H MCH 30.8 MCHC 31.9 L RDW 16.8 H Plt Count 199 MPV 9.8 Sodium 157 H 156 H Potassium 3.6 Chloride 122 H Carbon Dioxide 28 Anion Gap 7 L BUN 25 H Creatinine 0.5 L Creat Clearance w eGFR 116.71 Random Glucose 96 Calcium 8.9 Phosphorus 2.8 Magnesium 3.6 H Total Bilirubin 0.5 AST 21 ALT 21 Alkaline Phosphatase 103 Total Protein 5.5 L Albumin 2.1 L Active Medications Generic Name Dose Route Start Last Admin Trade Name Freq PRN Reason Stop Dose Admin Amlodipine Besylate 5 mg 09/25/18 22:00 09/26/18 10:36 Norvasc - PO 5 mg BID MONSTER Administration Enoxaparin Sodium 40 mg 09/26/18 10:00 09/26/18 10:36 Lovenox - SQ 40 mg DAILY MONSTER Administration Sodium Chloride 1,000 mls @ 75 mls/hr 09/26/18 12:15 09/26/18 12:41 1/2 Normal Saline IV 75 mls/hr ASDIR MONSTER Administration Memantine 5 mg 09/25/18 22:00 09/26/18 10:36 Namenda - PO 5 mg BID MONSTER Administration Metoprolol Tartrate 25 mg 09/25/18 22:00 09/26/18 10:36 Lopressor - PO 25 mg BID MONSTER Administration Polyethylene Glycol 17 gm 09/26/18 14:00 09/26/18 13:00 Miralax (For Daily Use) - PO 17 grams TID MONSTER Administration Senna 8.8 mg 09/26/18 22:00 Senna Oral Solution - PO BID [facility] ASSESSMENT/PLAN:
[2018-09-26] MEDS: SENNOSIDES 8.8 MG/5 ML BULK BOTTLE PO SCH (23:18)
[2018-09-27] MEDS: POLYETHYLENE GLYCOL 3350 119 GM BTL PO SCH ×3 (05:51→22:08)
[2018-09-27 08:20] LABS: ANION GAP 4 MMOL/L (8-16); BLOOD UREA NITROGEN 21 mg/dL (7-18); CALCIUM 8.1 mg/dL (8.5-10.1); CHLORIDE 121 mmol/L (98-107); CO2 31 mmol/L (21-32); CREATININE 0.5 mg/dL (0.55-1.3); GLUCOSE,RANDOM 83 mg/dL (74-106); POTASSIUM 3.7 mmol/L (3.5-5.1); SODIUM 156 mmol/L (136-145)
[2018-09-27] MEDS: ENOXAPARIN NA (PORCINE) 40 MG/0.4 ML DISP.SYRIN SQ SCH (10:51)
[2018-09-27] MEDS: SENNOSIDES 8.8 MG/5 ML BULK BOTTLE PO SCH ×2 (10:54→22:07)
[2018-09-27] MEDS: MEMANTINE HCL 5 MG TABLET (UD) PO SCH ×2 (10:54→22:08)
[2018-09-27] MEDS: amLODIPine BESYLATE 5 MG TABLET (FP) PO SCH ×2 (10:59→22:08)
[2018-09-27] MEDS: METOPROLOL TARTRATE 25 MG TABLET (FP) PO SCH ×2 (10:59→22:09)
[2018-09-27] MEDS ORDERED: SODIUM CHLORIDE 0.45% 1,000 ML IV SCH (14:26)
--- NOTE | 2018-09-27 14:30 | PN ---
Progress Note (short form) - Note Progress Note: Subjective: no events over night Objective: Vital Signs: Last Vital Signs Temp Pulse Resp BP Pulse Ox 97.9 F 73 20 147/81 95 09/27/18 10:00 09/27/18 10:00 09/27/18 10:00 09/27/18 10:00 09/27/18 09:00 Laboratory Results - last 24 hr 09/26/18 09/27/18 15:38 06:10 Sodium 156 H 156 H Potassium 3.7 Chloride 121 H Carbon Dioxide 31 Anion Gap 4 L BUN 21 H Creatinine 0.5 L Creat Clearance w eGFR 116.71 Random Glucose 83 Calcium 8.1 L Physical Exam: NAD CV: : RRR, unable tappreciate murmur due to patient mumbling Lungs: CTAB Ext : no edema Abd: slight distention . hypoactive BS Assessment/Plan: Unfortunate 88 y/o lady with h/o Dementia, HTN, HLP, chronic colonic distention who was sent from [place] for hypernatremia and poor po intake. 1- Hypernatremia: due to dehydration form poor po intake. - increase IVF to 100 . repeat Na at 7 pm - po intake as tolerated . 2- Chronic constipation and colonic distention. slight distention. - cont bowel regimen 3- Trop leak 4- HTN: cont norvasc and BB Goals of care, DNR/DNI. To be evaluated for hospice by Kate . Visit type - Emergency Visit Emergency Visit: Yes ED Registration Date: 09/25/18 Care time: The patient presented to the Emergency Department on the above date and was hospitalized for further evaluation of their emergent condition. - New Patient This patient is new to me today: No - Critical Care Critical Care patient: No
[2018-09-28] MEDS: POLYETHYLENE GLYCOL 3350 119 GM BTL PO SCH ×3 (06:15→22:17)
[2018-09-28 07:34] LABS: ANION GAP 5 MMOL/L (8-16); BLOOD UREA NITROGEN 16 mg/dL (7-18); CHLORIDE 116 mmol/L (98-107); CO2 26 mmol/L (21-32); CREATININE 0.4 mg/dL (0.55-1.3); GLUCOSE,RANDOM 87 mg/dL (74-106); POTASSIUM 3.3 mmol/L (3.5-5.1); SODIUM 147 mmol/L (136-145)
[2018-09-28] MEDS: KCL 10 MEQ IVPB 10 MEQ/100 ML INFUS.BAG IVPB SCH ×2 (09:38→12:33)
[2018-09-28] MEDS: SODIUM CHLORIDE 0.45% 1,000 ML IV SCH ×2 (09:39→22:18)
[2018-09-28] MEDS: ENOXAPARIN NA (PORCINE) 40 MG/0.4 ML DISP.SYRIN SQ SCH (09:41)
[2018-09-28] MEDS: METOPROLOL TARTRATE 25 MG TABLET (FP) PO SCH ×2 (09:47→22:17)
[2018-09-28] MEDS: MEMANTINE HCL 5 MG TABLET (UD) PO SCH ×2 (09:47→22:17)
[2018-09-28] MEDS: amLODIPine BESYLATE 5 MG TABLET (FP) PO SCH ×2 (09:47→22:17)
[2018-09-28] MEDS: SENNOSIDES 8.8 MG/5 ML BULK BOTTLE PO SCH ×2 (09:48→22:17)
--- NOTE | 2018-09-28 13:40 | PN ---
Teaching Attending Note Name of Resident: Radha Joe ATTENDING PHYSICIAN STATEMENT I saw and evaluated the patient. I reviewed the resident's note and discussed the case with the resident. I agree with the resident's findings and plan as documented. SUBJECTIVE: No events. OBJECTIVE: declined exam Assessment/Plan: Unfortunate 88 y/o lady with h/o Dementia, HTN, HLP, chronic colonic distention who was sent from [place] for hypernatremia and poor po intake. 1- Hypernatremia: due to dehydration form poor po intake. - decrease IVF to 50 cc /hr - po intake as tolerated . 2- Chronic constipation and colonic distention. slight distention. - cont bowel regimen 3- Trop leak 4- HTN: cont norvasc and BB Goals of care, DNR/DNI. case d/w social work, and will confirm with family that still to go to hospice. if yes, then will dc to [facility] and she will be evaluated for hospice there.
--- NOTE | 2018-09-28 19:31 | DS ---
Physical Exam: SUBJECTIVE: Patient seen and examined at bedside this morning. No acute events overnight. As per nursing, patient was eating with family at dinner time, but did not take her meds afterwards. Otherwise patient has no new complaints. OBJECTIVE: Vital Signs Temperature 97.5 F L 09/28/18 18:00 Pulse Rate 71 09/28/18 18:00 Respiratory Rate 20 09/28/18 18:00 Blood Pressure 131/75 09/28/18 18:00 O2 Sat by Pulse Oximetry (%) 95 09/28/18 09:00 PHYSICAL EXAM GENERAL: The patient is awake, alert, in no acute distress. ABDOMEN: distended Patient refused to be examined further. LABS Laboratory Results - last 24 hr 09/28/18 05:10 Sodium 147 H Potassium 3.3 L Chloride 116 H Carbon Dioxide 26 Anion Gap 5 L BUN 16 Creatinine 0.4 L Creat Clearance w eGFR 150.99 Random Glucose 87 Calcium 8.0 L Creatine Kinase 16 L Troponin I 0.05 HOSPITAL COURSE: Date of Admission:09/25/18 Date of Discharge: 09/28/18 Patient is an 88 year old female with past medical history of Alzheimer's dementia, HTN, HLD, was brought in from [facility] due to decreased PO intake. At the ED patient was noted to have hypernatremia and was started on IV fluids, which was subsequently corrected. Discussions with family was done regarding goals of care for the patient, and family has decided to place patient on hospice care. Arrangements were made and patient was to be discharged back to [facility] for palliative care. Minutes to complete discharge: 40 Discharge Summary Reason For Visit: ALZHEIMERS DISEASE,FAILURE TO THRIVE, DEHYDRATION Current Active Problems Dehydration (Acute) Alzheimer disease (Chronic) Failure to thrive (Chronic) Condition: Stable - Instructions Diet, Activity, Other Instructions: Your visit You were admitted to the hospital because you were not eating. You were noted to be dehydrated with some electrolyte abnormalities. You were given IV fluids which corrected your electrolyte problems. Medications -Continue your home medications as prescribed. Hospice evaluation at [facility] . Referrals: Nadeem Barnes [Non Staff, Medical] - Disposition: CARE HOME FACILITY - Home Medications Comprehensive Discharge Medication List: Ambulatory Orders Memantine HCl 5 mg PO BID 09/25/18 Metoprolol Tartrate 25 mg PO BID 09/25/18 Polyethylene Glycol 3350 17 gm PO TID 09/25/18 Sennosides [Senna] 8.8 mg PO BID 09/25/18 Amlodipine Besylate [Norvasc -] 5 mg PO DAILY #30 tablet 09/28/18 This patient is new to me today: Yes Date on this admission: 09/28/18 Emergency Visit: Yes ED Registration Date: 09/25/18 Care time: The patient presented to the Emergency Department on the above date and was hospitalized for further evaluation of their emergent condition. Critical Care patient: No - Discharge Referral Referred to [facility] Med P.C[facility] No
[2018-09-29] MEDS: POLYETHYLENE GLYCOL 3350 119 GM BTL PO SCH (05:44)
[2018-09-29 07:52] LABS: ANION GAP 5 MMOL/L (8-16); BLOOD UREA NITROGEN 11 mg/dL (7-18); CALCIUM 8.1 mg/dL (8.5-10.1); CHLORIDE 115 mmol/L (98-107); CO2 26 mmol/L (21-32); CREATININE 0.3 mg/dL (0.55-1.3); GLUCOSE,RANDOM 81 mg/dL (74-106); POTASSIUM 3.6 mmol/L (3.5-5.1); SODIUM 145 mmol/L (136-145)
[2018-09-29] MEDS: amLODIPine BESYLATE 5 MG TABLET (FP) PO SCH (09:50)
[2018-09-29] MEDS: METOPROLOL TARTRATE 25 MG TABLET (FP) PO SCH (09:50)
[2018-09-29] MEDS: MEMANTINE HCL 5 MG TABLET (UD) PO SCH (09:50)
[2018-09-29] MEDS: ENOXAPARIN NA (PORCINE) 40 MG/0.4 ML DISP.SYRIN SQ SCH (09:51)
[2018-09-29] MEDS: SENNOSIDES 8.8 MG/5 ML BULK BOTTLE PO SCH (09:51)
[2018-09-29 09:56] VITALS: BP 151/55; PULSE 70; TEMP 97.8
--- NOTE | 2018-09-29 17:20 | PN ---
Teaching Attending Note Name of Resident: Radha Joe ATTENDING PHYSICIAN STATEMENT I saw and evaluated the patient. I reviewed the resident's note and discussed the case with the resident. I agree with the resident's findings and plan as documented. SUBJECTIVE: no events. daughter at bedside OBJECTIVE: NAd, CV; RRR, 3/6 Sm , lungs:unable to perform Ext : no edema Abd : distention , soft, NT a/p Unfortunate 88 y/o lady with h/o Dementia, HTN, HLP, chronic colonic distention who was sent from [place] for hypernatremia and poor po intake. 1- Hypernatremia: dehydration 2- Chronic constipation and colonic distention. slight distention. 3- Trop leak 4- HTN plan: Tranfer to [facility] for [facility] bowel regimen HTN meds other measures and meds per hospice team there
== END 2018-09-29 11:59 | DRG 640 ==
LOC: JER 15:45 → JERBED 17:11 → OBSVTOIN 19:55 → J7W 20:22
PROVIDERS: ADMIT Internal Medicine; ATTEND Internal Medicine
DX: E87.0 Hyperosmolality and hypernatremia (principal); E43 Unspecified severe protein-calorie malnutrition; Z68.1 Body mass index [BMI] 19.9 or less, adult; G30.9 Alzheimer's disease, unspecified; F02.80 Dementia in other diseases classified elsewhere, unspecified severity, without behavioral disturbance, psychotic disturbance, mood disturbance, and anxiety; E86.0 Dehydration; K59.00 Constipation, unspecified; I10 Essential (primary) hypertension; E78.5 Hyperlipidemia, unspecified; R62.7 Adult failure to thrive
CPT/HCPCS: 36415; 71045-TC-FY; 80048; 80053; 82550; 83735; 84100; 84295; 84484; 85025; 85027; 99281-25; G0378; J7030